=== PATIENT | female | born 1975 | race Caucasian/White ===

== ENCOUNTER → 2019-08-02 13:26 | Outpatient (BNVA) | payer MEDICARE, MEDICAID, SELFPAY | PROVIDERS: Family Provider Nurse Practitioner Family; PCP Nurse Practitioner Family; Visit Provider Nurse Practitioner | DX: M25.512 Pain in left shoulder (principal); G89.29 Other chronic pain | CPT/HCPCS: 73030 ==

== ENCOUNTER 2019-09-27 14:04 | Outpatient (CLI) | payer MEDICARE, MEDICAID, SELFPAY ==
--- NOTE | 2019-09-27 14:00 | CT_ITS ---
WS: [id number] CT scan of the left shoulder. Additional two-dimensional coronal and sagittal reconstruction was perf ormed. MIP images were also performed. 09/27/2019 Clinical Data: chronic left shoulder pain Comparison: Left shoulder, 08/02/2019 DLP: 651.[address] scans at [facility] use at least one of these dose optimization techniques: automat ed exposure control; mA and/or kV adjustment per patient size (includes targeted exams where dose is matched to clinical indication); or iterative reconstruction. Findings: The humeral head is normal. The articulation between the glenoid fossa and humeral head shows no abno rmalities. No narrowing, sclerosis, erosion or cyst formation is seen. The AC joint is normal. The le ft clavicle, left scapula and adjacent left ribs are unremarkable. The visualized left lung shows no abnormalities. The subcutaneous tissues are normal. CT/CT shoulder LT wo con* [id number] Impression: Negative CT scan of the left shoulder.
== END 2019-09-27 14:05 | disposition home or self-care (01) ==
LOC: RADWPI 14:10
PROVIDERS: Family Provider Nurse Practitioner Family; PCP Nurse Practitioner Family; Visit Provider Nurse Practitioner Family
DX: M25.512 Pain in left shoulder (principal); M25.612 Stiffness of left shoulder, not elsewhere classified; G89.29 Other chronic pain
CPT/HCPCS: 73200

== ENCOUNTER → 2019-10-04 15:17 | Outpatient (BNVA) | payer MEDICARE, MEDICAID, SELFPAY | PROVIDERS: Family Provider Nurse Practitioner Family; PCP Nurse Practitioner Family; Visit Provider Nurse Practitioner Family | DX: J44.1 Chronic obstructive pulmonary disease with (acute) exacerbation (principal); R05 Cough | CPT/HCPCS: 71046; 85025; 87400 ==

== ENCOUNTER 2019-10-25 16:11 | Inpatient (IN) | payer MEDICARE, MEDICAID, SELFPAY ==
[2019-10-25] VITALS (11 sets, daily range): BP systolic 94–122; BP diastolic 60–78; PULSE 80–120; RESP 18–32; TEMP 36.6; O2SAT 76–97; BMI 22.9
--- NOTE | 2019-10-25 16:28 | XR_ITS ---
WS: [id number] PORTABLE CHEST HISTORY: cough COMPARISON: 10/04/2019 Mild pulmonary hyperexpansion. No pneumonia. Normal vasculature. No pleural effusion or pneumothorax. Cardiac size: Normal. Mediastinum/Aorta: Normal mediastinum. No osseous abnormality seen. Dorsal column stimulator over the mid thoracic spine is unchanged. XR/XR chest 1V portable [id number] IMPRESSION: Chronic emphysema with no pneumonia.
--- NOTE | 2019-10-25 16:29 | ECG_ITS ---
Measurements Intervals [place] Rate: 101 P: 73 VT: 365 QRS: 69 QRSD: 88 T: 66 QT: 341 QTc: 442 ELECTRONIC ATRIAL PACEMAKER ELECTRONIC VENTRICULAR PACEMAKER ABNORMAL RHYTHM ECG Compared to ECG 11/03/2017 14:30:26 Sinus tachycardia no longer present T-wave abnormality no longer present Electronically Signed On 10-25-2019 19:07:07 CDT by Elan Silva M.D. [email or web address]
--- NOTE | 2019-10-25 16:37 | ED_ITS ---
HPI - SOB/Dyspnea General: Chief Complaint: Shortness of Breath/Dyspnea Stated Complaint: SHORT OF BREATH Time Seen by Provider: 10/25/19 16:21 History of Present Illness: HPI Narrative: Libby is a nice 44-year-old female who comes in stating that she has been short of breath for the past month. She states that she has had a bronchitis that she and her have passed back and forth. She denies any chest pain. She denies fever. She denies any exposures to the pandemic we have locally of COVID-19. She otherwise states she has no complaints she just needs to help getting her to where she can stop wheezing and breathe better. Associated symptoms: Deny abdominal pain, chest pain, diaphoresis, dizziness, extremity pain, fever(s), hemoptysis, nausea, orthopnea, palpitations, polydipsi a, syncope or vomiting Review of Systems General: Reports: other (negative unless marked) Const: Denies: fever, chills, body aches, fatigue, malaise or diaphoresis Eyes: Denies: change in vision or blurry vision ENMT: Denies: throat pain, painful swallowing, hoarseness, ear pain, ear discharge, Change in hearing or nasal discharge Card: Denies: chest pain, palpitations, irregular heart rhythm, syncope, pre- syncope, shortness of breath on exertion or shortness of breath when lying down Resp: Reports: shortness of breath, productive cough, non-productive cough, wheezing and change in phlegm color; Denies: coughing up blood GI: Denies: abdominal pain, nausea, vomiting, vomiting blood, coffee grounds in vomit, diarrhea, constipation, cramping, blood in stool or black tarry stool : Denies: flank pain, painful urination, urinary frequency, urinary urgency, decreased urine ouput, urinary incontinence or blood in urine Musc: Denies: neck pain, back pain, extremity pain, extremity swelling, joint pain, joint swelling, joint warmth or joint stiffness Skin/Breast: Denies: rash, skin tenderness or yellow skin Neuro: Denies: headache, numbness in extremities, weakness in extremities, changes in sensation, lack of coordination, difficulty walking, dizziness, vertigo or confusion Endo: Denies: excessive thirst, tired all the time, cold intolerance, excessive sweating, flushing or hot flashes Tre/Lymph: Denies: easy bruising, easy bleeding, petechiae or enlarged lymph nodes All/Imm: Denies: hives, throat swelling, tongue swelling, facial swelling or acute wheezing PFSH ED PFSH: Medical History (Updated 10/25/19 @ 20:11 by Roro Whitaker) Anxiety and depression Arthritis Asthma Atopic dermatitis, mild Chronic nausea COPD (chronic obstructive pulmonary disease) Degenerative lumbar disc GERD (gastroesophageal reflux disease) History of left foot drop Lumbosacral radiculitis Migraines Obstructive sleep apnea Scoliosis Social History Smoking and tobacco status: current every day smoker Alcohol intake: never Lives independently: Yes Household members: children Housing: House Marital status: Legally Physical Exam Const: COMMON NORMALS: no apparent distress, oriented x3, no limitations, healthy appearing and well nourished EXAM LIMITATIONS: no altered mental status GENERAL APPEARANCE: cooperative, well kempt and well developed ORIENTATION/CONSCIOUSNESS: Yes awake HENMT: COMMON NORMALS: normocephalic, head/scalp atraumatic, hearing grossly normal bilaterally, external ears normal, EAC's normal, external nose normal and moist oral mucous membranes HEAD & SCALP: normal to inspection, normocephalic and atraumatic FACE & SINUS: normal facial exam and face symmetric NOSE: external nose normal and nares normal EXTERNAL EAR: Yes external ears normal EXTERNAL AUDITORY CANAL: EAC's normal MOUTH: oral and palatal mucosa normal and tongue normal Eye: COMMON NORMALS: PERRL, EOMs intact bilaterally, conjunctivae normal and no scleral icterus GENERAL EYE: normal appearance of both eyes and normal light reflex CONJUNCTIVA: Yes conjunctivae normal SCLERA: sclerae normal CORNEA: Yes corneas normal PUPIL: Yes PERRL DIRECT OPHTHALMOSCOPY: Yes normal light reflex Neck/C-Spine: COMMON NORMALS: full ROM, no lymphadenopathy, supple, no meningeal signs and no JVD GENERAL: Yes normal visual inspection and Yes trachea midline CERVICAL SPINE: Yes cervical ROM normal Chest: COMMONS NORMALS: inspection of chest normal and palpation of chest normal Resp: EFFORT & INSPECTION: Yes tachypneic, Yes respiratory distress, Yes actively coughing, Yes uses accessory muscles and Yes audible wheezes Cardio: COMMON NORMALS: no JVD, regular rate, regular rhythm, S1 normal heart sound, S2 normal heart sound, no gallops, no clicks, no murmurs and no rub JUGULAR VENOUS DISTENTION: no JVD RATE: regular rate RHYTHM: regular rhythm HEART SOUNDS: S1 normal and S2 normal GI: COMMON NORMALS: soft to palpation, non-tender, no hepatosplenomegaly and no masses INSPECTION: Yes normal to inspection PALPATION: Yes soft and Yes no hepatosplenomegaly : COMMON NORMALS: Yes no CVA tenderness BLADDER/KIDNEY EXAM: Yes no CVA tenderness Back/Pelvis: COMMON NORMALS: no CVA tenderness, thoracic and lumbar spine normal to inspection, no thoracic nor lumbar tenderness and thoraco-lumbar ROM normal Extremity: COMMON NORMALS: normal to inspection, full ROM, normal capillary refill, no joint enlargement, no clubbing, cyanosis or edema and no calf tenderness Neuro: COMMON NORMALS: oriented x3, CN's II-XII intact bilaterally, moves all extremities, no focal motor deficits and no sensory deficits noted MENINGEAL SIGNS: Yes no meningeal signs Psych: COMMON NORMALS: mental status grossly normal, thought process normal, cooperative, affect normal, speech normal and activity/motor behavior normal APPEARANCE: Yes well kempt SPEECH: Yes normal speech THOUGHT PROCESS: normal thought process Skin: COMMON NORMALS: no rashes or lesions noted, skin turgor normal, no jaundice, no petechiae and no mottling GENERAL SKIN EXAM: no rashes or lesions noted and turgor normal Course Vital Signs: Vital signs: Vital Signs Pulse Rate 94 10/25/19 19:48 Respiratory Rate 20 H 10/25/19 19:48 Blood Pressure 109/72 10/25/19 19:48 Pulse Oximetry 97 10/25/19 19:48 MDM - SOB/Dyspnea MDM Narrative: Medical decision making narrative: Patient overall is doing better after treatment. Dr. Murillo wants to see the patient before deciding whether or not to put her on BiPAP. Further care will be dictated by him and is turned over at this time. Lab Data: Labs: Lab Results 10/25/19 10/25/19 10/25/19 Range/Units 16:50 16:50 16:50 WBC 16.8 H (4.0-10.0) 10^3/ uL RBC 5.26 (4.1-5.3) 10^6/u L Hgb 17.5 H (11.5-15.3) g/dL Hct 54.3 H (37.0-47.0) % MCV 103.2 H (81-99) fL MCH 33.3 (28.0-34.0) pg MCHC 32.2 (30.0-36.0) g/dL RDW 13.6 (12.1-15.1) % Plt Count 196 (130-400) 10^3/c mm MPV 10.5 H (7.4-10.4) fL Neut % (Auto) 86.6 % Lymph % (Auto) 6.1 % [place] % (Auto) 6.4 % Eos % (Auto) 0.2 % Baso % (Auto) 0.2 % Neut # (Auto) 14.5 H (1.8-7.7) 10^3/u L Lymph # (Auto) 1.0 (0.8-4.8) 10^3/u L [place] # (Auto) 1.1 H (0.2-0.9) 10^3/u L Eos # (Auto) 0.0 (0.0-0.8) 10^3/u L Baso # (Auto) 0.0 (0.0-0.1) 10^3/u L Nucleated RBC % (a uto) 0 % Nucleated RBCs # 0.0 /100WBC Specimen Type Sample Site ABG pH (7.35-7.45) ABG pCO2 (35-45) mmHg ABG pO2 (80.0-100.0) mmH g ABG HCO3 (22-26) mmol/L ABG Base Excess (-2.0-2.0) mmol/ L Lb Test Hematocrit (37-47) % O2 Delivery Device O2 Liters/Min % Hand Packer ID Sodium 140 (136-145) mmol/L Potassium 3.6 (3.5-5.1) mmol/L Chloride 100 (98-107) mmol/L Carbon Dioxide 27 (22-29) mmol/L Anion Gap 16.6 (5-19) BUN 6 (6-20) mg/dL Creatinine 0.5 (0.5-0.9) mg/dL GFR Calculation 135.3 H (90-130) mL/min Glucose 120 H (65-115) mg/dL Calculated Osmolal ity 287 (285-295) mOsm/k g Calcium 9.8 (8.5-10.5) mg/dL Magnesium 1.6 L (1.7-2.3) mg/dL Total Bilirubin 0.5 (0.15-1.2) mg/dL AST 9 (0-32) U/L ALT 9 (0-33) U/L Alkaline Phosphata se 77 (35-105) IU/L Troponin T Baselin e (0-10) ng/mL Troponin T 120 Min [place] (0-10) ng/mL Delta Troponin T (0-10) ABS# Total Protein 6.9 (6.6-8.7) g/dL Albumin 3.8 (3.5-5.2) g/dL Globulin 3.1 (1.3-4.6) g/dL TSH (0.27-4.20) uIU/ mL HCG, Qual Positive H (Negative) Ser , Akanksha i-Qnt mIU/mL Urine Color (Yellow) Urine Appearance (CLEAR) Urine pH (5-7) Ur Specific Gravit y (1.005-1.030) Urine Protein (Negative) Urine Glucose (UA) (Normal) Urine Ketones (Negative) Urine Blood (Negative) Urine Nitrate (Negative) Urine Bilirubin (NEGATIVE) Urine Urobilinogen (Negative) mg/dL Ur Leukocyte Graciela ase (Negative) Urine RBC (0-2) /hpf Urine WBC (0-5) /hpf Ur Squamous Epith Cells (0-5) Amorphous Sediment Urine Bacteria (NONE) Urine Opiates Scre en (Negative) ng/mL Ur Barbiturates Sc reen (Negative) ng/mL Ur Phencyclidine S crn (Negative) ng/mL Ur Amphetamines Sc reen (Negative) ng/mL U Benzodiazepines Scrn (Negative) ng/mL Urine Cocaine Scre en (Negative) ng/mL U Marijuana (THC) Screen (Negative) ng/mL 10/25/19 10/25/19 10/25/19 Range/Units 16:50 17:15 17:50 WBC (4.0-10.0) 10^3/ uL RBC (4.1-5.3) 10^6/u L Hgb (11.5-15.3) g/dL Hct (37.0-47.0) % MCV (81-99) fL MCH (28.0-34.0) pg MCHC (30.0-36.0) g/dL RDW (12.1-15.1) % Plt Count (130-400) 10^3/c mm MPV (7.4-10.4) fL Neut % (Auto) % Lymph % (Auto) % [place] % (Auto) % Eos % (Auto) % Baso % (Auto) % Neut # (Auto) (1.8-7.7) 10^3/u L Lymph # (Auto) (0.8-4.8) 10^3/u L [place] # (Auto) (0.2-0.9) 10^3/u L Eos # (Auto) (0.0-0.8) 10^3/u L Baso # (Auto) (0.0-0.1) 10^3/u L Nucleated RBC % (a uto) % Nucleated RBCs # /100WBC Specimen Type Arterial Sample Site Radial, left ABG pH 7.34 L (7.35-7.45) ABG pCO2 58.1 H (35-45) mmHg ABG pO2 64.5 L (80.0-100.0) mmH g ABG HCO3 31.5 H (22-26) mmol/L ABG Base Excess 3.6 H (-2.0-2.0) mmol/ L Lb Test Pos Hematocrit 53.8 H (37-47) % O2 Delivery Device Nc O2 Liters/Min 4.0 % Hand Packer ID drn Sodium (136-145) mmol/L Potassium (3.5-5.1) mmol/L Chloride (98-107) mmol/L Carbon Dioxide (22-29) mmol/L Anion Gap (5-19) BUN (6-20) mg/dL Creatinine (0.5-0.9) mg/dL GFR Calculation (90-130) mL/min Glucose (65-115) mg/dL Calculated Osmolal ity (285-295) mOsm/k g Calcium (8.5-10.5) mg/dL Magnesium (1.7-2.3) mg/dL Total Bilirubin (0.15-1.2) mg/dL AST (0-32) U/L ALT (0-33) U/L Alkaline Phosphata se (35-105) IU/L Troponin T Baselin e 7 (0-10) ng/mL Troponin T 120 Min [place] (0-10) ng/mL Delta Troponin T (0-10) ABS# Total Protein (6.6-8.7) g/dL Albumin (3.5-5.2) g/dL Globulin (1.3-4.6) g/dL TSH (0.27-4.20) uIU/ mL HCG, Qual (Negative) Ser , Akanksha i-Qnt mIU/mL Urine Color Yellow (Yellow) Urine Appearance Clear (CLEAR) Urine pH 5 (5-7) Ur Specific Gravit y 1.020 (1.005-1.030) Urine Protein Neg (Negative) Urine Glucose (UA) Norm (Normal) Urine Ketones Negative (Negative) Urine Blood Neg (Negative) Urine Nitrate Negative (Negative) Urine Bilirubin 1+ H (NEGATIVE) Urine Urobilinogen 1 H (Negative) mg/dL Ur Leukocyte Graciela ase Negative (Negative) Urine RBC None (0-2) /hpf Urine WBC None (0-5) /hpf Ur Squamous Epith Cells 0-4 H (0-5) Amorphous Sediment 2+ Urine Bacteria 1+ H (NONE) Urine Opiates Scre en (Negative) ng/mL Ur Barbiturates Sc reen (Negative) ng/mL Ur Phencyclidine S crn (Negative) ng/mL Ur Amphetamines Sc reen (Negative) ng/mL U Benzodiazepines Scrn (Negative) ng/mL Urine Cocaine Scre en (Negative) ng/mL U Marijuana (THC) Screen (Negative) ng/mL 10/25/19 10/25/19 10/25/19 Range/Units 17:50 18:10 19:13 WBC (4.0-10.0) 10^3/ uL RBC (4.1-5.3) 10^6/u L Hgb (11.5-15.3) g/dL Hct (37.0-47.0) % MCV (81-99) fL MCH (28.0-34.0) pg MCHC (30.0-36.0) g/dL RDW (12.1-15.1) % Plt Count (130-400) 10^3/c mm MPV (7.4-10.4) fL Neut % (Auto) % Lymph % (Auto) % [place] % (Auto) % Eos % (Auto) % Baso % (Auto) % Neut # (Auto) (1.8-7.7) 10^3/u L Lymph # (Auto) (0.8-4.8) 10^3/u L [place] # (Auto) (0.2-0.9) 10^3/u L Eos # (Auto) (0.0-0.8) 10^3/u L Baso # (Auto) (0.0-0.1) 10^3/u L Nucleated RBC % (a uto) % Nucleated RBCs # /100WBC Specimen Type Sample Site ABG pH (7.35-7.45) ABG pCO2 (35-45) mmHg ABG pO2 (80.0-100.0) mmH g ABG HCO3 (22-26) mmol/L ABG Base Excess (-2.0-2.0) mmol/ L Lb Test Hematocrit (37-47) % O2 Delivery Device O2 Liters/Min % Hand Packer ID Sodium (136-145) mmol/L Potassium (3.5-5.1) mmol/L Chloride (98-107) mmol/L Carbon Dioxide (22-29) mmol/L Anion Gap (5-19) BUN (6-20) mg/dL Creatinine (0.5-0.9) mg/dL GFR Calculation (90-130) mL/min Glucose (65-115) mg/dL Calculated Osmolal ity (285-295) mOsm/k g Calcium (8.5-10.5) mg/dL Magnesium (1.7-2.3) mg/dL Total Bilirubin (0.15-1.2) mg/dL AST (0-32) U/L ALT (0-33) U/L Alkaline Phosphata se (35-105) IU/L Troponin T Baselin e (0-10) ng/mL Troponin T 120 Min [place] 6.71 (0-10) ng/mL Delta Troponin T -0.29 L (0-10) ABS# Total Protein (6.6-8.7) g/dL Albumin (3.5-5.2) g/dL Globulin (1.3-4.6) g/dL TSH (0.27-4.20) uIU/ mL HCG, Qual (Negative) Ser , Akanksha i-Qnt 6.43 mIU/mL Urine Color (Yellow) Urine Appearance (CLEAR) Urine pH (5-7) Ur Specific Gravit y (1.005-1.030) Urine Protein (Negative) Urine Glucose (UA) (Normal) Urine Ketones (Negative) Urine Blood (Negative) Urine Nitrate (Negative) Urine Bilirubin (NEGATIVE) Urine Urobilinogen (Negative) mg/dL Ur Leukocyte Graciela ase (Negative) Urine RBC (0-2) /hpf Urine WBC (0-5) /hpf Ur Squamous Epith Cells (0-5) Amorphous Sediment Urine Bacteria (NONE) Urine Opiates Scre en Positive H (Negative) ng/mL Ur Barbiturates Sc reen Negative (Negative) ng/mL Ur Phencyclidine S crn Negative (Negative) ng/mL Ur Amphetamines Sc reen Negative (Negative) ng/mL U Benzodiazepines Scrn Negative (Negative) ng/mL Urine Cocaine Scre en Negative (Negative) ng/mL U Marijuana (THC) Screen Negative (Negative) ng/mL 10/25/19 Range/Units 19:13 WBC (4.0-10.0) 10^3/ uL RBC (4.1-5.3) 10^6/u L Hgb (11.5-15.3) g/dL Hct (37.0-47.0) % MCV (81-99) fL MCH (28.0-34.0) pg MCHC (30.0-36.0) g/dL RDW (12.1-15.1) % Plt Count (130-400) 10^3/c mm MPV (7.4-10.4) fL Neut % (Auto) % Lymph % (Auto) % [place] % (Auto) % Eos % (Auto) % Baso % (Auto) % Neut # (Auto) (1.8-7.7) 10^3/u L Lymph # (Auto) (0.8-4.8) 10^3/u L [place] # (Auto) (0.2-0.9) 10^3/u L Eos # (Auto) (0.0-0.8) 10^3/u L Baso # (Auto) (0.0-0.1) 10^3/u L Nucleated RBC % (a uto) % Nucleated RBCs # /100WBC Specimen Type Sample Site ABG pH (7.35-7.45) ABG pCO2 (35-45) mmHg ABG pO2 (80.0-100.0) mmH g ABG HCO3 (22-26) mmol/L ABG Base Excess (-2.0-2.0) mmol/ L Lb Test Hematocrit (37-47) % O2 Delivery Device O2 Liters/Min % Hand Packer ID Sodium (136-145) mmol/L Potassium (3.5-5.1) mmol/L Chloride (98-107) mmol/L Carbon Dioxide (22-29) mmol/L Anion Gap (5-19) BUN (6-20) mg/dL Creatinine (0.5-0.9) mg/dL GFR Calculation (90-130) mL/min Glucose (65-115) mg/dL Calculated Osmolal ity (285-295) mOsm/k g Calcium (8.5-10.5) mg/dL Magnesium (1.7-2.3) mg/dL Total Bilirubin (0.15-1.2) mg/dL AST (0-32) U/L ALT (0-33) U/L Alkaline Phosphata se (35-105) IU/L Troponin T Baselin e (0-10) ng/mL Troponin T 120 Min [place] (0-10) ng/mL Delta Troponin T (0-10) ABS# Total Protein (6.6-8.7) g/dL Albumin (3.5-5.2) g/dL Globulin (1.3-4.6) g/dL TSH 0.36 (0.27-4.20) uIU/ mL HCG, Qual (Negative) Ser , Akanksha i-Qnt mIU/mL Urine Color (Yellow) Urine Appearance (CLEAR) Urine pH (5-7) Ur Specific Gravit y (1.005-1.030) Urine Protein (Negative) Urine Glucose (UA) (Normal) Urine Ketones (Negative) Urine Blood (Negative) Urine Nitrate (Negative) Urine Bilirubin (NEGATIVE) Urine Urobilinogen (Negative) mg/dL Ur Leukocyte Graciela ase (Negative) Urine RBC (0-2) /hpf Urine WBC (0-5) /hpf Ur Squamous Epith Cells (0-5) Amorphous Sediment Urine Bacteria (NONE) Urine Opiates Scre en (Negative) ng/mL Ur Barbiturates Sc reen (Negative) ng/mL Ur Phencyclidine S crn (Negative) ng/mL Ur Amphetamines Sc reen (Negative) ng/mL U Benzodiazepines Scrn (Negative) ng/mL Urine Cocaine Scre en (Negative) ng/mL U Marijuana (THC) Screen (Negative) ng/mL Imaging Data^: CXR: My impression: No acute cardiopulmonary findings. EKG Data^: EKG 1: Attestation: I personally reviewed and interpreted this EKG as follows: EKG Interpretation Date: 10/25/19 EKG interpretation time: 16:40 Interpretation: Normal sinus rhythm at 101 beats a minute, defect present consistent with implantable electronic device. Discharge Plan Discharge Patient Disposition: Placed in Observation Clinical Impression: Acute exacerbation of chronic obstructive airways disease Condition: Stable Prescriptions: No Action Amitiza 24 mcg capsule 24 mcg PO BID RF: 0 benzonatate 200 mg capsule 200 mg PO TID PRN (Reason: Cough) RF: 0 budesonide 0.5 mg/2 mL suspension for nebulization 0.5 mg inhalation BID RF: 0 buspirone 15 mg tablet 15 mg PO BID RF: 0 venlafaxine [Effexor XR] 75 mg capsule,extended release 24hr 75 mg PO DAILY RF: 0 montelukast 10 mg tablet 10 mg PO DAILY RF: 0 pantoprazole 40 mg tablet,delayed release (DR/EC) 40 mg PO DAILY RF: 0 Perforomist 20 mcg/2 mL solution for nebulization 2 ml INHALATION BID RF: 0 albuterol sulfate [ProAir HFA] 90 mcg/actuation HFA aerosol inhaler 2 puff INHALATION Q4H PRN (Reason: Shortness Of Breath) RF: 0 Spiriva with HandiHaler 18 mcg capsule, w/inhalation device 1 cap INHALATION DAILY RF: 0 ondansetron HCl [Zofran] 8 mg tablet 8 mg PO Q8H PRN (Reason: Nausea) RF: 0 morphine 30 mg capsule, ER multiphase 24 hr 30 mg PO DAILY RF: 0 morphine 60 mg capsule, ER multiphase 24 hr 60 mg PO BID RF: 0 oxycodone-acetaminophen [Percocet] 7.5-325 mg tablet 1 tab PO QID PRN (Reason: Pain) RF: 0 promethazine-DM 6.25-15 mg/5 mL syrup 5 ml PO Q6H PRN (Reason: cough) Qty: 240 RF: 0 gabapentin 600 mg tablet 600 mg PO QID 30 Days Qty: 120 RF: 5 albuterol sulfate 2.5 mg /3 mL (0.083 %) Solution For Nebulization 2.5 mg inhalation PRN RF: 0 prednisone 20 mg Tablet 20 mg PO BID RF: 0 Excedrin Migraine 250-250-65 mg Tablet 1 - 2 tab PO PRN RF: 0 Tylenol Extra Strength 500 - 1,500 mg PO PRN RF: 0 Referrals: Heide Dhillon FNP-C [Primary Care Provider] - Coding Level of Care Code ED Hot Wound [place] Production Supervisor for Chg Fwd Exam Comprehensive
[2019-10-25 17:04] LABS: Basophils % 0.2 %; Eosinophils % 0.2 %; Hematocrit 54.3 % (37.0-47.0); Hemoglobin 17.5 g/dL (11.5-15.3); Lymphocytes % 6.1 %; Mean Corpuscular HGB Conc 32.2 g/dL (30.0-36.0); Mean Corpuscular Hemoglobin 33.3 pg (28.0-34.0); Mean Corpuscular Volume 103.2 fL (81-99); Mean Platelet Volume 10.5 fL (7.4-10.4); Monocytes # 1.1 10^3/uL (0.2-0.9); Monocytes % 6.4 %; Neutrophils # 14.5 10^3/uL (1.8-7.7); Neutrophils % 86.6 %; Nucleated Red Blood Cells % 0 %; Platelet Count 196 10^3/cmm (130-400); Red Blood Count 5.26 10^6/uL (4.1-5.3); Red Cell Distribution Width 13.6 % (12.1-15.1); White Blood Count 16.8 10^3/uL (4.0-10.0)
[2019-10-25 17:19] LABS: HCG, Serum Qual Positive (Negative)
[2019-10-25 17:26] LABS: Alanine Aminotransferase 9 U/L (0-33); Albumin Level 3.8 g/dL (3.5-5.2); Alkaline Phosphatase 77 IU/L (35-105); Anion Gap 16.6 (5-19); Aspartate Amino Transferase 9 U/L (0-32); Blood Urea Nitrogen 6 mg/dL (6-20); Calcium 9.8 mg/dL (8.5-10.5); Carbon Dioxide 27 mmol/L (22-29); Chloride 100 mmol/L (98-107); Globulin 3.1 g/dL (1.3-4.6); Glomerular Filtration Rate 135.3 mL/min (90-130); Glucose 120 mg/dL (65-115); Magnesium 1.6 mg/dL (1.7-2.3); Osmolality Calculated 287 mOsm/kg (285-295); Potassium 3.6 mmol/L (3.5-5.1); Sodium 140 mmol/L (136-145); Total Bilirubin 0.5 mg/dL (0.15-1.2); Total Protein 6.9 g/dL (6.6-8.7); Troponin(5th) Baseline 7 ng/mL (0-10)
[2019-10-25 17:33] LABS: ABG PCO2 58.1 mmHg (35-45); ABG PH Result 7.34 (7.35-7.45); Arterial Blood Gas Hematocrit 53.8 % (37-47); Base Excess ABG 3.6 mmol/L (-2.0-2.0); Blood Gas Allen Test Pos; Blood Gas Sample Site Radial, left; Blood Gas Sample Type Arterial; HCO3 ABG 31.5 mmol/L (22-26); Oxygen Device NC; PO2 ABG 64.5 mmHg (80.0-100.0)
[2019-10-25] MEDS: magnesium sulfate premix 2 GM/50 ML PIGGYBACK IV (18:12)
[2019-10-25 18:29] LABS: Amphetamines Screen Urine Negative (Negative); Barbiturates Screen Urine Negative (Negative); Benzodiazepines Screen Urine Negative (Negative); Cocaine Screen Urine Negative (Negative); Opiate Screen Urine Positive (Negative); PCP Screen Urine Negative (Negative); THC Screen Urine Negative (Negative)
--- NOTE | 2019-10-25 18:29 | ECG_ITS ---
Measurements Intervals [place] Rate: 106 P: 253 [place]: 217 QRS: 63 QRSD: 85 T: 45 QT: 316 QTc: 421 Possibly SINUS tachycardia Interpretation limited by artifact Compared to ECG 10/25/2019 16:40:57 No significant changes Electronically Signed On 10-26-2019 11:11:07 CDT by Hiwot Muniz M.D. [email or web address]
[2019-10-25 18:37] LABS: Bilirubin Urine 1+ (NEGATIVE); Blood Urine Neg (Negative); Glucose Urine UA Norm (Normal); Ketones Urine Negative (Negative); Leukocyte Esterase Urine Negative (Negative); Nitrate Urine Negative (Negative); Protein Urine Neg (Negative); Urine Appearance Clear (CLEAR); Urine Color Yellow (Yellow); Urobilinogen Urine 1 mg/dL (Negative); pH Urine 5 (5-7)
[2019-10-25 18:39] LABS: HCG Quantitative 6.43 mIU/mL
[2019-10-25 18:49] LABS: Add Urine Culture? No; Amorphous Sediment Urine 2+; Bacteria Urine 1+; Squamous Epithelial Cell Urine 0-4 (0-5)
[2019-10-25 19:42] LABS: Troponin 5 2HR 6.71 ng/mL (0-10)
[2019-10-25 19:43] LABS: Troponin 5 2HR Delta -0.29 ABS# (0-10)
[2019-10-25 19:50] LABS: Thyroid Stimulating Hormone 0.36 uIU/mL (0.27-4.20)
[2019-10-25 20:21] LABS: Follicle Stimulating Hormone 57.7 mIU/mL
--- NOTE | 2019-10-25 20:31 | PC.NURSE ---
attempted to call report but the nurse refused report untill she contacted the DrRaoul because the pt. has not been tested for covid-19
--- NOTE | 2019-10-25 20:36 | SUR.PREOP ---
PT refused the bipap. Pt states it's hard to breathe and my anxiety is high with it on. Dr. Whitaker and Dr. Murillo notified.
--- NOTE | 2019-10-25 20:56 | PM.HP ---
Providers/Chief Complaint Admitting Physician: Justice Murillo MD Primary Care Provider: REMI Lopes-Maddie Chief Complaint: SHORT OF BREATH History of Present Illness Paula Starr is a 44 year old female with a past medical history of COPD, 4 L oxygen dependent, uses what sounds like home trilogy, history of pulmonary embolism secondary to estrogen therapy, chronic back pain on multiple opiate medications, depression anxiety, who presents to the emergency room due to a 3-month history of cough, shortness of breath, wheezing. Patient states that since July of this year, she has had multiple COPD exacerbation, has been on multiple rounds of steroids, multiple rounds of antibiotics. Recently was on a steroid burst and doxycycline. Patient states that she continually has wheezing, shortness of breath, on a good day she can walk 10 to 15 feet before getting short of breath now just getting up and taking a few steps she gets short of breath, low-grade fevers temperature is 99.8, no travel, no known exposure to COVID19. Patient states that she has a chronic cough, white phlegm, states that she been coughing up more phlegm, no change in consistency or color, no hemoptysis, no calf pain, no calf swelling, no recent immobility, no recent surgeries. Patient states that her has been sick with some what sound like a viral URI, they have been passing it back and forth. No real fevers, no chills, no nausea, no vomiting, no chest pain, no palpitations. Review of Systems Const: Denies: fever, chills, fatigue or malaise Eyes: Denies: change in vision or blurry vision ENMT: Denies: nasal congestion Resp: Reports: shortness of breath and productive cough; Denies: non-productive cough or wheezing GI: Denies: abdominal pain, nausea, vomiting, vomiting blood, diarrhea, constipation, blood in stool or black tarry stool : Denies: flank pain, painful urination or urinary frequency Musc: Denies: neck pain or back pain Skin/Breast: Denies: rash Neuro: Denies: headache, dizziness or vertigo Psych: Denies: anxiety or depression Endo: Denies: excessive urination or excessive thirst Medications/Allergies Home Medications Medication Instructions Recorded Confirmed Last Taken Type Tylenol Extra Strength 500 - 1,500 mg PO PRN 10/25/19 10/25/19 Unknown History albuterol sulfate 2.5 mg INHALATION PRN 10/25/19 10/25/19 Unknown History clgbgha-hbudnhmxweier-oujxnxoa 1 - 2 tab PO PRN 10/25/19 10/25/19 Unknown History [Excedrin Migraine] prednisone 20 mg PO BID 10/25/19 10/25/19 10/25/19 History Allergies Allergy/AdvReac Type Severity Reaction Status Date / Time estrogens, conjugated Allergy Severe blood clots Verified 10/25/19 16:28 [From Premarin] Fish Containing Products Allergy Unknown unknown Verified 10/25/19 16:28 NSAIDS (Non-Steroidal Allergy stomach Verified 10/25/19 16:28 Anti-Inflamma bleeds Additional Medication Information Additional Medication Information: Albuterol Excedrin Tessalon Perles 20 mg 3 times daily as needed Budesonide 0.5 mg inhalation twice daily BuSpar 15 mg twice daily Form Adderall Gabapentin 600 mg 4 times daily Amities 24 mcg twice daily Singulair 10 mg daily Morphine 60 mg IR in the morning in the evening Morphine 30 mg in the afternoon Percocet 325 7.5 4 times daily Pantoprazole 40 mg once daily promethazine PFSH Acute PFSH: Medical History (Updated 10/25/19 @ 21:07 by Justice Murillo MD) Anxiety and depression Arthritis Asthma Atopic dermatitis, mild Chronic nausea COPD (chronic obstructive pulmonary disease) Degenerative lumbar disc GERD (gastroesophageal reflux disease) History of left foot drop Lumbosacral radiculitis Migraines Obstructive sleep apnea Scoliosis Social History Smoking and tobacco status: current every day smoker Alcohol intake: never Lives independently: Yes Household members: children Housing: House Marital status: Legally Vitals/I&O/Wt Last Vital Signs Pulse 94 10/25/19 19:48 Resp 20 H 10/25/19 19:48 BP 109/72 10/25/19 19:48 Pulse Ox 97 10/25/19 19:48 Weight last 48 hrs Weight 62.596 kg Physical Exam Const: COMMON NORMALS: no apparent distress and oriented x3 GENERAL APPEARANCE: cooperative and comfortable HENMT: COMMON NORMALS: normocephalic HEAD & SCALP: normocephalic Eye: COMMON NORMALS: PERRL, EOMs intact bilaterally and no papilledema GENERAL EYE: normal appearance of both eyes PUPIL: Yes PERRL DIRECT OPHTHALMOSCOPY: Yes no papilledema Neck/C-Spine: COMMON NORMALS: full ROM, no lymphadenopathy, no JVD and thyroid normal THYROID: thyroid normal Lymph: LYMPHATIC: no lymphadenopathy noted Resp: COMMON NORMALS: normal respiratory effort, no retractions and no use of accessory muscles AUSCULTATION: clear to auscultation bilaterally and wheezes Cardio: COMMON NORMALS: no JVD, regular rate, regular rhythm, S1 normal heart sound, S2 normal heart sound, no gallops, no clicks and no murmurs RATE: regular rate RHYTHM: regular rhythm HEART SOUNDS: S1 normal and S2 normal GI: COMMON NORMALS: normal to inspection, nondistended, normoactive bowel sounds, soft to palpation, non-tender and no hepatosplenomegaly PALPATION: Yes soft and Yes no hepatosplenomegaly Extremity: COMMON NORMALS: normal to inspection, full ROM and no pedal edema Neuro: COMMON NORMALS: oriented x3, CN's II-XII intact bilaterally, moves all extremities and no focal motor deficits Psych: COMMON NORMALS: mental status grossly normal, thought process normal and cooperative THOUGHT PROCESS: normal thought process Data : 10/25/19 16:50 10/25/19 16:50 A&P Assessment and plan (1) Acute on chronic respiratory failure with hypoxia and hypercapnia: -Uses 4 L oxygen at home, home trilogy -She is on multiple opiate medications for back pain -Has failed multiple rounds of antibiotic and steroid therapies for the last few months -pH 7.34, PCO2 50.1, PO2 64.5, bicarb 31.5 on 4 L -White blood cell count 16.8, neutrophilic 14.5, but has been on multiple rounds of antibiotics -Chest x-ray does not show focal pneumonia Plan: -We will do covid19 testing although I feel it is quite unlikely -We will order CT angiogram of the chest to rule out pulmonary embolism -Solu-Medrol 40 every 8 hours -Azithromycin and Rocephin mainly for anti-inflammatory effect -Ipratropium every 4 scheduled -BiPAP as needed during the day, BiPAP during the night -Sputum cultures, blood cultures Status: Acute (2) Acute exacerbation of chronic obstructive airways disease: Status: Acute (3) Lumbosacral radiculitis: Status: Chronic (4) COPD (chronic obstructive pulmonary disease): Status: Acute Qualifiers: COPD type: unspecified COPD Qualified Code(s): J44.9 - Chronic obstructive pulmonary disease, unspecified (5) Chronically on opiate therapy: -Has chronic back pain, history of back surgeries Morphine 60 mg in the morning, and in the evening, 30 mg in the afternoon -Percocet 7.5 mg 4 times daily -Gabapentin 600 mg 4 times daily -Effexor 75 mg once daily -Managed to the pain clinic in [facility] Status: Acute (6) Anxiety and depression: -Continue BuSpar Status: Acute (7) Elevated serum hCG in female, not : -Positive hCG -Status post hysterectomy -Possibly secondary to promethazine use -Possibly secondary to hypothyroidism, TSH pending -Possibly secondary to pituitary tumor, FSH LH ordered -Possibly secondary to ovarian tumors, pelvic ultrasound ordered - Likely secondary to postmenopausal state Status: Acute Additional A&P Information Patient is a full code, Lovenox for DVT prophylaxis Attestations Medical Necessity Statement*: Patient requires hospitalization, inpatient, greater than 2 midnights for acute hypoxic hypercarbic respiratory failure Coding Level of Care Code Acute Automatic Lathe Setter for Chg Fwd Diagnoses Acute on chronic respiratory failure with hypoxia and hypercapnia J96.21; J96.22 Acute exacerbation of chronic obstructive airways disease J44.1 Lumbosacral radiculitis M54.17 COPD (chronic obstructive pulmonary disease) J44.9 COPD type: unspecified COPD Chronically on opiate therapy Z79.891 Anxiety and depression F41.9; F32.9 Elevated serum hCG in female, not E34.9
--- NOTE | 2019-10-25 22:01 | CTR_ITS ---
PROCEDURE INFORMATION: Exam: CT Angiography Chest With Contrast Exam date and time: 10/25/2019 10:12 PM Age: 44 years old Clinical indication: Cough and dyspnea; Additional info: SOB TECHNIQUE: Imaging protocol: Computed tomographic angiography of the chest with intravenous contrast. 3D rendering: MIP and/or 3D reconstructed images were created by the technologist. Total DLP: 519.38 mGy-cm Radiation optimization: All CT scans at this facility use at least one of these dose optimization techniques: automated exposure control; mA and/or kV adjustment per patient size (includes targeted exams where dose is matched to clinical indication); or iterative reconstruction. Contrast material: OMNI 350; Contrast volume: 67 ml; Contrast route: IV; COMPARISON: CTA Chest-Pulmonary Emb [id number] 04/24/2014 9:39 AM FINDINGS: Tubes, catheters and devices: Dorsal epidural stimulator device at the lower thoracic levels. Pulmonary arteries: Normal. No pulmonary emboli. Aorta: The thoracic aorta is normal caliber. No aneurysm or dissection is seen. Lungs: Centrilobular emphysematous changes are noted. Atelectasis or parenchymal scarring is seen at both lung bases. Pneumonitis cannot be excluded. Pleural space: No pleural effusion. Heart: Unremarkable. No cardiomegaly. No pericardial effusion. Lymph nodes: Prominent hilar lymph nodes bilaterally, unchanged compared to prior study. Bones/joints: Unremarkable. No acute fracture. CT/CT angio chest PE protcl [id number] IMPRESSION: 1. Emphysema. 2. Atelectasis or parenchymal scarring at both lung bases. Pneumonitis cannot be excluded. 3. Prominent hilar lymph nodes bilaterally, unchanged compared to previous study. Radiation Dose CTDIVOL = (mGy): DLP = 519.38 (mGy-cm)
[2019-10-25] MEDS: iohexol 350 mg/mL 100 mL Btl IV (22:33)
--- NOTE | 2019-10-25 22:33 | PC.NURSE ---
Pt arrived to room 111 at this time, O2 per nasal canula and N95 mask in place. Pt is alert and oriented x4. Introduction of staff and AIDET at this time. Pt oriented to room, bed, tv and call light systems. Ambulated to bed per self without difficulty.
[2019-10-25 22:43] LABS: Influenza A by IFA Negative (Negative); Influenza B by IFA Negative (Negative)
[2019-10-25 23:17] LABS: NT Pro B Type Natriuretic Pept 238 pg/mL (0-125)
[2019-10-25 23:18] LABS: Troponin 5 6HR 6 ng/mL (0-10); Troponin 5 6HR Delta -1 ng/L (0-12)
[2019-10-25] MEDS: benzonatate 100 mg Capsule 200 MG PO (23:56)
[2019-10-25] MEDS: azithromycin 500 MG in sodium chloride 0.9% 250 ML 250 MG IV (23:57)
[2019-10-25] MEDS: gabapentin 300 mg Capsule 600 MG PO (23:57)
[2019-10-25] MEDS: oxyCODONE-APAP 5-325 mg Tablet 1.5 TAB PO (23:58)
[2019-10-25] MEDS: enoxaparin 40 mg/0.4 mL Syringe SUBCUT (23:58)
[2019-10-26] VITALS (23 sets, daily range): BP systolic 80–121; BP diastolic 58–87; PULSE 71–129; RESP 16–25; TEMP 36.2–37.1; O2SAT 87–97
[2019-10-26] MEDS: albuterol 8 gm MDI 4 PUFF INHALATION ×3 (00:15→20:34)
[2019-10-26 01:27] LABS: Follicle Stimulating Hormone 53.4 mIU/mL; Luteinizing Hormone 32.2 mIU/mL (0.5-41.7); Procalcitonin 0.02 ng/mL (0-0.5)
[2019-10-26 01:44] LABS: C Reactive Protein 42.8 mg/L (0.0-4.9)
[2019-10-26] MEDS: morphine ER (12 HR) 30 mg tablet 60 MG PO ×2 (02:07→17:25)
[2019-10-26 02:49] LABS: HCG Qualitative Urine. Negative (Negative)
[2019-10-26 04:08] LABS: Basophils % 0.1 %; Hematocrit 49.5 % (37.0-47.0); Hemoglobin 15.8 g/dL (11.5-15.3); Lymphocytes # 0.6 10^3/uL (0.8-4.8); Lymphocytes % 4.6 %; Mean Corpuscular HGB Conc 31.9 g/dL (30.0-36.0); Mean Corpuscular Hemoglobin 32.6 pg (28.0-34.0); Mean Corpuscular Volume 102.3 fL (81-99); Mean Platelet Volume 10.6 fL (7.4-10.4); Monocytes # 0.5 10^3/uL (0.2-0.9); Monocytes % 4.2 %; Neutrophils # 11.7 10^3/uL (1.8-7.7); Neutrophils % 90.8 %; Nucleated Red Blood Cells % 0 %; Platelet Count 189 10^3/cmm (130-400); Red Blood Count 4.84 10^6/uL (4.1-5.3); Red Cell Distribution Width 13.5 % (12.1-15.1); White Blood Count 12.9 10^3/uL (4.0-10.0)
[2019-10-26 04:24] LABS: Chol HDL Ratio 3.18 mg/dL (0.0-4.40); Cholesterol 127 mg/dL (0-200); HDL Cholesterol 40 mg/dL (60-100); LDL Cholesterol Calculated 65 mg/dL (50-129); LDL HDL Ratio 1.63 RATIO (0.00-3.22); Triglycerides 111 mg/dL (0-150)
[2019-10-26 04:25] LABS: Alanine Aminotransferase 7 U/L (0-33); Albumin Level 3.5 g/dL (3.5-5.2); Alkaline Phosphatase 68 IU/L (35-105); Anion Gap 11.6 (5-19); Aspartate Amino Transferase 7 U/L (0-32); Blood Urea Nitrogen 11 mg/dL (6-20); Calcium 8.9 mg/dL (8.5-10.5); Carbon Dioxide 31 mmol/L (22-29); Chloride 102 mmol/L (98-107); Globulin 2.6 g/dL (1.3-4.6); Glomerular Filtration Rate 109.6 mL/min (90-130); Glucose 148 mg/dL (65-115); Magnesium 2.3 mg/dL (1.7-2.3); Osmolality Calculated 289 mOsm/kg (285-295); Phosphorus 2.6 mg/dL (2.5-4.5); Potassium 4.6 mmol/L (3.5-5.1); Sodium 140 mmol/L (136-145); Total Bilirubin 0.2 mg/dL (0.15-1.2); Total Protein 6.1 g/dL (6.6-8.7)
[2019-10-26 04:30] LABS: Estmated Average Glucose 134; Hemoglobin A1C 6.3 % (4.0-6.0)
[2019-10-26] MEDS: sodium chloride 0.9% 500 ML 999 ML IV (05:35)
[2019-10-26 05:49] LABS: ABG PCO2 56.8 mmHg (35-45); ABG PH Result 7.33 (7.35-7.45); Arterial Blood Gas Hematocrit 49.5 % (37-47); Base Excess ABG 2.4 mmol/L (-2.0-2.0); Blood Gas Allen Test Pos; Blood Gas Sample Site Brachial, right; Blood Gas Sample Type Arterial; Oxygen Device BIPAP; PO2 ABG 82.8 mmHg (80.0-100.0)
[2019-10-26] MEDS: cefTRIAXone 1,000 MG in sodium chloride 0.9% (plus) 50 ML 100 MG IV (08:07)
[2019-10-26] MEDS: gabapentin 300 mg Capsule 600 MG PO ×4 (08:13→21:36)
[2019-10-26] MEDS: montelukast sodium 10 mg Tablet PO (08:14)
[2019-10-26] MEDS: pantoprazole DR 40 mg Tablet PO (08:15)
[2019-10-26] MEDS: venlafaxine ER (24HR) 75 mg Capsule PO (08:15)
[2019-10-26] MEDS: oxyCODONE-APAP 5-325 mg Tablet 1.5 TAB PO ×3 (09:00→21:49)
--- NOTE | 2019-10-26 10:55 | PM.PN ---
Subjective Subjective: Interval history: Chart reviewed, had had multiple recent COPD exacerbations, oxygen and trilogy dependent at baseline. AM labs noted with decreasing leukocytosis, noted polycythemia. Currently on 7 L oxy-mask. Repeat ABG shows improved oxygenation, decreased hypercapnia with BiPAP use. COVID-19 testing negative, will discontinue isolation precautions and transfer to floor for continued care. Has BiPAP on currently, reports that her breathing has improved since admission. Requested her oral morphine be resumed, she takes this for chronic radiculopathy and back pain. Medications: Reviewed: Yes Medication Review Details: Active Medications Generic Name Dose Route Start Last Admin Trade Name Freq PRN Reason Stop Dose Admin Acetaminophen 650 mg 10/25/19 22:38 Tylenol PO Q6H PRN Mild/Mod Pain Or Temp >/= 101 Albuterol Sulfate 4 puff 10/25/19 16:28 10/26/19 08:13 Ventolin INHALATION 4 puff Q4H.RESPIRATORY P RN Administration SHORTNESS OF DG TH Albuterol Sulfate 2 puff 10/25/19 22:38 Ventolin INHALATION Q4H.RESPIRATORY P RN Shortness Of Walker th Albuterol Sulfate 2.5 mg 10/25/19 22:38 Albuterol INHALATION PRN PRN SHORTNESS OF DG TH Benzonatate 200 mg 10/25/19 22:38 10/25/19 23:56 Tessalon Pearls PO 200 mg TID PRN Administration Cough Budesonide 0.5 mg 10/26/19 09:00 Pulmicort INHALATION BID.RESPIRATORY S CH Buspirone HCl 15 mg 10/26/19 09:00 10/26/19 08:15 Buspar PO 15 mg BID NATHANAEL Administration Enoxaparin Sodium 40 mg 10/25/19 22:38 10/25/19 23:58 Lovenox SUBCUT 40 mg Q24H NATHANAEL Administration Fluticasone Propio treasure 2 puff 10/26/19 08:00 10/26/19 08:13 Flovent 110 Mcg Inhaler INHALATION 2 puff BID.RESPIRATORY S CH Administration Gabapentin 600 mg 10/25/19 22:38 10/26/19 08:13 Neurontin PO 600 mg QID NATHANAEL Administration Ceftriaxone Sodium 1,000 mg/ 50 mls @ 100 mls/ hr 10/26/19 09:00 10/26/19 08:07 Sodium Chloride IV 100 mls/hr DAILY [facility] Administration Protocol Azithromycin 500 m g/ Sodium 250 mls @ 250 mls /hr 10/25/19 23:30 10/26/19 01:00 Chloride IV Infused Q24H [facility] Infusion Protocol Lorazepam 0.5 mg 10/26/19 00:37 Ativan IVP Q12H PRN ANXIETY Methylprednisolone Sodium Succinate 40 mg 10/26/19 07:00 10/26/19 08:38 Solu-Medrol IVP Not Given TID [facility] Montelukast Sodium 10 mg 10/26/19 09:00 10/26/19 08:14 Singulair PO 10 mg DAILY [facility] Administration Morphine Sulfate 90 mg 10/26/19 16:00 Ms Contin PO Q24H [facility] Non-Formulary Medi cation 24 mcg 10/26/19 09:00 10/26/19 08:16 Lubiprostone [Am itiza] PO Not Given BID [facility] Ondansetron HCl 8 mg 10/25/19 22:38 Zofran PO Q8H PRN Nausea Ondansetron HCl 4 mg 10/25/19 22:38 Zofran IVP Q8H PRN vomiting, or N/V if npo Oxycodone/Acetamin ophen 1.5 tab 10/25/19 23:10 10/26/19 09:00 Percocet 5-325 M g PO 1.5 tab Q6H PRN Administration MODERATE PAIN Pantoprazole Sodiu m 40 mg 10/26/19 09:00 10/26/19 08:15 Protonix PO 40 mg DAILY [facility] Administration Venlafaxine HCl 75 mg 10/26/19 09:00 10/26/19 08:15 Effexor Xr PO 75 mg DAILY [facility] Administration estrogens, conjugated [From Premarin] Allergy (Severe, Verified 10/25/19 16:28) blood clots Fish Containing Products Allergy (Unknown, Verified 10/25/19 16:28) unknown NSAIDS (Non-Steroidal Anti-Inflamma Allergy (Verified 10/25/19 16:28) stomach bleeds Vitals/I&O/Wt Last Vital Signs Temp 98.0 F 10/26/19 08:05 Pulse 95 10/26/19 08:40 Resp 22 H 10/26/19 09:00 BP 102/75 10/26/19 08:05 Pulse Ox 96 10/26/19 09:00 10/25/19 10/26/19 10/26/19 22:59 06:59 14:59 Intake Total 2167.88 / 2167.88 450 / 2617.88 360 / 360 Output Total 575 / 575 Balance 2167.88 / 2167.88 -125 / 2042.88 360 / 360 Weight last 48 hrs Weight 62.596 kg Physical Exam Const: COMMON NORMALS: no apparent distress and oriented x3 GENERAL APPEARANCE: cooperative and comfortable; not ill appearing NUTRITIONAL APPEARANCE: thin ORIENTATION/CONSCIOUSNESS: Yes awake HENMT: COMMON NORMALS: normocephalic, head/scalp atraumatic, hearing grossly normal bilaterally and moist oral mucous membranes HEAD & SCALP: normocephalic and atraumatic Eye: COMMON NORMALS: PERRL, EOMs intact bilaterally and conjunctivae normal CONJUNCTIVA: Yes conjunctivae normal PUPIL: Yes PERRL Neck/C-Spine: COMMON NORMALS: full ROM GENERAL: Yes normal visual inspection and Yes trachea midline Chest: COMMONS NORMALS: inspection of chest normal Resp: COMMON NORMALS: normal respiratory effort, no retractions and no use of accessory muscles EFFORT & INSPECTION: Yes able to speak in complete sentences, Yes symmetric chest movement and Yes tachypneic AUSCULTATION: wheezes and diminished lung sounds OTHER: -on BiPAP Cardio: COMMON NORMALS: regular rate, regular rhythm, S1 normal heart sound, S2 normal heart sound and no murmurs RATE: regular rate RHYTHM: regular rhythm HEART SOUNDS: S1 normal and S2 normal GI: COMMON NORMALS: normal to inspection, nondistended, normoactive bowel sounds, soft to palpation and non-tender PALPATION: Yes soft Extremity: COMMON NORMALS: normal to inspection, full ROM, no clubbing, cyanosis or edema and no pedal edema Neuro: COMMON NORMALS: oriented x3, moves all extremities, no focal motor deficits and no sensory deficits noted Psych: COMMON NORMALS: mental status grossly normal, thought process normal, cooperative, affect normal and speech normal SPEECH: Yes normal speech THOUGHT PROCESS: normal thought process Skin: COMMON NORMALS: no rashes or lesions noted, no jaundice, no petechiae and no mottling GENERAL SKIN EXAM: no rashes or lesions noted Data : 10/26/19 03:50 10/26/19 03:50 Micro: Microbiology 10/25/19 03:54 Blood Culture - Preliminary Blood SPECIMEN COLLECTED 10/25/19 03:50 Blood Culture - Preliminary Blood SPECIMEN COLLECTED A&P Assessment and plan (1) Acute on chronic respiratory failure with hypoxia and hypercapnia: -secondary to acute COPD exacerbation, has had multiple exacerbations particularly over the past few months -is oxygen and trilogy dependent at baseline -ABGs noted, improved oxygenation and decreased hypercapnia with BiPAP use -continue close monitoring of respiratory status -VSS, continue to monitor -continue empiric ceftriaxone, azithromycin -continue Neb treatments, IV steroids, inhalers -may benefit from pulmonary rehab and Pulmonology referral on d/c; has previously been seen by Dr. aRmos -imaging reviewed, noted emphysema and possible pneumonitis -influenza negative; COVID-19 negative; isolation precautions d/c -f/u blood and sputum cx Status: Acute (2) Acute exacerbation of chronic obstructive airways disease: -as noted above Status: Acute (3) Chronically on opiate therapy: -secondary to chronic back pain, DJD, OA, f/u at pain clinic in [place] -resume pain regimen with caution given high doses particuarly of morphine Status: Acute (4) Elevated serum hCG in female, not : -initial hCG +, repeat negative, quantitative negative for -likely false positive -FSH and LH fall under post-menopausal range Status: Acute Additional A&P Information -prior hx of PE secondary to estrogen therapy -Depression, anxiety; continue anxiolytics, antidepressants -Chronic nausea; on antiemetics -GERD; on PPI -migraine headaches -LB -Polycythemia; noted increased hemoglobin and hematocrit, macrocytosis -regular diet as tolerated -GI ppx with PPI -DVT ppx with Lovenox -Dispo: home -Code status: FULL code -transfer to floor now that COVID-19 testing is negative Attestations Medical Necessity Statement*: Patient requires hospitalization for continued management of acute COPD exacerbation, on higher than baseline oxygen requirement. Time Spent in Patient Care: Greater than 35 minutes (>than 50% of time spent in counselling and/or direct pt care on unit). Coding Level of Care Code Acute Research Computing Specialist for Mineg Fwd Exam Comprehensive Diagnoses Acute on chronic respiratory failure with hypoxia and hypercapnia J96.21; J96.22 Acute exacerbation of chronic obstructive airways disease J44.1 Chronically on opiate therapy Z79.891 Elevated serum hCG in female, not E34.9
--- NOTE | 2019-10-26 11:23 | PC.NURSE ---
Patient reports home morphine regimen as taking 60 mg of morphine upon waking, 30 mg of morphine at 1200, and 60 mg of morphine at bedtime as listed in home med rec. Orders received to administer 90 mg at 0900 (starting 10/27/19) and 60 mg at 1800 (starting today, 10/26/19). Order clarified with Dr. Monster LI via telephone. Physician ordered for patient to receive morphine as currently prescribed.
--- NOTE | 2019-10-26 15:05 | PC.NURSE ---
Report called to MANISH Erwin. Nurse did not have any further questions.
[2019-10-26] MEDS: enoxaparin 40 mg/0.4 mL Syringe SUBCUT (21:37)
[2019-10-26] MEDS: azithromycin 500 MG in sodium chloride 0.9% 250 ML 250 MG IV (23:56)
[2019-10-27] VITALS (19 sets, daily range): BP systolic 99–132; BP diastolic 64–74; PULSE 72–96; RESP 17–19; TEMP 36.6–37; O2SAT 90–96
[2019-10-27] MEDS: albuterol 8 gm MDI 4 PUFF INHALATION ×4 (04:00→21:35)
[2019-10-27 05:46] LABS: Basophils % 0.1 %; Hematocrit 46.8 % (37.0-47.0); Hemoglobin 14.9 g/dL (11.5-15.3); Lymphocytes # 0.7 10^3/uL (0.8-4.8); Lymphocytes % 5.7 %; Mean Corpuscular HGB Conc 31.8 g/dL (30.0-36.0); Mean Corpuscular Volume 103.5 fL (81-99); Mean Platelet Volume 10.7 fL (7.4-10.4); Monocytes # 0.3 10^3/uL (0.2-0.9); Monocytes % 2.6 %; Neutrophils # 11.1 10^3/uL (1.8-7.7); Nucleated Red Blood Cells % 0 %; Platelet Count 193 10^3/cmm (130-400); Red Blood Count 4.52 10^6/uL (4.1-5.3); Red Cell Distribution Width 13.4 % (12.1-15.1); White Blood Count 12.2 10^3/uL (4.0-10.0)
[2019-10-27 06:12] LABS: Alanine Aminotransferase 7 U/L (0-33); Albumin Level 3.3 g/dL (3.5-5.2); Alkaline Phosphatase 59 IU/L (35-105); Aspartate Amino Transferase 8 U/L (0-32); Blood Urea Nitrogen 11 mg/dL (6-20); Calcium 9.5 mg/dL (8.5-10.5); Carbon Dioxide 30 mmol/L (22-29); Chloride 100 mmol/L (98-107); Globulin 2.8 g/dL (1.3-4.6); Glomerular Filtration Rate 135.3 mL/min (90-130); Glucose 231 mg/dL (65-115); Magnesium 1.8 mg/dL (1.7-2.3); Osmolality Calculated 293 mOsm/kg (285-295); Phosphorus 2.6 mg/dL (2.5-4.5); Sodium 140 mmol/L (136-145); Total Bilirubin 0.2 mg/dL (0.15-1.2); Total Protein 6.1 g/dL (6.6-8.7)
--- NOTE | 2019-10-27 07:00 | USCV_ITS ---
Paula Starr Age: 44 Gender: F : 1975 Exam Date: 10/27/2019 07:12 Ordering Phys: Justice Murillo MD Technologist: Yair Llamas [place] [facility] [place]: [place] COPD BP: 125 / 72 HR: 75 Rhythm: Sinus Technical Quality: Poor secondary to COPD MEASUREMENTS (Male / Female) Normal Values 2D ECHO LV Diastolic Diameter PLAX 3.7 cm 4.2 - 5.9 / 3.9 - 5.3 cm LV Systolic Diameter PLAX 2.4 cm IVS Diastolic Thickness 1.1 cm 0.6 - 1.0 / 0.6 - 0.9 cm IVS Systolic Thickness 1.3 cm LVPW Diastolic Thickness 1.1 cm 0.6 - 1.0 / 0.6 - 0.9 cm LVPW Systolic Thickness 1.3 cm LVOT Diameter 2.0 cm LV Ejection Fraction 2D Teich 67.1 % LV Ejection Fraction MOD 2C 65.6 % LV Ejection Fraction 2C AL 66.6 % LA Diameter 4.3 cm LA Width 3.3 cm LA Height 3.7 cm RA Width 4.1 cm RA Height 3.4 cm Aorta at Sinotubular Diameter 3.0 cm M-MODE LV Diastolic Diameter MM 3.4 cm 4.2 - 5.9 / 3.9 - 5.3 cm LV Systolic Diameter MM 2.3 cm LV Ejection Fraction MM Teich 62.0 % IVS Diastolic Thickness MM 1.0 cm 0.6 - 1.0 / 0.6 - 0.9 cm IVS Systolic Thickness MM 1.3 cm LVPW Diastolic Thickness MM 1.2 cm 0.6 - 1.0 / 0.6 - 0.9 cm LVPW Systolic Thickness MM 2.0 cm RV Diastolic Diameter MM 1.7 cm Aortic Annulus Diameter 4.0 cm LA Ao Ratio MM 1.1 MV E Point Septal Separation 1.1 cm DOPPLER AV Peak Velocity 85.2 cm/s LVOT Peak Velocity 80.5 cm/s AV Area Cont Eq vti 2.9 cm squared AV Area Cont Eq pk 3.1 cm squared MV Area PHT 3.7 cm squared Mitral E to A Ratio 1.1 MV E' Velocity 13.8 cm/s Mitral E to MV E' Ratio 5.2 Mitral E to LV E' Lateral Ratio 4.5 Mitral E to LV E' Septal Ratio 6.1 TR Peak Velocity 183.2 cm/s TR Peak Gradient 13.4 mmHg TV Peak E Velocity 108.9 cm/s FINDINGS Left Ventricle Normal left ventricular size, systolic function and wall thickness, with no regional wall motion abnormalities. Left ventricular ejection fraction is estimated at 60%. This study is inadequate for estimation of regional wall motion abnormality. Septal bounce noted. Normal diastolic function. Right Ventricle Right ventricle not well visualized. Right Atrium Right atrium not well visualized. Right atrial pressure estimated at 3 mmHg. Left Atrium Left atrium not well visualized. Mitral Valve Mildly thickened mitral valve. Aortic Valve Aortic valve not well visualized. No aortic valve stenosis. Tricuspid Valve Structurally normal tricuspid valve. Pulmonic Valve Pulmonic valve not well visualized. Trace pulmonary valve regurgitation. Pericardium No pericardial effusion. Aorta Normal size aortic root. CONCLUSIONS 1. This is a technically very difficult study with poor apical views. 2. Normal left ventricular size, systolic function with no regional wall motion abnormalities. Left ventricular ejection fraction is estimated at 60%. Abnormal septal motion (septal bounce). Normal diastolic function. 3. Direct comparison to previous study dated 07/08/2014 is not possible given technical differences in studies. Hiwot Muniz MD (Electronically Signed) Final Date: 27 October 2019 14:58 S
[2019-10-27] MEDS: oxyCODONE-APAP 5-325 mg Tablet 1.5 TAB PO ×2 (07:51→15:37)
[2019-10-27] MEDS: gabapentin 300 mg Capsule 600 MG PO ×4 (09:50→20:39)
[2019-10-27] MEDS: montelukast sodium 10 mg Tablet PO (09:50)
[2019-10-27] MEDS: morphine ER (12 HR) 30 mg tablet 60 MG PO ×2 (09:51→18:00)
[2019-10-27] MEDS: nicotine 21 mg Patch 1 PATCH TRANSDERMA (09:52)
[2019-10-27] MEDS: LORazepam 2 mg/mL INJ 1 mL 0.5 MG IVP (10:47)
[2019-10-27] MEDS: ondansetron 4 MG Tablet 8 MG PO (10:48)
[2019-10-27] MEDS: pantoprazole DR 40 mg Tablet PO (11:34)
[2019-10-27] MEDS: venlafaxine ER (24HR) 75 mg Capsule PO (11:34)
[2019-10-27] MEDS: cefTRIAXone 1,000 MG in sodium chloride 0.9% (plus) 50 ML 100 MG IV (11:35)
[2019-10-27] MEDS: morphine ER (12 HR) 30 mg tablet PO (11:44)
--- NOTE | 2019-10-27 16:30 | PM.PN ---
Subjective Subjective: Interval history: VSS, on 5 L oxy-mask. AM labs noted. Patient reports feeling better, able to take deeper breaths, has decreased cough with minimal expectoration. She is happy with her progress and inquires about when she can go home. Discussed possibility of this tomorrow if she continues to improve. We will switch from IV to oral steroids today. She did have some issues with pain control but seems to be more comfortable currently. Has good appetite. Medications: Reviewed: Yes Medication Review Details: Active Medications Generic Name Dose Route Start Last Admin Trade Name Freq PRN Reason Stop Dose Admin Acetaminophen 650 mg 10/25/19 22:38 Tylenol PO Q6H PRN Mild/Mod Pain Or Temp >/= 101 Albuterol Sulfate 4 puff 10/25/19 16:28 10/27/19 12:04 Ventolin INHALATION 4 puff Q4H.RESPIRATORY P RN Administration SHORTNESS OF LYNDSAY TH Albuterol Sulfate 2 puff 10/25/19 22:38 Ventolin INHALATION Q4H.RESPIRATORY P RN Shortness Of Lyndsay th Albuterol Sulfate 2.5 mg 10/25/19 22:38 10/26/19 17:40 Albuterol INHALATION 2.5 mg PRN PRN Administration SHORTNESS OF LYNDSAY TH Benzonatate 200 mg 10/25/19 22:38 10/25/19 23:56 Tessalon Pearls PO 200 mg TID PRN Administration Cough Budesonide 0.5 mg 10/26/19 09:00 10/26/19 20:35 Pulmicort INHALATION Not Given BID.RESPIRATORY S CH Buspirone HCl 15 mg 10/26/19 09:00 10/27/19 09:50 Buspar PO 15 mg BID NATHANAEL Administration Enoxaparin Sodium 40 mg 10/25/19 22:38 10/26/19 21:37 Lovenox SUBCUT 40 mg Q24H NATHANAEL Administration Fluticasone Propio treasure 2 puff 10/26/19 08:00 10/27/19 07:53 Flovent 110 Mcg Inhaler INHALATION 2 puff BID.RESPIRATORY S CH Administration Gabapentin 600 mg 10/25/19 22:38 10/27/19 13:02 Neurontin PO 600 mg QID NATHANAEL Administration Ceftriaxone Sodium 1,000 mg/ 50 mls @ 100 mls/ hr 10/26/19 09:00 10/27/19 11:35 Sodium Chloride IV 100 mls/hr DAILY NATHANAEL Administration Protocol Azithromycin 500 m g/ Sodium 250 mls @ 250 mls /hr 10/25/19 23:30 10/27/19 00:55 Chloride IV Infused Q24H NATHANAEL Infusion Protocol Lorazepam 0.5 mg 10/26/19 00:37 10/27/19 10:47 Ativan IVP 0.5 mg Q12H PRN Administration ANXIETY Methylprednisolone Sodium Succinate 40 mg 10/26/19 07:00 10/27/19 14:19 Solu-Medrol IVP 40 mg TID NATHANAEL Administration Montelukast Sodium 10 mg 10/26/19 09:00 10/27/19 09:50 Singulair PO 10 mg DAILY NATHANAEL Administration Morphine Sulfate 60 mg 10/26/19 18:00 10/27/19 09:51 Ms Contin PO 60 mg BID NATHANAEL Administration Morphine Sulfate 30 mg 10/27/19 09:00 10/27/19 11:44 Ms Contin PO 30 mg DAILY [facility] Administration Nicotine 1 patch 10/27/19 09:00 10/27/19 09:52 Nicoderm 21 Mg P atch TRANSDERMA 1 patch DAILY [facility] Administration Non-Formulary Medi cation 24 mcg 10/26/19 09:00 10/27/19 11:33 Lubiprostone [Am itiza] PO Not Given BID [facility] Ondansetron HCl 8 mg 10/25/19 22:38 10/27/19 10:48 Zofran PO 8 mg Q8H PRN Administration Nausea Oxycodone/Acetamin ophen 1.5 tab 10/25/19 23:10 10/27/19 15:37 Percocet 5-325 M g PO 1.5 tab Q6H PRN Administration MODERATE PAIN Pantoprazole Sodiu m 40 mg 10/26/19 09:00 10/27/19 11:34 Protonix PO 40 mg DAILY [facility] Administration Venlafaxine HCl 75 mg 10/26/19 09:00 10/27/19 11:34 Effexor Xr PO 75 mg DAILY [facility] Administration estrogens, conjugated [From Premarin] Allergy (Severe, Verified 10/25/19 16:28) blood clots Fish Containing Products Allergy (Unknown, Verified 10/25/19 16:28) unknown NSAIDS (Non-Steroidal Anti-Inflamma Allergy (Verified 10/25/19 16:28) stomach bleeds Vitals/I&O/Wt Last Vital Signs Temp 98.6 F 10/27/19 15:35 Pulse 90 10/27/19 16:18 Resp 17 10/27/19 15:41 BP 108/73 10/27/19 15:35 Pulse Ox 95 10/27/19 16:18 10/27/19 10/27/19 10/27/19 06:59 14:59 22:59 Intake Total 250 / 1380 360 / 360 Output Total 200 / 200 Balance 50 / 1180 360 / 360 Physical Exam Const: COMMON NORMALS: no apparent distress and oriented x3 GENERAL APPEARANCE: cooperative and comfortable; not ill appearing NUTRITIONAL APPEARANCE: thin ORIENTATION/CONSCIOUSNESS: Yes awake HENMT: COMMON NORMALS: normocephalic, head/scalp atraumatic, hearing grossly normal bilaterally and moist oral mucous membranes HEAD & SCALP: normocephalic and atraumatic Eye: COMMON NORMALS: PERRL, EOMs intact bilaterally and conjunctivae normal CONJUNCTIVA: Yes conjunctivae normal PUPIL: Yes PERRL Neck/C-Spine: COMMON NORMALS: full ROM GENERAL: Yes normal visual inspection and Yes trachea midline Chest: COMMONS NORMALS: inspection of chest normal Resp: COMMON NORMALS: normal respiratory effort, no retractions and no use of accessory muscles EFFORT & INSPECTION: Yes able to speak in complete sentences, Yes symmetric chest movement and Yes tachypneic AUSCULTATION: wheezes and diminished lung sounds OTHER: -on 5 L oxy-mask -Improved air entry bilaterally, minimal end expiratory wheezing Cardio: COMMON NORMALS: regular rate, regular rhythm, S1 normal heart sound, S2 normal heart sound and no murmurs RATE: regular rate RHYTHM: regular rhythm HEART SOUNDS: S1 normal and S2 normal GI: COMMON NORMALS: normal to inspection, nondistended, normoactive bowel sounds, soft to palpation and non-tender PALPATION: Yes soft Extremity: COMMON NORMALS: normal to inspection, full ROM, no clubbing, cyanosis or edema and no pedal edema Neuro: COMMON NORMALS: oriented x3, moves all extremities, no focal motor deficits and no sensory deficits noted Psych: COMMON NORMALS: mental status grossly normal, thought process normal, cooperative, affect normal and speech normal SPEECH: Yes normal speech THOUGHT PROCESS: normal thought process Skin: COMMON NORMALS: no rashes or lesions noted, no jaundice, no petechiae and no mottling GENERAL SKIN EXAM: no rashes or lesions noted Data : 10/27/19 05:27 10/27/19 05:27 Micro: Microbiology 10/26/19 00:00 Gram Stain - Final Sputum - Expectorated Sputum Sputum Culture - Preliminary Gram Negative Rods Haemophilus species 10/25/19 03:54 Blood Culture - Preliminary Blood NEGATIVE TO DATE 10/25/19 03:50 Blood Culture - Preliminary Blood NEGATIVE TO DATE A&P Assessment and plan (1) Acute on chronic respiratory failure with hypoxia and hypercapnia: -secondary to acute COPD exacerbation, has had multiple exacerbations particularly over the past few months -is oxygen and trilogy dependent at baseline -ABGs noted, improved oxygenation and decreased hypercapnia with BiPAP use -continue close monitoring of respiratory status -VSS, continue to monitor -continue empiric ceftriaxone, azithromycin -continue Neb treatments, IV steroids, inhalers; d/c IV and change to oral steroids given noted improvement in respiratory status -may benefit from pulmonary rehab and Pulmonology referral on d/c; has previously been seen by Dr. Ramos -imaging reviewed, noted emphysema and possible pneumonitis -influenza negative; COVID-19 negative; isolation precautions d/c -blood cx: prelim negative -sputum cx: Haemophilus, GNRs; gram stain-moderate GNRs -MRSA negative (nasal) Status: Acute (2) Acute exacerbation of chronic obstructive airways disease: -as noted above Status: Acute (3) Chronically on opiate therapy: -secondary to chronic back pain, DJD, OA, f/u at pain clinic in [place] -continue pain regimen with caution given high doses particuarly of morphine Status: Acute (4) Elevated serum hCG in female, not : -initial hCG +, repeat negative, quantitative negative for -likely false positive -FSH and LH fall under post-menopausal range Status: Acute Additional A&P Information -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 Time Spent in Patient Care: 16 - 35 minutes (>than 50% of time spent in counselling and/or direct pt care on unit). Coding Level of Care Code Acute Hand Bulldozer for Chg Fwd Exam Comprehensive Diagnoses Acute on chronic respiratory failure with hypoxia and hypercapnia J96.21; J96.22 Acute exacerbation of chronic obstructive airways disease J44.1 Chronically on opiate therapy Z79.891 Elevated serum hCG in female, not E34.9
[2019-10-27] MEDS: predniSONE 20 mg Tablet 40 MG PO (20:39)
[2019-10-27] MEDS: azithromycin 500 MG in sodium chloride 0.9% 250 ML 250 MG IV (22:56)
[2019-10-27] MEDS: enoxaparin 40 mg/0.4 mL Syringe SUBCUT (22:57)
[2019-10-28] VITALS (11 sets, daily range): BP systolic 100–125; BP diastolic 62–80; PULSE 74–97; RESP 17–22; TEMP 36.6–36.9; O2SAT 93–97
--- NOTE | 2019-10-28 08:21 | P.DS_ITS ---
Discharge Providers Date of Admission: 10/25/19 19:50 Date of Discharge: October 28, 2019 Attending Provider at Admission: Justice Murillo MD Attending Provider at Discharge: Afshan Hook MD Primary Care Provider: PREETHI Lopes Diagnoses at Discharge Discharge Diagnosis (1) Acute on chronic respiratory failure with hypoxia and hypercapnia: Status: Acute Problem details: -secondary to acute COPD exacerbation, has had multiple exacerbations particularly over the past few months -is oxygen and trilogy dependent at baseline -ABGs noted, improved oxygenation and decreased hypercapnia with BiPAP use -continue close monitoring of respiratory status -VSS, continue to monitor -continue empiric ceftriaxone, azithromycin -continue Neb treatments, IV steroids, inhalers; d/c IV and change to oral steroids given noted improvement in respiratory status -may benefit from pulmonary rehab and Pulmonology referral on d/c; has previously been seen by Dr. Ramos -imaging reviewed, noted emphysema and possible pneumonitis -influenza negative; COVID-19 negative; isolation precautions d/c -blood cx: prelim negative -sputum cx: Haemophilus, GNRs; gram stain-moderate GNRs -MRSA negative (nasal) (2) Acute exacerbation of chronic obstructive airways disease: Status: Acute Problem details: -as noted above (3) Chronically on opiate therapy: Status: Acute Problem details: -secondary to chronic back pain, DJD, OA, f/u at pain clinic in [place] -continue pain regimen with caution given high doses particuarly of morphine (4) Elevated serum hCG in female, not : Status: Acute Problem details: -initial hCG +, repeat negative, quantitative negative for -likely false positive -FSH and LH fall under post-menopausal range Other Information Additional DC diagnoses/information: -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 She was started on broad-spectrum IV antibiotics, IV steroids, nebulizer treatments and supplemental oxygen. CTA was done to r/o PE and this was negative. CXR showed emphysema but no sherman pneumonia. She initially required BiPAP continuously but with improvement in her respiratory status she has been weaned to her baseline oxygen requirement of 4 L nasal cannula. She also does use a trilogy at home. Once COVID-19 testing results were negative she was transferred to the floor for continued care and isolation precautions were disc ontinued. She has continued to improve particularly over the past 24 hours and has been weaned off IV steroids and is currently on oral prednisone. She would like to go home today and will need to continue oral azithromycin for the anti- inflammatory effect, she has already received a total of 4 days of dual treatment with ceftriaxone and azithromycin. Blood cultures have been negative, sputum cultures so far have grown gram-negative rods and Haemophilus. At baseline she uses high doses of opiates prescribed by her pain management physician whom she sees monthly in [place]. Pain regimen was continued while hospitalized with close monitoring of her hemodynamic and respiratory status. Echo was done with noted ejection fraction of 60%, no regional wall motion abnormalities, normal diastolic function. She will need close follow-up with her primary care provider and will be referred to pulmonology as well given her underlying history of what appears to be severe oxygen dependent COPD with frequent exacerbations. She would also benefit from pulmonary rehab. She is to continue to follow-up with her pain management physician. She is advised to seek medical attention immediately should any of her symptoms recur or worsen. She has been educated on need for smoking cessation. Discharge Summary: -Patient to follow up with primary care provider within 1 week -Patient to continue to follow up with pain management provider in [place] as scheduled -Patient to follow up with pulmonology Dr. Murray as soon as next available appointment Physical Exam Const: COMMON NORMALS: no apparent distress and oriented x3 GENERAL APPEARANCE: cooperative and comfortable; not ill appearing NUTRITIONAL APPEARANCE: thin ORIENTATION/CONSCIOUSNESS: Yes awake HENMT: COMMON NORMALS: normocephalic, head/scalp atraumatic, hearing grossly normal bilaterally and moist oral mucous membranes HEAD & SCALP: normocephalic and atraumatic Eye: COMMON NORMALS: PERRL, EOMs intact bilaterally and conjunctivae normal CONJUNCTIVA: Yes conjunctivae normal PUPIL: Yes PERRL Neck/C-Spine: COMMON NORMALS: full ROM GENERAL: Yes normal visual inspection and Yes trachea midline Chest: COMMONS NORMALS: inspection of chest normal Resp: COMMON NORMALS: normal respiratory effort, no retractions and no use of accessory muscles EFFORT & INSPECTION: Yes able to speak in complete sentences, Yes symmetric chest movement and Yes tachypneic AUSCULTATION: wheezes and diminished lung sounds OTHER: -currently on RA -Improved air entry bilaterally, minimal end expiratory wheezing Cardio: COMMON NORMALS: regular rate, regular rhythm, S1 normal heart sound, S2 normal heart sound and no murmurs RATE: regular rate RHYTHM: regular rhythm HEART SOUNDS: S1 normal and S2 normal GI: COMMON NORMALS: normal to inspection, nondistended, normoactive bowel sounds, soft to palpation and non-tender PALPATION: Yes soft Extremity: COMMON NORMALS: normal to inspection, full ROM, no clubbing, cyanosis or edema and no pedal edema Neuro: COMMON NORMALS: oriented x3, moves all extremities, no focal motor deficits and no sensory deficits noted Psych: COMMON NORMALS: mental status grossly normal, thought process normal, cooperative, affect normal and speech normal SPEECH: Yes normal speech THOUGHT PROCESS: normal thought process Skin: COMMON NORMALS: no rashes or lesions noted, no jaundice, no petechiae and no mottling GENERAL SKIN EXAM: no rashes or lesions noted Discharge Data Data Completed and Pending: Completed Studies During Hospitalization Category Date Time Status CT angio chest PE protcl [id number] Urge nt Cat Scan 10/25/19 22:01 Completed XR chest 1V [place]a ble [id number] Stat Exams 10/25/19 16:28 Completed CV echo complete* [id number] Routine Ultrasound 10/27/19 07:00 Completed Pending at discharge Category Date Time Status Blood Culture Sta t Lab 10/25/19 03:54 Results Sputum Culture an d Gram Stain Stat Lab 10/25/19 22:38 Results Vitals: Last Vital Signs Temp 97.9 F 10/28/19 08:00 Pulse 74 10/28/19 08:00 Resp 17 10/28/19 08:00 BP 125/80 10/28/19 08:00 Pulse Ox 97 10/28/19 08:00 Discharge Plan Discharge Patient Disposition: Home, Self-Care Condition: Stable Prescriptions: New azithromycin 250 mg tablet 250 mg PO DAILY 4 Days Qty: 4 RF: 0 Continued Amitiza 24 mcg capsule 24 mcg PO BID RF: 0 benzonatate 200 mg capsule 200 mg PO TID PRN (Reason: Cough) RF: 0 budesonide 0.5 mg/2 mL suspension for nebulization 0.5 mg inhalation BID RF: 0 buspirone 15 mg tablet 15 mg PO BID RF: 0 venlafaxine [Effexor XR] 75 mg capsule,extended release 24hr 75 mg PO DAILY RF: 0 montelukast 10 mg tablet 10 mg PO DAILY RF: 0 pantoprazole 40 mg tablet,delayed release (DR/EC) 40 mg PO DAILY RF: 0 Perforomist 20 mcg/2 mL solution for nebulization 2 ml INHALATION BID RF: 0 albuterol sulfate [ProAir HFA] 90 mcg/actuation HFA aerosol inhaler 2 puff INHALATION Q4H PRN (Reason: Shortness Of Breath) RF: 0 Spiriva with HandiHaler 18 mcg capsule, w/inhalation device 1 cap INHALATION DAILY RF: 0 ondansetron HCl [Zofran] 8 mg tablet 8 mg PO Q8H PRN (Reason: Nausea) RF: 0 morphine 30 mg capsule, ER multiphase 24 hr 30 mg PO DAILY RF: 0 morphine 60 mg capsule, ER multiphase 24 hr 60 mg PO BID RF: 0 oxycodone-acetaminophen [Percocet] 7.5-325 mg tablet 1 tab PO QID PRN (Reason: Pain) RF: 0 promethazine-DM 6.25-15 mg/5 mL syrup 5 ml PO Q6H PRN (Reason: cough) Qty: 240 RF: 0 gabapentin 600 mg tablet 600 mg PO QID 30 Days Qty: 120 RF: 5 albuterol sulfate 2.5 mg /3 mL (0.083 %) Solution For Nebulization 2.5 mg inhalation PRN RF: 0 Excedrin Migraine 250-250-65 mg Tablet 1 - 2 tab PO PRN RF: 0 Tylenol Extra Strength 500 - 1,500 mg PO PRN RF: 0 Changed prednisone 20 mg Tablet 40 mg PO DAILY 5 Days Qty: 10 RF: 0 Discharge Orders: Discharge Order (Routine); Ordered 10/28/19 Ordered By: Afshan Hook Referrals: Heide Dhillon FNP-C [Primary Care Provider] - 4-7 days (Post hospital discharge follow-up. Treated for acute COPD exacerbation.) Meredith Murray MD [Physician] - 1 week (Patient has severe oxygen dependent COPD, has Trilogy as well. Has had frequent COPD exacerbations. ) Discharge Diet: Regular Discharge Activity: Increase activity as tolerated Activity Restrictions/Additional Instructions: -Please continue to use supplemental oxygen and trilogy Discharge Attestations Time Spent in Discharge Care*: greater than 30 min Specific Discharge Activities: Specific discharge activities: educating patient, discussing with housing case manager/social workers/dc planners, documenting/other paperwork and evaluating patient/reviewing data Status at Discharge: Cognitive status at discharge: cognitively intact , Behavioral status at discharge: cooperative , Functional status at discharge: independent ambulation Overall status at discharge: patient is progressing back to baseline Quality Metrics Clinical Quality Measures During this hospital stay, did patient experience: None Coding Level of Care Code Acute Data Center Manager for Juan [employer] Diagnoses Acute on chronic respiratory failure with hypoxia and hypercapnia J96.21; J96.22 Acute exacerbation of chronic obstructive airways disease J44.1 Chronically on opiate therapy Z79.891 Elevated serum hCG in female, not E34.9
[2019-10-28] MEDS: venlafaxine ER (24HR) 75 mg Capsule PO (08:55)
[2019-10-28] MEDS: pantoprazole DR 40 mg Tablet PO (08:55)
[2019-10-28] MEDS: montelukast sodium 10 mg Tablet PO (08:55)
[2019-10-28] MEDS: predniSONE 20 mg Tablet 40 MG PO (08:55)
[2019-10-28] MEDS: nicotine 21 mg Patch 1 PATCH TRANSDERMA (08:56)
[2019-10-28] MEDS: gabapentin 300 mg Capsule 600 MG PO (08:56)
[2019-10-28] MEDS: cefTRIAXone 1,000 MG in sodium chloride 0.9% (plus) 50 ML 100 MG IV (08:56)
[2019-10-28] MEDS: albuterol 8 gm MDI 2 PUFF INHALATION (09:07)
[2019-10-28] MEDS: morphine ER (12 HR) 30 mg tablet 60 MG PO (09:10)
--- NOTE | 2019-10-28 11:01 | PC.NURSE ---
Discharge Note Patient was educated on discharge. All medication side effect and adverse reactions were discussed with patient understanding. All appointments that need to be made were discussed with patient understanding. Iv was removed with catheter in tact. Patient left by wheelchair by an aid.
== END 2019-10-28 10:55 | disposition home or self-care (01) | DRG 189 ==
LOC: ER 20:11 → CSU 21:48 → MEDSURG 10-26 15:44
PROVIDERS: Admitting Provider Family Medicine; Emergency Provider Emergency Medicine; Family Provider Nurse Practitioner Family; PCP Nurse Practitioner Family; Visit Provider Family Medicine
DX: J96.21 Acute and chronic respiratory failure with hypoxia (principal); J44.1 Chronic obstructive pulmonary disease with (acute) exacerbation; Z99.11 Dependence on respirator [ventilator] status; J96.22 Acute and chronic respiratory failure with hypercapnia; M54.17 Radiculopathy, lumbosacral region; Z79.891 Long term (current) use of opiate analgesic; F41.8 Other specified anxiety disorders; E34.9 Endocrine disorder, unspecified; G89.29 Other chronic pain; M19.90 Unspecified osteoarthritis, unspecified site; K21.9 Gastro-esophageal reflux disease without esophagitis; G47.33 Obstructive sleep apnea (adult) (pediatric); D75.1 Secondary polycythemia; Z99.81 Dependence on supplemental oxygen; Z86.711 Personal history of pulmonary embolism; Z20.828 Contact with and (suspected) exposure to other viral communicable diseases; F17.210 Nicotine dependence, cigarettes, uncomplicated
CPT/HCPCS: 12345; 36415; 36600; 71045; 71275; 80053; 80061; 80306; 81001; 81025; 82803; 83001; 83002; 83036; 83735; 83880; 84100; 84145; 84443; 84484; 84702; 84703; 85025; 86140; 87040; 87070; 87077; 87205; 87635; 87641; 87804; 93005; 93306; 94640; 94660; 94664; 96372; 96375; 99284; J0456; J0696; J1650; J2060; J2920; J3475; J3535; J7030; J7040; J7050; J7512; J7611; Q0162; Q9967

== ENCOUNTER → 2019-11-02 14:23 | Outpatient (BNVA) | payer MEDICARE, MEDICAID, SELFPAY | PROVIDERS: Family Provider Nurse Practitioner Family; PCP Nurse Practitioner Family; Visit Provider Nurse Practitioner | DX: F41.9 Anxiety disorder, unspecified (principal); M41.9 Scoliosis, unspecified; F32.9 Major depressive disorder, single episode, unspecified; J44.9 Chronic obstructive pulmonary disease, unspecified | CPT/HCPCS: 80053; 84443; 85025 ==

== ENCOUNTER 2019-11-16 06:00 | Outpatient (RCR) | payer MEDICARE, MEDICAID, SELFPAY | END 2019-12-10 23:59 | disposition home or self-care (01) | LOC: APT 06:00 | PROVIDERS: PCP Nurse Practitioner Family; Referring Provider Nurse Practitioner Family; Visit Provider Nurse Practitioner Family | DX: G89.29 Other chronic pain (principal); M25.512 Pain in left shoulder | CPT/HCPCS: 97110; 97162 ==

== ENCOUNTER 2019-12-11 06:00 | Outpatient (RCR) | payer MEDICARE, MEDICAID, SELFPAY | END 2020-01-09 23:59 | disposition home or self-care (01) | LOC: APT 06:00 | PROVIDERS: PCP Nurse Practitioner Family; Visit Provider Nurse Practitioner Family | DX: G89.29 Other chronic pain (principal); M25.512 Pain in left shoulder | CPT/HCPCS: 97110; 97164; 97530 ==

== ENCOUNTER → 2019-12-18 10:04 | Outpatient (BNVA) | payer MEDICARE, MEDICAID, SELFPAY | PROVIDERS: PCP Nurse Practitioner Family; Visit Provider Nurse Practitioner | DX: R73.09 Other abnormal glucose (principal) | CPT/HCPCS: 83036 ==

== ENCOUNTER 2020-01-03 15:57 | Emergency (ER) | payer MEDICARE, MEDICAID, SELFPAY ==
[2020-01-03 15:59] VITALS: BP 114/77; PULSE 98; RESP 20; TEMP 37; O2SAT 92; BMI 20.9
--- NOTE | 2020-01-03 16:20 | CTR_ITS ---
PROCEDURE INFORMATION: Exam: CT Abdomen And Pelvis With Contrast Exam date and time: 01/03/2020 4:49 PM Age: 44 years old Clinical indication: Other: Diarrhea; Abdominal pain; Prior surgery; Surgery type: Hernia, gb, lumbar fusion, spinal stimulator TECHNIQUE: Imaging protocol: Computed tomography of the abdomen and pelvis with intravenous contrast. Radiation optimization: All CT scans at this facility use at least one of these dose optimization techniques: automated exposure control; mA and/or kV adjustment per patient size (includes targeted exams where dose is matched to clinical indication); or iterative reconstruction. Contrast material: OMNI 300; Contrast volume: 95 ml; Contrast route: INTRAVENOUS (IV); COMPARISON: No relevant prior studies available. RADIATION DOSE METRICS: Total DLP (mGy-cm): 541.08 FINDINGS: Lungs: Limited assessment lung bases fails to reveal evidence for active cardiopulmonary process. Mild dependent atelectasis. Liver: Unremarkable. No mass. Gallbladder and bile ducts: Status post cholecystectomy. Pancreas: Normal. No ductal dilation. Spleen: Normal. No splenomegaly. Adrenals: Normal. No mass. Kidneys and ureters: Normal. No hydronephrosis. Stomach and bowel: Evidence of diffuse mucosal thickening increased enhancement of the mucosa of the colon consistent with pancolitis. Mild mucosal thickening and enhancement of the terminal ileum. Nonobstructive bowel pattern. Also evidence of mucosal thickening of the duodenum and proximal jejunum suggesting active either infectious or inflammatory duodenitis and proximal jejunitis. Remainder of the small bowel loops unremarkable. Appendix: No evidence of appendicitis. Intraperitoneal space: Unremarkable. No free air. No significant fluid collection. Vasculature: The abdominal aorta is nonaneurysmal. Mild arterial sclerotic disease. Lymph nodes: No visible evidence of associated mesenteritis/panniculitis or mesenteric lymphadenitis/lymphadenopathy. Bladder: Unremarkable as visualized. Reproductive: Unremarkable as visualized. Bones/joints: Inter pedicle screw fixation L5 and S1. Tens stimulator unit. Soft tissues: Unremarkable. CT/CT abdomen pelvis w con* [id number] IMPRESSION: 1. Findings of low-grade inflammatory or infectious pancolitis. 2. Evidence of mild terminal ileitis. 3. Evidence of mild duodenitis and proximal jejunitis. Radiation Dose CTDIVOL = (mGy): DLP = 541.08 (mGy-cm)
[2020-01-03] MEDS: HYDROmorphone 1 mg/mL INJ 1 mL 0.5 MG IVP (16:39)
[2020-01-03] MEDS: ondansetron 2 mg/ML SDV 2 mL 4 MG IVP (16:39)
[2020-01-03] MEDS: sodium chloride 0.9% 1,000 ML 100 ML IV (16:46)
[2020-01-03 16:49] LABS: Basophils % 0.3 %; Hematocrit 59.2 % (37.0-47.0); Hemoglobin 18.9 g/dL (11.5-15.3); Lymphocytes # 0.7 10^3/uL (0.8-4.8); Lymphocytes % 10.8 %; Mean Corpuscular HGB Conc 31.9 g/dL (30.0-36.0); Mean Corpuscular Hemoglobin 31.9 pg (28.0-34.0); Mean Corpuscular Volume 99.8 fL (81-99); Mean Platelet Volume 10.6 fL (7.4-10.4); Monocytes # 0.5 10^3/uL (0.2-0.9); Monocytes % 7.8 %; Neutrophils # 4.8 10^3/uL (1.8-7.7); Neutrophils % 80.6 %; Nucleated Red Blood Cells % 0 %; Platelet Count 218 10^3/cmm (130-400); Red Blood Count 5.93 10^6/uL (4.1-5.3); Red Cell Distribution Width 13.8 % (12.1-15.1)
[2020-01-03] MEDS: iohexol 300 mg/mL 100 mL Btl 95 ML IV (16:57)
--- NOTE | 2020-01-03 17:05 | W.ED.ABDPA2 ---
HPI - Abdominal Pain General: Chief Complaint: Abdominal Pain Stated Complaint: ABD PAIN Time Seen by Provider: 01/03/20 16:05 History of Present Illness: HPI narrative: Paula is a nice 40-year-old female who comes in complaining of middle to lower abdominal pain. Patient states that she has had abdominal pain has been going on all day. She denies constipation but has had diarrhea. She is been nauseated but not vomited. She describes the pain is sharp and stabbing in nature. She unaware of anything that makes her pain better or worse. She denies any other complaints or concerns. Associated Symptoms: Reports nausea; Denies chills, coffee ground emesis, constipation, GI cramping, diarrhea, dysuria, fever(s), heartburn, hematochezia, hematuria, hematemesis, melena, syncope and vomiting Review of Systems Const: Denies: fever(s), chills, body aches, fatigue, malaise or diaphoresis Eyes: Denies: change in vision, blurry vision, blind spots, photophobia, eye discharge or eye redness ENMT: Denies: throat pain, odynophagia, hoarseness, swelling of lips/tongue, oral sores, ear or mastoid pain, ear discharge, change in hearing or nasal discharge Card: Denies: chest pain, palpitations, irregular heart rhythm, edema, lightheadedness, syncope, pre-syncope, dyspnea on exertion or orthopnea Resp: Denies: dyspnea, productive cough, non-productive cough, wheezing, hemoptysis or chest congestion GI: Reports: abdominal pain and nausea; Denies: vomiting, hematemesis, coffee ground emesis, heartburn, diarrhea, constipation, GI cramping, hematochezia or melena : Denies: flank pain, dysuria, urinary frequency, urinary urgency or hematuria Musc: Denies: neck pain, back pain, extremity pain, extremity swelling, joint pain, joint swelling, joint redness, joint warmth or joint stiffness Skin/Breast: Denies: rash, pruritus, erythema, skin tenderness or jaundice Neuro: Denies: headache(s), numbness in extremities, weakness in extremities, sensory changes, lack of coordination, difficulty walking, dizziness, vertigo, confusion, Slurred speech present or seizure-like activity Tre/Lymph: Denies: easy bruising, easy bleeding, petechiae, purpura or enlarged lymph nodes All/Imm: Denies: urticaria, throat swelling, tongue swelling, facial swelling or acute wheezing PFSH ED PFSH: Medical History (Updated 01/03/20 @ 17:50 by Roro Whitaker) Anxiety and depression Arthritis Asthma Atopic dermatitis, mild Chronic nausea COPD (chronic obstructive pulmonary disease) Degenerative lumbar disc GERD (gastroesophageal reflux disease) History of left foot drop Lumbosacral radiculitis Migraines Obstructive sleep apnea Personal history of nicotine dependence Scoliosis Surgical History (Updated 12/30/19 @ 16:51 by PREETHI Mann) History of bilateral salpingectomy 1997 History of cholecystectomy 1998 History of hysterectomy 2005 History of lumbar fusion With kvng 2006 History of umbilical hernia repair 2009 Family History Mother Heart disease Grandmother Congestive heart failure Social History (Updated 12/30/19 @ 16:51 by PREETHI Mann) Smoking and tobacco status: current every day smoker Second hand smoke exposure: Yes Smoking risk assessment/counseling performed?: Yes Alcohol intake: never Desire information about alcohol rehabilitation?: No Counseling given: No Desire information about substance/drug rehabilitation?: No Counseling given: No Caregiver/support person: No Lives independently: Yes Household members: children Housing: House Marital status: Legally Number of children: 2 service: No Current occupational status: disabled History of recent travel: No Current gender identity: Female Physical Exam Const: COMMON NORMALS: no acute distress, patient oriented x3, no limitations, healthy appearing and well nourished GENERAL APPEARANCE: cooperative, well kempt and well developed HENMT: COMMON NORMALS: normocephalic, atraumatic, external ears normal, EAC's normal and Normal external nose present HEAD & SCALP: normal to inspection, normocephalic and atraumatic FACE & SINUS: normal facial exam and face symmetric NOSE: Normal external nose present and Normal nares present EXTERNAL EAR: Yes external ears normal EXTERNAL AUDITORY CANAL: EAC's normal MOUTH: Normal oral and palatal mucosa present, lip normal and tongue normal Eye: COMMON NORMALS: Equal, round and reactive pupils present and conjunctivae normal GENERAL EYE: appearance normal, both eyes and all related structures ALIGNMENT: Yes alignment normal PERIORBITAL: periorbital findings normal EYELID: eyelids normal CONJUNCTIVA: Yes conjunctivae normal SCLERA: sclerae normal PUPIL: Yes Equal, round and reactive pupils present Neck/C-Spine: COMMON NORMALS: full ROM, no lymphadenopathy, supple, no meningeal signs and no JVD GENERAL: Yes normal visual inspection and Yes trachea midline Chest: COMMONS NORMALS: normal inspection of the chest and normal palpation of entire chest wall Resp: COMMON NORMALS: normal respiratory effort, No retractions and No use of accessory muscles EFFORT & INSPECTION: Yes able to speak in complete sentences and Yes symmetric chest movement AUSCULTATION: no crackles, no rales, no rhonchi and no wheezes Cardio: COMMON NORMALS: no JVD, regular rate, regular rhythm, S1 normal heart sound present and S2 normal heart sound present RATE: regular rate RHYTHM: regular rhythm HEART SOUNDS: S1 normal heart sound present, S2 normal heart sound present, no click, no gallops, no murmurs, no rubs and abnormal split S2 GI: COMMON NORMALS: Soft to palpation and No hepatosplenomegaly present PALPATION: Yes Soft to palpation, No Tenderness to palpation present (GI), No Guarding due to palpation present (GI), No Rigid due to palpation, Yes No hepatosplenomegaly present, No Hernia present, No Palpable mass present and No Pulsatile mass present : COMMON NORMALS: Yes no CVA tenderness BLADDER/KIDNEY EXAM: Yes no CVA tenderness EXTERNAL FEMALE EXAM: No Hernia present Back/Pelvis: COMMON NORMALS: no CVA tenderness, thoracic and lumbar spine normal to inspection, no thoracic nor lumbar tenderness and thoraco-lumbar ROM normal Extremity: COMMON NORMALS: normal to inspection, full ROM, capillary refill normal, no joint enlargement, no clubbing, cyanosis or edema and no calf tenderness Neuro: COMMON NORMALS: patient oriented x3, CN's II-XII intact bilaterally, moves all extremities, no focal motor deficits and no sensory deficits noted MENINGEAL SIGNS: Yes no meningeal signs SPEECH: speech normal Psych: COMMON NORMALS: mental status grossly normal, Normal thought process present, cooperative, normal affect, speech normal and activity/motor behavior normal APPEARANCE: Yes well kempt SPEECH: Yes normal speech THOUGHT PROCESS: Normal thought process present Skin: COMMON NORMALS: no rashes or lesions noted, turgor normal, no jaundice, no petechiae and no mottling GENERAL SKIN EXAM: no rashes or lesions noted and turgor normal Course Vital Signs: Vital signs: Vital Signs Temperature 98.2 F 01/03/20 20:34 Pulse Rate 92 01/03/20 20:34 Respiratory Rate 20 H 01/03/20 20:34 Blood Pressure 100/72 01/03/20 20:34 Pulse Oximetry 92 01/03/20 20:34 MDM - Abdominal Pain MDM Narrative: Medical decision making narrative: Patient is feeling better after IV fluids and pain medication. She does want to go home. Her abdomen shows no sign of peritonitis. She has had diarrhea at home but not vomited. She is able to keep down oral medications here I think she will be suitable for discharge. I placed her on Cipro and Flagyl for her colitis and enteritis. She does agree to return should her symptoms change and worsen in any way. Lab Data: Attestation: I reviewed the patient's lab results. Labs: Lab Results 01/03/20 01/03/20 Range/Units 16:40 16:40 WBC 6.0 (4.0-10.0) 10^3/ uL RBC 5.93 H (4.1-5.3) 10^6/u L Hgb 18.9 H (11.5-15.3) g/dL Hct 59.2 H (37.0-47.0) % MCV 99.8 H (81-99) fL MCH 31.9 (28.0-34.0) pg MCHC 31.9 (30.0-36.0) g/dL RDW 13.8 (12.1-15.1) % Plt Count 218 (130-400) 10^3/c mm MPV 10.6 H (7.4-10.4) fL Neut % (Auto) 80.6 % Lymph % (Auto) 10.8 % [place] % (Auto) 7.8 % Eos % (Auto) 0.0 % Baso % (Auto) 0.3 % Neut # (Auto) 4.8 (1.8-7.7) 10^3/u L Lymph # (Auto) 0.7 L (0.8-4.8) 10^3/u L [place] # (Auto) 0.5 (0.2-0.9) 10^3/u L Eos # (Auto) 0.0 (0.0-0.8) 10^3/u L Baso # (Auto) 0.0 (0.0-0.1) 10^3/u L Nucleated RBC % (a uto) 0 % Nucleated RBCs # 0.0 /100WBC Sodium 139 (136-145) mmol/L Potassium 4.0 (3.5-5.1) mmol/L Chloride 100 (98-107) mmol/L Carbon Dioxide 26 (22-29) mmol/L Anion Gap 17.0 (5-19) BUN 8 (6-20) mg/dL Creatinine 0.6 (0.5-0.9) mg/dL GFR Calculation 109.6 (90-130) mL/min Glucose 115 (65-115) mg/dL Calculated Osmolal ity 285 (285-295) mOsm/k g Calcium 9.5 (8.5-10.5) mg/dL Magnesium 1.5 L (1.7-2.3) mg/dL Total Bilirubin 0.2 (0.15-1.2) mg/dL AST 11 (0-32) U/L ALT 8 (0-33) U/L Alkaline Phosphata se 85 (35-105) IU/L Total Protein 7.2 (6.6-8.7) g/dL Albumin 4.5 (3.5-5.2) g/dL Globulin 2.7 (1.3-4.6) g/dL Lipase 27 (13-60) U/L Imaging Data ^: CT Abd/Pel: Radiologist's impression: [place] [address] CT Scan Report Signed Patient: Paula Starr Unit #: [id number] : 1975 Age/Sex: 44 / F ADM Date: 01/03/20 Loc: ER Room/Bed: Attending Dr: Ordering Provider/Ordering MD: Roro Whitaker DO Date of Service: 01/03/20 Procedure(s): CT abdomen pelvis w con* [id number] Accession Number(s): [id number] Report Number: [id number] PROCEDURE INFORMATION: Exam: CT Abdomen And Pelvis With Contrast Exam date and time: 01/03/2020 4:49 PM Age: 44 years old Clinical indication: Other: Diarrhea; Abdominal pain; Prior surgery; Surgery type: Hernia, gb, lumbar fusion, spinal stimulator TECHNIQUE: Imaging protocol: Computed tomography of the abdomen and pelvis with intravenous contrast. Radiation optimization: All CT scans at this facility use at least one of these dose optimization techniques: automated exposure control; mA and/or kV adjustment per patient size (includes targeted exams where dose is matched to clinical indication); or iterative reconstruction. Contrast material: OMNI 300; Contrast volume: 95 ml; Contrast route: INTRAVENOUS (IV); COMPARISON: No relevant prior studies available. RADIATION DOSE METRICS: Total DLP (mGy-cm): 541.08 FINDINGS: Lungs: Limited assessment lung bases fails to reveal evidence for active cardiopulmonary process. Mild dependent atelectasis. Liver: Unremarkable. No mass. Gallbladder and bile ducts: Status post cholecystectomy. Pancreas: Normal. No ductal dilation. Spleen: Normal. No splenomegaly. Adrenals: Normal. No mass. Kidneys and ureters: Normal. No hydronephrosis. Stomach and bowel: Evidence of diffuse mucosal thickening increased enhancement of the mucosa of the colon consistent with pancolitis. Mild mucosal thickening and enhancement of the terminal ileum. Nonobstructive bowel pattern. Also evidence of mucosal thickening of the duodenum and proximal jejunum suggesting active either infectious or inflammatory duodenitis and proximal jejunitis. Remainder of the small bowel loops unremarkable. Appendix: No evidence of appendicitis. Intraperitoneal space: Unremarkable. No free air. No significant fluid collection. Vasculature: The abdominal aorta is nonaneurysmal. Mild arterial sclerotic disease. Lymph nodes: No visible evidence of associated mesenteritis/panniculitis or mesenteric lymphadenitis/lymphadenopathy. Bladder: Unremarkable as visualized. Reproductive: Unremarkable as visualized. Bones/joints: Inter pedicle screw fixation L5 and S1. Tens stimulator unit. Soft tissues: Unremarkable. CT/CT abdomen pelvis w con* [id number] IMPRESSION: 1. Findings of low-grade inflammatory or infectious pancolitis. 2. Evidence of mild terminal ileitis. 3. Evidence of mild duodenitis and proximal jejunitis. Radiation Dose CTDIVOL = (mGy): DLP = 541.08 (mGy-cm) Dictated By: Serge Cole Signed By: Serge Cole Signed Date/Time: 01/03/20 1716 DD/ 1715 Discharge Plan Discharge Patient Disposition: Home, Self-Care Clinical Impression: Enterocolitis Condition: Stable Prescriptions: New Zofran 4 mg tablet 4 mg PO Q6H PRN (Reason: nausea and vomiting) Qty: 20 RF: 0 Flagyl 500 mg tablet 500 mg PO TID 10 Days Qty: 30 RF: 0 Cipro 500 mg tablet 500 mg PO BID Qty: 20 RF: 0 dicyclomine 20 mg tablet 20 mg PO QID Qty: 20 RF: 0 No Action Amitiza 24 mcg capsule 24 mcg PO BID RF: 0 benzonatate 200 mg capsule 200 mg PO TID PRN (Reason: Cough) RF: 0 budesonide 0.5 mg/2 mL suspension for nebulization 0.5 mg inhalation BID RF: 0 buspirone 15 mg tablet 15 mg PO BID RF: 0 montelukast 10 mg tablet 10 mg PO DAILY RF: 0 pantoprazole 40 mg tablet,delayed release (DR/EC) 40 mg PO DAILY RF: 0 Perforomist 20 mcg/2 mL solution for nebulization 2 ml INHALATION BID RF: 0 albuterol sulfate [ProAir HFA] 90 mcg/actuation HFA aerosol inhaler 2 puff INHALATION Q4H PRN (Reason: Shortness Of Breath) RF: 0 Spiriva with HandiHaler 18 mcg capsule, w/inhalation device 1 cap INHALATION DAILY RF: 0 ondansetron HCl [Zofran] 8 mg tablet 8 mg PO Q8H PRN (Reason: Nausea) RF: 0 venlafaxine 150 mg capsule,extended release 24hr 150 mg PO DAILY Qty: 30 RF: 2 Chantix Starting Month Box 0.5 mg (11)- 1 mg (42) tablets,dose pack See Rx Instructions PO PER PKG DIR Qty: 53 RF: 0 morphine 60 mg capsule, ER multiphase 24 hr 60 mg PO BID RF: 0 oxycodone-acetaminophen [Percocet] 7.5-325 mg tablet 1 tab PO QID PRN (Reason: Pain) RF: 0 metformin 500 mg tablet extended release 24 hr 1,000 mg PO DAILY Qty: 60 RF: 2 (DME) blood-glucose meter [Larotec Ultra2 Meter] Misc See Rx Instructions .ROUTE .MEDSUPPLY Qty: 1 RF: 0 (DME) blood sugar diagnostic [OneTouch Ultra Blue Test Strip] Strip See Rx Instructions .ROUTE .MEDSUPPLY Qty: 50 RF: 5 tizanidine 2 mg tablet 2 mg PO TID PRN (Reason: muscle spasticity) Qty: 90 RF: 2 gabapentin 600 mg tablet 600 mg PO QID 30 Days Qty: 120 RF: 5 albuterol sulfate 2.5 mg /3 mL (0.083 %) Solution For Nebulization 2.5 mg inhalation PRN RF: 0 Excedrin Migraine 250-250-65 mg Tablet 1 - 2 tab PO PRN RF: 0 Tylenol Extra Strength 500 - 1,500 mg PO PRN RF: 0 Discharge Orders: Discharge Order (Routine); Ordered 01/03/20 Ordered By: Roro Whitaker Referrals: Heide Dhillon FNP-C [Primary Care Provider] - 1-3 days Discharge Diet: Advance as tolerated and Clear Liquid Discharge Activity: Increase activity as tolerated Patient Instructions: Infectious Colitis (ED) Activity Restrictions/Additional Instructions: Please return to the ER immediately for any of the signs or symptoms listed on your discharge instruction sheets, worsening/changing of your symptoms, you are not getting better as quickly as expected, or for ANY other cause or concerns. Follow a clear liquid diet and advance slowly as tolerated. Take your antibiotics as I have instructed and be certain to follow-up with your doctor for recheck and further evaluation and care. Discharge Date/Time: 01/03/20 20:36 Coding Level of Care Code ED [employer] for Juan Fwd Exam Comprehensive
[2020-01-03 17:24] LABS: Alanine Aminotransferase 8 U/L (0-33); Albumin Level 4.5 g/dL (3.5-5.2); Alkaline Phosphatase 85 IU/L (35-105); Aspartate Amino Transferase 11 U/L (0-32); Blood Urea Nitrogen 8 mg/dL (6-20); Calcium 9.5 mg/dL (8.5-10.5); Carbon Dioxide 26 mmol/L (22-29); Chloride 100 mmol/L (98-107); Globulin 2.7 g/dL (1.3-4.6); Glomerular Filtration Rate 109.6 mL/min (90-130); Glucose 115 mg/dL (65-115); Lipase 27 U/L (13-60); Magnesium 1.5 mg/dL (1.7-2.3); Osmolality Calculated 285 mOsm/kg (285-295); Sodium 139 mmol/L (136-145); Total Bilirubin 0.2 mg/dL (0.15-1.2); Total Protein 7.2 g/dL (6.6-8.7)
[2020-01-03] MEDS: ciprofloxacin 500 mg Tablet PO (19:01)
[2020-01-03] MEDS: metroNIDAZOLE 500 MG Tablet PO (19:01)
[2020-01-03] MEDS: piperacillin-tazobactam 3.375 GM in sodium chloride 0.9% (plus) 50 ML IV (19:01)
[2020-01-03 19:02] VITALS: RESP 16
[2020-01-03] MEDS: morphine 4 mg/mL SDV 1 mL IVP (19:02)
[2020-01-03] MEDS: magnesium sulfate premix 2 GM/50 ML PIGGYBACK IV (19:02)
[2020-01-03 19:15] VITALS: BP 101/74; PULSE 80; RESP 16; O2SAT 90
[2020-01-03 20:16] VITALS: BP 100/72; PULSE 86; RESP 16; O2SAT 93
[2020-01-03 20:34] VITALS: BP 100/72; PULSE 92; RESP 20; TEMP 36.8; O2SAT 92
== END 2020-01-03 20:36 | disposition home or self-care (01) ==
PROVIDERS: Emergency Provider Emergency Medicine; PCP Nurse Practitioner Family
DX: K52.9 Noninfective gastroenteritis and colitis, unspecified (principal); J44.9 Chronic obstructive pulmonary disease, unspecified; F17.210 Nicotine dependence, cigarettes, uncomplicated
CPT/HCPCS: 12345; 36415; 74177; 80053; 83690; 83735; 85025; 96361; 96365; 96367; 96375; 99281; 99284; J1170; J2270; J2405; J2543; J3475; J7030; Q9967

== ENCOUNTER 2020-01-10 02:33 | Outpatient (RCR) | payer MEDICARE, MEDICAID, SELFPAY | END 2020-02-09 23:59 | disposition home or self-care (01) | LOC: APT 02:33 | PROVIDERS: PCP Nurse Practitioner Family; Visit Provider Nurse Practitioner Family | DX: M25.512 Pain in left shoulder (principal); G89.29 Other chronic pain | CPT/HCPCS: 97110 ==

== ENCOUNTER → 2020-02-28 10:26 | Outpatient (BNVA) | payer MEDICARE, MEDICAID, SELFPAY | PROVIDERS: PCP Nurse Practitioner Family; Visit Provider Nurse Practitioner Family | DX: E11.65 Type 2 diabetes mellitus with hyperglycemia (principal); F41.9 Anxiety disorder, unspecified; R11.0 Nausea; K21.9 Gastro-esophageal reflux disease without esophagitis; J44.9 Chronic obstructive pulmonary disease, unspecified; M51.36 Other intervertebral disc degeneration, lumbar region; F32.9 Major depressive disorder, single episode, unspecified; K59.03 Drug induced constipation; T40.2X5A Adverse effect of other opioids, initial encounter; M54.17 Radiculopathy, lumbosacral region; G47.33 Obstructive sleep apnea (adult) (pediatric); R51 Headache | CPT/HCPCS: 80053; 80061; 83036; 84443; 85025 ==

== ENCOUNTER → 2020-05-01 14:57 | Outpatient (BNVA) | payer MEDICARE, MEDICAID, SELFPAY | PROVIDERS: PCP Nurse Practitioner Family; Visit Provider Nurse Practitioner Family | DX: Z11.59 Encounter for screening for other viral diseases (principal) | CPT/HCPCS: 71046; 87635 ==

== ENCOUNTER 2020-07-01 12:10 | Inpatient (IN) | payer MEDICARE, MEDICAID, SELFPAY ==
[2020-07-01] VITALS (16 sets, daily range): BP systolic 102–117; BP diastolic 65–82; PULSE 92–120; RESP 14–30; TEMP 36.8; O2SAT 93–99
--- NOTE | 2020-07-01 13:54 | XR_ITS ---
WS: [id number] PORTABLE CHEST HISTORY: dyspnea/cough COMPARISON: 05/01/2020 Mild pulmonary hyperinflation and emphysema. No pneumonia. Normal vasculature. No pleural effusion or pneumothorax. Cardiac size: Normal. Mediastinum/Aorta: Normal mediastinum. No osseous abnormality seen. Dorsal column stimulator electrodes over the mid thoracic spine. XR/XR chest 1V portable [id number] IMPRESSION: Chronic emphysema with no pneumonia.
--- NOTE | 2020-07-01 16:19 | ECG_ITS ---
[facility] Test Date: 2020-07-01 Pat Name: Paula Starr Department: Room: Gender: Female [employer]al: : 1975 Requested By: Roro Mary Order Number: [id number] Solis MD: Hiwot Muniz M.D. Measurements Intervals [place] Rate: 115 P: AR: 364 QRS: 71 QRSD: 85 T: 68 QT: 342 QTc: 474 Interpretive Statements SINUS TACHYCARDIA Compared to ECG 10/26/2019 00:07:01 Sinus tachycardia no longer present Electronically Signed On 07-01-2020 20:12:25 FIELD SOFTWARE ENGINEER by Hiwot Muniz M.D. [id number]
--- NOTE | 2020-07-01 16:22 | W.ED.SOB ---
HPI - SOB/Dyspnea General: Chief Complaint: Shortness of Breath/Dyspnea Stated Complaint: SOB, PRODUCTIVE COUGH, COPD Time Seen by Provider: 07/01/20 16:15 Source: patient Mode of arrival: ambulatory Limitations: no limitations History of Present Illness: HPI Narrative: Paula is a nice 45-year-old female who comes in with shortness of breath. For the past 2 weeks she states that she is been getting progressively more short of breath. She states that she cannot walk any distance without severe shortness of breath. Her cough is productive of yellow sputum. She denies any fevers or chills. Patient denies any chest pain. She has history of COPD for which she wears oxygen but she states that it is not helping at this time. She is not aware of any fevers. She denies any chest pain. Patient denies any complaints or concerns at this time she states she just wants to feel better. Associated symptoms: Reports chest congestion; Deny abdominal pain, chest pain, diaphoresis, dizziness, extremity pain, fever(s), hemoptysis, lightheadedness, nausea, orthopnea, palpitations, syncope or vomiting Review of Systems Const: Denies: fever(s), chills, body aches, fatigue, malaise or diaphoresis Eyes: Denies: change in vision, blurry vision, photophobia, eye discomfort, eye discharge, eye redness or yellow eyes ENMT: Denies: throat pain, odynophagia, hoarseness, swelling of lips/tongue, ear or mastoid pain, ear discharge, change in hearing or nasal discharge Card: Denies: chest pain, palpitations, irregular heart rhythm, edema, lightheadedness, syncope, pre-syncope, dyspnea on exertion or orthopnea Resp: Reports: dyspnea, productive cough, change in phlegm color and chest congestion; Denies: non-productive cough, wheezing or hemoptysis GI: Denies: abdominal pain, nausea, vomiting, hematemesis, coffee ground emesis, heartburn, diarrhea, constipation, GI cramping, hematochezia or melena : Denies: flank pain, dysuria, urinary frequency, urinary urgency or hematuria Musc: Denies: neck pain, back pain, extremity pain, extremity swelling, joint pain, joint swelling, joint redness, joint warmth or joint stiffness Skin/Breast: Denies: rash, pruritus, erythema, skin pain or skin tenderness Neuro: Denies: headache(s), numbness in extremities, weakness in extremities, sensory changes, lack of coordination, difficulty walking, dizziness, vertigo, confusion, Slurred speech present or seizure-like activity Tre/Lymph: Denies: easy bruising, easy bleeding, petechiae, purpura or enlarged lymph nodes All/Imm: Denies: urticaria, throat swelling, tongue swelling, facial swelling or acute wheezing PFSH ED PFSH: Medical History Anxiety and depression Arthritis Asthma Atopic dermatitis, mild Chronic headache Chronic nausea Constipation due to opioid therapy COPD (chronic obstructive pulmonary disease) Degenerative lumbar disc GERD (gastroesophageal reflux disease) History of left foot drop Lumbosacral radiculitis Migraines Obstructive sleep apnea Personal history of nicotine dependence Scoliosis Surgical History History of bilateral salpingectomy 1997 History of cholecystectomy 1998 History of hysterectomy 2005 History of lumbar fusion With kvng 2006 History of umbilical hernia repair 2009 Family History Mother Heart disease Grandmother Congestive heart failure Social History Smoking and tobacco status: current every day smoker Second hand smoke exposure: Yes Smoking risk assessment/counseling performed?: Yes Alcohol intake: never Desire information about alcohol rehabilitation?: No Counseling given: No Desire information about substance/drug rehabilitation?: No Counseling given: No Caregiver/support person: No Lives independently: Yes Household members: children Housing: House Marital status: Legally Number of children: 2 service: No Current occupational status: disabled History of recent travel: No Current gender identity: Female Physical Exam Const: COMMON NORMALS: no acute distress, patient oriented x3, no limitations and alert GENERAL APPEARANCE: cooperative HENMT: COMMON NORMALS: normocephalic, atraumatic, external ears normal, EAC's normal and Normal external nose present HEAD & SCALP: normal to inspection, normocephalic and atraumatic FACE & SINUS: normal facial exam and face symmetric NOSE: Normal external nose present and Normal nares present EXTERNAL EAR: Yes external ears normal EXTERNAL AUDITORY CANAL: EAC's normal MOUTH: Normal oral and palatal mucosa present, lip normal and tongue normal Eye: COMMON NORMALS: Equal, round and reactive pupils present and conjunctivae normal GENERAL EYE: appearance normal, both eyes and all related structures ALIGNMENT: Yes alignment normal PERIORBITAL: periorbital findings normal EYELID: eyelids normal CONJUNCTIVA: Yes conjunctivae normal SCLERA: sclerae normal PUPIL: Yes Equal, round and reactive pupils present Neck/C-Spine: COMMON NORMALS: full ROM, no lymphadenopathy, supple, no meningeal signs and no JVD GENERAL: Yes normal visual inspection and Yes trachea midline Chest: COMMONS NORMALS: normal inspection of the chest and normal palpation of entire chest wall Resp: EFFORT & INSPECTION: Yes pursed lip breathing, Yes labored, Yes Actively coughing, Yes uses accessory muscles and Yes audible wheezes AUSCULTATION: rhonchi and wheezes Cardio: COMMON NORMALS: no JVD, regular rate, regular rhythm, S1 normal heart sound present and S2 normal heart sound present RATE: regular rate RHYTHM: regular rhythm HEART SOUNDS: S1 normal heart sound present, S2 normal heart sound present, no click, no gallops, no murmurs and no rubs GI: COMMON NORMALS: Soft to palpation and No hepatosplenomegaly present PALPATION: Yes Soft to palpation, No Tenderness to palpation present (GI), No Guarding due to palpation present (GI), No Rigid due to palpation, Yes No hepatosplenomegaly present, No Hernia present, No Palpable mass present and No Pulsatile mass present : COMMON NORMALS: Yes no CVA tenderness BLADDER/KIDNEY EXAM: Yes no CVA tenderness EXTERNAL FEMALE EXAM: No Hernia present Back/Pelvis: COMMON NORMALS: no CVA tenderness, thoracic and lumbar spine normal to inspection, no thoracic nor lumbar tenderness and thoraco-lumbar ROM normal Extremity: COMMON NORMALS: normal to inspection, full ROM, capillary refill normal, no joint enlargement, no clubbing, cyanosis or edema and no calf tenderness Neuro: COMMON NORMALS: patient oriented x3, CN's II-XII intact bilaterally, moves all extremities, no focal motor deficits and no sensory deficits noted SENSORIUM/ORIENTATION: Yes alert MENINGEAL SIGNS: Yes no meningeal signs SPEECH: speech normal Psych: COMMON NORMALS: mental status grossly normal, Normal thought process present, cooperative, normal affect, speech normal and activity/motor behavior normal SPEECH: Yes normal speech THOUGHT PROCESS: Normal thought process present Skin: COMMON NORMALS: no rashes or lesions noted, turgor normal, no jaundice, no petechiae and no mottling GENERAL SKIN EXAM: no rashes or lesions noted and turgor normal Course Vital Signs: Vital signs: Vital Signs Temperature 98.3 F 07/01/20 12:15 Pulse Rate 113 H 07/01/20 16:30 Respiratory Rate 20 H 07/01/20 16:30 Blood Pressure 115/82 07/01/20 16:30 Pulse Oximetry 97 07/01/20 16:30 MDM - SOB/Dyspnea Lab Data: Labs: Lab Results 07/01/20 Range/Units 16:38 WBC 17.1 H (4.0-10.0) 10^3/ uL RBC 5.81 H (4.1-5.3) 10^6/u L Hgb 18.6 H (11.5-15.3) g/dL Hct 57.2 H (37.0-47.0) % MCV 98.5 (81-99) fL MCH 32.0 (28.0-34.0) pg MCHC 32.5 (30.0-36.0) g/dL RDW 14.6 (12.1-15.1) % Plt Count 273 (130-400) 10^3/c mm MPV 10.5 H (7.4-10.4) fL Neut % (Auto) 86.0 % Lymph % (Auto) 5.5 % Ada % (Auto) 7.5 % Eos % (Auto) 0.0 % Baso % (Auto) 0.4 % Neut # (Auto) 14.74 H (1.8-7.7) 10^3/u L Lymph # (Auto) 1.0 (0.8-4.8) 10^3/u L Ada # (Auto) 1.3 H (0.2-0.9) 10^3/u L Eos # (Auto) 0.0 (0.0-0.8) 10^3/u L Baso # (Auto) 0.1 (0.0-0.1) 10^3/u L Nucleated RBC % (a uto) 0 % Nucleated RBCs # 0.0 /100WBC Imaging Data^: CXR: Attestation: I personally reviewed and interpreted this imaging study as follows: My impression: COPD changes. No acute cardiopulmonary findings. EKG Data^: EKG 1: Attestation: I personally reviewed and interpreted this EKG as follows: EKG Interpretation Date: 07/01/20 EKG interpretation time: 16:47 Interpretation: Normal sinus rhythm 150 beats minute, normal axis, no blocks, normal intervals. Discharge Plan Discharge Prescriptions: No Action venlafaxine 150 mg capsule,extended release 24hr 150 mg PO DAILY 30 Days Qty: 30 RF: 2 zinc oxide Ointment 1 applic TOPICAL TID 30 Days Qty: 56.7 RF: 2 pantoprazole 40 mg tablet,delayed release (DR/EC) 40 mg PO DAILY 30 Days Qty: 30 RF: 2 ondansetron HCl [Zofran] 8 mg tablet 8 mg PO Q8H PRN (Reason: Nausea) 30 Days Qty: 30 RF: 2 tizanidine 2 mg tablet 2 mg PO TID PRN (Reason: muscle spasticity) Qty: 90 RF: 2 Chantix Starting Month Box 0.5 mg (11)- 1 mg (42) tablets,dose pack See Rx Instructions PO PER PKG DIR Qty: 53 RF: 0 metformin 500 mg tablet extended release 24 hr 1,000 mg PO DAILY Qty: 60 RF: 2 gabapentin 600 mg tablet 600 mg PO QID 30 Days Qty: 120 RF: 2 albuterol sulfate [ProAir HFA] 90 mcg/actuation HFA aerosol inhaler 2 puff INHALATION Q4H PRN (Reason: Shortness Of Breath) 30 Days Qty: 6.7 RF: 2 benzonatate 200 mg capsule 200 mg PO TID PRN (Reason: Cough) 30 Days Qty: 90 RF: 2 buspirone 15 mg tablet 15 mg PO BID 30 Days Qty: 60 RF: 2 Amitiza 24 mcg capsule 24 mcg PO BID 30 Days Qty: 60 RF: 2 Spiriva with HandiHaler 18 mcg capsule, w/inhalation device 1 cap INHALATION DAILY 30 Days Qty: 30 RF: 2 Breo Ellipta 200-25 mcg/dose blister with device 1 inh INHALATION Q24H 30 Days Qty: 28 RF: 2 montelukast 10 mg tablet 10 mg PO DAILY 30 Days Qty: 30 RF: 2 albuterol sulfate 2.5 mg /3 mL (0.083 %) solution for nebulization 2.5 mg inhalation Q4H PRN (Reason: shortness of breath or wheezing) 30 Days Qty: 540 RF: 2 Excedrin Migraine 250-250-65 mg tablet 1 - 2 tab PO DAILY PRN (Reason: pain) 30 Days Qty: 60 RF: 2 morphine 60 mg capsule, ER multiphase 24 hr 60 mg PO BID RF: 0 oxycodone-acetaminophen [Percocet] 7.5-325 mg tablet 1 tab PO QID PRN (Reason: Pain) RF: 0 (DME) blood-glucose meter [[place] SLTouch Ultra2 Meter] Misc See Rx Instructions .ROUTE .MEDSUPPLY Qty: 1 RF: 0 (DME) blood sugar diagnostic [[place] SLTouch Ultra Blue Test Strip] Strip See Rx Instructions .ROUTE .MEDSUPPLY Qty: 50 RF: 5 clarithromycin 500 mg tablet 500 mg PO BID 10 Days Qty: 20 RF: 0 prednisone 20 mg tablet 20 mg PO BID 5 Days Qty: 10 RF: 0 nystatin 100,000 unit/mL suspension 4 ml PO QID 14 Days Qty: 250 RF: 0 Chantix Continuing Month Box 1 mg tablet 1 mg PO BID 28 Days Qty: 56 RF: 0 Tylenol Extra Strength 500 - 1,500 mg PO PRN RF: 0 Coding Level of Care Code ED Optical Engineering Technician for Chg Fwd Exam Comprehensive
[2020-07-01] MEDS: ondansetron 2 mg/ML SDV 2 mL 4 MG IVP (16:41)
[2020-07-01] MEDS: sodium chloride 0.9% 1,000 ML 999 ML IV (16:42)
[2020-07-01] MEDS: albuterol 8 gm MDI 6 PUFF INHALATION (16:43)
[2020-07-01 16:49] LABS: Basophils # 0.1 10^3/uL (0.0-0.1); Basophils % 0.4 %; Hematocrit 57.2 % (37.0-47.0); Hemoglobin 18.6 g/dL (11.5-15.3); Lymphocytes % 5.5 %; Mean Corpuscular HGB Conc 32.5 g/dL (30.0-36.0); Mean Corpuscular Volume 98.5 fL (81-99); Mean Platelet Volume 10.5 fL (7.4-10.4); Monocytes # 1.3 10^3/uL (0.2-0.9); Monocytes % 7.5 %; Neutrophils # 14.74 10^3/uL (1.8-7.7); Nucleated Red Blood Cells % 0 %; Platelet Count 273 10^3/cmm (130-400); Red Blood Count 5.81 10^6/uL (4.1-5.3); Red Cell Distribution Width 14.6 % (12.1-15.1); White Blood Count 17.1 10^3/uL (4.0-10.0)
[2020-07-01 17:02] LABS: ABG PCO2 59.5 mmHg (35-45); ABG PH Result 7.38 (7.35-7.45); Arterial Blood Gas Hematocrit 52.5 % (37-47); Base Excess ABG 7.4 mmol/L (-2.0-2.0); Blood Gas Allen Test Pos; Blood Gas Operator Identificat glc; Blood Gas Sample Site Radial, left; Blood Gas Sample Type Arterial; HCO3 ABG 35.2 mmol/L (22-26); Oxygen Device NRB
[2020-07-01 17:08] LABS: SARS Covid-2 Antigen Negative (Negative)
[2020-07-01 17:14] LABS: Alanine Aminotransferase 12 U/L (0-33); Albumin Level 3.9 g/dL (3.5-5.2); Alkaline Phosphatase 108 IU/L (35-105); Aspartate Amino Transferase 9 U/L (0-32); Blood Urea Nitrogen 11 mg/dL (6-20); Calcium 10.3 mg/dL (8.5-10.5); Carbon Dioxide 37 mmol/L (22-29); Chloride 95 mmol/L (98-107); Creatinine Clr Calc Pharmacy 128.1923; Globulin 3.9 g/dL (1.3-4.6); Glomerular Filtration Rate 134.7 mL/min (90-130); Glucose 134 mg/dL (65-115); Osmolality Calculated 295 mOsm/kg (285-295); Sodium 142 mmol/L (136-145); Total Bilirubin 0.8 mg/dL (0.15-1.2); Total Protein 7.8 g/dL (6.6-8.7)
--- NOTE | 2020-07-01 19:03 | PC.NURSE ---
REPORT RECEIVED FROM JENINFER PHELPS, CARE TRANSFERRED TO MATTIE BRAR
[2020-07-01 19:05] LABS: C Reactive Protein 303.3 mg/L (0.0-4.9); Lactate Dehydrogenase 167 U/L (135-214); Magnesium 1.7 mg/dL (1.7-2.3)
[2020-07-01 19:06] LABS: Lactic Sepsis W/Reflex 1.7 mmol/L (0.5-2.2)
[2020-07-01 19:07] LABS: Troponin T (5th) Once 9 ng/L (0-10)
[2020-07-01 19:11] LABS: INR 0.98 (0.8-1.2)
[2020-07-01 19:15] LABS: D Dimer 0.96 ug/mIFEU (0-0.59)
--- NOTE | 2020-07-01 19:24 | CTR_ITS ---
PROCEDURE INFORMATION: Exam: CT Angiography Chest With Contrast Exam date and time: 07/01/2020 7:42 PM Age: 45 years old Clinical indication: Shortness of breath; Additional info: Dyspnea, positive d-dimer, SOB TECHNIQUE: Imaging protocol: Computed tomographic angiography of the chest with intravenous contrast. 3D rendering (Not supervised by radiologist): MIP and/or 3D reconstructed images were created by the technologist. Radiation optimization: All CT scans at this facility use at least one of these dose optimization techniques: automated exposure control; mA and/or kV adjustment per patient size (includes targeted exams where dose is matched to clinical indication); or iterative reconstruction. Contrast material: OMNI 350; Contrast volume: 65 ml; Contrast route: INTRAVENOUS (IV); COMPARISON: CT angio chest PE protcl [id number] 10/25/2019 10:25 PM RADIATION DOSE METRICS: Total DLP (mGy-cm): 405.69 FINDINGS: Tubes, catheters and devices: There is a neurostimulator electrode in the thoracic region. Pulmonary arteries: There is no evidence of filling defects within the pulmonary arterial circulation to suggest pulmonary embolism. Aorta: Unremarkable. No aortic aneurysm. No aortic dissection. Lungs: There is some scarring or subsegmental atelectasis in the right middle lobe. Pleural space: Unremarkable. No pneumothorax. No pleural effusion. Heart: Unremarkable. No cardiomegaly. No pericardial effusion. Lymph nodes: Unremarkable. No enlarged lymph nodes. Bones/joints: Unremarkable. No acute fracture. Soft tissues: Unremarkable. CT/CT angio chest PE protcl [id number] IMPRESSION: 1. No evidence of pulmonary embolism. 2. No significant change compared with 10/25/2019. Radiation Dose CTDIVOL = (mGy): DLP = 405.69 (mGy-cm)
[2020-07-01] MEDS: iohexol 350 mg/mL 100 mL Btl 65 ML IV (19:53)
[2020-07-01 20:08] LABS: Protein Urine 1+ (Negative); Urine Appearance Cloudy (CLEAR); Urine Color Dark Yellow (Yellow); pH Urine 5 (5-7)
[2020-07-01 20:09] LABS: Add Urine Microscopic? YES; Bilirubin Urine 1+ (Negative); Blood Urine Neg (Negative); Glucose Urine UA Norm (Normal); Ketones Urine 1+ (Negative); Leukocyte Esterase Urine Negative (Negative); Nitrate Urine Negative (Negative); Urobilinogen Urine 1 mg/dL (Negative)
[2020-07-01 20:19] LABS: Bacteria Urine 2+ /hpf; RBC Urine 0-4 /hpf (0-2); Squamous Epithelial Cell Urine 25-40 /hpf (0-5)
[2020-07-01 20:20] LABS: Add Urine Culture? No; Amorphous Sediment Urine 1+ /hpf
--- NOTE | 2020-07-01 20:28 | PM.HP ---
Providers/Chief Complaint Primary Care Provider: PREETHI Lopes Chief Complaint: SOB, PRODUCTIVE COUGH, COPD History of Present Illness Paula Starr is a 45 year old female who has severe COPD uses 4 L oxygen at home, PE secondary to estrogen, back pain, opioid dependent was admitted in the hospital in October with COPD exacerbation Covid antigen was negative, pulmonary rehab was recommended for her gradual worsening of pulmonary parenchymal disease presented today with chief complaint of worsening shortness of breath. Patient is stating that her symptoms started about 2 weeks ago with flulike's symptoms headache, sinus congestion, she did not spike any temperature above 100.4, no nausea or vomiting but she has been having increased shortness of breath after 2 weeks, she started experiencing excessive bouts of cough, this is also hurting her chest because of excessive coughing, her sputum production has increased in quantity, it is green in color, her family members were also experiencing cold-like symptoms 2 weeks ago but they have improved in 2 weeks unfortunately Ever has not improved at all that so she decided to come to the hospital for further evaluation. Diagnosis in the ER revealed acute on chronic hypoxia she was saturating 66% on 4 L hence was put on nonrebreather mask eventually humidified high flow and BiPAP at the time my evaluation she was on BiPAP settings 16/880% FiO2 saturating well 98% she has prolonged expiratory phase but no use of respiratory accessory muscles. Diagnosis in the ER ruled out PE Covid antigen negative, PCR has been sent, CT scan is showing chronic COPD changes. She is not septic Review of Systems Const: Reports: chills, body aches and fatigue; Denies: fever(s) Eyes: Denies: change in vision ENMT: Reports: throat pain Card: Reports: chest pain and dyspnea on exertion Resp: Reports: dyspnea, productive cough and pain on inspiration GI: Denies: abdominal pain : Denies: flank pain Musc: Denies: neck pain Skin/Breast: Denies: rash Neuro: Denies: headache(s) Psych: Reports: anxiety Endo: Denies: polyuria Tre/Lymph: Denies: easy bruising All/Imm: Denies: urticaria Medications/Allergies Home Medications Medication Instructions Recorded Confirmed Last Taken Type morphine 60 mg capsule,extended 60 mg PO BID 10/04/19 07/01/20 07/01/20 History release 24 hr multiphase oxycodone-acetaminophen 7.5 mg-325 1 tab PO QID PRN 10/04/19 07/01/20 07/01/20 History mg tablet albuterol sulfate 2.5 mg INHALATION Q4H PRN 30 Days 02/28/20 07/01/20 Unknown Rx #540 ml albuterol sulfate 90 mcg/actuation 2 puff INHALATION Q4H PRN 30 Days 02/28/20 07/01/20 Unknown Rx aerosol inhaler #6.7 gm devbasn-kymoxvmqqvcyw-woggqvnj 250 1 - 2 tab PO DAILY PRN 30 Days #60 02/28/20 07/01/20 Unknown Rx mg-250 mg-65 mg tablet tab buspirone 15 mg tablet 15 mg PO BID 30 Days #60 tab 02/28/20 07/01/20 Unknown Rx fluticasone furoate 200 1 inh INHALATION Q24H 30 Days #28 02/28/20 07/01/20 Unknown Rx mcg-vilanterol 25 mcg/dose each inhalation powder gabapentin 600 mg tablet 600 mg PO QID 30 Days #120 tab 02/28/20 07/01/20 Unknown Rx lubiprostone 24 mcg capsule 24 mcg PO BID 30 Days #60 cap 02/28/20 07/01/20 Unknown Rx metformin 500 mg tablet,extended 1,000 mg PO DAILY #60 tab 02/28/20 07/01/20 Unknown Rx release 24 hr montelukast 10 mg tablet 10 mg PO DAILY 30 Days #30 tab 02/28/20 07/01/20 Unknown Rx pantoprazole 40 mg tablet,delayed 40 mg PO DAILY 30 Days #30 tab 02/28/20 07/01/20 Unknown Rx release tiotropium bromide 18 mcg capsule 1 cap INHALATION DAILY 30 Days #30 02/28/20 07/01/20 Unknown Rx with inhalation device inh tizanidine 2 mg tablet 2 mg PO TID PRN #90 tab 02/28/20 07/01/20 Unknown Rx venlafaxine 150 mg 150 mg PO DAILY 30 Days #30 cap 02/28/20 07/01/20 Unknown Rx capsule,extended release 24 hr Allergies Allergy/AdvReac Type Severity Reaction Status Date / Time estrogens, conjugated Allergy Severe blood clots Verified 06/12/20 14:34 [From Premarin] Fish Containing Products Allergy Unknown unknown Verified 12/02/20 14:34 NSAIDS (Non-Steroidal Allergy stomach Verified 06/12/20 14:34 Anti-Inflamma bleeds PFSH Acute PFSH: Medical History (Updated 07/01/20 @ 21:52 by Elan Wheeler MD) Anxiety and depression Arthritis Asthma Atopic dermatitis, mild Chronic headache Chronic nausea Constipation due to opioid therapy COPD (chronic obstructive pulmonary disease) Degenerative lumbar disc GERD (gastroesophageal reflux disease) History of left foot drop Lumbosacral radiculitis Migraines Obstructive sleep apnea Personal history of nicotine dependence Scoliosis Surgical History History of bilateral salpingectomy 1997 History of cholecystectomy 1998 History of hysterectomy 2005 History of lumbar fusion With kvng 2006 History of umbilical hernia repair 2009 Family History Mother Heart disease Grandmother Congestive heart failure Social History Smoking and tobacco status: current every day smoker Second hand smoke exposure: Yes Smoking risk assessment/counseling performed?: Yes Alcohol intake: never Desire information about alcohol rehabilitation?: No Counseling given: No Desire information about substance/drug rehabilitation?: No Counseling given: No Caregiver/support person: No Lives independently: Yes Household members: children Housing: House Marital status: Legally Number of children: 2 service: No Current occupational status: disabled History of recent travel: No Current gender identity: Female Vitals/I&O/Wt Last Vital Signs Temp 98.3 F 07/01/20 12:15 Pulse 98 07/01/20 20:06 Resp 18 07/01/20 19:24 BP 107/71 07/01/20 20:06 Pulse Ox 99 07/01/20 20:06 Weight last 48 hrs Weight 54.431 kg Physical Exam Narrative: EXAM NARRATIVE: Very pleasant middle-age female currently on BiPAP 16/8 FiO2 80% no use of respiratory accessory muscles saturating 98% No active chest pain Looks euvolemic S1, S2 no tachycardia or signs of heart failure Abdomen soft nontender bowel sound present breath sounds are vesicular bilateral I do not appreciate any actual wheezing but she has crepitations which are diffuse Lower extremity no edema gangrene ulcer No skin tattoos EOMI, PERRLA no neurological deficit Appropriate mood and affect Data : 07/01/20 16:38 07/01/20 16:38 A&P Assessment and plan (1) Constipation due to opioid therapy: Status: Chronic (2) Chronic headache: Status: Chronic Qualifiers: Headache type: unspecified Intractability: not intractable Qualified Code(s): R51 - Headache (3) Obstructive sleep apnea: Status: Chronic (4) Acute and chronic respiratory failure with hypoxia: Status: Acute Additional A&P Information Acute on chronic hypoxic respiratory failure secondary to COPD exacerbation Covid antigen negative however Covid PCR sent because of high suspicion, currently on BiPAP saturating well on 90% 24/02 No sign of sepsis no consolidation on CTA, PE has been ruled out For COPD exacerbation I would keep her on azithromycin for anti-inflammatory effect, she experienced cold-like symptoms 2 weeks ago no active signs of sepsis Keep her on BiPAP overnight Start her on Decadron, I will hold off on remdesivir for now Chronic headache this most likely is secondary to hefty doses of opioids, currently not complaining of any active headache Sleep apnea: Patient is currently smoking 1 to 2 packs a day, uses 4 L of oxygen at home We will keep her on BiPAP at night Opioid dependence: She goes to pain clinic at [facility], I would continue her morphine and Percocet for now, adjust dose according to her pain level Full code Cardiac diet DVT prophylaxis Lovenox Attestations Medical Necessity Statement*: Anticipating stay in the hospital likely less than 2 midnights currently need to rule out Covid requiring BiPAP for acute on chronic hypoxic respiratory failure Time Spent in Patient Care: (>than 50% of time spent in counselling and/or direct pt care on unit). 40mins Coding Level of Care Code Acute Diversional Therapist'S Assistant for Chg Fwd Diagnoses Constipation due to opioid therapy K59.03; T40.2X5A Chronic headache R51 Headache type: unspecified Intractability: not intractable Obstructive sleep apnea G47.33 Acute and chronic respiratory failure with hypoxia J96.21
[2020-07-01 20:29] LABS: Influenza A by IFA Negative (Negative); Influenza B by IFA Negative (Negative)
[2020-07-01 20:40] LABS: Fibrinogen 890 mg/dL (174-498)
[2020-07-01] MEDS: morphine IR 15 mg Tablet 30 MG PO (22:58)
--- NOTE | 2020-07-01 23:32 | PC.NURSE ---
PATIENT GOT UP OUT OF BED AND TOOK OXYGEN OFF STATING THEY NEED TO GO HOME . PATIENT GOT BACK IN BED BY NURSE AND PUT BACK ON OXYGEN AND HOOKED BACK UP TO VITALS BY THIS NURSE.
[2020-07-02] VITALS (23 sets, daily range): BP systolic 99–119; BP diastolic 63–79; PULSE 76–114; RESP 16–24; TEMP 36.4–36.8; O2SAT 89–98
[2020-07-02] MEDS: oxyCODONE-APAP 10-325 mg Tablet 1 TAB PO (05:41)
[2020-07-02] MEDS: gabapentin 300 mg Capsule 600 MG PO ×5 (05:41→21:28)
[2020-07-02 06:27] LABS: Glucose Point of Care 139 mg/dL (70-110)
[2020-07-02] MEDS: pantoprazole DR 40 mg Tablet PO (08:11)
[2020-07-02] MEDS: azithromycin 250 mg Tablet 500 MG PO (08:11)
[2020-07-02] MEDS: morphine ER (12 HR) 30 mg tablet 60 MG PO ×2 (08:11→17:37)
[2020-07-02] MEDS: sennosides-docusate Tablet 1 TAB PO (08:12)
[2020-07-02] MEDS: dexamethasone 4 mg Tablet 6 MG PO (08:12)
[2020-07-02] MEDS: cefTRIAXone 1,000 MG in sodium chloride 0.9% (plus) 50 ML 100 MG IV (08:12)
[2020-07-02] MEDS: montelukast sodium 10 mg Tablet PO (08:12)
[2020-07-02] MEDS: venlafaxine ER (24HR) 150 mg Capsule PO (08:12)
[2020-07-02] MEDS: albuterol 8 gm MDI 1 PUFF INHALATION ×4 (08:27→20:30)
[2020-07-02 10:35] LABS: Glucose Point of Care 135 mg/dL (70-110)
--- NOTE | 2020-07-02 13:07 | P.PN_ITS ---
Subjective Subjective: Interval history: History and physical was reviewed. Paula reports she is feeling much better. No chest discomfort. Less wheezing. Medications: Reviewed: Yes Vitals/I&O/Wt Last Vital Signs Temp 97.6 F 07/02/20 11:13 Pulse 98 07/02/20 11:46 Resp 18 07/02/20 11:46 BP 111/74 07/02/20 11:13 Pulse Ox 89 L 07/02/20 11:46 07/01/20 07/02/20 07/02/20 22:59 06:59 14:59 Intake Total 1000 / 1000 120 / 120 Balance 1000 / 1000 120 / 120 Weight last 48 hrs Weight 54.431 kg Physical Exam Narrative: EXAM NARRATIVE: General exam is a white female in no apparent distress Cardiovascular regular rate and rhythm without murmur Lungs a few faint expiratory wheezes bilaterally. Diminished breath sounds are noted bilaterally Abdomen is soft, positive bowel sounds Extremities no cyanosis clubbing or edema Data : 07/01/20 16:38 07/01/20 16:38 A&P Assessment and plan (1) Acute and chronic respiratory failure with hypoxia: Patient with trilogy at home. She reports that it has been broken, for the last 2 months with a hose problem. We will try to have this addressed while in the hospital See below Status: Acute (2) COPD (chronic obstructive pulmonary disease): With acute exacerbation Changed to prednisone 40 mg daily Pulmonary toilet Await Covid PCR Wean oxygen as tolerated Continue Rocephin and Zithromax for concerning superimposed pneumonia(right subsegmental atelectasis or infiltrate right middle lobe) and/or bronchitis Initiate Advair Status: Chronic Qualifiers: COPD type: unspecified COPD Qualified Code(s): J44.9 - Chronic obstructive pulmonary disease, unspecified Additional A&P Information Chronic pain. Continue chronic pain medication Tobacco dependency. Counseled Full code Lovenox for DVT prophylaxis Attestations Medical Necessity Statement*: Needs continued hospitalization for pulmonary toilet, close monitoring with COPD exacerbation. Coding Level of Care Code Acute Production Analyst for Juan Harrington Diagnoses Acute and chronic respiratory failure with hypoxia J96.21 COPD (chronic obstructive pulmonary disease) J44.9 COPD type: unspecified COPD
[2020-07-02 15:01] LABS: Coronavirus Test Green County Not Detected
[2020-07-02 17:01] LABS: Glucose Point of Care 188 mg/dL (70-110)
[2020-07-02 21:21] LABS: Glucose Point of Care 157 mg/dL (70-110)
[2020-07-03] VITALS (21 sets, daily range): BP systolic 93–117; BP diastolic 52–72; PULSE 73–97; RESP 16–24; TEMP 36.2–36.7; O2SAT 90–95
[2020-07-03] MEDS: albuterol 8 gm MDI 1 PUFF INHALATION ×3 (00:55→08:16)
[2020-07-03] MEDS: enoxaparin 40 mg/0.4 mL Syringe SUBCUT (04:21)
[2020-07-03] MEDS: oxyCODONE-APAP 10-325 mg Tablet 1 TAB PO ×2 (05:42→17:26)
--- NOTE | 2020-07-03 05:57 | NUR.SHIFT ---
Patient partially slept through the night. Patient was made aware that she is Covid-19 negative. Her SpO2 has stayed above 90% on 8L Oxymask. She only complained of headaches once, which was well controlled by oxycodone per sep.
[2020-07-03 06:04] LABS: Basophils % 0.1 %; Eosinophils % 0.1 %; Hematocrit 48.6 % (37.0-47.0); Hemoglobin 15.2 g/dL (11.5-15.3); Lymphocytes # 2.2 10^3/uL (0.8-4.8); Lymphocytes % 19.1 %; Mean Corpuscular HGB Conc 31.3 g/dL (30.0-36.0); Mean Corpuscular Hemoglobin 31.8 pg (28.0-34.0); Mean Corpuscular Volume 101.7 fL (81-99); Mean Platelet Volume 10.4 fL (7.4-10.4); Monocytes # 0.8 10^3/uL (0.2-0.9); Monocytes % 7.4 %; Neutrophils # 8.32 10^3/uL (1.8-7.7); Neutrophils % 72.9 %; Nucleated Red Blood Cells % 0 %; Platelet Count 227 10^3/cmm (130-400); Red Blood Count 4.78 10^6/uL (4.1-5.3); Red Cell Distribution Width 14.3 % (12.1-15.1); White Blood Count 11.4 10^3/uL (4.0-10.0)
[2020-07-03 06:29] LABS: Anion Gap 8.3 (5-19); Blood Urea Nitrogen 12 mg/dL (6-20); C Reactive Protein 62.4 mg/L (0.0-4.9); Carbon Dioxide 40 mmol/L (22-29); Chloride 96 mmol/L (98-107); Glomerular Filtration Rate 174.2 mL/min (90-130); Glucose 110 mg/dL (65-115); Osmolality Calculated 290 mOsm/kg (285-295); Potassium 4.3 mmol/L (3.5-5.1); Sodium 140 mmol/L (136-145)
[2020-07-03 06:50] LABS: Slide Review Slide Review Perform
[2020-07-03 07:26] LABS: Glucose Point of Care 112 mg/dL (70-110)
[2020-07-03] MEDS: venlafaxine ER (24HR) 150 mg Capsule PO (07:57)
[2020-07-03] MEDS: morphine ER (12 HR) 30 mg tablet 60 MG PO ×2 (07:58→17:22)
[2020-07-03] MEDS: montelukast sodium 10 mg Tablet PO (07:58)
[2020-07-03] MEDS: azithromycin 250 mg Tablet 500 MG PO (07:58)
[2020-07-03] MEDS: sennosides-docusate Tablet 1 TAB PO (07:59)
[2020-07-03] MEDS: predniSONE 20 mg Tablet 40 MG PO (07:59)
[2020-07-03] MEDS: gabapentin 300 mg Capsule 600 MG PO ×4 (07:59→21:59)
[2020-07-03] MEDS: cefTRIAXone 1,000 MG in sodium chloride 0.9% (plus) 50 ML 100 MG IV (07:59)
[2020-07-03] MEDS: pantoprazole DR 40 mg Tablet PO (07:59)
--- NOTE | 2020-07-03 09:40 | P.PN_ITS ---
Subjective Subjective: Interval history: Paula reports she is doing okay. She is coughing more. However, feels like she is now getting more air. Medications: Reviewed: Yes Vitals/I&O/Wt Last Vital Signs Temp 98.1 F 07/03/20 07:38 Pulse 75 07/03/20 08:27 Resp 20 H 07/03/20 08:24 BP 97/55 07/03/20 07:38 Pulse Ox 93 07/03/20 08:24 07/02/20 07/03/20 07/03/20 22:59 06:59 14:59 Output Total 550 / 1050 Balance -550 / -880 Weight last 48 hrs Weight 54.431 kg Physical Exam Narrative: EXAM NARRATIVE: General exam is a white female in no apparent distress Cardiovascular regular rate and rhythm without murmur Lungs bilateral expiratory wheezes are noted. Improved air movement from yesterday is noted. Abdomen is soft, positive bowel sounds Extremities no cyanosis clubbing or edema Data : 07/03/20 05:45 07/03/20 05:45 A&P Assessment and plan (1) Acute and chronic respiratory failure with hypoxia: Patient with trilogy at home. She reports that it has been broken, for the last 2 months with a hose problem. This has already been addressed with home health company and toes has been provided. See below Status: Acute (2) COPD (chronic obstructive pulmonary disease): With acute exacerbation Continue prednisone 40 mg daily Pulmonary toilet. Change to nebulized treatments as Covid PCR negative Covid PCR negative Wean oxygen as tolerated. Baseline oxygen is 4 L Continue Rocephin and Zithromax for concerning superimposed pneumonia(right subsegmental atelectasis or infiltrate right middle lobe) and/or bronchitis Continue Advair which was started yesterday Status: Chronic Qualifiers: COPD type: unspecified COPD Qualified Code(s): J44.9 - Chronic obstructive pulmonary disease, unspecified Additional A&P Information DM. Continue sliding scale insulin. Patient refuses consistent carb diet at this time. Will change to regular. Chronic pain. Continue chronic pain medication Tobacco dependency. Counseled Full code Lovenox for DVT prophylaxis No need for laboratory tomorrow Attestations Medical Necessity Statement*: Needs continued hospitalization secondary to acute COPD exacerbation requiring pulmonary toilet. 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
[2020-07-03 10:37] LABS: Glucose Point of Care 188 mg/dL (70-110)
[2020-07-03] MEDS: ipratropium-albuterol 3 mL Neb INHALATION ×3 (11:23→21:08)
[2020-07-03 16:36] LABS: Glucose Point of Care 161 mg/dL (70-110)
--- NOTE | 2020-07-03 17:08 | PC.RESP ---
Smoking Cessation and Pulmonary Rehab packet sent to patient.
[2020-07-03 21:07] LABS: Glucose Point of Care 127 mg/dL (70-110)
[2020-07-04] VITALS (17 sets, daily range): BP systolic 103–115; BP diastolic 66–76; PULSE 70–98; RESP 15–20; TEMP 36.4–37.1; O2SAT 89–96
[2020-07-04] MEDS: ipratropium-albuterol 3 mL Neb INHALATION ×6 (00:17→20:37)
[2020-07-04] MEDS: enoxaparin 40 mg/0.4 mL Syringe SUBCUT (05:12)
[2020-07-04] MEDS: acetaminophen 500 mg Tablet PO (06:36)
[2020-07-04 06:40] LABS: Glucose Point of Care 123 mg/dL (70-110)
[2020-07-04] MEDS: sennosides-docusate Tablet 1 TAB PO (08:00)
[2020-07-04] MEDS: montelukast sodium 10 mg Tablet PO (08:00)
[2020-07-04] MEDS: venlafaxine ER (24HR) 150 mg Capsule PO (08:01)
[2020-07-04] MEDS: azithromycin 250 mg Tablet 500 MG PO (08:01)
[2020-07-04] MEDS: gabapentin 300 mg Capsule 600 MG PO ×4 (08:01→21:08)
[2020-07-04] MEDS: pantoprazole DR 40 mg Tablet PO (08:01)
[2020-07-04] MEDS: morphine ER (12 HR) 30 mg tablet 60 MG PO ×2 (08:01→17:42)
[2020-07-04] MEDS: predniSONE 20 mg Tablet 40 MG PO (08:01)
[2020-07-04] MEDS: cefTRIAXone 1,000 MG in sodium chloride 0.9% (plus) 50 ML 100 MG IV (08:18)
[2020-07-04 11:10] LABS: Glucose Point of Care 127 mg/dL (70-110)
--- NOTE | 2020-07-04 11:59 | P.PN_ITS ---
Subjective Subjective: Interval history: She is overall doing little better. At home she uses normally 4 L of oxygen. She says that she feels there is some phlegm to cough up and she had been moving it but has not been able to get up. Vitals/I&O/Wt Last Vital Signs Temp 97.7 F 07/04/20 03:49 Pulse 96 07/04/20 11:36 Resp 17 07/04/20 11:31 BP 109/71 07/04/20 07:37 Pulse Ox 90 07/04/20 11:31 07/03/20 07/04/20 07/04/20 22:59 06:59 14:59 Intake Total 240 / 530 120 / 120 Balance 240 / 530 120 / 120 Physical Exam Const: COMMON NORMALS: no acute distress and patient oriented x3 HENMT: COMMON NORMALS: oropharynx normal TEETH & GINGIVA: Yes poor dentition Neck/C-Spine: COMMON NORMALS: no JVD Resp: COMMON NORMALS: normal respiratory effort AUSCULTATION: rhonchi, wheezes and diminished lung sounds Cardio: COMMON NORMALS: no JVD, regular rhythm, S1 normal heart sound present, S2 normal heart sound present and No murmurs present (Cardio) RHYTHM: regular rhythm HEART SOUNDS: S1 normal heart sound present and S2 normal heart sound present GI: COMMON NORMALS: Normal to inspection, nondistended, normoactive bowel sounds present, Soft to palpation and non-tender PALPATION: Yes Soft to p alpation Extremity: COMMON NORMALS: no joint enlargement and no pedal edema Neuro: COMMON NORMALS: patient oriented x3 and moves all extremities Skin: COMMON NORMALS: no rashes or lesions noted GENERAL SKIN EXAM: no rashes or lesions noted Data : 07/03/20 05:45 07/03/20 05:45 A&P Assessment and plan (1) Acute and chronic respiratory failure with hypoxia: COPD exacerbation improving, although slowly. She reports she is feeling better. Still requiring 6 L of oxygen. Normally on 4. On exam still wheezing, rhonchi. He is having some trouble bringing up sputum. Will increase prednisone dose to 60 mg for now given persistent wheezing, hypoxia, sputum production. Add Mucinex. Flutter valve. Patient with trilogy at home. She reports that it has been broken, for the last 2 months with a hose problem. This has already been addressed with home health company and hose has been provided. Status: Acute (2) COPD (chronic obstructive pulmonary disease): Severe COPD exacerbation As above. Continue Rocephin and Zithromax for possible superimposed bacterial pneumonia(right subsegmental atelectasis or infiltrate right middle lobe) and/or bronchitis Continue Advair Status: Chronic Qualifiers: COPD type: unspecified COPD Qualified Code(s): J44.9 - Chronic obstruc tive pulmonary disease, unspecified Additional A&P Information DM. Continue sliding scale insulin. She had refused consistent carb diet. Chronic pain. Continue chronic pain medication Tobacco dependency. Continue to encourage cessation. 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
[2020-07-04] MEDS: predniSONE 20 mg Tablet PO (12:19)
[2020-07-04] MEDS: guaiFENesin 600 mg Tablet 1200 MG PO ×2 (12:19→17:42)
[2020-07-04 17:31] LABS: Glucose Point of Care 124 mg/dL (70-110)
[2020-07-04 21:20] LABS: Glucose Point of Care 172 mg/dL (70-110)
[2020-07-05] VITALS (17 sets, daily range): BP systolic 105–115; BP diastolic 59–76; PULSE 71–115; RESP 16–20; TEMP 36.7–37.1; O2SAT 87–94
[2020-07-05] MEDS: ipratropium-albuterol 3 mL Neb INHALATION ×6 (00:12→19:44)
[2020-07-05] MEDS: enoxaparin 40 mg/0.4 mL Syringe SUBCUT (05:40)
[2020-07-05 07:31] LABS: Glucose Point of Care 105 mg/dL (70-110)
[2020-07-05] MEDS: sennosides-docusate Tablet 1 TAB PO (07:57)
[2020-07-05] MEDS: guaiFENesin 600 mg Tablet 1200 MG PO ×2 (07:57→18:25)
[2020-07-05] MEDS: morphine ER (12 HR) 30 mg tablet 60 MG PO ×2 (07:57→18:25)
[2020-07-05] MEDS: gabapentin 300 mg Capsule 600 MG PO ×4 (07:58→21:36)
[2020-07-05] MEDS: venlafaxine ER (24HR) 150 mg Capsule PO (07:58)
[2020-07-05] MEDS: montelukast sodium 10 mg Tablet PO (07:58)
[2020-07-05] MEDS: cefTRIAXone 1,000 MG in sodium chloride 0.9% (plus) 50 ML 100 MG IV (07:59)
[2020-07-05] MEDS: pantoprazole DR 40 mg Tablet PO (07:59)
[2020-07-05] MEDS: predniSONE 20 mg Tablet 60 MG PO (07:59)
[2020-07-05] MEDS: azithromycin 250 mg Tablet 500 MG PO (08:00)
[2020-07-05 11:44] LABS: Glucose Point of Care 157 mg/dL (70-110)
[2020-07-05 17:17] LABS: Glucose Point of Care 160 mg/dL (70-110)
[2020-07-05] MEDS: oxyCODONE-APAP 10-325 mg Tablet 1 TAB PO (18:27)
--- NOTE | 2020-07-05 19:11 | PM.PN ---
Subjective Subjective: Interval history: She feels little bit better today. Feels she is breathing little easier. Still having some cough, producing some phlegm. Denies chest pain or pressure. Denies abdominal discomfort, nausea vomiting or diarrhea. Denies lower extremity edema. Vitals/I&O/Wt Last Vital Signs Temp 98.1 F 07/05/20 15:53 Pulse 83 07/05/20 15:53 Resp 20 H 07/05/20 18:27 BP 113/72 07/05/20 15:53 Pulse Ox 91 07/05/20 15:53 07/05/20 07/05/20 07/05/20 06:59 14:59 22:59 Intake Total 240 / 1010 600 / 600 360 / 960 Output Total 850 / 850 Balance 240 / 210 -250 / -250 360 / 110 Physical Exam Const: COMMON NORMALS: no acute distress and patient oriented x3 HENMT: COMMON NORMALS: oropharynx normal TEETH & GINGIVA: Yes poor dentition Neck/C-Spine: COMMON NORMALS: no JVD Resp: COMMON NORMALS: normal respiratory effort AUSCULTATION: no rhonchi, no wheezes and diminished lung sounds Cardio: COMMON NORMALS: no JVD, regular rhythm, S1 normal heart sound present, S2 normal heart sound present and No murmurs present (Cardio) RHYTHM: regular rhythm HEART SOUNDS: S1 normal heart sound present and S2 normal heart sound present GI: COMMON NORMALS: Normal to inspection, nondistended, normoactive bowel sounds present, Soft to palpation and non-tender PALPATION: Yes Soft to palpation Extremity: COMMON NORMALS: no joint enlargement and no pedal edema Neuro: COMMON NORMALS: patient oriented x3 and moves all extremities Skin: COMMON NORMALS: no rashes or lesions noted GENERAL SKIN EXAM: no rashes or lesions noted Data : 07/03/20 05:45 07/03/20 05:45 A&P Assessment and plan (1) Acute and chronic respiratory failure with hypoxia: Subjectively she is feeling a bit better. On exam she no longer has quite significant wheezing and rhonchi she had yesterday, although air entry still diminished. Slowly improving severe COPD exacerbation. Down to 6 L oxygen requirement currently. Normally on 4. Prednisone dose was increased to 60 mg today. For now continue at this dose. Continue IV antibiotics. Sputum growing Haemophilus influenza. Appears to be gradually improving. Continue scheduled nebs. Advair. Montelukast. Mucinex. Flutter valve. If oxygenation gradually improving, may be both discharged home within the next 1-2 days. Patient with trilogy at home. She reports that it has been broken, for the last 2 months with a hose problem. This has already been addressed with home health company and hose has been provided. Status: Acute (2) COPD (chronic obstructive pulmonary disease): Severe COPD exacerbation As above. Continue Rocephin and Zithromax for possible superimposed bacterial pneumonia(right subsegmental atelectasis or infiltrate right middle lobe) and/or bronchitis Continue Advair Status: Chronic Qualifiers: COPD type: unspecified COPD Qualified Code(s): J44.9 - Chronic obstructive pulmonary disease, unspecified Additional A&P Information DM. Continue sliding scale insulin. She had refused consistent carb diet. Chronic pain. Continue chronic pain medication Tobacco dependency. Continue to encourage cessation. Full code Lovenox for DVT prophylaxis Attestations Medical Necessity Statement*: Continue admission for assessment management of acute respite failure, severe COPD exacerbation, Haemophilus influenza respiratory infection. 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
[2020-07-05 21:39] LABS: Glucose Point of Care 140 mg/dL (70-110)
[2020-07-06] VITALS (14 sets, daily range): BP systolic 111–119; BP diastolic 69–81; PULSE 76–90; RESP 16–18; TEMP 36.3–37; O2SAT 87–94
[2020-07-06] MEDS: ipratropium-albuterol 3 mL Neb INHALATION ×4 (00:24→11:22)
[2020-07-06] MEDS: enoxaparin 40 mg/0.4 mL Syringe SUBCUT (05:19)
[2020-07-06 06:45] LABS: Glucose Point of Care 90 mg/dL (70-110)
[2020-07-06] MEDS: cefTRIAXone 1,000 MG in sodium chloride 0.9% (plus) 50 ML 100 MG IV (09:04)
[2020-07-06] MEDS: predniSONE 20 mg Tablet 60 MG PO (09:04)
[2020-07-06] MEDS: guaiFENesin 600 mg Tablet 1200 MG PO (09:06)
[2020-07-06] MEDS: azithromycin 250 mg Tablet 500 MG PO (09:06)
[2020-07-06] MEDS: venlafaxine ER (24HR) 150 mg Capsule PO (09:06)
[2020-07-06] MEDS: montelukast sodium 10 mg Tablet PO (09:06)
[2020-07-06] MEDS: gabapentin 300 mg Capsule 600 MG PO ×2 (09:07→12:24)
[2020-07-06] MEDS: pantoprazole DR 40 mg Tablet PO (09:08)
[2020-07-06] MEDS: sennosides-docusate Tablet 1 TAB PO (09:08)
[2020-07-06 11:20] LABS: Glucose Point of Care 154 mg/dL (70-110)
--- NOTE | 2020-07-06 12:32 | PM.DCS ---
Discharge Providers Date of Admission: 07/04/20 12:07 Date of Discharge: July 06, 2020 Attending Provider at Admission: Elan Wheeler MD Attending Provider at Discharge: Humphrey Casanova Primary Care Provider: PREETHI Lopes Diagnoses at Discharge Discharge Diagnosis (1) Acute and chronic respiratory failure with hypoxia: Status: Acute (2) COPD (chronic obstructive pulmonary disease): Status: Chronic Qualifiers: COPD type: unspecified COPD Qualified Code(s): J44.9 - Chronic obstructive pulmonary disease, unspecified Reason for Visit Reason for Visit: SOB, PRODUCTIVE COUGH, COPD Hospital Course Hospital Course Pleasant 45-year-old lady with COPD, chronically on 4 L of oxygen at home, was admitted and treated for severe COPD exacerbation after presenting with worsening shortness of breath, worsening cough, worsening production of phlegm, of green color, noted hypoxic on presentation, without sign of consolidation or PE on CTA chest. Received transient BiPAP support. Rapid COVID-19 antigen was negative PCR was assessed as well, and was negative to. She was treated with Decadron initially, subsequently prednisone, dose of which had to be increased to 60 mg due to persistent wheezing, poor air entry, productive cough. Also treated with ceftriaxone and azithromycin. Sputum culture eventually grew Haemophilus influenza. Her oxygenation, wheezing, diminished air entry have continue to gradually improve. Subjectively today she is feeling much better. Today oxygen requirement has decreased down to her baseline 4 L. She has minimal rhonchi residual in the lungs. She feels well enough and is eager to return home. Will complete a prednisone taper at home as well as course of antibiotic with doxycycline. She is encouraged to stop smoking. She is encouraged to wear her trilogy, recently with issues with a hose, which per report should have been fixed and new hose provided by the supplier. Physical Exam Const: COMMON NORMALS: no acute distress and patient oriented x3 HENMT: COMMON NORMALS: oropharynx normal TEETH & GINGIVA: Yes poor dentition Neck/C-Spine: COMMON NORMALS: no JVD Resp: COMMON NORMALS: normal respiratory effort AUSCULTATION: rhonchi, no wheezes and diminished lung sounds (improving) Cardio: COMMON NORMALS: no JVD, regular rhythm, S1 normal heart sound present, S2 normal heart sound present and No murmurs present (Cardio) RHYTHM: regular rhythm HEART SOUNDS: S1 normal heart sound present and S2 normal heart sound present GI: COMMON NORMALS: Normal to inspection, nondistended, normoactive bowel sounds present, Soft to palpation and non-tender PALPATION: Yes Soft to palpation Extremity: COMMON NORMALS: no joint enlargement and no pedal edema Neuro: COMMON NORMALS: patient oriented x3 and moves all extremities Skin: COMMON NORMALS: no rashes or lesions noted GENERAL SKIN EXAM: no rashes or lesions noted Discharge Data Data Completed and Pending: Completed Studies During Hospitalization Category Date Time Status CT angio chest PE protcl [id number] Stat Cat Scan 07/01/20 19:24 Completed XR chest 1V ida ble [id number] Stat Exams 07/01/20 13:54 Completed Labs from last 24 hours 07/06/20 07/06/20 07/05/20 11:05 06:35 21:19 POC Glucose 154 H 90 140 H 07/05/20 16:57 POC Glucose 160 H Vitals: Last Vital Signs Temp 98.1 F 07/06/20 08:00 Pulse 87 07/06/20 11:25 Resp 18 07/06/20 11:24 BP 119/81 07/06/20 08:00 Pulse Ox 92 07/06/20 11:24 Discharge Plan Discharge Patient Disposition: Home Condition: Stable Prescriptions: New prednisone 20 mg tablet See Rx Instructions mg .ROUTE .COMPLEX Qty: 20 RF: 0 Mucinex 1,200 mg tablet extended release 12hr 1,200 mg PO BID Qty: 14 RF: 0 doxycycline hyclate 100 mg capsule 100 mg PO BID 3 Days Qty: 6 RF: 0 Continued venlafaxine 150 mg capsule,extended release 24hr 150 mg PO DAILY 30 Days Qty: 30 RF: 2 pantoprazole 40 mg tablet,delayed release (DR/EC) 40 mg PO DAILY 30 Days Qty: 30 RF: 2 tizanidine 2 mg tablet 2 mg PO TID PRN (Reason: muscle spasticity) Qty: 90 RF: 2 metformin 500 mg tablet extended release 24 hr 1,000 mg PO DAILY Qty: 60 RF: 2 gabapentin 600 mg tablet 600 mg PO QID 30 Days Qty: 120 RF: 2 albuterol sulfate [ProAir HFA] 90 mcg/actuation HFA aerosol inhaler 2 puff INHALATION Q4H PRN (Reason: Shortness Of Breath) 30 Days Qty: 6.7 RF: 2 buspirone 15 mg tablet 15 mg PO BID 30 Days Qty: 60 RF: 2 Amitiza 24 mcg capsule 24 mcg PO BID 30 Days Qty: 60 RF: 2 Spiriva with HandiHaler 18 mcg capsule, w/inhalation device 1 cap INHALATION DAILY 30 Days Qty: 30 RF: 2 Breo Ellipta 200-25 mcg/dose blister with device 1 inh INHALATION Q24H 30 Days Qty: 28 RF: 2 montelukast 10 mg tablet 10 mg PO DAILY 30 Days Qty: 30 RF: 2 albuterol sulfate 2.5 mg /3 mL (0.083 %) solution for nebulization 2.5 mg inhalation Q4H PRN (Reason: shortness of breath or wheezing) 30 Days Qty: 540 RF: 2 Excedrin Migraine 250-250-65 mg tablet 1 - 2 tab PO DAILY PRN (Reason: pain) 30 Days Qty: 60 RF: 2 morphine 60 mg capsule, ER multiphase 24 hr 60 mg PO BID RF: 0 oxycodone-acetaminophen [Percocet] 7.5-325 mg tablet 1 tab PO QID PRN (Reason: Pain) RF: 0 Discharge Orders: Discharge Order (Routine); Ordered 07/06/20 Ordered By: Humphrey Casanova Referrals: Heide Dhillon FNP-C [Primary Care Provider] - 4-7 days Discharge Diet: Usual diet Discharge Activity: Increase activity as tolerated and Oxygen as instructed Patient Instructions: Doxycycline (By mouth), How to Stop Smoking (GEN), Cigarette Smoking and Your Health (GEN), Using Oxygen at Home (GEN), Chronic Obstructive Pulmonary Disease (GEN) Activity Restrictions/Additional Instructions: Please stop smoking. Smoking will worsen your lung disease, oxygen dependence. In addition elevate your risk of heart attack, stroke and other cardiovascular complications, in addition to a variety of cancers. Please never smoke anywhere near oxygen due to severe fire hazard, risk of airway medeiros and other injuries. Please follow-up with your primary care doctor with regards to COPD exacerbation. Please continue to use trilogy with sleep. Complete steroid taper and antibiotic. Continue using flutter valve at home. At home target oxygen saturation around 90%. Seek medical attention if saturations staying persistently below 88% despite increasing oxygen flow, or if you experience any concerning symptoms including chest pain or pressure, high fevers, extreme fatigue, inability to tolerate food or drink, or other concerns. Continue your other usual follow-up including pain clinic. 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
--- NOTE | 2020-07-06 15:07 | PC.NURSE ---
Patient educated on CHF stop light and new medications for her discharge. Patient verbalized understanding. IV discontinued secured with 2x2 and coban. Patient tolerated well. Patient wheeled out accompanied by staff to private vehicle driven by .
== END 2020-07-06 15:00 | disposition home or self-care (01) | DRG 190 ==
LOC: ER 16:15 → MEDSURG 07-02 04:52
PROVIDERS: Family Medicine; Internal Medicine; Admitting Provider Internal Medicine; Emergency Provider Emergency Medicine; PCP Nurse Practitioner Family; Visit Provider Internal Medicine
DX: J44.1 Chronic obstructive pulmonary disease with (acute) exacerbation (principal); J96.21 Acute and chronic respiratory failure with hypoxia; Z99.81 Dependence on supplemental oxygen; Z86.711 Personal history of pulmonary embolism; Z79.818 Long term (current) use of other agents affecting estrogen receptors and estrogen levels; Z79.891 Long term (current) use of opiate analgesic; F41.8 Other specified anxiety disorders; M19.90 Unspecified osteoarthritis, unspecified site; K59.03 Drug induced constipation; T40.605A Adverse effect of unspecified narcotics, initial encounter; M51.36 Other intervertebral disc degeneration, lumbar region; K21.9 Gastro-esophageal reflux disease without esophagitis; M21.372 Foot drop, left foot; G47.33 Obstructive sleep apnea (adult) (pediatric); F17.210 Nicotine dependence, cigarettes, uncomplicated; M41.9 Scoliosis, unspecified; Z98.1 Arthrodesis status; R51.9 Headache, unspecified; G89.29 Other chronic pain; Z79.51 Long term (current) use of inhaled steroids
CPT/HCPCS: 12345; 36416; 36600; 71045; 71275; 80048; 80053; 81001; 82803; 82962; 83605; 83615; 83735; 84484; 85025; 85378; 85384; 85610; 86140; 87426; 87635; 87804; 93005; 94640; 94762; 96372; 96375; 99284; G0378; J0696; J1650; J1815; J2405; J2930; J3535; J7030; J7512; J8540; Q0144; Q9967

== ENCOUNTER → 2020-07-24 11:42 | Outpatient (BNVA) | payer MEDICARE, MEDICAID, SELFPAY | PROVIDERS: PCP Nurse Practitioner Family; Visit Provider Nurse Practitioner Family | DX: J44.9 Chronic obstructive pulmonary disease, unspecified (principal); F41.9 Anxiety disorder, unspecified; E11.65 Type 2 diabetes mellitus with hyperglycemia; M54.17 Radiculopathy, lumbosacral region; F32.9 Major depressive disorder, single episode, unspecified; K59.03 Drug induced constipation; T40.2X5A Adverse effect of other opioids, initial encounter; K21.9 Gastro-esophageal reflux disease without esophagitis; B37.3 Candidiasis of vulva and vagina; J96.10 Chronic respiratory failure, unspecified whether with hypoxia or hypercapnia; M54.9 Dorsalgia, unspecified; G89.29 Other chronic pain; R11.0 Nausea; M51.36 Other intervertebral disc degeneration, lumbar region; Z87.891 Personal history of nicotine dependence | CPT/HCPCS: 80053; 80061; 83036; 84443; 85025 ==

== ENCOUNTER → 2020-07-31 13:17 | Outpatient (BNVA) | payer MEDICARE, MEDICAID, SELFPAY | PROVIDERS: PCP Nurse Practitioner Family; Visit Provider Nurse Practitioner Family | DX: M54.17 Radiculopathy, lumbosacral region (principal); G89.29 Other chronic pain; M54.9 Dorsalgia, unspecified | CPT/HCPCS: 72072; 72100 ==

== ENCOUNTER 2021-01-06 10:20 | Inpatient (IN) | payer MEDICARE, MEDICAID, SELFPAY ==
[2021-01-06] VITALS (18 sets, daily range): BP systolic 93–123; BP diastolic 57–84; PULSE 70–109; RESP 18–28; TEMP 36.7; O2SAT 87–93
--- NOTE | 2021-01-06 10:34 | XRR_ITS ---
PROCEDURE INFORMATION: Exam: XR Chest Exam date and time: 01/06/2021 10:34 AM Age: 45 years old Clinical indication: Dyspnea TECHNIQUE: Imaging protocol: XR of the chest. Views: 1 view. COMPARISON: CR XR chest 1V portable [id number] 07/01/2020 1:56 PM FINDINGS: Tubes, catheters and devices: Lower thoracic neurostimulator. Lungs: Minimal hyperinflation. No consolidation. Pleural spaces: Unremarkable. No pleural effusion. No pneumothorax. Heart/Mediastinum: Unremarkable. No cardiomegaly. Bones/joints: No acute findings. XR/XR chest 1V portable [id number] IMPRESSION: No acute findings.
[2021-01-06 11:26] LABS: Arterial Blood Gas Hematocrit 53.7 % (37-47); Base Excess ABG 1.6 mmol/L (-2.0-2.0); Blood Gas Allen Test Pos; Blood Gas Operator Identificat GD; Blood Gas Sample Site Radial, left; Blood Gas Sample Type Arterial; HCO3 ABG 26.8 mmol/L (22-26); Oxygen Device NC; PO2 ABG 54.5 mmHg (80.0-100.0)
[2021-01-06] MEDS: dexamethasone 4 mg/mL INJ 6 MG IVP (11:26)
[2021-01-06 11:43] LABS: Basophils # 0.1 10^3/uL (0.0-0.1); Basophils % 0.4 %; Eosinophils % 0.1 %; Hematocrit 53.2 % (37.0-47.0); Hemoglobin 17.8 g/dL (11.5-15.3); Lymphocytes # 1.2 10^3/uL (0.8-4.8); Lymphocytes % 10.1 %; Mean Corpuscular HGB Conc 33.5 g/dL (30.0-36.0); Mean Corpuscular Hemoglobin 33.5 pg (28.0-34.0); Mean Corpuscular Volume 100.2 fL (81-99); Monocytes # 1.5 10^3/uL (0.2-0.9); Monocytes % 12.7 %; Neutrophils # 8.73 10^3/uL (1.8-7.7); Neutrophils % 76.4 %; Nucleated Red Blood Cells % 0 %; Platelet Count 216 10^3/cmm (130-400); Red Blood Count 5.31 10^6/uL (4.1-5.3); Red Cell Distribution Width 12.8 % (12.1-15.1); White Blood Count 11.4 10^3/uL (4.0-10.0)
[2021-01-06 12:02] LABS: Alanine Aminotransferase 13 U/L (0-33); Albumin Level 4.3 g/dL (3.5-5.2); Alkaline Phosphatase 89 IU/L (35-105); Anion Gap 15.5 (5-19); Aspartate Amino Transferase 13 U/L (0-32); Blood Urea Nitrogen 7 mg/dL (6-20); C Reactive Protein 24.2 mg/L (0.0-4.9); Calcium 9.5 mg/dL (8.5-10.5); Carbon Dioxide 26 mmol/L (22-29); Chloride 97 mmol/L (98-107); Globulin 3.1 g/dL (1.3-4.6); Glomerular Filtration Rate 91.3 mL/min (90-130); Glucose 127 mg/dL (65-115); Lactic Sepsis W/Reflex 1.5 mmol/L (0.5-2.2); Osmolality Calculated 280 mOsm/kg (285-295); Potassium 3.5 mmol/L (3.5-5.1); Sodium 135 mmol/L (136-145); Total Bilirubin 0.3 mg/dL (0.15-1.2); Total Protein 7.4 g/dL (6.6-8.7)
[2021-01-06 12:07] LABS: SARS Covid-2 Antigen Negative (Negative)
--- NOTE | 2021-01-06 12:20 | W.ED.SOB ---
HPI - SOB/Dyspnea General: Chief Complaint: Shortness of Breath/Dyspnea Stated Complaint: Resp. Distress Time Seen by Provider: 01/06/21 10:33 History of Present Illness: HPI Narrative: 45-year-old female presents emergency room with a history of COPD she normally wears 4 L via nasal cannula this morning she woke up gasping for breath and had to increase her oxygen. Overnight she was using 7 L/min now on arriving here she is on a nonrebreather at 10 L/min. She has had a little bit of sputum production she has been using her albuterol inhaler with mild relief of symptoms.. No fevers with onset of this she noted some diarrhea as well as shortness of breath and nasal congestion. MD elicited complaint: shortness of breath and cough Pertinent past history: COPD Onset (ago): day(s) Timing: constant Severity: moderate Exacerbating factors: exertion and coughing Relieving factors: oxygen, rest and bronchodilators Known history of: COPD Associated symptoms: Reports chest congestion, cough and nausea; Deny abdominal pain, chest pain, diaphoresis, extremity pain, fever(s), hemoptysis, lightheadedness, myalgias, orthopnea, palpitations, paresthesias, polydipsia, polyuria, rash, sense of impending doom, syncope or vomiting Treatment prior to arrival: oxygen and bronchodilator Review of Systems Const: Denies: fever(s) or diaphoresis ENMT: Denies: throat pain, ear or mastoid pain, nasal discharge or nasal congestion Card: Denies: chest pain, palpitations, lightheadedness, syncope or orthopnea Resp: Reports: chest congestion; Denies: hemoptysis GI: Reports: nausea; Denies: abdominal pain or vomiting : Denies: flank pain, difficulty voiding, dysuria, urinary frequency or urinary urgency Musc: Denies: extremity pain Skin/Breast: Denies: rash or pruritus Endo: Denies: polyuria or polydipsia PFSH ED PFSH: Medical History Anxiety and depression Arthritis Asthma Atopic dermatitis, mild Chronic headache Chronic nausea Constipation due to opioid therapy COPD (chronic obstructive pulmonary disease) Degenerative lumbar disc GERD (gastroesophageal reflux disease) History of left foot drop Lumbosacral radiculitis Migraines Obstructive sleep apnea Personal history of nicotine dependence Scoliosis Surgical History History of bilateral salpingectomy 1997 History of cholecystectomy 1998 History of hysterectomy 2005 History of lumbar fusion With kvng 2006 History of umbilical hernia repair 2009 Family History Mother Heart disease Grandmother Congestive heart failure Social History Smoking and tobacco status: current every day smoker cigarettes Packs smoked per day: 2.5 Years cigarettes smoked: 30 Second hand smoke exposure: Yes Smoking risk assessment/counseling performed?: Yes Alcohol intake: never Desire information about alcohol rehabilitation?: No Counseling given: No Desire information about substance/drug rehabilitation?: No Counseling given: No Caregiver/support person: No Lives independently: Yes Household members: children Housing: House Marital status: Legally Number of children: 2 service: No Current occupational status: disabled History of recent travel: No Current gender identity: Female Female Reproductive History: Date of last menstrual period: 06/11/07 Physical Exam Const: COMMON NORMALS: no acute distress GENERAL APPEARANCE: cooperative and comfortable ORIENTATION/CONSCIOUSNESS: Yes awake, Yes oriented to person, Yes oriented to place and Yes oriented to time HENMT: COMMON NORMALS: normocephalic, atraumatic, hearing grossly normal bilaterally and external ears normal HEAD & SCALP: normocephalic and atraumatic EXTERNAL EAR: Yes external ears normal Neck/C-Spine: COMMON NORMALS: no JVD Resp: AUSCULTATION: rhonchi and wheezes Cardio: COMMON NORMALS: no JVD, regular rate, regular rhythm and No murmurs present (Cardio) RATE: regular rate RHYTHM: regular rhythm GI: COMMON NORMALS: Soft to palpation and No hepatosplenomegaly present AUSCULTATION: Yes normoactive bowel sounds PALPATION: Yes Soft to palpation, No Tenderness to palpation present (GI), No Guarding due to palpation present (GI) and Yes No hepatosplenomegaly present Extremity: COMMON NORMALS: normal to inspection, capillary refill normal, no clubbing, cyanosis or edema, no calf tenderness and no pedal edema Neuro: SENSORIUM/ORIENTATION: Yes oriented to person, Yes oriented to place and Yes oriented to time Skin: COMMON NORMALS: no rashes or lesions noted GENERAL SKIN EXAM: no rashes or lesions noted Course Vital Signs: Vital signs: Vital Signs Temperature 98.4 F 01/10/21 08:12 Pulse Rate 96 01/10/21 13:36 Respiratory Rate 18 01/10/21 11:21 Blood Pressure 113/73 01/10/21 08:12 Pulse Oximetry 87 L 01/10/21 11:23 MDM - SOB/Dyspnea MDM Narrative: Medical decision making narrative: Reviewed findings with the patient will admit for exacerbation COPD with acute on chronic hypercapnic respiratory failure. Covid testing is pending Lab Data: Labs: Lab Results 01/06/21 01/06/21 01/06/21 Range/Units 11:15 11:30 11:30 WBC 11.4 H (4.0-10.0) 10^3/ uL RBC 5.31 H (4.1-5.3) 10^6/u L Hgb 17.8 H (11.5-15.3) g/dL Hct 53.2 H (37.0-47.0) % MCV 100.2 H (81-99) fL MCH 33.5 (28.0-34.0) pg MCHC 33.5 (30.0-36.0) g/dL RDW 12.8 (12.1-15.1) % Plt Count 216 (130-400) 10^3/c mm MPV 11.0 H (7.4-10.4) fL Neut % (Auto) 76.4 % Lymph % (Auto) 10.1 % [place] % (Auto) 12.7 % Eos % (Auto) 0.1 % Baso % (Auto) 0.4 % Neut # (Auto) 8.73 H (1.8-7.7) 10^3/u L Lymph # (Auto) 1.2 (0.8-4.8) 10^3/u L [place] # (Auto) 1.5 H (0.2-0.9) 10^3/u L Eos # (Auto) 0.0 (0.0-0.8) 10^3/u L Baso # (Auto) 0.1 (0.0-0.1) 10^3/u L Nucleated RBC % (a uto) 0 % Nucleated RBCs # 0.0 /100WBC D-Dimer (0-0.59) ug/mIFE U Specimen Type Arterial Sample Site Radial, left ABG pH 7.40 (7.35-7.45) ABG pCO2 43.0 (35-45) mmHg ABG pO2 54.5 L (80.0-100.0) mmH g ABG HCO3 26.8 H (22-26) mmol/L ABG Base Excess 1.6 (-2.0-2.0) mmol/ L Lb Test Pos Hematocrit 53.7 H (37-47) % O2 Delivery Device Nc O2 Liters/Min 6.0 % FiO2 44.0 % Activity Therapist ID Gd Sodium 135 L (136-145) mmol/L Potassium 3.5 (3.5-5.1) mmol/L Chloride 97 L (98-107) mmol/L Carbon Dioxide 26 (22-29) mmol/L Anion Gap 15.5 (5-19) BUN 7 (6-20) mg/dL Creatinine 0.7 (0.5-0.9) mg/dL GFR Calculation 91.3 (90-130) mL/min Glucose 127 H (65-115) mg/dL Calculated Osmolal ity 280 L (285-295) mOsm/k g Lactic Acid (0.5-2.2) mmol/L Calcium 9.5 (8.5-10.5) mg/dL Total Bilirubin 0.3 (0.15-1.2) mg/dL AST 13 (0-32) U/L ALT 13 (0-33) U/L Alkaline Phosphata se 89 (35-105) IU/L C-Reactive Protein 24.2 H (0.0-4.9) mg/L NT-Pro-B Natriuret Pep (0-125) pg/mL Total Protein 7.4 (6.6-8.7) g/dL Albumin 4.3 (3.5-5.2) g/dL Globulin 3.1 (1.3-4.6) g/dL Procalcitonin (0-0.5) ng/mL Nasal/Oral COVID-1 9 PCR SARS-CoV-2 Ag (Rap id) (Negative) 01/06/21 01/06/21 01/06/21 Range/Units 11:30 11:30 11:30 WBC (4.0-10.0) 10^3/ uL RBC (4.1-5.3) 10^6/u L Hgb (11.5-15.3) g/dL Hct (37.0-47.0) % MCV (81-99) fL MCH (28.0-34.0) pg MCHC (30.0-36.0) g/dL RDW (12.1-15.1) % Plt Count (130-400) 10^3/c mm MPV (7.4-10.4) fL Neut % (Auto) % Lymph % (Auto) % [place] % (Auto) % Eos % (Auto) % Baso % (Auto) % Neut # (Auto) (1.8-7.7) 10^3/u L Lymph # (Auto) (0.8-4.8) 10^3/u L [place] # (Auto) (0.2-0.9) 10^3/u L Eos # (Auto) (0.0-0.8) 10^3/u L Baso # (Auto) (0.0-0.1) 10^3/u L Nucleated RBC % (a uto) % Nucleated RBCs # /100WBC D-Dimer (0-0.59) ug/mIFE U Specimen Type Sample Site ABG pH (7.35-7.45) ABG pCO2 (35-45) mmHg ABG pO2 (80.0-100.0) mmH g ABG HCO3 (22-26) mmol/L ABG Base Excess (-2.0-2.0) mmol/ L Lb Test Hematocrit (37-47) % O2 Delivery Device O2 Liters/Min % FiO2 % Activity Therapist ID Sodium (136-145) mmol/L Potassium (3.5-5.1) mmol/L Chloride (98-107) mmol/L Carbon Dioxide (22-29) mmol/L Anion Gap (5-19) BUN (6-20) mg/dL Creatinine (0.5-0.9) mg/dL GFR Calculation (90-130) mL/min Glucose (65-115) mg/dL Calculated Osmolal ity (285-295) mOsm/k g Lactic Acid 1.5 (0.5-2.2) mmol/L Calcium (8.5-10.5) mg/dL Total Bilirubin (0.15-1.2) mg/dL AST (0-32) U/L ALT (0-33) U/L Alkaline Phosphata se (35-105) IU/L C-Reactive Protein (0.0-4.9) mg/L NT-Pro-B Natriuret Pep (0-125) pg/mL Total Protein (6.6-8.7) g/dL Albumin (3.5-5.2) g/dL Globulin (1.3-4.6) g/dL Procalcitonin (0-0.5) ng/mL Nasal/Oral COVID-1 9 PCR Not detected SARS-CoV-2 Ag (Rap id) Negative (Negative) 01/06/21 01/06/21 Range/Units 11:30 12:38 WBC (4.0-10.0) 10^3/ uL RBC (4.1-5.3) 10^6/u L Hgb (11.5-15.3) g/dL Hct (37.0-47.0) % MCV (81-99) fL MCH (28.0-34.0) pg MCHC (30.0-36.0) g/dL RDW (12.1-15.1) % Plt Count (130-400) 10^3/c mm MPV (7.4-10.4) fL Neut % (Auto) % Lymph % (Auto) % [place] % (Auto) % Eos % (Auto) % Baso % (Auto) % Neut # (Auto) (1.8-7.7) 10^3/u L Lymph # (Auto) (0.8-4.8) 10^3/u L [place] # (Auto) (0.2-0.9) 10^3/u L Eos # (Auto) (0.0-0.8) 10^3/u L Baso # (Auto) (0.0-0.1) 10^3/u L Nucleated RBC % (a uto) % Nucleated RBCs # /100WBC D-Dimer 0.44 (0-0.59) ug/mIFE U Specimen Type Sample Site ABG pH (7.35-7.45) ABG pCO2 (35-45) mmHg ABG pO2 (80.0-100.0) mmH g ABG HCO3 (22-26) mmol/L ABG Base Excess (-2.0-2.0) mmol/ L Lb Test Hematocrit (37-47) % O2 Delivery Device O2 Liters/Min % FiO2 % Activity Therapist ID Sodium (136-145) mmol/L Potassium (3.5-5.1) mmol/L Chloride (98-107) mmol/L Carbon Dioxide (22-29) mmol/L Anion Gap (5-19) BUN (6-20) mg/dL Creatinine (0.5-0.9) mg/dL GFR Calculation (90-130) mL/min Glucose (65-115) mg/dL Calculated Osmolal ity (285-295) mOsm/k g Lactic Acid (0.5-2.2) mmol/L Calcium (8.5-10.5) mg/dL Total Bilirubin (0.15-1.2) mg/dL AST (0-32) U/L ALT (0-33) U/L Alkaline Phosphata se (35-105) IU/L C-Reactive Protein (0.0-4.9) mg/L NT-Pro-B Natriuret Pep 251 H (0-125) pg/mL Total Protein (6.6-8.7) g/dL Albumin (3.5-5.2) g/dL Globulin (1.3-4.6) g/dL Procalcitonin 0.13 (0-0.5) ng/mL Nasal/Oral COVID-1 9 PCR SARS-CoV-2 Ag (Rap id) (Negative) Discharge Plan Discharge Patient Disposition: Admitted As Inpatient Admit Provider: Justice Murillo Clinical Impression: Acute on chronic respiratory failure with hypercapnia, Chronic respiratory failure with hypoxia and hypercapnia, Acute exacerbation of chronic obstructive airways disease Condition: Stable Discharge Diet: Cardiac Discharge Activity: Resume usual activity Coding Level of Care Code ED Contact Officer for Chg Fwd Exam Comprehensive
[2021-01-06 13:19] LABS: D Dimer 0.44 ug/mIFEU (0-0.59)
--- NOTE | 2021-01-06 16:42 | ECG_ITS ---
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 Measurements Intervals Burns Rate: 87 P: 75 HI: 139 QRS: 78 QRSD: 81 T: 72 QT: 386 QTc: 465 Interpretive Statements Possible sinus rhythm Left atrial enlargement Compared to ECG 07/01/2020 16:47:17 Sinus tachycardia no longer present Electronically Signed On 01-06-2021 21:20:06 CDT by Virgen Sen M.D. [email or web address] hospitalBaroc [email or web address]/[id number]
--- NOTE | 2021-01-06 16:44 | PM.HP ---
Providers/Chief Complaint Primary Care Provider: PREETHI Lopes Chief Complaint: Resp. Distress History of Present Illness Paula Starr is a 45 year old female with a past medical history of COPD on home trilogy, on intermittent oxygen, smoker, history of PE secondary to estrogen therapy, back pain, opiate dependent, LB, who presents to [facility] due to complaints of shortness of breath, cough, intermittent fevers. Patient tells me that for the last few days she has been experiencing increased shortness of breath, shortness of breath with exertion, she normally does not use oxygen, only intermittently, but recently she has been using it more frequently, she is has some subjective fevers, productive cough, active wheezing, she tells me that both of her granddaughters tested positive for RSV, and she was exposed to them. No history of Covid exposure, did not get Covid vaccines, has not received flu vaccine, has received pneumonia vaccine, no loss of taste, no loss of smell, no diarrhea, Review of Systems Const: Denies: fever(s), chills, fatigue or malaise Eyes: Denies: change in vision or blurry vision ENMT: Denies: nasal congestion Card: Denies: chest pain or palpitations Resp: Reports: dyspnea, productive cough and wheezing GI: Denies: abdominal pain, nausea, vomiting, hematemesis, diarrhea, constipation, hematochezia or melena : Denies: flank pain, dysuria or urinary frequency Musc: Denies: neck pain or back pain Skin/Breast: Denies: rash Neuro: Denies: headache(s), dizziness or vertigo Medications/Allergies Home Medications Medication Instructions Recorded Confirmed Last Taken Type oxycodone-acetaminophen 7.5 mg-325 1 tab PO TID PRN 10/04/19 01/06/21 01/05/21 History mg tablet duloxetine 60 mg capsule,delayed 60 mg PO BID 30 Days #60 cap 10/09/20 01/06/21 Unknown Rx release albuterol sulfate 2.5 mg INHALATION Q4H PRN 30 Days 11/15/20 01/06/21 01/05/21 Rx #540 ml albuterol sulfate 90 mcg/actuation 2 puff INHALATION Q4H PRN 30 Days 11/15/20 01/06/21 01/06/21 Rx aerosol inhaler #2 ea vwgdhvw-eoiaflyyqkvqm-rmaudbiq 250 1 - 2 tab PO DAILY PRN 30 Days #60 11/15/20 01/06/21 01/06/21 Rx mg-250 mg-65 mg tablet tab buspirone 15 mg tablet 15 mg PO BID 30 Days #60 tab 11/15/20 01/06/21 01/05/21 Rx fluticasone furoate 200 1 inh INHALATION Q24H 30 Days #28 11/15/20 01/06/21 01/05/21 Rx mcg-vilanterol 25 mcg/dose each inhalation powder gabapentin 600 mg tablet 600 mg PO QID 30 Days #120 tab 11/15/20 01/06/21 01/05/21 Rx guaifenesin 1,200 mg tablet, 1,200 mg PO BID 30 Days #60 tab 11/15/20 01/06/21 01/05/21 Rx extended release 12 hr lubiprostone 24 mcg capsule 24 mcg PO BID 30 Days #60 cap 11/15/20 01/06/21 Unknown Rx metformin 500 mg tablet,extended 1,000 mg PO DAILY 90 Days #180 tab 11/15/20 01/06/21 01/05/21 Rx release 24 hr montelukast 10 mg tablet 10 mg PO DAILY 30 Days #30 tab 11/15/20 01/06/21 01/05/21 Rx nicotine 21 mg/24 hr daily 1 patch TRANSDERMAL DAILY 42 Days 11/15/20 01/06/21 01/06/21 Rx transdermal patch #42 ea pantoprazole 40 mg tablet,delayed 40 mg PO DAILY 30 Days #30 tab 11/15/20 01/06/21 01/05/21 Rx release tiotropium bromide 18 mcg capsule 1 cap INHALATION DAILY 30 Days #30 11/15/20 01/06/21 01/05/21 Rx with inhalation device inh tizanidine 2 mg tablet 2 mg PO TID PRN #90 tab 11/15/20 01/06/21 01/05/21 Rx Allergies Allergy/AdvReac Type Severity Reaction Status Date / Time estrogens, conjugated Allergy Severe blood clots Verified 11/15/20 11:18 [From Premarin] Fish Containing Products Allergy Unknown unknown Verified 11/15/20 11:18 NSAIDS (Non-Steroidal Allergy stomach Verified 11/15/20 11:18 Anti-Inflamma bleeds PFSH Acute PFSH: Medical History Anxiety and depression Arthritis Asthma Atopic dermatitis, mild Chronic headache Chronic nausea Constipation due to opioid therapy COPD (chronic obstructive pulmonary disease) Degenerative lumbar disc GERD (gastroesophageal reflux disease) History of left foot drop Lumbosacral radiculitis Migraines Obstructive sleep apnea Personal history of nicotine dependence Scoliosis Surgical History History of bilateral salpingectomy 1997 History of cholecystectomy 1998 History of hysterectomy 2005 History of lumbar fusion With kvng 2006 History of umbilical hernia repair 2009 Family History Mother Heart disease Grandmother Congestive heart failure Social History Smoking and tobacco status: current every day smoker cigarettes Packs smoked per day: 2.5 Years cigarettes smoked: 30 Second hand smoke exposure: Yes Smoking risk assessment/counseling performed?: Yes Alcohol intake: never Desire information about alcohol rehabilitation?: No Counseling given: No Desire information about substance/drug rehabilitation?: No Counseling given: No Caregiver/support person: No Lives independently: Yes Household members: children Housing: House Marital status: Legally Number of children: 2 service: No Current occupational status: disabled History of recent travel: No Current gender identity: Female Female Reproductive History: Date of last menstrual period: 06/11/07 Vitals/I&O/Wt Last Vital Signs Temp 98.1 F 01/06/21 10:24 Pulse 103 H 01/06/21 14:30 Resp 19 H 01/06/21 14:30 BP 93/78 01/06/21 14:30 Pulse Ox 90 01/06/21 14:30 Weight last 48 hrs Weight 54.431 kg Physical Exam Const: COMMON NORMALS: no acute distress and patient oriented x3 Eye: COMMON NORMALS: Equal, round and reactive pupils present and EOMs intact bilaterally GENERAL EYE: appearance normal, both eyes and all related structures PUPIL: Yes Equal, round and reactive pupils present Neck/C-Spine: COMMON NORMALS: full ROM and no lymphadenopathy THYROID: Thyroid normal Lymph: LYMPHATIC: no lymphadenopathy noted Resp: COMMON NORMALS: normal respiratory effort, No retractions, No use of accessory muscles and clear to auscultation bilaterally AUSCULTATION: clear to auscultation bilaterally Cardio: COMMON NORMALS: regular rate, regular rhythm, S1 normal heart sound present, S2 normal heart sound present, No gallops present (Cardio), No clicks present (Cardio) and No murmurs present (Cardio) RATE: regular rate RHYTHM: regular rhythm HEART SOUNDS: S1 normal heart sound present and S2 normal heart sound present GI: COMMON NORMALS: Normal to inspection, nondistended, normoactive bowel sounds present, Soft to palpation and non-tender Extremity: COMMON NORMALS: normal to inspection, full ROM and no pedal edema Neuro: COMMON NORMALS: patient oriented x3 and CN's II-XII intact bilaterally Psych: THOUGHT PROCESS: Normal thought process present Data : 01/06/21 11:30 01/06/21 11:30 Micro: Microbiology 01/06/21 12:38 Blood Culture - Preliminary Blood SPECIMEN COLLECTED 01/06/21 11:30 Blood Culture - Preliminary Blood SPECIMEN COLLECTED A&P Assessment and plan (1) Acute on chronic respiratory failure with hypoxia and hypercapnia: -Secondary to COPD exacerbation -Endorsing increased productive cough, subjective fevers -Chest x-ray no focal pneumonia -Rapid Covid negative, Covid PCR pending Plan: -Admit to general medical floors -Covid precautions -Decadron 6 mg IV push daily -Broad-spectrum antibiotic therapy Rocephin and azithromycin -Sputum cultures, blood cultures -DuoNeb treatments every 4 hours -Monitor respiratory status closely, oxygen therapy -Follow BNP, troponin series, telemetry monitoring -A1c, TSH -Low-dose sliding scale -BiPAP during the night -Full code -Lovenox for DVT prophylaxis Status: Acute (2) COPD (chronic obstructive pulmonary disease): Status: Acute Qualifiers: COPD type: unspecified COPD Qualified Code(s): J44.9 - Chronic obstructive pulmonary disease, unspecified (3) Controlled diabetes mellitus with hyperglycemia: Status: Acute Qualifiers: Diabetes mellitus type: type 2 Diabetes mellitus predatory animal exterminator insulin use: without half-way use Qualified Code(s): E11.65 - Type 2 diabetes mellitus with hyperglycemia (4) Anxiety and depression: Status: Chronic Attestations Medical Necessity Statement*: Patient requires hospitalization for acute on chronic respiratory failure with hypoxia upper cavity, inpatient, greater than 2 midnights, secondary to COPD exacerbation Coding Level of Care Code Acute Residential Care Facility Manager for g Fwd Diagnoses Acute on chronic respiratory failure with hypoxia and hypercapnia J96.21; J96.22 COPD (chronic obstructive pulmonary disease) J44.9 COPD type: unspecified COPD Controlled diabetes mellitus with hyperglycemia E11.65 Diabetes mellitus type: type 2 Diabetes mellitus predatory animal exterminator insulin use: without half-way use Anxiety and depression F41.9; F32.9
[2021-01-06 19:32] LABS: NT Pro B Type Natriuretic Pept 251 pg/mL (0-125); Procalcitonin 0.13 ng/mL (0-0.5)
[2021-01-06 20:35] LABS: Glucose Point of Care 272 mg/dL (70-110)
[2021-01-06] MEDS: ipratropium-albuterol 3 mL Neb INHALATION (20:50)
[2021-01-06] MEDS: ascorbic acid 500 mg Tablet 1000 MG PO (21:11)
[2021-01-06] MEDS: duloxetine 60 mg Capsule PO (21:12)
[2021-01-06] MEDS: tizanidine 4 mg Tablet 2 MG PO (21:12)
[2021-01-06] MEDS: famotidine 20 mg Tablet PO (21:12)
[2021-01-06] MEDS: gabapentin 300 mg Capsule 600 MG PO (21:12)
[2021-01-06] MEDS: cefTRIAXone 1,000 MG in sodium chloride 0.9% (plus) 50 ML 100 MG IV (21:14)
[2021-01-06] MEDS: enoxaparin 40 mg/0.4 mL Syringe SUBCUT (21:14)
[2021-01-06 21:16] LABS: Troponin(5th) Baseline 6 ng/L (0-10)
[2021-01-06 22:29] LABS: Troponin 5 2HR Delta 0 ABS# (0-10)
[2021-01-06] MEDS: azithromycin 500 MG in sodium chloride 0.9% 250 ML 250 MG IV (23:48)
[2021-01-07] VITALS (26 sets, daily range): BP systolic 102–122; BP diastolic 71–76; PULSE 74–104; RESP 16–27; TEMP 36.1–36.8; O2SAT 87–96
[2021-01-07] MEDS: ipratropium-albuterol 3 mL Neb INHALATION ×7 (00:40→23:43)
[2021-01-07] MEDS: oxyCODONE-APAP 5-325 mg Tablet 1 TAB PO ×4 (01:19→23:08)
[2021-01-07] MEDS: ondansetron 2 mg/ML SDV 2 mL 4 MG IVP (01:20)
[2021-01-07 05:23] LABS: Basophils % 0.2 %; Hemoglobin 15.4 g/dL (11.5-15.3); Lymphocytes % 10.7 %; Mean Corpuscular HGB Conc 33.5 g/dL (30.0-36.0); Mean Corpuscular Hemoglobin 33.8 pg (28.0-34.0); Mean Corpuscular Volume 101.1 fL (81-99); Mean Platelet Volume 11.3 fL (7.4-10.4); Monocytes % 10.6 %; Neutrophils # 7.41 10^3/uL (1.8-7.7); Neutrophils % 78.1 %; Nucleated Red Blood Cells % 0 %; Platelet Count 210 10^3/cmm (130-400); Red Blood Count 4.55 10^6/uL (4.1-5.3); Red Cell Distribution Width 12.6 % (12.1-15.1); White Blood Count 9.5 10^3/uL (4.0-10.0)
[2021-01-07 05:42] LABS: Estmated Average Glucose 123; Hemoglobin A1C 5.9 % (4.0-6.0)
[2021-01-07 05:46] LABS: Alanine Aminotransferase 10 U/L (0-33); Albumin Level 3.7 g/dL (3.5-5.2); Alkaline Phosphatase 65 IU/L (35-105); Anion Gap 12.9 (5-19); Aspartate Amino Transferase 11 U/L (0-32); Blood Urea Nitrogen 14 mg/dL (6-20); Calcium 8.6 mg/dL (8.5-10.5); Carbon Dioxide 27 mmol/L (22-29); Chloride 98 mmol/L (98-107); Creatinine Clr Calc Pharmacy 128.1923; Globulin 2.6 g/dL (1.3-4.6); Glomerular Filtration Rate 134.7 mL/min (90-130); Glucose 134 mg/dL (65-115); Magnesium 1.7 mg/dL (1.7-2.3); Osmolality Calculated 280 mOsm/kg (285-295); Phosphorus 3.6 mg/dL (2.5-4.5); Potassium 3.9 mmol/L (3.5-5.1); Sodium 134 mmol/L (136-145); Thyroid Stimulating Hormone 0.32 uIU/mL (0.27-4.20); Total Bilirubin 0.2 mg/dL (0.15-1.2); Total Protein 6.3 g/dL (6.6-8.7)
[2021-01-07 06:25] LABS: Glucose Point of Care 137 mg/dL (70-110)
[2021-01-07] MEDS: gabapentin 300 mg Capsule 600 MG PO ×4 (08:37→20:54)
[2021-01-07] MEDS: famotidine 20 mg Tablet PO ×2 (08:38→17:57)
[2021-01-07] MEDS: BuSPIRONE 10 mg Tablet 15 MG PO ×2 (08:38→17:55)
[2021-01-07] MEDS: pantoprazole DR 40 mg Tablet PO (08:38)
[2021-01-07] MEDS: duloxetine 60 mg Capsule PO ×2 (08:38→17:57)
[2021-01-07] MEDS: cholecalciferol (vitamin D3) 1,000 unit Tablet 1000 UNIT PO (08:39)
[2021-01-07] MEDS: nicotine 21 mg Patch 1 PATCH TRANSDERMA (08:39)
[2021-01-07] MEDS: ascorbic acid 500 mg Tablet 1000 MG PO ×2 (08:39→17:55)
[2021-01-07] MEDS: montelukast sodium 10 mg Tablet PO (08:39)
[2021-01-07] MEDS: zinc gluconate 50 mg Tablet PO (08:39)
[2021-01-07] MEDS: dexamethasone 4 mg/mL INJ 6 MG IVP (08:43)
--- NOTE | 2021-01-07 09:09 | CT_ITS ---
WS: [id number] CTA OF THE CHEST WITH PULMONARY EMBOLISM PROTOCOL TECHNIQUE: High-resolution contrast enhanced CTA of the chest with coronal and sagittal reformatted i mages with pulmonary embolism protocol. MIP images are also reviewed. CLINICAL INFORMATION: shortness of breath, high flow oxygen requirment COMPARISON: July 01, 2020 DLP: 461.[address] scans at [facility] use at least one of these dose optimization techniques: automat ed exposure control; mA and/or kV adjustment per patient size (includes targeted exams where dose is matched to clinical indication); or iterative reconstruction. FINDINGS: Proximal main pulmonary arteries are patent. Segmental and subsegmental pulmonary arteries are patent . No filling defects to indicate pulmonary embolus. No mediastinal or hilar lymphadenopathy. Moderate chronic emphysematous changes. No focal pneumonia or pleural fluid. Slight hazy atelectasis in the l ingula and right middle lobe. Slight hazy groundglass infiltrates in the right upper lobe anteriorly. Recommend correlation for pneumonitis. Mild bronchovascular thickening likely inflammatory. Adrenal glands are normal. Fluid distended stomach with food products and air-fluid level. Small esop hageal hiatal hernia. Cholecystectomy clips. Spinal stimulator in the lower thoracic spine. CT/CT angio chest PE protcl [id number] IMPRESSION: 1. No evidence of pulmonary embolus. 2. Moderate chronic emphysematous changes. 3. Slight hazy groundglass infiltrates in the right upper lobe likely infectio us or inflammatory. Recommend correlation for pneumonitis. 4. Hazy atelectasis in the lingula and right middle lobe. 5. Prior cholecystectomy. 6. Small esophageal hiatal hernia.
--- NOTE | 2021-01-07 09:20 | PC.CHAP ---
Pastoral Care Encounter/Spiritual Assessment Type of Contact [] Declined tunnel kiln repairer visit [] Patient/Family/Request visit [] Outpatient visit [] Follow-up visit [] Physician referral [] Code/Alert [x Routine visit [] Staff referral [] Actively dying [] Patient sleeping [] Family support [] [] Out of room [] Palliative care [] [] Receiving care in room [] Pre-surgical visit [] Trauma [] Long length of stay [] ICU visit [x] Other: isolated Relational/Emotional Strength [] Patient feels connected with others/family/visitors/staff [] Distress [] Loneliness/isolation [] Abandonment Spirituality of Patient [] Person of Wanda [] Attends Evangelical of their Wanda [] Believes in Prayer [] Reads Bible or Sikhism materials [] There are Spiritual issues to be addressed It Recruiter Interventions [x] Prayer [] Active listening [] Non-anxious presence [] Spiritual/emotional support [] Crisis/trauma care [] Spiritual counseling [] Bereavement support [] Provided bereavement packet [] Provided Bible/devotional materials [] Provided toy/stuffed animal, coloring book to patient or family member [] Provided Communion [] Anointing/[place] [] Salvation [x] Completed spiritual assessment [] Other: Impact on Illness or Injury [] Angry [] Fearful [] Anxious [] Often cries [] Exhaustion [] Unable to work [] Unable to attend anabaptism [] Unable to walk/stand [] Unable to read [] Unable to drive [] Unable to eat/drink [] Unable to sleep [] Unable to be with family [] Patient intubated [] Other: Summary Time spent with patient
[2021-01-07 11:15] LABS: Glucose Point of Care 140 mg/dL (70-110)
[2021-01-07] MEDS: iohexol 350 mg/mL 100 mL Btl IV (14:37)
--- NOTE | 2021-01-07 15:12 | P.PN_ITS ---
Subjective Subjective: Interval history: Patient was seen this morning, she tells me that she is feeling better, but she continues to have wheezing, no fevers overnight, she was turned up to 8 L nasal cannula, denies any chest pain, respiratory therapy tell me that patient used BiPAP only for a few hours overnight Vitals/I&O/Wt Last Vital Signs Temp 97.7 F 01/07/21 04:00 Pulse 74 01/07/21 14:00 Resp 18 01/07/21 12:30 BP 102/75 01/07/21 10:49 Pulse Ox 92 01/07/21 12:30 01/07/21 01/07/21 01/07/21 06:59 14:59 22:59 Intake Total 300 / 1050 480 / 480 Balance 300 / 1050 480 / 480 Weight last 48 hrs Weight 54.431 kg Physical Exam Const: COMMON NORMALS: no acute distress and patient oriented x3 HENMT: COMMON NORMALS: normocephalic HEAD & SCALP: normocephalic Resp: COMMON NORMALS: normal respiratory effort, No retractions and No use of accessory muscles AUSCULTATION: wheezes Cardio: COMMON NORMALS: regular rate, regular rhythm, S1 normal heart sound present and S2 normal heart sound present RATE: regular rate RHYTHM: regular rhythm HEART SOUNDS: S1 normal heart sound present and S2 normal heart sound present GI: COMMON NORMALS: Normal to inspection, nondistended, normoactive bowel sounds present, Soft to palpation and non-tender PALPATION: Yes Soft to palpation Extremity: COMMON NORMALS: no pedal edema Neuro: COMMON NORMALS: patient oriented x3 Psych: COMMON NORMALS: mental status grossly normal Data : 01/07/21 04:28 01/07/21 04:28 Micro: Microbiology 01/06/21 12:38 Blood Culture - Preliminary Blood NEGATIVE TO DATE 01/06/21 11:30 Blood Culture - Preliminary Blood NEGATIVE TO DATE 01/07/21 00:17 Bacterial Antigens - Final Urine,Clean Catch A&P Assessment and plan (1) Acute on chronic respiratory failure with hypoxia and hypercapnia: -Secondary to COPD exacerbation -Endorsing increased productive cough, subjective fevers -Chest x-ray no focal pneumonia -Rapid Covid negative, Covid PCR pending Plan: -Admit to general medical floors -Covid precautions -Will order CT angiogram of the chest -stop Decadron, switch to Solu-Medrol 40 every 8 hours -Broad-spectrum antibiotic therapy Rocephin and azithromycin -Sputum cultures, blood cultures -DuoNeb treatments every 4 hours -Monitor respiratory status closely, oxygen therapy -ttelemetry monitoring -Low-dose sliding scale -BiPAP during the night -Full code -Lovenox for DVT prophylaxis Plan for today, continue antibiotics, increase steroid therapy, CT angiogram of the chest ordered, await Covid testing Status: Acute (2) COPD (chronic obstructive pulmonary disease): Status: Acute Qualifiers: COPD type: unspecified COPD Qualified Code(s): J44.9 - Chronic obstructive pulmonary disease, unspecified (3) Controlled diabetes mellitus with hyperglycemia: Status: Acute Qualifiers: Diabetes mellitus type: type 2 Diabetes mellitus intermediate insulin use: without intermediate use Qualified Code(s): E11.65 - Type 2 diabetes mellitus with hyperglycemia (4) Anxiety and depression: Status: Chronic Attestations Medical Necessity Statement*: Patient requires hospitalization for acute on chronic respiratory failure Coding Level of Care Code Acute Compensation And Benefits Advisor for [facility] Diagnoses Acute on chronic respiratory failure with hypoxia and hypercapnia J96.21; J96. 22 COPD (chronic obstructive pulmonary disease) J44.9 COPD type: unspecified COPD Controlled diabetes mellitus with hyperglycemia E11.65 Diabetes mellitus type: type 2 Diabetes mellitus termite treater helper insulin use: without intermediate use Anxiety and depression F41.9; F32.9
[2021-01-07 16:20] LABS: Glucose Point of Care 256 mg/dL (70-110)
[2021-01-07] MEDS: enoxaparin 40 mg/0.4 mL Syringe SUBCUT (17:55)
[2021-01-07 20:45] LABS: Glucose Point of Care 186 mg/dL (70-110)
[2021-01-07] MEDS: cefTRIAXone 1,000 MG in sodium chloride 0.9% (plus) 50 ML 100 MG IV (20:54)
[2021-01-07] MEDS: azithromycin 500 MG in sodium chloride 0.9% 250 ML 250 MG IV (21:52)
[2021-01-08] VITALS (21 sets, daily range): BP systolic 102–116; BP diastolic 68–81; PULSE 87–117; RESP 16–21; TEMP 36.6–37.2; O2SAT 89–94
[2021-01-08] MEDS: ipratropium-albuterol 3 mL Neb INHALATION ×5 (03:44→19:31)
[2021-01-08 04:12] LABS: Basophils % 0.2 %; Hematocrit 44.4 % (37.0-47.0); Hemoglobin 14.4 g/dL (11.5-15.3); Lymphocytes # 0.5 10^3/uL (0.8-4.8); Lymphocytes % 4.9 %; Mean Corpuscular HGB Conc 32.4 g/dL (30.0-36.0); Mean Corpuscular Volume 101.8 fL (81-99); Mean Platelet Volume 11.3 fL (7.4-10.4); Monocytes # 0.2 10^3/uL (0.2-0.9); Monocytes % 2.3 %; Neutrophils # 9.85 10^3/uL (1.8-7.7); Neutrophils % 92.3 %; Nucleated Red Blood Cells % 0 %; Platelet Count 202 10^3/cmm (130-400); Red Blood Count 4.36 10^6/uL (4.1-5.3); Red Cell Distribution Width 12.6 % (12.1-15.1); White Blood Count 10.7 10^3/uL (4.0-10.0)
[2021-01-08 04:25] LABS: Alanine Aminotransferase 9 U/L (0-33); Albumin Level 3.6 g/dL (3.5-5.2); Alkaline Phosphatase 60 IU/L (35-105); Anion Gap 13.1 (5-19); Aspartate Amino Transferase 10 U/L (0-32); Blood Urea Nitrogen 10 mg/dL (6-20); Calcium 8.5 mg/dL (8.5-10.5); Carbon Dioxide 31 mmol/L (22-29); Chloride 96 mmol/L (98-107); Creatinine Clr Calc Pharmacy 128.1923; Globulin 2.4 g/dL (1.3-4.6); Glomerular Filtration Rate 134.7 mL/min (90-130); Glucose 196 mg/dL (65-115); Magnesium 1.6 mg/dL (1.7-2.3); Osmolality Calculated 286 mOsm/kg (285-295); Phosphorus 2.9 mg/dL (2.5-4.5); Potassium 4.1 mmol/L (3.5-5.1); Sodium 136 mmol/L (136-145); Total Bilirubin 0.2 mg/dL (0.15-1.2)
[2021-01-08 06:30] LABS: Coronavirus Test Green County Not Detected
[2021-01-08 06:43] LABS: Glucose Point of Care 170 mg/dL (70-110)
[2021-01-08] MEDS: nicotine 21 mg Patch 1 PATCH TRANSDERMA (07:59)
[2021-01-08] MEDS: ascorbic acid 500 mg Tablet 1000 MG PO ×2 (08:00→17:15)
[2021-01-08] MEDS: zinc gluconate 50 mg Tablet PO (08:00)
[2021-01-08] MEDS: gabapentin 300 mg Capsule 600 MG PO ×4 (08:01→20:30)
[2021-01-08] MEDS: cholecalciferol (vitamin D3) 1,000 unit Tablet 1000 UNIT PO (08:02)
[2021-01-08] MEDS: duloxetine 60 mg Capsule PO ×2 (08:02→17:14)
[2021-01-08] MEDS: oxyCODONE-APAP 5-325 mg Tablet 1 TAB PO ×2 (08:02→20:30)
[2021-01-08] MEDS: famotidine 20 mg Tablet PO ×2 (08:02→17:15)
[2021-01-08] MEDS: BuSPIRONE 10 mg Tablet 15 MG PO ×2 (08:02→17:14)
[2021-01-08] MEDS: montelukast sodium 10 mg Tablet PO (08:03)
[2021-01-08] MEDS: pantoprazole DR 40 mg Tablet PO (08:03)
[2021-01-08 12:01] LABS: Glucose Point of Care 172 mg/dL (70-110)
[2021-01-08 17:03] LABS: Glucose Point of Care 169 mg/dL (70-110)
--- NOTE | 2021-01-08 17:14 | P.PN_ITS ---
Subjective Subjective: Interval history: Patient was examined this morning, she tells me she is feeling better, she is relieved she is now COVID-19 positive, but still on 10 L, still having some wheezing, but overall doing better Vitals/I&O/Wt Last Vital Signs Temp 98.9 F 01/08/21 14:08 Pulse 101 H 01/08/21 16:52 Resp 20 H 01/08/21 16:47 BP 116/75 01/08/21 14:08 Pulse Ox 92 01/08/21 16:47 01/08/21 01/08/21 01/08/21 06:59 14:59 22:59 Intake Total 490 / 1360 818 / 818 Balance 490 / 1360 818 / 818 Physical Exam Const: COMMON NORMALS: no acute distress and patient oriented x3 HENMT: COMMON NORMALS: normocephalic HEAD & SCALP: normocephalic Resp: COMMON NORMALS: normal respiratory effort, No retractions and No use of accessory muscles AUSCULTATION: wheezes Cardio: COMMON NORMALS: regular rate, regular rhythm, S1 normal heart sound present and S2 normal heart sound present RATE: regular rate RHYTHM: regular rhythm HEART SOUNDS: S1 normal heart sound present and S2 normal heart sound present GI: COMMON NORMALS: Normal to inspection, nondistended, normoactive bowel sounds present, Soft to palpation and non-tender PALPATION: Yes Soft to palpation Extremity: COMMON NORMALS: capillary refill normal, no clubbing, cyanosis or edema, no calf tenderness and no pedal edema Neuro: COMMON NORMALS: patient oriented x3 Psych: COMMON NORMALS: mental status grossly normal Data : 01/08/21 03:37 01/08/21 03:37 Micro: Microbiology 01/06/21 11:01 Gram Stain - Final Sputum - Expectorated Sputum Sputum Culture - Final 01/06/21 12:38 Blood Culture - Preliminary Blood NEGATIVE TO DATE A&P Assessment and plan (1) Acute on chronic respiratory failure with hypoxia and hypercapnia: -Secondary to COPD exacerbation -Endorsing increased productive cough, subjective fevers -Chest x-ray no focal pneumonia -Rapid Covid negative, Covid PCR negative Plan: -Admit to general medical floors -Solu-Medrol 40 every 8 hours -Broad-spectrum antibiotic therapy Rocephin and azithromycin -Sputum cultures, blood cultures -DuoNeb treatments every 4 hours -Monitor respiratory status closely, oxygen therapy -telemetry monitoring -Low-dose sliding scale -BiPAP during the night -Full code -Lovenox for DVT prophylaxis Plan for today, continue antibiotics, continue steroids, monitor respiratory status Status: Acute (2) COPD (chronic obstructive pulmonary disease): Status: Acute Qualifiers: COPD type: unspecified COPD Qualified Code(s): J44.9 - Chronic obstructive pulmonary disease, unspecified (3) Controlled diabetes mellitus with hyperglycemia: Status: Acute Qualifiers: Diabetes mellitus type: type 2 Diabetes mellitus 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 marine oil terminal insulin use: without shelter use Qualified Code(s): E11.65 - Type 2 diabetes mellitus with hyperglycemia (4) Anxiety and depression: Status: Chronic Attestations Medical Necessity Statement*: Patient requires hospitalization for acute respiratory failure secondary to COPD, pneumonia Coding Level of Care Code Acute Technology Professional for [facility] Diagnoses Acute on chronic respiratory failure with hypoxia and hypercapnia J96.21; J96.22 COPD (chronic obstructive pulmonary disease) J44.9 COPD type: unspecified COPD Controlled diabetes mellitus with hyperglycemia E11.65 Diabetes mellitus type: type 2 Diabetes mellitus shelter insulin use: without shelter use Anxiety and depression F41.9; F32.9
[2021-01-08] MEDS: tizanidine 4 mg Tablet 2 MG PO (17:34)
[2021-01-08] MEDS: enoxaparin 40 mg/0.4 mL Syringe SUBCUT (18:38)
--- NOTE | 2021-01-08 18:45 | PC.NURSE ---
Pt is down to 9 L/min NC Denies any worsening of SOB. She stated she feels better.
--- NOTE | 2021-01-08 19:15 | PC.NURSE ---
Bedside report received from Matthew RN. Patient is resting in bed watching TV. A & O x4. Patient has no C/O of pain or concerns at this time. Brought patient a pitcher of water and a cola.
[2021-01-08] MEDS: cefTRIAXone 1,000 MG in sodium chloride 0.9% (plus) 50 ML 100 MG IV (19:43)
[2021-01-08] MEDS: azithromycin 500 MG in sodium chloride 0.9% 250 ML 250 MG IV (20:25)
[2021-01-08 20:59] LABS: Glucose Point of Care 239 mg/dL (70-110)
[2021-01-09] VITALS (21 sets, daily range): BP systolic 104–132; BP diastolic 62–81; PULSE 71–106; RESP 15–20; TEMP 36.6–37.1; O2SAT 90–97
[2021-01-09] MEDS: ipratropium-albuterol 3 mL Neb INHALATION ×6 (03:24→23:28)
[2021-01-09 05:56] LABS: Basophils % 0.2 %; Hematocrit 48.6 % (37.0-47.0); Hemoglobin 15.4 g/dL (11.5-15.3); Lymphocytes % 7.9 %; Mean Corpuscular HGB Conc 31.7 g/dL (30.0-36.0); Mean Corpuscular Hemoglobin 33.1 pg (28.0-34.0); Mean Corpuscular Volume 104.5 fL (81-99); Mean Platelet Volume 11.2 fL (7.4-10.4); Monocytes # 0.4 10^3/uL (0.2-0.9); Monocytes % 3.3 %; Neutrophils # 11.03 10^3/uL (1.8-7.7); Neutrophils % 87.6 %; Nucleated Red Blood Cells % 0 %; Platelet Count 234 10^3/cmm (130-400); Red Blood Count 4.65 10^6/uL (4.1-5.3); Red Cell Distribution Width 12.7 % (12.1-15.1); White Blood Count 12.6 10^3/uL (4.0-10.0)
[2021-01-09 06:12] LABS: Alanine Aminotransferase 11 U/L (0-33); Albumin Level 3.6 g/dL (3.5-5.2); Alkaline Phosphatase 61 IU/L (35-105); Anion Gap 15.2 (5-19); Aspartate Amino Transferase 10 U/L (0-32); Blood Urea Nitrogen 10 mg/dL (6-20); Calcium 8.8 mg/dL (8.5-10.5); Carbon Dioxide 34 mmol/L (22-29); Chloride 94 mmol/L (98-107); Creatinine Clr Calc Pharmacy 128.1923; Globulin 2.5 g/dL (1.3-4.6); Glomerular Filtration Rate 134.7 mL/min (90-130); Glucose 248 mg/dL (65-115); Magnesium 1.6 mg/dL (1.7-2.3); Osmolality Calculated 295 mOsm/kg (285-295); Phosphorus 2.4 mg/dL (2.5-4.5); Potassium 4.2 mmol/L (3.5-5.1); Sodium 139 mmol/L (136-145); Total Bilirubin 0.2 mg/dL (0.15-1.2); Total Protein 6.1 g/dL (6.6-8.7)
[2021-01-09 06:51] LABS: Glucose Point of Care 181 mg/dL (70-110)
--- NOTE | 2021-01-09 08:45 | PC.NURSE ---
Report called to Med Surg Report called to [facility].
--- NOTE | 2021-01-09 09:25 | PC.SOCIAL ---
IMM updated IMM updated Pg. 2 updated with patient. Patient verbalized an understanding. Copy provided. Initialled, dated, timed, and place in chart.
[2021-01-09] MEDS: nicotine 21 mg Patch 1 PATCH TRANSDERMA (10:01)
[2021-01-09] MEDS: oxyCODONE-APAP 5-325 mg Tablet 1 TAB PO ×2 (10:04→19:16)
[2021-01-09] MEDS: tizanidine 4 mg Tablet 2 MG PO ×2 (10:04→19:17)
[2021-01-09] MEDS: FUROsemide 10 mg/mL SDV 4mL 40 MG IVP (10:05)
[2021-01-09] MEDS: duloxetine 60 mg Capsule PO ×2 (10:06→17:38)
[2021-01-09] MEDS: BuSPIRONE 10 mg Tablet 15 MG PO ×2 (10:06→17:38)
[2021-01-09] MEDS: cholecalciferol (vitamin D3) 1,000 unit Tablet 1000 UNIT PO (10:06)
[2021-01-09] MEDS: ascorbic acid 500 mg Tablet 1000 MG PO ×2 (10:06→17:38)
[2021-01-09] MEDS: montelukast sodium 10 mg Tablet PO (10:06)
[2021-01-09] MEDS: famotidine 20 mg Tablet PO ×2 (10:07→17:38)
[2021-01-09] MEDS: pantoprazole DR 40 mg Tablet PO (10:07)
[2021-01-09] MEDS: gabapentin 300 mg Capsule 600 MG PO ×4 (10:07→20:46)
[2021-01-09] MEDS: zinc gluconate 50 mg Tablet PO (10:07)
[2021-01-09 11:07] LABS: Glucose Point of Care 112 mg/dL (70-110)
--- NOTE | 2021-01-09 15:05 | PM.PN ---
Subjective Subjective: Interval history: This morning patient was examined, she remains on 7 L, some shortness of breath with exertion, no fevers, no cough, no chest pain, no swelling Vitals/I&O/Wt Last Vital Signs Temp 98.1 F 01/09/21 11:52 Pulse 85 01/09/21 12:35 Resp 16 01/09/21 12:35 BP 128/62 01/09/21 11:52 Pulse Ox 93 01/09/21 12:35 01/09/21 01/09/21 01/09/21 06:59 14:59 22:59 Intake Total 1917 660 / 660 Output Total 1250 / 1250 Balance 1917 -590 / -590 Physical Exam Const: COMMON NORMALS: no acute distress and patient oriented x3 HENMT: COMMON NORMALS: normocephalic HEAD & SCALP: normocephalic Resp: COMMON NORMALS: normal respiratory effort, No retractions, No use of accessory muscles and clear to auscultation bilaterally AUSCULTATION: clear to auscultation bilaterally and wheezes Cardio: COMMON NORMALS: regular rate, regular rhythm, S1 normal heart sound present and S2 normal heart sound present RATE: regular rate RHYTHM: regular rhythm HEART SOUNDS: S1 normal heart sound present and S2 normal heart sound present GI: COMMON NORMALS: Normal to inspection, nondistended, normoactive bowel sounds present, Soft to palpation and non-tender PALPATION: Yes Soft to palpation Extremity: COMMON NORMALS: no pedal edema Neuro: COMMON NORMALS: patient oriented x3 Psych: COMMON NORMALS: mental status grossly normal Data : 01/09/21 05:15 01/09/21 05:15 Micro: Microbiology 01/06/21 11:01 Gram Stain - Final Sputum - Expectorated Sputum Sputum Culture - Final A&P Assessment and plan (1) Acute on chronic respiratory failure with hypoxia and hypercapnia: -Secondary to COPD exacerbation -Endorsing increased productive cough, subjective fevers -Chest x-ray no focal pneumonia -Rapid Covid negative, Covid PCR negative Plan: -Admit to general medical floors -Solu-Medrol 40 every 8 hours -Broad-spectrum antibiotic therapy Rocephin and azithromycin -Sputum cultures, blood cultures -DuoNeb treatments every 4 hours -Monitor respiratory status closely, oxygen therapy -telemetry monitoring -Low-dose sliding scale -1 dose of Lasix today -BiPAP during the night -Full code -Lovenox for DVT prophylaxis Plan for today, continue antibiotics, continue steroids, monitor respiratory status, decrease oxygen, moved to general medical floors, 1 dose of Lasix Status: Acute (2) COPD (chronic obstructive pulmonary disease): Status: Acute Qualifiers: COPD type: unspecified COPD Qualified Code(s): J44.9 - Chronic obstructive pulmonary disease, unspecified (3) Controlled diabetes mellitus with hyperglycemia: Status: Acute Qualifiers: Diabetes mellitus type: type 2 Diabetes mellitus group home insulin use: without meterman use Qualified Code(s): E11.65 - Type 2 diabetes mellitus with hyperglycemia (4) Anxiety and depression: Status: Chronic Attestations Medical Necessity Statement*: Patient requires hospitalization for acute respiratory failure secondary to COPD Coding Level of Care Code Acute Information Technology Professor for [facility] Diagnoses Acute on chronic respiratory failure with hypoxia and hypercapnia J96.21; J96.22 COPD (chronic obstructive pulmonary disease) J44.9 COPD type: unspecified COPD Controlled diabetes mellitus with hyperglycemia E11.65 Diabetes mellitus type: type 2 Diabetes mellitus meterman insulin use: without meterman use Anxiety and depression F41.9; F32.9
[2021-01-09 17:13] LABS: Glucose Point of Care 147 mg/dL (70-110)
[2021-01-09] MEDS: enoxaparin 40 mg/0.4 mL Syringe SUBCUT (19:18)
[2021-01-09] MEDS: fentaNYL 25 mcg Patch 1 PATCH TRANSDERMA (19:42)
[2021-01-09] MEDS: cefTRIAXone 1,000 MG in sodium chloride 0.9% (plus) 50 ML 100 MG IV (20:22)
[2021-01-09 20:54] LABS: Glucose Point of Care 228 mg/dL (70-110)
[2021-01-09] MEDS: azithromycin 500 MG in sodium chloride 0.9% 250 ML 250 MG IV (21:37)
[2021-01-10] VITALS (13 sets, daily range): BP systolic 108–118; BP diastolic 71–81; PULSE 75–160; RESP 15–20; TEMP 36.8–36.9; O2SAT 87–94
[2021-01-10 03:09] LABS: Basophils % 0.3 %; Hematocrit 48.6 % (37.0-47.0); Hemoglobin 15.9 g/dL (11.5-15.3); Lymphocytes # 1.3 10^3/uL (0.8-4.8); Lymphocytes % 10.8 %; Mean Corpuscular HGB Conc 32.7 g/dL (30.0-36.0); Mean Corpuscular Hemoglobin 33.3 pg (28.0-34.0); Mean Corpuscular Volume 101.9 fL (81-99); Mean Platelet Volume 11.1 fL (7.4-10.4); Monocytes # 0.5 10^3/uL (0.2-0.9); Monocytes % 4.4 %; Neutrophils # 9.69 10^3/uL (1.8-7.7); Neutrophils % 83.4 %; Nucleated Red Blood Cells % 0 %; Platelet Count 247 10^3/cmm (130-400); Red Blood Count 4.77 10^6/uL (4.1-5.3); Red Cell Distribution Width 12.4 % (12.1-15.1); White Blood Count 11.6 10^3/uL (4.0-10.0)
[2021-01-10 03:35] LABS: Alanine Aminotransferase 18 U/L (0-33); Albumin Level 3.6 g/dL (3.5-5.2); Alkaline Phosphatase 58 IU/L (35-105); Aspartate Amino Transferase 12 U/L (0-32); Blood Urea Nitrogen 15 mg/dL (6-20); Calcium 9.3 mg/dL (8.5-10.5); Carbon Dioxide 40 mmol/L (22-29); Chloride 91 mmol/L (98-107); Globulin 2.5 g/dL (1.3-4.6); Glomerular Filtration Rate 109.1 mL/min (90-130); Glucose 147 mg/dL (65-115); Osmolality Calculated 292 mOsm/kg (285-295); Sodium 139 mmol/L (136-145); Total Bilirubin 0.2 mg/dL (0.15-1.2); Total Protein 6.1 g/dL (6.6-8.7)
[2021-01-10] MEDS: ipratropium-albuterol 3 mL Neb INHALATION ×3 (03:44→11:21)
[2021-01-10 03:45] LABS: NT Pro B Type Natriuretic Pept 535 pg/mL (0-125)
--- NOTE | 2021-01-10 05:54 | PC.NURSE ---
Patient moved to room 273.
[2021-01-10 06:45] LABS: Glucose Point of Care 182 mg/dL (70-110)
--- NOTE | 2021-01-10 07:28 | PC.RESP ---
SMOKING CESSATION INFORMATION SENT TO PATIENT.
[2021-01-10] MEDS: cholecalciferol (vitamin D3) 1,000 unit Tablet 1000 UNIT PO (09:04)
[2021-01-10] MEDS: gabapentin 300 mg Capsule 600 MG PO ×2 (09:04→12:43)
[2021-01-10] MEDS: montelukast sodium 10 mg Tablet PO (09:04)
[2021-01-10] MEDS: ascorbic acid 500 mg Tablet 1000 MG PO (09:04)
[2021-01-10] MEDS: zinc gluconate 50 mg Tablet PO (09:04)
[2021-01-10] MEDS: oxyCODONE-APAP 5-325 mg Tablet 1 TAB PO (09:05)
[2021-01-10] MEDS: nicotine 21 mg Patch 1 PATCH TRANSDERMA (09:05)
[2021-01-10] MEDS: duloxetine 60 mg Capsule PO (09:05)
[2021-01-10] MEDS: pantoprazole DR 40 mg Tablet PO (09:06)
[2021-01-10] MEDS: BuSPIRONE 10 mg Tablet 15 MG PO (09:06)
[2021-01-10] MEDS: famotidine 20 mg Tablet PO (09:06)
[2021-01-10] MEDS: tizanidine 4 mg Tablet 2 MG PO (09:11)
[2021-01-10] MEDS: FUROsemide 10 mg/mL SDV 4mL 40 MG IVP (10:17)
--- NOTE | 2021-01-10 12:43 | PM.DCS ---
Discharge Providers Date of Admission: 01/06/21 18:50 Date of Discharge: January 10, 2021 Attending Provider at Admission: Justice Murillo MD Attending Provider at Discharge: Justice Murillo MD Primary Care Provider: PREETHI Lopes Diagnoses at Discharge Discharge Diagnosis (1) Acute on chronic respiratory failure with hypoxia and hypercapnia: Status: Acute (2) COPD (chronic obstructive pulmonary disease): Status: Acute Qualifiers: COPD type: unspecified COPD Qualified Code(s): J44.9 - Chronic obstructive pulmonary disease, unspecified (3) Controlled diabetes mellitus with hyperglycemia: Status: Acute Qualifiers: Diabetes mellitus type: type 2 Diabetes mellitus exterminator helper termite insulin use: without care home use Qualified Code(s): E11.65 - Type 2 diabetes mellitus with hyperglycemia (4) Anxiety and depression: Status: Chronic Reason for Visit Reason for Visit: Resp. Distress Hospital Course Hospital Course This is a 45-year-old female with a past medical history of COPD on 4 L, [id number] type 2 diabetes mellitus, chronic pain on fentanyl patch and oxycodone who presents to [facility] due to shortness of breath Patient was admitted to [facility] for acute on chronic respiratory failure with hypoxia and hypercapnia secondary to COPD exacerbation, and pneumonia, her Covid PCR was negative. She was managed with broad-spectrum antibiotic therapy, steroids, nebulizer treatments, clinically monitored, her oxygen requirements decreased from 10 L down to 4 L on discharge. She was discharged on a prednisone burst with Levaquin, with her home inhalers with close follow-up with her general practitioner within a week. Follow-up with pulmonary in 1 month. Patient was advised to discuss with her primary care provider about Covid vaccination, continue to socially distance, facemask, hand wash. Physical Exam Const: COMMON NORMALS: no acute distress and patient oriented x3 Resp: COMMON NORMALS: normal respiratory effort, No retractions, No use of accessory muscles and clear to auscultation bilaterally AUSCULTATION: clear to auscultation bilaterally Cardio: COMMON NORMALS: regular rate, regular rhythm, S1 normal heart sound present and S2 normal heart sound present RATE: regular rate RHYTHM: regular rhythm HEART SOUNDS: S1 normal heart sound present and S2 normal heart sound present GI: COMMON NORMALS: Normal to inspection, nondistended, normoactive bowel sounds present, Soft to palpation and non-tender PALPATION: Yes Soft to palpation Extremity: COMMON NORMALS: no pedal edema Neuro: COMMON NORMALS: patient oriented x3 Psych: COMMON NORMALS: mental status grossly normal Discharge Data Data Completed and Pending: Completed Studies During Hospitalization Category Date Time Status CT angio chest PE protcl [id number] Rout ine Cat Scan 01/07/21 09:09 Completed XR chest 1V ida ble [id number] Stat Exams 01/06/21 10:34 Completed Pending at discharge Category Date Time Status Blood Culture Sta t Lab 01/06/21 12:38 Results Comprehensive Met abolic Panel AM LA BS Lab 01/11/21 04:00 Ordered Comprehensive Met abolic Panel AM LA BS Lab 01/12/21 04:00 Ordered NT Pro B Type Manisha riuretic Pept QAM Lab 01/11/21 06:00 Ordered NT Pro B Type Manisha riuretic Pept QAM Lab 01/12/21 06:00 Ordered Labs from last 24 hours 01/10/21 01/10/21 01/10/21 06:36 02:22 02:22 WBC RBC Hgb Hct MCV MCH MCHC RDW Plt Count MPV Neut % (Auto) Lymph % (Auto) [place] % (Auto) Eos % (Auto) Baso % (Auto) Neut # (Auto) Lymph # (Auto) [place] # (Auto) Eos # (Auto) Baso # (Auto) Nucleated RBC % (a uto) Nucleated RBCs # Sodium 139 Potassium 4.0 Chloride 91 L Carbon Dioxide 40 H Anion Gap 12.0 BUN 15 Creatinine 0.6 GFR Calculation 109.1 Glucose 147 H POC Glucose 182 H Calculated Osmolal ity 292 Calcium 9.3 Total Bilirubin 0.2 AST 12 ALT 18 Alkaline Phosphata se 58 NT-Pro-B Natriuret Pep 535 H Total Protein 6.1 L Albumin 3.6 Globulin 2.5 01/10/21 01/09/21 01/09/21 02:22 20:16 17:03 WBC 11.6 H RBC 4.77 Hgb 15.9 H Hct 48.6 H MCV 101.9 H MCH 33.3 MCHC 32.7 RDW 12.4 Plt Count 247 MPV 11.1 H Neut % (Auto) 83.4 Lymph % (Auto) 10.8 [place] % (Auto) 4.4 Eos % (Auto) 0.0 Baso % (Auto) 0.3 Neut # (Auto) 9.69 H Lymph # (Auto) 1.3 [place] # (Auto) 0.5 Eos # (Auto) 0.0 Baso # (Auto) 0.0 Nucleated RBC % (a uto) 0 Nucleated RBCs # 0.0 Sodium Potassium Chloride Carbon Dioxide Anion Gap BUN Creatinine GFR Calculation Glucose POC Glucose 228 H 147 H Calculated Osmolal ity Calcium Total Bilirubin AST ALT Alkaline Phosphata se NT-Pro-B Natriuret Pep Total Protein Albumin Globulin Vitals: Last Vital Signs Temp 98.4 F 01/10/21 08:12 Pulse 96 01/10/21 11:30 Resp 18 01/10/21 11:21 BP 113/73 01/10/21 08:12 Pulse Ox 87 L 01/10/21 11:23 Discharge Plan Discharge Patient Disposition: Home Condition: Stable Prescriptions: New prednisone 20 mg tablet 20 mg PO BID 5 Days Qty: 10 RF: 0 levofloxacin 750 mg tablet 750 mg PO DAILY 5 Days Qty: 5 RF: 0 Continued duloxetine [Cymbalta] 60 mg capsule,delayed release(DR/EC) 60 mg PO BID 30 Days Qty: 60 RF: 0 oxycodone-acetaminophen [Percocet] 7.5-325 mg tablet 1 tab PO TID PRN (Reason: Pain) RF: 0 tizanidine 2 mg tablet 2 mg PO TID PRN (Reason: muscle spasticity) Qty: 90 RF: 2 Spiriva with HandiHaler 18 mcg capsule, w/inhalation device 1 cap INHALATION DAILY 30 Days Qty: 30 RF: 2 pantoprazole 40 mg tablet,delayed release (DR/EC) 40 mg PO DAILY 30 Days Qty: 30 RF: 2 montelukast 10 mg tablet 10 mg PO DAILY 30 Days Qty: 30 RF: 2 Amitiza 24 mcg capsule 24 mcg PO BID 30 Days Qty: 60 RF: 2 Mucinex 1,200 mg tablet extended release 12hr 1,200 mg PO BID 30 Days Qty: 60 RF: 5 gabapentin 600 mg tablet 600 mg PO QID 30 Days Qty: 120 RF: 2 Breo Ellipta 200-25 mcg/dose blister with device 1 inh INHALATION Q24H 30 Days Qty: 28 RF: 2 buspirone 15 mg tablet 15 mg PO BID 30 Days Qty: 60 RF: 2 Excedrin Migraine 250-250-65 mg tablet 1 - 2 tab PO DAILY PRN (Reason: pain) 30 Days Qty: 60 RF: 2 albuterol sulfate [ProAir HFA] 90 mcg/actuation HFA aerosol inhaler 2 puff INHALATION Q4H PRN (Reason: Shortness Of Breath) 30 Days Qty: 2 RF: 2 albuterol sulfate 2.5 mg /3 mL (0.083 %) solution for nebulization 2.5 mg inhalation Q4H PRN (Reason: shortness of breath or wheezing) 30 Days Qty: 540 RF: 2 metformin 500 mg tablet extended release 24 hr 1,000 mg PO DAILY 90 Days Qty: 180 RF: 2 nicotine [Nicoderm CQ] 21 mg/24 hr patch 24 hour 1 patch transdermal DAILY 42 Days Qty: 42 RF: 0 fentanyl 25 mcg/hr Patch 72 Hour 25 mcg transdermal Q3D RF: 0 Discharge Orders: Discharge Order (Routine); Ordered 01/10/21 Ordered By: Justice Murillo Other Ambulatory Orders: DME: Oxygen (Order) Location: None Selected Ordered By: Justice Murillo Referrals: Meredith Murray MD [Physician] - 1 month Discharge Diet: Cardiac Discharge Activity: Resume usual activity Patient Instructions: Opioid Safety Activity Restrictions/Additional Instructions: -Please talk to primary care provider about Covid vaccine -Continue to wear facemask, handwashing, socially distance -Continue antibiotics and steroids as prescribed -Follow-up with primary care provider in a week Discharge Attestations Time Spent in Discharge Care*: less than 30 min Status at Discharge: Cognitive status at discharge: cognitively intact, Behavioral status at discharge: cooperative, Quality Metrics Clinical Quality Measures During this hospital stay, did patient experience: None Coding Level of Care Code Acute [facility] note Diagnoses Acute on chronic respiratory failure with hypoxia and hypercapnia J96.21; J96.22 COPD (chronic obstructive pulmonary disease) J44.9 COPD type: unspecified COPD Controlled diabetes mellitus with hyperglycemia E11.65 Diabetes mellitus type: type 2 Diabetes mellitus care home insulin use: without exterminator helper termite use Anxiety and depression F41.9; F32.9
--- NOTE | 2021-01-10 13:34 | PC.NURSE ---
Discharge education taught to patient and at bedside. IV removed from left wrist. Tip of catheter intact. Patient tolerated well. Discharge appointment needs to be called on Wednesday. Patient verbalized understanding. Medications sent to pharmacy on file. Patient wheeled down by staff via wheelchair to private vehicle.
== END 2021-01-10 13:37 | disposition home or self-care (01) | DRG 190 ==
LOC: ER 14:47 → CSU 01-07 06:08 → MEDSURG 01-09 09:30
PROVIDERS: Admitting Provider Family Medicine; Emergency Provider Family Medicine; PCP Nurse Practitioner Family; Visit Provider Family Medicine
DX: J44.1 Chronic obstructive pulmonary disease with (acute) exacerbation (principal); J18.9 Pneumonia, unspecified organism; J96.22 Acute and chronic respiratory failure with hypercapnia; J96.21 Acute and chronic respiratory failure with hypoxia; J44.0 Chronic obstructive pulmonary disease with (acute) lower respiratory infection; Z99.81 Dependence on supplemental oxygen; F17.210 Nicotine dependence, cigarettes, uncomplicated; Z86.711 Personal history of pulmonary embolism; M41.9 Scoliosis, unspecified; Z79.891 Long term (current) use of opiate analgesic; G47.33 Obstructive sleep apnea (adult) (pediatric); F41.8 Other specified anxiety disorders; M19.90 Unspecified osteoarthritis, unspecified site; K59.03 Drug induced constipation; T40.605A Adverse effect of unspecified narcotics, initial encounter; Z98.1 Arthrodesis status; E11.65 Type 2 diabetes mellitus with hyperglycemia; Z79.51 Long term (current) use of inhaled steroids; Z79.84 Long term (current) use of oral hypoglycemic drugs
CPT/HCPCS: 36415; 36416; 36600; 71045; 71275; 80053; 82803; 82962; 83036; 83605; 83735; 83880; 84100; 84145; 84443; 84484; 85025; 85378; 86140; 86403; 87040; 87070; 87205; 87426; 87635; 93005; 94640; 94660; 96372; 96374; 97161; 97165; 97530; 99285; J0456; J0696; J1100; J1650; J1815; J1940; J2405; J2920; J7050; Q9967

== ENCOUNTER 2021-02-18 | Outpatient (CLI) | payer MEDICARE, MEDICAID, SELFPAY | END 2021-02-18 00:01 | disposition home or self-care (01) | LOC: RAD 11-17 10:32 | PROVIDERS: PCP Nurse Practitioner Family; Visit Provider Nurse Practitioner Family | DX: R10.9 Unspecified abdominal pain (principal); E11.65 Type 2 diabetes mellitus with hyperglycemia | CPT/HCPCS: 80053; 80061; 83036; 84443; 85025 ==

== ENCOUNTER → 2021-03-11 10:54 | Outpatient (BNVA) | payer MEDICARE, MEDICAID, SELFPAY | PROVIDERS: PCP Nurse Practitioner Family; Visit Provider Nurse Practitioner Family | DX: K59.03 Drug induced constipation (principal); R10.9 Unspecified abdominal pain; R14.0 Abdominal distension (gaseous); T40.2X5A Adverse effect of other opioids, initial encounter; E11.65 Type 2 diabetes mellitus with hyperglycemia; M54.17 Radiculopathy, lumbosacral region; J44.9 Chronic obstructive pulmonary disease, unspecified; M54.9 Dorsalgia, unspecified; K21.9 Gastro-esophageal reflux disease without esophagitis; G89.29 Other chronic pain; F41.9 Anxiety disorder, unspecified; F32.9 Major depressive disorder, single episode, unspecified; R71.8 Other abnormality of red blood cells; R51.9 Headache, unspecified | CPT/HCPCS: 74018; 82607; 82746 ==

== ENCOUNTER 2021-04-02 06:00 | Outpatient (RCR) | payer MEDICARE, MEDICAID, SELFPAY | END 2021-04-10 23:59 | disposition home or self-care (01) | LOC: APT 06:00 | PROVIDERS: PCP Nurse Practitioner Family; Referring Provider Nurse Practitioner Family; Visit Provider Nurse Practitioner Family | DX: M54.17 Radiculopathy, lumbosacral region (principal); G89.29 Other chronic pain | CPT/HCPCS: 97110; 97163; 97530 ==

== ENCOUNTER 2021-04-11 06:00 | Outpatient (RCR) | payer MEDICARE, MEDICAID, SELFPAY | END 2021-05-11 23:59 | disposition home or self-care (01) | LOC: APT 06:00 | PROVIDERS: PCP Nurse Practitioner Family; Referring Provider Nurse Practitioner Family; Visit Provider Nurse Practitioner Family | DX: G89.29 Other chronic pain (principal); M54.17 Radiculopathy, lumbosacral region | CPT/HCPCS: 97110; 97530 ==

== ENCOUNTER → 2021-05-29 10:52 | Outpatient (BNVA) | payer MEDICARE, MEDICAID, SELFPAY | PROVIDERS: PCP Nurse Practitioner Family; Visit Provider Nurse Practitioner Family | DX: J44.1 Chronic obstructive pulmonary disease with (acute) exacerbation (principal) | CPT/HCPCS: 71046; 80053; 85025 ==

== ENCOUNTER → 2021-11-05 11:35 | Outpatient (BNVA) | payer MEDICARE, MEDICAID, SELFPAY | PROVIDERS: PCP Nurse Practitioner Family; Visit Provider Nurse Practitioner Family | DX: E11.65 Type 2 diabetes mellitus with hyperglycemia (principal) | CPT/HCPCS: 80053; 80061; 83036; 84443; 85025 ==

== ENCOUNTER → 2022-04-23 11:28 | Outpatient (BNVA) | payer MEDICARE, MEDICAID, SELFPAY | PROVIDERS: PCP Nurse Practitioner Family; Visit Provider Nurse Practitioner | DX: E11.65 Type 2 diabetes mellitus with hyperglycemia (principal); E55.9 Vitamin D deficiency, unspecified; B37.0 Candidal stomatitis; R11.0 Nausea; J44.1 Chronic obstructive pulmonary disease with (acute) exacerbation | CPT/HCPCS: 80053; 80061; 81000; 82306; 82607; 83036; 84443; 85025 ==

== ENCOUNTER 2022-06-16 16:07 | Inpatient (IN) | payer MEDICARE, MEDICAID, SELFPAY ==
[2022-06-16] VITALS (15 sets, daily range): BP systolic 112–130; BP diastolic 72–87; PULSE 99–119; RESP 16–38; TEMP 37.5–37.7; O2SAT 88–96; BMI 25.7
--- NOTE | 2022-06-16 16:16 | XRR_ITS ---
PROCEDURE INFORMATION: Exam: XR Chest Exam date and time: 06/16/2022 4:29 PM Age: 47 years old Clinical indication: Shortness of breath; Additional info: Dyspnea/cough TECHNIQUE: Imaging protocol: Radiologic exam of the chest. Views: 1 view. COMPARISON: CR XR chest 2V* [id number] 05/29/2021 10:51 AM FINDINGS: Tubes, catheters and devices: Spinal stimulator leads project over the lower thoracic spine. Lungs: Peribronchial thickening. No consolidation. Pleural spaces: Unremarkable. No pleural effusion. No pneumothorax. Heart/Mediastinum: Unremarkable. No cardiomegaly. Bones/joints: Visualized osseous structures are intact. XR/XR chest 1V portable [id number] IMPRESSION: Peribronchial thickening suggestive of an infectious or inflammatory bronchitis.
--- NOTE | 2022-06-16 16:38 | W.ED.SOB ---
Documented by User: Gorge Law DO 06/23/22 06:28 HPI - SOB/Dyspnea General: Chief Complaint: Shortness of Breath/Dyspnea Stated Complaint: SOB Time Seen by Provider: 06/16/22 16:16 Source: patient Mode of arrival: EMS History of Present Illness: HPI Narrative: 47-year-old female presents emergency room complaining of shortness of breath from the [facility]. She had flulike symptoms last couple of days with a temp of 99 5 she normally wears 4 L by nasal cannula however she was satting at 88% on that. She has had an increasingly productive cough, no hemoptysis. She denies any chest pain she denies any vomiting or diarrhea. No abdominal pain no dysuria urgency or frequency. MD elicited complaint: shortness of breath and cough Pertinent past history: COPD Onset (ago): day(s) Context: recent illness Timing: constant Exacerbating factors: exertion, movement and coughing Relieving factors: oxygen and rest Known history of: COPD Associated symptoms: Reports chest congestion and cough; Deny abdominal pain, chest pain, diaphoresis, dizziness, extremity pain, fever(s), hemoptysis, lightheadedness, myalgias, nausea, orthopnea, palpitations, paresthesias, polydipsia, polyuria, rash, sense of impending doom, syncope or vomiting Treatment prior to arrival: oxygen and bronchodilator Review of Systems Const: Denies: fever(s), chills, fatigue, malaise or diaphoresis Card: Denies: chest pain, palpitations, lightheadedness, syncope or orthopnea Resp: Reports: chest congestion; Denies: hemoptysis GI: Denies: abdominal pain, nausea or vomiting Musc: Denies: extremity pain Neuro: Denies: dizziness Endo: Denies: polyuria or polydipsia PFS ED PFSH: Medical History Acute exacerbation of chronic obstructive airways disease Acute respiratory failure with hypoxemia Anxiety and depression Arthritis Asthma Atopic dermatitis, mild Chronic headache Chronic nausea Chronic respiratory failure with hypoxia and hypercapnia Constipation due to opioid therapy Controlled diabetes mellitus with hyperglycemia COPD (chronic obstructive pulmonary disease) Degenerative lumbar disc GERD (gastroesophageal reflux disease) History of left foot drop Lumbosacral radiculitis Migraines Obstructive sleep apnea Opiate dependence Personal history of nicotine dependence Respiratory failure with hypoxia and hypercapnia Scoliosis Surgical History History of bilateral salpingectomy 1997 History of cholecystectomy 1998 History of hysterectomy 2005 History of lumbar fusion With kvng 2006 History of umbilical hernia repair 2009 Family History Mother Heart disease Grandmother Congestive heart failure Social History Smoking and tobacco status: current every day smoker cigarettes Packs smoked per day: 2.5 Years cigarettes smoked: 30 Second hand smoke exposure: Yes Smoking risk assessment/counseling performed?: Yes Alcohol intake: never Desire information about alcohol rehabilitation?: No Counseling given: No Desire information about substance/drug rehabilitation?: No Counseling given: No Caregiver/support person: No Lives independently: Yes Household members: children Housing: House Marital status: Legally Number of children: 2 service: No Current occupational status: disabled History of recent travel: No Current gender identity: Female Physical Exam Const: ORIENTATION/CONSCIOUSNESS: Yes awake, Yes oriented to person, Yes oriented to place and Yes oriented to time HENMT: COMMON NORMALS: normocephalic, atraumatic and hearing grossly normal bilaterally HEAD & SCALP: normocephalic and atraumatic Eye: COMMON NORMALS: Equal, round and reactive pupils present, EOMs intact bilaterally, conjunctivae normal and no scleral icterus CONJUNCTIVA: Yes conjunctivae normal PUPIL: Yes Equal, round and reactive pupils present Neck/C-Spine: COMMON NORMALS: full ROM, no lymphadenopathy, supple and no JVD Resp: EFFORT & INSPECTION: No able to speak in complete sentences, Yes abnormal respiratory pattern, Yes respiratory distress and Yes uses accessory muscles AUSCULTATION: rhonchi and wheezes Cardio: COMMON NORMALS: no JVD, regular rhythm and No murmurs present (Cardio) RATE: tachycardic RHYTHM: regular rhythm GI: COMMON NORMALS: Soft to palpation and No hepatosplenomegaly present AUSCULTATION: Yes normoactive bowel sounds PALPATION: Yes Soft to palpation, No Tenderness to palpation present (GI), No Guarding due to palpation present (GI) and Yes No hepatosplenomegaly present Extremity: COMMON NORMALS: normal to inspection, capillary refill normal, no clubbing, cyanosis or edema, no calf tenderness and no pedal edema Neuro: SENSORIUM/ORIENTATION: Yes oriented to person, Yes oriented to place and Yes oriented to time Skin: COMMON NORMALS: no rashes or lesions noted GENERAL SKIN EXAM: no rashes or lesions noted Course Vital Signs: Vital signs: Vital Signs Temperature 98.1 F 06/20/22 12:37 Pulse Rate 98 06/20/22 12:37 Respiratory Rate 13 06/20/22 12:37 Blood Pressure 108/86 06/20/22 12:37 Pulse Oximetry 92 06/20/22 12:37 Oxygen Delivery Me thod 06/20/22 12:05 Oxygen Flow Rate 5 06/20/22 12:05 Fraction of Inspir ed Oxygen 5 06/19/22 03:37 MDM - SOB/Dyspnea Medical Decision Making Patient presents in acute respiratory distress started on BiPAP she initially declined and was concerned that if she progressed any further she would require intubation. She is given a low-dose of Ativan and started on the BiPAP. Labs pending. Signout Adin Patient presents for COPD exacerbation along with hypercapnia after switching her over to Carmen apps on BiPAP her pH CO2 is slightly improving her mentation is improved greatly here her and tidal volumes are improving as well I did speak to hospitalist who agrees to admit patient to stepdown currently. I believe she is stable for stepdown does not require ICU at this time Medical Records I reviewed the patient's medical records. Lab Data I reviewed the patient's lab results. 06/16/22 16:50 06/16/22 16:50 Labs/Radiology: Radiology Impressions Chest X-Ray 06/18/22 05:00 IMPRESSION: Unremarkable frontal portable chest x-ray. Laboratory Results WBC 20.6 10^3/uL (4.0-10.0) H 06/16/22 16:50 RBC 5.28 10^6/uL (4.1-5.3) 06/16/22 16:50 Hgb 17.2 g/dL (11.5-15.3) H 06/16/22 16:50 Hct 53.5 % (37.0-47.0) H 06/16/22 16:50 MCV 101.3 fl (81-99) H 06/16/22 16:50 MCH 32.6 pg (28.0-34.0) 06/16/22 16:50 MCHC 32.1 g/dL (30.0-36.0) 06/16/22 16:50 RDW 13.6 % (12.1-15.1) 06/16/22 16:50 Plt Count 250 10^3/cmm (130-400) 06/16/22 16:50 MPV 10.7 fL (7.4-10.4) H 06/16/22 16:50 Neut % (Auto) 87.4 % 06/16/22 16:50 Lymph % (Auto) 4.2 % 06/16/22 16:50 [place] % (Auto) 7.7 % 06/16/22 16:50 Eos % (Auto) 0.1 % 06/16/22 16:50 Baso % (Auto) 0.2 % 06/16/22 16:50 Neut # (Auto) 17.97 10^3/uL (1.8-7.7) H 06/16/22 16:50 Lymph # (Auto) 0.9 10^3/uL (0.8-4.8) 06/16/22 16:50 [place] # (Auto) 1.6 10^3/uL (0.2-0.9) H 06/16/22 16:50 Eos # (Auto) 0.0 10^3/uL (0.0-0.8) 06/16/22 16:50 Baso # (Auto) 0.1 10^3/uL (0.0-0.1) 06/16/22 16:50 Nucleated RBC % (auto) 0 % 06/16/22 16:50 Nucleated RBCs # 0.0 /100WBC 06/16/22 16:50 D-Dimer 0.39 ug/mIFEU (0-0.59) 06/16/22 16:50 Specimen Type Arterial 06/16/22 23:43 Sample Site Radial, left 06/16/22 23:43 ABG pH 7.31 (7.35-7.45) L 06/16/22 23:43 ABG pCO2 65.7 mmHg (35-45) H* 06/16/22 23:43 ABG pO2 74.6 mmHg (80.0-100.0) L 06/16/22 23:43 ABG HCO3 33.4 mmol/L (22-26) H 06/16/22 23:43 ABG O2 Saturation 90.0 06/16/22 16:25 ABG Base Excess 4.5 mmol/L (-2.0-2.0) H 06/16/22 23:43 Lb Test Pos 06/16/22 23:43 A-a O2 Gradient 2.2 mmHg (5-10) L 06/16/22 16:25 Hematocrit 51.0 % (37-47) H 06/16/22 23:43 Hgb O2 Saturation 86.1 % (95-100) L 06/16/22 16:25 Carboxyhemoglobin 3.8 %THgb (0.4-20.1) 06/16/22 16:25 Methemoglobin 0.6 % (0.4-1.5) 06/16/22 16:25 Total Hemoglobin 17.0 g/dL (12-16) H 06/16/22 16:25 Sodium 140.0 mmol/L (131-143) 06/16/22 16:25 Potassium 4.1 mmol/L (3.5-5.0) 06/16/22 16:25 Glucose 124.0 mg/dL (70-115) H 06/16/22 16:25 Ionized Calcium 1.2 mmol/L (1.1-1.4) 06/16/22 16:25 O2 Delivery Device Bipap 06/16/22 23:43 O2 Liters/Min 6.0 % 06/16/22 16:25 FiO2 60.0 % 06/16/22 23:43 PEEP 8.0 cmH20 06/16/22 23:43 Developmental Services Worker ID Walci 06/16/22 23:43 Sodium 138 mmol/L (136-145) 06/16/22 16:50 Potassium 4.2 mmol/L (3.5-5.1) 06/16/22 16:50 Chloride 97 mmol/L (98-107) L 06/16/22 16:50 Carbon Dioxide 31 mmol/L (22-29) H 06/16/22 16:50 Anion Gap 14.2 (5-19) 06/16/22 16:50 BUN 6 mg/dL (6-20) 06/16/22 16:50 Creatinine 0.5 mg/dL (0.5-0.9) 06/16/22 16:50 GFR Calculation 133.4 mL/min (90-130) H 06/16/22 16:50 Glucose 112 mg/dL (65-115) 06/16/22 16:50 Calculated Osmolality 284 mOsm/kg (285-295) L 06/16/22 16:50 Lactate 1.5 mmol/L (0.5-2.2) 06/16/22 16:50 Calcium 9.8 mg/dL (8.5-10.5) 06/16/22 16:50 Total Bilirubin 0.4 mg/dL (0.15-1.2) 06/16/22 16:50 AST 8 U/L (0-32) 06/16/22 16:50 ALT 9 U/L (0-33) 06/16/22 16:50 Alkaline Phosphatase 107 U/L (35-105) H 06/16/22 16:50 Total Protein 7.3 g/dL (6.6-8.7) 06/16/22 16:50 Albumin 3.9 g/dL (3.5-5.2) 06/16/22 16:50 Globulin 3.4 g/dL (1.3-4.6) 06/16/22 16:50 Procalcitonin 0.36 ng/mL (0-0.5) 06/16/22 16:50 Procalcitonin Cancelled 06/16/22 16:50 Urine Color Yellow (Yellow) 06/16/22 20:54 Urine Appearance Clear (CLEAR) 06/16/22 20:54 Urine pH 5 (5-7) 06/16/22 20:54 Ur Specific Alder 1.020 (1.005-1.030) 06/16/22 20:54 Urine Protein Neg (Negative) 06/16/22 20:54 Urine Glucose (UA) 4+ (Normal) H 06/16/22 20:54 Urine Ketones 1+ (Negative) H 06/16/22 20:54 Urine Blood Neg (Negative) 06/16/22 20:54 Urine Nitrate Negative (Negative) 06/16/22 20:54 Urine Bilirubin Neg (Negative) 06/16/22 20:54 Urine Urobilinogen Norm mg/dL (Negative) 06/16/22 20:54 Ur Leukocyte Esterase Negative (Negative) 06/16/22 20:54 Nasal Influ A H1 2009 PCR Detected (NOT DETECT) A 06/17/22 00:21 Coronavirus 229E (PCR) Not detected (NOT DETECT) 06/16/22 22:02 Influenza A (H1) PCR Not detected (NOT DETECT) 06/17/22 00:21 Influenza A (H3) PCR Not detected (NOT DETECT) 06/17/22 00:21 Influenza Type A Ag negative (Negative) 06/16/22 22:02 Influenza Type A (PCR) Not detected (NOT DETECT) 06/17/22 00:21 Influenza Type B Ag negative (Negative) 06/16/22 22:02 Influenza Type B (PCR) Not detected (NOT DETECT) 06/17/22 00:21 SARS-CoV-2 (PCR) Not detected (NOT DETECT) 06/16/22 22:02 SARS-CoV-2 Ag (Rapid) negative (Negative) 06/16/22 22:02 Discharge Plan Discharge Patient Disposition: Admitted As Inpatient Admit Provider: Elan Wheeler Clinical Impression: Acute exacerbation of chronic obstructive airways disease, Acute respiratory failure with hypoxemia Condition: Stable Coding Level of Care Code ED Adjuster Electrical Contacts for [facility] Fwd Documented by User: Neida Oakley MD 06/17/22 00:46 HPI - SOB/Dyspnea General: Chief Complaint: Shortness of Breath/Dyspnea Stated Complaint: SOB Time Seen by Provider: 06/16/22 16:16 PFSH ED PFSH: Medical History Acute exacerbation of chronic obstructive airways disease Acute respiratory failure with hypoxemia Anxiety and depression Arthritis Asthma Atopic dermatitis, mild Chronic headache Chronic nausea Chronic respiratory failure with hypoxia and hypercapnia Constipation due to opioid therapy Controlled diabetes mellitus with hyperglycemia COPD (chronic obstructive pulmonary disease) Degenerative lumbar disc GERD (gastroesophageal reflux disease) History of left foot drop Lumbosacral radiculitis Migraines Obstructive sleep apnea Opiate dependence Personal history of nicotine dependence Respiratory failure with hypoxia and hypercapnia Scoliosis Surgical History History of bilateral salpingectomy 1997 History of cholecystectomy 1998 History of hysterectomy 2005 History of lumbar fusion With kvng 2007 History of umbilical hernia repair 2009 Family History Mother Heart disease Grandmother Congestive heart failure Social History Smoking and tobacco status: current every day smoker cigarettes Packs smoked per day: 2.5 Years cigarettes smoked: 30 Second hand smoke exposure: Yes Smoking risk assessment/counseling performed?: Yes Alcohol intake: never Desire information about alcohol rehabilitation?: No Counseling given: No Desire information about substance/drug rehabilitation?: No Counseling given: No Caregiver/support person: No Lives independently: Yes Household members: children Housing: House Marital status: Legally Number of children: 2 service: No Current occupational status: disabled History of recent travel: No Current gender identity: Female Course Vital Signs: Vital signs: Vital Signs Temperature 98.1 F 06/20/22 12:37 Pulse Rate 98 06/20/22 12:37 Respiratory Rate 13 06/20/22 12:37 Blood Pressure 108/86 06/20/22 12:37 Pulse Oximetry 92 06/20/22 12:37 Oxygen Delivery Me thod 06/20/22 12:05 Oxygen Flow Rate 5 06/20/22 12:05 Fraction of Inspir ed Oxygen 5 06/19/22 03:37 MDM - SOB/Dyspnea Medical Decision Making Patient presents for COPD exacerbation along with hypercapnia after switching her over to Carmen apps on BiPAP her pH CO2 is slightly improving her mentation is improved greatly here her and tidal volumes are improving as well I did speak to hospitalist who agrees to admit patient to stepdown currently. I believe she is stable for stepdown does not require ICU at this time Lab Data 06/16/22 16:50 06/16/22 16:50 Labs/Radiology: Radiology Impressions Chest X-Ray 06/18/22 05:00 IMPRESSION: Unremarkable frontal portable chest x-ray. Laboratory Results WBC 20.6 10^3/uL (4.0-10.0) H 06/16/22 16:50 RBC 5.28 10^6/uL (4.1-5.3) 06/16/22 16:50 Hgb 17.2 g/dL (11.5-15.3) H 06/16/22 16:50 Hct 53.5 % (37.0-47.0) H 06/16/22 16:50 MCV 101.3 fl (81-99) H 06/16/22 16:50 MCH 32.6 pg (28.0-34.0) 06/16/22 16:50 MCHC 32.1 g/dL (30.0-36.0) 06/16/22 16:50 RDW 13.6 % (12.1-15.1) 06/16/22 16:50 Plt Count 250 10^3/cmm (130-400) 06/16/22 16:50 MPV 10.7 fL (7.4-10.4) H 06/16/22 16:50 Neut % (Auto) 87.4 % 06/16/22 16:50 Lymph % (Auto) 4.2 % 06/16/22 16:50 [place] % (Auto) 7.7 % 06/16/22 16:50 Eos % (Auto) 0.1 % 06/16/22 16:50 Baso % (Auto) 0.2 % 06/16/22 16:50 Neut # (Auto) 17.97 10^3/uL (1.8-7.7) H 06/16/22 16:50 Lymph # (Auto) 0.9 10^3/uL (0.8-4.8) 06/16/22 16:50 [place] # (Auto) 1.6 10^3/uL (0.2-0.9) H 06/16/22 16:50 Eos # (Auto) 0.0 10^3/uL (0.0-0.8) 06/16/22 16:50 Baso # (Auto) 0.1 10^3/uL (0.0-0.1) 06/16/22 16:50 Nucleated RBC % (auto) 0 % 06/16/22 16:50 Nucleated RBCs # 0.0 /100WBC 06/16/22 16:50 D-Dimer 0.39 ug/mIFEU (0-0.59) 06/16/22 16:50 Specimen Type Arterial 06/16/22 23:43 Sample Site Radial, left 06/16/22 23:43 ABG pH 7.31 (7.35-7.45) L 06/16/22 23:43 ABG pCO2 65.7 mmHg (35-45) H* 06/16/22 23:43 ABG pO2 74.6 mmHg (80.0-100.0) L 06/16/22 23:43 ABG HCO3 33.4 mmol/L (22-26) H 06/16/22 23:43 ABG O2 Saturation 90.0 06/16/22 16:25 ABG Base Excess 4.5 mmol/L (-2.0-2.0) H 06/16/22 23:43 Lb Test Pos 06/16/22 23:43 A-a O2 Gradient 2.2 mmHg (5-10) L 06/16/22 16:25 Hematocrit 51.0 % (37-47) H 06/16/22 23:43 Hgb O2 Saturation 86.1 % (95-100) L 06/16/22 16:25 Carboxyhemoglobin 3.8 %THgb (0.4-20.1) 06/16/22 16:25 Methemoglobin 0.6 % (0.4-1.5) 06/16/22 16:25 Total Hemoglobin 17.0 g/dL (12-16) H 06/16/22 16:25 Sodium 140.0 mmol/L (131-143) 06/16/22 16:25 Potassium 4.1 mmol/L (3.5-5.0) 06/16/22 16:25 Glucose 124.0 mg/dL (70-115) H 06/16/22 16:25 Ionized Calcium 1.2 mmol/L (1.1-1.4) 06/16/22 16:25 O2 Delivery Device Bipap 06/16/22 23:43 O2 Liters/Min 6.0 % 06/16/22 16:25 FiO2 60.0 % 06/16/22 23:43 PEEP 8.0 cmH20 06/16/22 23:43 Developmental Services Worker ID Walci 06/16/22 23:43 Sodium 138 mmol/L (136-145) 06/16/22 16:50 Potassium 4.2 mmol/L (3.5-5.1) 06/16/22 16:50 Chloride 97 mmol/L (98-107) L 06/16/22 16:50 Carbon Dioxide 31 mmol/L (22-29) H 06/16/22 16:50 Anion Gap 14.2 (5-19) 06/16/22 16:50 BUN 6 mg/dL (6-20) 06/16/22 16:50 Creatinine 0.5 mg/dL (0.5-0.9) 06/16/22 16:50 GFR Calculation 133.4 mL/min (90-130) H 06/16/22 16:50 Glucose 112 mg/dL (65-115) 06/16/22 16:50 Calculated Osmolality 284 mOsm/kg (285-295) L 06/16/22 16:50 Lactate 1.5 mmol/L (0.5-2.2) 06/16/22 16:50 Calcium 9.8 mg/dL (8.5-10.5) 06/16/22 16:50 Total Bilirubin 0.4 mg/dL (0.15-1.2) 06/16/22 16:50 AST 8 U/L (0-32) 06/16/22 16:50 ALT 9 U/L (0-33) 06/16/22 16:50 Alkaline Phosphatase 107 U/L (35-105) H 06/16/22 16:50 Total Protein 7.3 g/dL (6.6-8.7) 06/16/22 16:50 Albumin 3.9 g/dL (3.5-5.2) 06/16/22 16:50 Globulin 3.4 g/dL (1.3-4.6) 06/16/22 16:50 Procalcitonin 0.36 ng/mL (0-0.5) 06/16/22 16:50 Procalcitonin Cancelled 06/16/22 16:50 Urine Color Yellow (Yellow) 06/16/22 20:54 Urine Appearance Clear (CLEAR) 06/16/22 20:54 Urine pH 5 (5-7) 06/16/22 20:54 Ur Specific Alder 1.020 (1.005-1.030) 06/16/22 20:54 Urine Protein Neg (Negative) 06/16/22 20:54 Urine Glucose (UA) 4+ (Normal) H 06/16/22 20:54 Urine Ketones 1+ (Negative) H 06/16/22 20:54 Urine Blood Neg (Negative) 06/16/22 20:54 Urine Nitrate Negative (Negative) 06/16/22 20:54 Urine Bilirubin Neg (Negative) 06/16/22 20:54 Urine Urobilinogen Norm mg/dL (Negative) 06/16/22 20:54 Ur Leukocyte Esterase Negative (Negative) 06/16/22 20:54 Nasal Influ A H1 2009 PCR Detected (NOT DETECT) A 06/17/22 00:21 Coronavirus 229E (PCR) Not detected (NOT DETECT) 06/16/22 22:02 Influenza A (H1) PCR Not detected (NOT DETECT) 06/17/22 00:21 Influenza A (H3) PCR Not detected (NOT DETECT) 06/17/22 00:21 Influenza Type A Ag negative (Negative) 06/16/22 22:02 Influenza Type A (PCR) Not detected (NOT DETECT) 06/17/22 00:21 Influenza Type B Ag negative (Negative) 06/16/22 22:02 Influenza Type B (PCR) Not detected (NOT DETECT) 06/17/22 00:21 SARS-CoV-2 (PCR) Not detected (NOT DETECT) 06/16/22 22:02 SARS-CoV-2 Ag (Rapid) negative (Negative) 06/16/22 22:02 Critical Care Time Critical Care Time: Critical Care Time: Yes Total Critical Care Time: 55 Attestation: The high probability of a clinically significant, sudden or life threatening deterioration of the patient's resp system(s) required my full and direct attention, intervention and personal management. The critical care time is as shown. This time is in addition to time spent performing any reported procedures but includes the following: [x] Data and vital sign review and interpretation [x] Patient assessment, examination and intervention [x] Documentation [x] Medication orders and management Discharge Plan Discharge Patient Disposition: Admitted As Inpatient Admit Provider: Elan Wheeler Clinical Impression: Acute exacerbation of chronic obstructive airways disease, Acute respiratory failure with hypoxemia Condition: Stable Coding Level of Care Code ED Adjuster Electrical Contacts for [facility]
[2022-06-16 16:41] LABS: ABG PCO2 62.3 mmHg (35-45); ABG PH Result 7.33 (7.35-7.45); Alveolar-Arterial Oxygen Gradi 2.2 mmHg (5-10); Blood Gas Operator Identificat GD; Blood Gas Sample Site Brachial, right; Blood Gas Sample Type Arterial; Carboxyhemoglobin 3.8 %THgb (0.4-20.1); HCO3 ABG 32.5 mmol/L (22-26); HGB O2 Sat 86.1 % (95-100); Ionized Calcium Level - ABG 1.2 mmol/L (1.1-1.4); Methemoglobin 0.6 % (0.4-1.5); Oxygen Device OXY MASK; PO2 ABG 56.8 mmHg (80.0-100.0); Potassium Level - ABG 4.1 mmol/L (3.5-5.0)
[2022-06-16] MEDS: ipratropium-albuterol 3 mL Neb 9 ML INHALATION (16:50)
--- NOTE | 2022-06-16 16:56 | ECG_ITS ---
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 Measurements Intervals [place] Rate: 106 P: 36 WI: 361 QRS: 65 QRSD: 92 T: 68 QT: 307 QTc: 408 Interpretive Statements Sinus rhythm Artifact Compared to ECG 01/06/2021 17:28:19 Atrial abnormality no longer present Electronically Signed On 06-16-2022 18:48:47 PHOTOGRAPHY SALES ASSOCIATE by Hiwot Muinz M.D. [id number]
--- NOTE | 2022-06-16 17:09 | PC.PHAR ---
PT UNABLE TO VERIFY - ON BI-PAP- UNABLE TO CONTACT PTS CONTACTS PHONE NUMBERS ARE NOT IN ORDER - CALLED [facility] AND VERIFIED LAST FILLED AND PICKED UP
[2022-06-16 17:19] LABS: Basophils # 0.1 10^3/uL (0.0-0.1); Basophils % 0.2 %; Eosinophils % 0.1 %; Hematocrit 53.5 % (37.0-47.0); Hemoglobin 17.2 g/dL (11.5-15.3); Lymphocytes # 0.9 10^3/uL (0.8-4.8); Lymphocytes % 4.2 %; Mean Corpuscular HGB Conc 32.1 g/dL (30.0-36.0); Mean Corpuscular Hemoglobin 32.6 pg (28.0-34.0); Mean Corpuscular Volume 101.3 fl (81-99); Mean Platelet Volume 10.7 fL (7.4-10.4); Monocytes # 1.6 10^3/uL (0.2-0.9); Monocytes % 7.7 %; Neutrophils # 17.97 10^3/uL (1.8-7.7); Neutrophils % 87.4 %; Nucleated Red Blood Cells % 0 %; Platelet Count 250 10^3/cmm (130-400); Red Blood Count 5.28 10^6/uL (4.1-5.3); Red Cell Distribution Width 13.6 % (12.1-15.1); White Blood Count 20.6 10^3/uL (4.0-10.0)
[2022-06-16] MEDS: LORazepam 2 mg/mL INJ 1 mL IVP (17:26)
[2022-06-16 17:32] LABS: Alanine Aminotransferase 9 U/L (0-33); Albumin Level 3.9 g/dL (3.5-5.2); Alkaline Phosphatase 107 U/L (35-105); Anion Gap 14.2 (5-19); Aspartate Amino Transferase 8 U/L (0-32); Blood Urea Nitrogen 6 mg/dL (6-20); Calcium 9.8 mg/dL (8.5-10.5); Carbon Dioxide 31 mmol/L (22-29); Chloride 97 mmol/L (98-107); Globulin 3.4 g/dL (1.3-4.6); Glomerular Filtration Rate 133.4 mL/min (90-130); Glucose 112 mg/dL (65-115); Osmolality Calculated 284 mOsm/kg (285-295); Potassium 4.2 mmol/L (3.5-5.1); Sodium 138 mmol/L (136-145); Total Bilirubin 0.4 mg/dL (0.15-1.2); Total Protein 7.3 g/dL (6.6-8.7)
[2022-06-16] MEDS: cefepime 2,000 MG in sodium chloride 0.9% (plus) 50 ML 100 MG IV (18:02)
[2022-06-16 18:47] LABS: Lactate (Lactic Acid level) 1.5 mmol/L (0.5-2.2)
--- NOTE | 2022-06-16 20:06 | P.HP_ITS ---
Providers/Chief Complaint Primary Care Provider: PREETHI Lopes Chief Complaint: SOB History of Present Illness Paula Starr is a 47 year old female Medications/Allergies Home Medications Medication Instructions Recorded Confirmed Last Taken Type oxycodone-acetaminophen 7.5 mg-325 1 tab PO TID PRN Pain 10/04/19 06/16/22 01/05/21 History mg tablet (Percocet) fentanyl 25 mcg/hr transdermal 25 mcg transdermal Q3D 01/09/21 06/16/22 01/05/21 History patch 25 mcg prenat.vits,ronnell,jdb-rovb-rvmnh 1 tab PO DAILY 30 days #30 tabs 03/13/21 06/16/22 Unknown Rx Diabetic shoes with inserts #1 ea 04/02/21 06/16/22 Unknown Rx albuterol sulfate 2.5 mg/3 mL 2.5 mg (3 mL) inhalation Q4H PRN 11/05/21 06/16/22 Unknown Rx (0.083 %) solution for nebulization shortness of breath or wheezing 30 days #540 mL skixclu-fvcmgutscngoy-eyfebhao 250 1 - 2 tab PO DAILY PRN pain 30 11/05/21 06/16/22 Unknown Rx mg-250 mg-65 mg tablet (Excedrin days #60 tabs Migraine) nystatin 100,000 unit/mL oral 500,000 unit (5 mL) PO TID #200 mL 04/23/22 06/16/22 Unknown Rx suspension promethazine 25 mg tablet 25 mg PO Q12H PRN nausea and 04/23/22 06/16/22 Unknown Rx vomiting #20 tabs dapagliflozin 5 mg tablet (Farxiga) 5 mg PO QAM #30 tabs 04/27/22 06/16/22 Unknown Rx ergocalciferol (vitamin D2) 1,250 1,250 mcg PO .weekly #4 caps 04/27/22 06/16/22 Unknown Rx mcg (50,000 unit) capsule cyanocobalamin (vitamin B-12) 2,500 mcg sublingual BID #60 tabs 05/01/22 06/16/22 Unknown Rx 2,500 mcg sublingual tablet albuterol sulfate 90 mcg/actuation 2 puff inhalation Q4H PRN 06/08/22 06/16/22 Unknown Rx aerosol inhaler (ProAir HFA) Shortness Of Breath 30 days #2 ea Allergies Allergy/AdvReac Type Severity Reaction Status Date / Time estrogens, conjugated Allergy Severe blood clots Verified 06/16/22 17:08 [From Premarin] Fish Containing Products Allergy Unknown unknown Verified 06/16/22 17:08 NSAIDS (Non-Steroidal Allergy stomach Verified 06/16/22 17:08 Anti-Inflamma bleeds PFSH Acute PFSH: Medical History Anxiety and depression Arthritis Asthma Atopic dermatitis, mild Chronic headache Chronic nausea Constipation due to opioid therapy COPD (chronic obstructive pulmonary disease) Degenerative lumbar disc GERD (gastroesophageal reflux disease) History of left foot drop Lumbosacral radiculitis Migraines Obstructive sleep apnea Personal history of nicotine dependence Scoliosis Surgical History History of bilateral salpingectomy 1997 History of cholecystectomy 1998 History of hysterectomy 2005 History of lumbar fusion With kvng 2007 History of umbilical hernia repair 2009 Family History Mother Heart disease Grandmother Congestive heart failure Social History Smoking and tobacco status: current every day smoker cigarettes Packs smoked per day: 2.5 Years cigarettes smoked: 30 Second hand smoke exposure: Yes Smoking risk assessment/counseling performed?: Yes Alcohol intake: never Desire information about alcohol rehabilitation?: No Counseling given: No Desire information about substance/drug rehabilitation?: No Counseling given: No Caregiver/support person: No Lives independently: Yes Household members: children Housing: House Marital status: Legally Number of children: 2 service: No Current occupational status: disabled History of recent travel: No Current gender identity: Female Vitals/I&O/Wt Last Vital Signs Temp 99.8 F H 06/16/22 19:09 Pulse 114 H 06/16/22 19:09 Resp 18 06/16/22 19:09 BP 124/75 06/16/22 19:09 Pulse Ox 92 06/16/22 19:09 O2 Del Method 06/16/22 19:09 O2 Flow Rate 4 06/16/22 16:08 FiO2 60 06/16/22 17:12 06/16/22 06/16/2206/16/22 06:59 14:59 22:59 Intake Total 50 / 50 Balance 50 / 50 Weight last 48 hrs Weight 70.307 kg Data 06/16/22 16:50 06/16/22 16:50 Micro: Microbiology 06/16/22 16:55 Blood Culture - Preliminary Blood SPECIMEN COLLECTED 06/16/22 16:50 Blood Culture - Preliminary Blood SPECIMEN COLLECTED Coding Level of Care Code Acute Greenhouse Worker for Juan Harrington
[2022-06-16 20:08] LABS: Base Excess ABG 4.2 mmol/L (-2.0-2.0); Blood Gas Allen Test Pos; Blood Gas Operator Identificat WALCI; Blood Gas Sample Site Radial, right; Blood Gas Sample Type Arterial; HCO3 ABG 33.5 mmol/L (22-26); Oxygen Device BIPAP
[2022-06-16 20:09] LABS: ABG PCO2 68.5 mmHg (35-45)
[2022-06-16 20:38] LABS: D Dimer 0.39 ug/mIFEU (0-0.59)
[2022-06-16 21:09] LABS: Add Urine Microscopic? NO; Charge for UA Resulting for Rev
[2022-06-16 21:14] LABS: Procalcitonin 0.36 ng/mL (0-0.5)
[2022-06-16 21:19] LABS: Arterial Blood Gas Hematocrit 51.2 % (37-47); Blood Gas Allen Test Pos; Blood Gas Operator Identificat WALCI; Blood Gas Sample Site Radial, left; Blood Gas Sample Type Arterial; HCO3 ABG 33.1 mmol/L (22-26); Oxygen Device BIPAP; PO2 ABG 77.4 mmHg (80.0-100.0)
[2022-06-16 21:20] LABS: ABG PCO2 67.1 mmHg (35-45)
[2022-06-16 21:48] LABS: Bilirubin Urine Neg (Negative); Blood Urine Neg (Negative); Ketones Urine 1+ (Negative); Leukocyte Esterase Urine Negative (Negative); Nitrate Urine Negative (Negative); Protein Urine Neg (Negative); Urine Appearance Clear (CLEAR); Urine Color Yellow (Yellow); Urobilinogen Urine Norm (Negative); pH Urine 5 (5-7)
[2022-06-16 21:49] LABS: Glucose Urine UA 4+ (Normal)
--- NOTE | 2022-06-16 22:07 | PC.NURSE ---
all three swabs collected on patient at this time for flu and covid.
[2022-06-16 22:25] LABS: Influenza A by IFA negative (Negative); Influenza B by IFA negative (Negative); SARS Covid-2 Antigen negative (Negative)
[2022-06-16 23:48] LABS: Adenovirus Not Detected (NOT DETECT); Chlamydia Pneumoniae Not Detected (NOT DETECT); Coronavirus 229E,HKU1,NL63,OC4 Not Detected (NOT DETECT); Human Metapneumovirus Not Detected (NOT DETECT); Human Rhinovirus/Enterovirus Not Detected (NOT DETECT); Influenza A Not Detected (NOT DETECT); Influenza A H1 Not Detected (NOT DETECT); Influenza A H1-2009 Detected (NOT DETECT); Influenza A H3 Not Detected (NOT DETECT); Influenza B Not Detected (NOT DETECT); Mycoplasma Pneumoniae Not Detected (NOT DETECT); Parainfluenza Virus Type 1 Not Detected (NOT DETECT); Parainfluenza Virus Type 2 Not Detected (NOT DETECT); Parainfluenza Virus Type 3 Not Detected (NOT DETECT); Parainfluenza Virus Type 4 Not Detected (NOT DETECT); Respiratory Syncytial Virus A Not Detected (NOT DETECT); Respiratory Syncytial Virus B Not Detected (NOT DETECT); SARS-COV-2 Not Detected (NOT DETECT)
--- NOTE | 2022-06-16 23:50 | PM.HP ---
Providers/Chief Complaint Primary Care Provider: PREETHI Lopes Chief Complaint: SOB History of Present Illness Paula Starr is a 47 year old female who presented to hospital with chief Worsening of shortness of breath. She has history of oxygen pendant COPD uses 6 L at baseline, active smoker, complaining of shortness of breath for last few days which has gotten worse in last 48 hours, she has noticed productive cough, which she describing as cloudy sputum, she has not noticed any fever, she has not noticed any diarrhea, vomiting, chest pain. In the ER she was diagnosed with acute hypoxic hypercapnic respiratory failure, her pH was worsening despite on AVAPS decision was made to transfer her to tertiary center because we do not have ICU beds however her pH slightly improved and she is not drowsy to the point she is not able to give above-mentioned HPI. 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, opiate dependent, sleep apnea, She will need AVAPS for tonight admit to [facility] and transfer to ICU if bed opens up in the morning Review of Systems Const: Reports: chills, body aches and fatigue Eyes: Denies: change in vision ENMT: Denies: throat pain Card: Reports: dyspnea on exertion; Denies: chest pain Resp: Reports: dyspnea and productive cough GI: Denies: abdominal pain : Denies: flank pain Musc: Denies: neck pain Skin/Breast: Denies: rash Neuro: Denies: headache(s) Psych: Reports: sleeping more Endo: Denies: polyuria Tre/Lymph: Denies: easy bruising All/Imm: Denies: urticaria Medications/Allergies Home Medications Medication Instructions Recorded Confirmed Last Taken Type oxycodone-acetaminophen 7.5 mg-325 1 tab PO TID PRN Pain 10/04/19 06/16/22 01/05/21 History mg tablet (Percocet) fentanyl 25 mcg/hr transdermal 25 mcg transdermal Q3D 01/09/21 06/16/22 01/05/21 History patch 25 mcg prenat.vits,ronnell,lbz-njen-sbahj 1 tab PO DAILY 30 days #30 tabs 03/13/21 06/16/22 Unknown Rx Diabetic shoes with inserts #1 ea 04/02/21 06/16/22 Unknown Rx albuterol sulfate 2.5 mg/3 mL 2.5 mg (3 mL) inhalation Q4H PRN 11/05/21 06/16/22 Unknown Rx (0.083 %) solution for nebulization shortness of breath or wheezing 30 days #540 mL vbqmeki-gcggjvyfqznnq-xvyjpvfm 250 1 - 2 tab PO DAILY PRN pain 30 11/05/21 06/16/22 Unknown Rx mg-250 mg-65 mg tablet (Excedrin days #60 tabs Migraine) nystatin 100,000 unit/mL oral 500,000 unit (5 mL) PO TID #200 mL 04/23/22 06/16/22 Unknown Rx suspension promethazine 25 mg tablet 25 mg PO Q12H PRN nausea and 04/23/22 06/16/22 Unknown Rx vomiting #20 tabs dapagliflozin 5 mg tablet (Farxiga) 5 mg PO QAM #30 tabs 04/27/22 06/16/22 Unknown Rx ergocalciferol (vitamin D2) 1,250 1,250 mcg PO .weekly #4 caps 04/27/22 06/16/22 Unknown Rx mcg (50,000 unit) capsule cyanocobalamin (vitamin B-12) 2,500 mcg sublingual BID #60 tabs 05/01/22 06/16/22 Unknown Rx 2,500 mcg sublingual tablet albuterol sulfate 90 mcg/actuation 2 puff inhalation Q4H PRN 06/08/22 06/16/22 Unknown Rx aerosol inhaler (ProAir HFA) Shortness Of Breath 30 days #2 ea Allergies Allergy/AdvReac Type Severity Reaction Status Date / Time estrogens, conjugated Allergy Severe blood clots Verified 06/16/22 17:08 [From Premarin] Fish Containing Products Allergy Unknown unknown Verified 06/16/22 17:08 NSAIDS (Non-Steroidal Allergy stomach Verified 06/16/22 17:08 Anti-Inflamma bleeds PFSH Acute PFSH: Medical History Anxiety and depression Arthritis Asthma Atopic dermatitis, mild Chronic headache Chronic nausea Constipation due to opioid therapy COPD (chronic obstructive pulmonary disease) Degenerative lumbar disc GERD (gastroesophageal reflux disease) History of left foot drop Lumbosacral radiculitis Migraines Obstructive sleep apnea Personal history of nicotine dependence Scoliosis Surgical History History of bilateral salpingectomy 1997 History of cholecystectomy 1998 History of hysterectomy 2005 History of lumbar fusion With kvng 2006 History of umbilical hernia repair 2009 Family History Mother Heart disease Grandmother Congestive heart failure Social History Smoking and tobacco status: current every day smoker cigarettes Packs smoked per day: 2.5 Years cigarettes smoked: 30 Second hand smoke exposure: Yes Smoking risk assessment/counseling performed?: Yes Alcohol intake: never Desire information about alcohol rehabilitation?: No Counseling given: No Desire information about substance/drug rehabilitation?: No Counseling given: No Caregiver/support person: No Lives independently: Yes Household members: children Housing: House Marital status: Legally Number of children: 2 service: No Current occupational status: disabled History of recent travel: No Current gender identity: Female Vitals/I&O/Wt Last Vital Signs Temp 99.8 F H 06/16/22 19:09 Pulse 119 H 06/16/22 21:00 Resp 20 H 06/16/22 21:00 BP 128/80 06/16/22 21:00 Pulse Ox 92 06/16/22 21:00 O2 Del Method 06/16/22 21:00 O2 Flow Rate 4 06/16/22 16:08 FiO2 60 06/16/22 17:12 06/16/22 06/16/22 06/17/22 14:59 22:59 06:59 Intake Total 50 / 50 Balance 50 / 50 Weight last 48 hrs Weight 70.307 kg Physical Exam Narrative: Frail middle-aged female Currently on AVAPS Able to mention above HPI On AVAPS Clinically does not look fluid overloaded FiO2 60% Abdomen soft S1, S2 Assisted bilateral breath sounds Patient is drowsy and lethargic NIH 0 Able to answer my questions appropriately She is lethargic but oriented to time place and person Data 06/16/22 16:50 06/16/22 16:50 Micro: Microbiology 06/16/22 16:55 Blood Culture - Preliminary Blood SPECIMEN COLLECTED 06/16/22 16:50 Blood Culture - Preliminary Blood SPECIMEN COLLECTED A&P Assessment and plan (1) Respiratory failure with hypoxia and hypercapnia: (2) Chronic respiratory failure with hypoxia and hypercapnia: (3) Chronic headache: Qualifiers: Headache type: unspecified Intractability: not intractable Qualified Code(s): R51 - Headache (4) COPD (chronic obstructive pulmonary disease): Qualifiers: COPD type: unspecified COPD Qualified Code(s): J44.9 - Chronic obstructive pulmonary disease, unspecified (5) Controlled diabetes mellitus with hyperglycemia: Qualifiers: Diabetes mellitus type: type 2 Diabetes mellitus buttermaker continuous churn insulin use: without buttermaker continuous churn use Qualified Code(s): E11.65 - Type 2 diabetes mellitus with hyperglycemia (6) Personal history of nicotine dependence: (7) Opiate dependence: Plan Acute on chronic hypoxic hypercapnic respite failure Acute COPD exacerbation secondary to smoking and influenza A+ X-ray did not show pneumonia Patient is an active smoker Review of records reveal patient was on home trilogy Requested drug screen I will give her 1 dose of Narcan She has been taking opioids, fentanyl patch for her back pain Frequent ABGs Keep her on AVAPS High risk for intubation Patient is drowsy, however oriented to time place and person She is full code We will give her ceftriaxone and Tamiflu Type 2 diabetes we will start diet once her pH is better and she is not drowsy, last A1c 6.1 D-dimer unremarkable Full code DVT prophylaxis on board Attestations Medical Necessity Statement*: Anticipating more than 2 midnights Time Spent in Patient Care: 40 minutes Coding Level of Care Code Acute Director Distribution for g Fwd Diagnoses Respiratory failure with hypoxia and hypercapnia J96.91; J96.92 Chronic respiratory failure with hypoxia and hypercapnia J96.11; J96.12 Chronic headache R51 Headache type: unspecified Intractability: not intractable COPD (chronic obstructive pulmonary disease) J44.9 COPD type: unspecified COPD Controlled diabetes mellitus with hyperglycemia E11.65 Diabetes mellitus type: type 2 Diabetes mellitus buttermaker continuous churn insulin use: without skilled nursing use Personal history of nicotine dependence Z87.891 Opiate dependence F11.20
[2022-06-16 23:54] LABS: ABG PH Result 7.31 (7.35-7.45); Base Excess ABG 4.5 mmol/L (-2.0-2.0); Blood Gas Allen Test Pos; Blood Gas Operator Identificat WALCI; Blood Gas Sample Site Radial, left; Blood Gas Sample Type Arterial; HCO3 ABG 33.4 mmol/L (22-26); Oxygen Device BIPAP; PO2 ABG 74.6 mmHg (80.0-100.0)
[2022-06-16 23:55] LABS: ABG PCO2 65.7 mmHg (35-45)
[2022-06-17] VITALS (24 sets, daily range): BP systolic 102–132; BP diastolic 59–91; PULSE 79–107; RESP 17–30; TEMP 36.6–37.5; O2SAT 90–98
[2022-06-17 00:23] LABS: Influenza A Not Detected (NOT DETECT); Influenza A H1 Not Detected (NOT DETECT); Influenza A H1-2009 Detected (NOT DETECT); Influenza A H3 Not Detected (NOT DETECT); Influenza B Not Detected (NOT DETECT); Results from Genmark
--- NOTE | 2022-06-17 02:52 | PC.NURSE ---
Patient received from ED via stretcher. Patient currently on bipap. RT in the room. Patient is awake and talking at this time. Is able to drink water. Answers questions appropriately. Informed Dr Wheeler of changes and received ok to not give narcan at this time. RBVO
[2022-06-17] MEDS: vancomycin 1,000 MG in sodium chloride 0.9% 250 ML 250 MG IV ×3 (03:06→17:45)
[2022-06-17] MEDS: heparin 5,000 unit/mL INJ 1 mL 5000 UNIT SUBCUT ×2 (03:07→14:02)
--- NOTE | 2022-06-17 03:59 | PC.NURSE ---
Received clarification of fluid order from Dr Wheeler. Will give 2 -1Liter bolus. RBVO
[2022-06-17] MEDS: ipratropium-albuterol 3 mL Neb INHALATION ×5 (04:00→16:06)
[2022-06-17] MEDS: sodium chloride 0.9% 1,000 ML 999 ML IV ×2 (04:00→05:00)
[2022-06-17 04:34] LABS: ABG PH Result 7.31 (7.35-7.45); Arterial Blood Gas Hematocrit 47.9 % (37-47); Base Excess ABG 4.1 mmol/L (-2.0-2.0); Blood Gas Allen Test Pos; Blood Gas Operator Identificat WALCI; Blood Gas Sample Site Radial, left; Blood Gas Sample Type Arterial; HCO3 ABG 32.6 mmol/L (22-26); Oxygen Device BIPAP; PO2 ABG 72.3 mmHg (80.0-100.0)
[2022-06-17 04:35] LABS: ABG PCO2 64.1 mmHg (35-45)
[2022-06-17 05:50] LABS: Basophils % 0.1 %; Hematocrit 47.7 % (37.0-47.0); Lymphocytes # 0.4 10^3/uL (0.8-4.8); Lymphocytes % 2.9 %; Mean Corpuscular HGB Conc 31.4 g/dL (30.0-36.0); Mean Corpuscular Hemoglobin 32.7 pg (28.0-34.0); Mean Corpuscular Volume 103.9 fl (81-99); Mean Platelet Volume 10.4 fL (7.4-10.4); Monocytes # 0.2 10^3/uL (0.2-0.9); Monocytes % 1.1 %; Neutrophils # 14.05 10^3/uL (1.8-7.7); Neutrophils % 95.1 %; Nucleated Red Blood Cells % 0 %; Platelet Count 215 10^3/cmm (130-400); Red Blood Count 4.59 10^6/uL (4.1-5.3); Red Cell Distribution Width 13.5 % (12.1-15.1); White Blood Count 14.8 10^3/uL (4.0-10.0)
[2022-06-17 06:23] LABS: Anion Gap 11.4 (5-19); Blood Urea Nitrogen 6 mg/dL (6-20); C Reactive Protein 172.2 mg/L (0.0-4.9); Calcium 8.8 mg/dL (8.5-10.5); Carbon Dioxide 31 mmol/L (22-29); Chloride 101 mmol/L (98-107); Glomerular Filtration Rate 133.4 mL/min (90-130); Glucose 144 mg/dL (65-115); Magnesium 1.5 mg/dL (1.7-2.3); Osmolality Calculated 288 mOsm/kg (285-295); Phosphorus 3.2 mg/dL (2.5-4.5); Potassium 4.4 mmol/L (3.5-5.1); Sodium 139 mmol/L (136-145); Thyroid Stimulating Hormone 0.39 uIU/mL (0.27-4.20)
[2022-06-17 06:31] LABS: Glucose Point of Care 139 mg/dL (70-110)
[2022-06-17] MEDS: sennosides-docusate Tablet 1 TAB PO (08:52)
[2022-06-17] MEDS: oseltamivir phosphate 75 mg Capsule PO ×2 (08:52→17:45)
[2022-06-17] MEDS: cefepime 1,000 MG in sodium chloride 0.9% (plus) 50 ML 100 MG IV ×2 (08:52→20:19)
[2022-06-17] MEDS: nystatin 100,000 unit/mL UDC 5 mL 500000 UNIT PO ×3 (08:52→20:19)
[2022-06-17] MEDS: insulin lispro 100 unit/1 mL SUBCUT ×2 (12:06→17:44)
[2022-06-17 13:37] LABS: Glucose Point of Care 204 mg/dL (70-110)
--- NOTE | 2022-06-17 14:03 | PM.PN ---
Subjective Subjective: Patient was seen and examined this morning continued to be on BiPAP, she is much more alert awake oriented, a.m. ABG, x-ray chest, labs and vital signs have been reviewed. She has remained afebrile overnight. Medications: Medication Review Details: Generic Name Dose Route Start Last Admin Trade Name Freq PRN Reason Stop Dose Admin Albuterol/Ipratrop ium 3 ml 06/17/22 01:56 06/17/22 07:42 Ipratropium-Albu terol 3 Ml Neb INHALATION 3 ml Q6H PRN Administration SHORTNESS OF DG TH Albuterol/Ipratrop ium 3 ml 06/17/22 12:00 06/17/22 11:09 Ipratropium-Albu terol 3 Ml Neb INHALATION 3 ml Q4H.RESPIRATORY S CH Administration Heparin Sodium (Po rcine) 5,000 unit 06/17/22 02:30 06/17/22 03:07 Heparin 5,000 Un it/Ml Inj 1 Ml SUBCUT 5,000 unit Q12H NATHANAEL Administration Cefepime HCl 1,000 mg/ Sodium 50 mls @ 100 mls/ hr 06/17/22 09:00 06/17/22 09:30 Chloride IV Infused Q12H NATHANAEL Infusion Protocol Vancomycin HCl 1,0 00 mg/ 250 mls @ 250 mls /hr 06/17/22 02:30 06/17/22 11:26 Sodium Chloride IV Infused Q8H NATHANAEL Infusion Protocol Insulin Human Lisp ro 0 unit 06/17/22 08:00 06/17/22 12:06 Insulin Lispro 1 00 Unit/1 Ml SUBCUT 4 unit TIDWM NATHANAEL Administration Protocol Methylprednisolone Sodium Succinate 40 mg 06/17/22 11:00 06/17/22 11:34 Methylprednisolo ne Sod Succ 40 Mg/ Ml Inj IVP 40 mg Q12H NATHANAEL Administration Nystatin 500,000 unit 06/17/22 09:00 06/17/22 08:52 Nystatin 100,000 Unit/Ml Udc 5 Ml PO 500,000 unit TID NATHANAEL Administration Oseltamivir Phosph ate 75 mg 06/17/22 09:00 06/17/22 08:52 Oseltamivir Phos phate 75 Mg Capsul e PO 75 mg BID NATHANAEL Administration Senna/Docusate Sod ium 1 tab 06/17/22 09:00 06/17/22 08:52 Sennosides-Docus ate Tablet PO 1 tab DAILY NATHANAEL Administration Vitals/I&O/Wt Last Vital Signs Temp 99.5 F 06/17/22 02:43 Pulse 99 06/17/22 12:06 Resp 22 H 06/17/22 12:06 BP 102/59 06/17/22 08:00 Pulse Ox 92 06/17/22 12:06 O2 Del Method 06/17/22 11:09 O2 Flow Rate 30 06/17/22 12:06 FiO2 60 06/17/22 12:06 06/16/22 06/17/22 06/17/22 22:59 06:59 14:59 Intake Total 50 / 50 2610.000 / 2660.000 540 / 540 Output Total 600 / 600 Balance 50 / 50 2009.000 / 2060.000 540 / 540 Weight last 48 hrs Weight 70.307 kg Physical Exam Const: COMMON NORMALS: patient oriented x3 Resp: COMMON NORMALS: clear to auscultation bilaterally AUSCULTATION: clear to auscultation bilaterally OTHER: Diminished air entry bilaterally Cardio: COMMON NORMALS: regular rate, regular rhythm, S1 normal heart sound present, S2 normal heart sound present, No gallops present (Cardio), No murmurs present (Cardio), No rub (Cardio) and Peripheral pulses 2+ throughout RATE: regular rate RHYTHM: regular rhythm HEART SOUNDS: S1 normal heart sound present and S2 normal heart sound present PERIPHERAL PULSES: Peripheral pulses 2+ throughout GI: COMMON NORMALS: Normal to inspection, nondistended, normoactive bowel sounds present, Soft to palpation, non-tender, No hepatosplenomegaly present and no masses AUSCULTATION: Yes normoactive bowel sounds PALPATION: Yes Soft to palpation and Yes No hepatosplenomegaly present RECTAL EXAM: deferred Extremity: COMMON NORMALS: no clubbing, cyanosis or edema and no pedal edema Neuro: COMMON NORMALS: patient oriented x3 Data 06/17/22 05:43 06/17/22 05:43 Micro: Microbiology 06/16/22 16:45 Gram Stain - Final Sputum - Expectorated Sputum 06/17/22 02:30 Gram Stain - Final Sputum - Expectorated Sputum 06/16/22 16:55 Blood Culture - Preliminary Blood SPECIMEN COLLECTED 06/16/22 16:50 Blood Culture - Preliminary Blood SPECIMEN COLLECTED A&P Assessment and plan (1) Respiratory failure with hypoxia and hypercapnia: (2) Chronic respiratory failure with hypoxia and hypercapnia: (3) Chronic headache: Qualifiers: Headache type: unspecified Intractability: not intractable Qualified Code(s): R51 - Headache (4) COPD (chronic obstructive pulmonary disease): Qualifiers: COPD type: unspecified COPD Qualified Code(s): J44.9 - Chronic obstructive pulmonary disease, unspecified (5) Controlled diabetes mellitus with hyperglycemia: Qualifiers: Diabetes mellitus intermediate insulin use: without terminal operations supervisor use Diabetes mellitus type: type 2 Qualified Code(s): E11.65 - Type 2 diabetes mellitus with hyperglycemia (6) Personal history of nicotine dependence: (7) Opiate dependence: Plan 47-year-old female with past medical history of COPD on 6 L home oxygen active smoker, history of sleep apnea, asthma, was brought in with chief complaint of worsening shortness of breath going on for the last few days and has significantly worsened in the last 2 to 3 days, shortness of breath has been accompanied with cough and productive grayish sputum, she has denied any fever chills, chest pain nausea vomiting. Currently she is being managed for: Assessment: possibly Sepsis secondary to pneumonia likely postviral pneumonia Acute on Chronic hypoxic hypercapnic respiratory failure Influenza A Acute COPD exacerbation Diabetes Current active smoker Plan: X-ray chest: Peribronchial thickening suggestive of an infectious or inflammatory bronchitis. Sputum gram stain and culture: Few gram-positive cocci in pairs, few gram-negative diplococci Blood culture Procalcitonin:normal, lactic acid normal D-dimer is :0.39 Urine Legionella antigen Bacterial antigen panel MRSA PCR For now continue Vanco and cefepime, Tamiflu Continue DuoNebs, Solu-Medrol, Continue sliding scale insulin , monitor fingerstick glucose, Continue BiPAP for now CODE STATUS: Full code DVT prophylaxis on heparin Attestations Medical Necessity Statement*: Patient is still in hospital management of sepsis pneumonia. Coding Level of Care Code Acute Nonprofit Financial Controller for g Fwd Exam Detailed Diagnoses Respiratory failure with hypoxia and hypercapnia J96.91; J96.92 Chronic respiratory failure with hypoxia and hypercapnia J96.11; J96.12 Chronic headache R51 Headache type: unspecified Intractability: not intractable COPD (chronic obstructive pulmonary disease) J44.9 COPD type: unspecified COPD Controlled diabetes mellitus with hyperglycemia E11.65 Diabetes mellitus intermediate insulin use: without terminal operations supervisor use Diabetes mellitus type: type 2 Personal history of nicotine dependence Z87.891 Opiate dependence F11.20
[2022-06-17] MEDS: fentaNYL 25 mcg Patch 1 PATCH TRANSDERMA (16:17)
[2022-06-17 17:03] LABS: Glucose Point of Care 170 mg/dL (70-110)
[2022-06-17 20:10] LABS: Glucose Point of Care 156 mg/dL (70-110)
[2022-06-17] MEDS: ropinirole 0.25 mg Tablet PO (20:19)
[2022-06-18] VITALS (17 sets, daily range): BP systolic 106–120; BP diastolic 57–78; PULSE 78–102; RESP 13–23; TEMP 36.6–37.1; O2SAT 89–95
[2022-06-18 01:46] LABS: Basophils % 0.1 %; Hematocrit 46.8 % (37.0-47.0); Lymphocytes # 0.6 10^3/uL (0.8-4.8); Mean Corpuscular HGB Conc 32.1 g/dL (30.0-36.0); Mean Corpuscular Hemoglobin 32.5 pg (28.0-34.0); Mean Corpuscular Volume 101.5 fl (81-99); Mean Platelet Volume 10.4 fL (7.4-10.4); Monocytes # 0.4 10^3/uL (0.2-0.9); Neutrophils % 92.2 %; Nucleated Red Blood Cells % 0 %; Platelet Count 247 10^3/cmm (130-400); Red Blood Count 4.61 10^6/uL (4.1-5.3); Red Cell Distribution Width 13.2 % (12.1-15.1); White Blood Count 14.4 10^3/uL (4.0-10.0)
[2022-06-18 02:07] LABS: Vancomycin Trough 11.5 ug/mL (10-15)
[2022-06-18 02:11] LABS: Alanine Aminotransferase 6 U/L (0-33); Albumin Level 3.2 g/dL (3.5-5.2); Alkaline Phosphatase 80 U/L (35-105); Anion Gap 11.2 (5-19); Aspartate Amino Transferase 9 U/L (0-32); Blood Urea Nitrogen 17 mg/dL (6-20); Calcium 9.4 mg/dL (8.5-10.5); Carbon Dioxide 33 mmol/L (22-29); Chloride 103 mmol/L (98-107); Globulin 2.9 g/dL (1.3-4.6); Glomerular Filtration Rate 172.6 mL/min (90-130); Glucose 193 mg/dL (65-115); Osmolality Calculated 303 mOsm/kg (285-295); Potassium 4.2 mmol/L (3.5-5.1); Sodium 143 mmol/L (136-145); Total Bilirubin 0.2 mg/dL (0.15-1.2); Total Protein 6.1 g/dL (6.6-8.7)
[2022-06-18] MEDS: heparin 5,000 unit/mL INJ 1 mL 5000 UNIT SUBCUT ×2 (02:18→15:32)
[2022-06-18] MEDS: vancomycin 1,000 MG in sodium chloride 0.9% 250 ML 250 MG IV (02:18)
[2022-06-18] MEDS: ipratropium-albuterol 3 mL Neb INHALATION ×5 (04:00→21:07)
--- NOTE | 2022-06-18 05:00 | XR_ITS ---
WS: [id number] EXAMINATION: XR chest 1V portable [id number] REASON FOR EXAM: sob COMPARISON: 06/16/2022 ORDER DATE: 06/18/2022 5:00 AM TECHNIQUE: A single, portable frontal chest x-ray was obtained. X-RAY FINDINGS: The lungs are clear. Pleural spaces are clear. No pleural effusions or pneumothorax. Cardiomediastinal silhouette is normal. No evidence for pulmonary edema. Soft tissue and osseous structures are unremarkable. Spinal stimulator noted in the lower thoracic region XR/XR chest 1V portable [id number] IMPRESSION: Unremarkable frontal portable chest x-ray.
[2022-06-18 06:35] LABS: Glucose Point of Care 197 mg/dL (70-110)
[2022-06-18] MEDS: insulin lispro 100 unit/1 mL SUBCUT ×3 (09:30→17:43)
[2022-06-18] MEDS: cefepime 1,000 MG in sodium chloride 0.9% (plus) 50 ML 100 MG IV ×2 (09:31→20:18)
[2022-06-18] MEDS: oseltamivir phosphate 75 mg Capsule PO ×2 (09:32→17:45)
[2022-06-18] MEDS: sennosides-docusate Tablet 1 TAB PO (09:32)
[2022-06-18] MEDS: nystatin 100,000 unit/mL UDC 5 mL 500000 UNIT PO ×3 (09:32→20:18)
--- NOTE | 2022-06-18 10:07 | PC.CHAP ---
Pastoral Care Encounter/Spiritual Assessment Type of Contact [] Declined residential insurance inspector visit [] Patient/Family/Request visit [] Outpatient visit [] Follow-up visit [] Physician referral [] Code/Alert [] Routine visit [] Staff referral [] Actively dying [] Patient sleeping [] Family support [] [] Out of room [] Palliative care [] [] Receiving care in room [] Pre-surgical visit [] Trauma [] Long length of stay [] ICU visit [x] Other: Isolation Relational/Emotional Strength [] Patient feels connected with others/family/visitors/staff [] Distress [] Loneliness/isolation [] Abandonment Spirituality of Patient [] Person of Wanda [] Attends Synagogue of their Wanda [] Believes in Prayer [] Reads Bible or Cheondoism materials [] There are Spiritual issues to be addressed Dynamometer Tester Interventions [] Prayer [] Active listening [] Non-anxious presence [] Spiritual/emotional support [] Crisis/trauma care [] Spiritual counseling [] Bereavement support [] Provided bereavement packet [] Provided Bible/devotional materials [] Provided toy/stuffed animal, coloring book to patient or family member [] Provided Communion [] Anointing/[facility] [] Salvation [] Completed spiritual assessment [] Other: Impact on Illness or Injury [] Angry [] Fearful [] Anxious [] Often cries [] Exhaustion [] Unable to work [] Unable to attend religious [] Unable to walk/stand [] Unable to read [] Unable to drive [] Unable to eat/drink [] Unable to sleep [] Unable to be with family [] Patient intubated [] Other: Summary Isolation Time spent with patient 5 mins
[2022-06-18] MEDS: FUROsemide 10 mg/mL SDV 2mL 20 MG IVP (11:15)
--- NOTE | 2022-06-18 11:17 | PM.PN ---
Subjective Subjective: Patient was seen and examined this morning, shortness of breath is improved much, has been afebrile, Currently saturating well on heated high flow 55% FiO2 30 L/min, usually at home she uses around 2-5LS Oxygen through nasal cannula.AM chest x-ray done today as has not shown any infiltrates: Has slight crackles in the right lung base , will give Lasix 20 IV one-time dose. Patient is net 3 L positive. Medications: Medication Review Details: Generic Name Dose Route Start Last Admin Trade Name Freq PRN Reason Stop Dose Admin Albuterol/Ipratrop ium 3 ml 06/17/22 01:56 06/17/22 07:42 Ipratropium-Albu terol 3 Ml Neb INHALATION 3 ml Q6H PRN Administration SHORTNESS OF DG TH Albuterol/Ipratrop ium 3 ml 06/17/22 12:00 06/18/22 08:39 Ipratropium-Albu terol 3 Ml Neb INHALATION 3 ml Q4H.RESPIRATORY S CH Administration Fentanyl 1 patch 06/17/22 16:00 06/17/22 16:17 Fentanyl 25 Mcg Patch TRANSDERMA 1 patch Q72H NATHANAEL Administration Heparin Sodium (Po rcine) 5,000 unit 06/17/22 02:30 06/18/22 02:18 Heparin 5,000 Un it/Ml Inj 1 Ml SUBCUT 5,000 unit Q12H NATHANAEL Administration Cefepime HCl 1,000 mg/ Sodium 50 mls @ 100 mls/ hr 06/17/22 09:00 06/18/22 09:31 Chloride IV 100 mls/hr Q12H NATHANAEL Administration Protocol Insulin Human Lisp ro 0 unit 06/17/22 08:00 06/18/22 09:30 Insulin Lispro 1 00 Unit/1 Ml SUBCUT 4 unit TIDWM NATHANAEL Administration Protocol Methylprednisolone Sodium Succinate 60 mg 06/17/22 18:00 06/18/22 04:21 Methylprednisolo ne Sod Succ 125 Mg /2 Ml Inj IVP 60 mg Q12H NATHANAEL Administration Nystatin 500,000 unit 06/17/22 09:00 06/18/22 09:32 Nystatin 100,000 Unit/Ml Udc 5 Ml PO 500,000 unit TID NATHANAEL Administration Oseltamivir Phosph ate 75 mg 06/17/22 09:00 06/18/22 09:32 Oseltamivir Phos phate 75 Mg Capsul e PO 75 mg BID NATHANAEL Administration Ropinirole HCl 0.25 mg 06/17/22 19:25 06/17/22 21:59 Ropinirole 0.25 Mg Tablet PO Not Given BEDTIME NATHANAEL Senna/Docusate Sod ium 1 tab 06/17/22 09:00 06/18/22 09:32 Sennosides-Docus ate Tablet PO 1 tab DAILY NATHANAEL Administration Vitals/I&O/Wt Last Vital Signs Temp 98.8 F 06/18/22 11:04 Pulse 97 06/18/22 11:04 Resp 13 06/18/22 11:04 BP 106/78 06/18/22 11:04 Pulse Ox 90 06/18/22 11:04 O2 Del Method 06/18/22 08:45 O2 Flow Rate 30 06/18/22 08:45 FiO2 55 06/18/22 08:45 06/17/22 06/18/22 06/18/22 22:59 06:59 14:59 Intake Total 780 / 1732 250 / 1982 480 / 480 Output Total 700 / 700 800 / 1500 Balance 80 / 1032 -550 / 482 480 / 480 Weight last 48 hrs Weight 70.307 kg Physical Exam Const: COMMON NORMALS: patient oriented x3 Resp: COMMON NORMALS: clear to auscultation bilaterally AUSCULTATION: clear to auscultation bilaterally OTHER: Diminished air entry bilaterally, minimal right basal crackles Cardio: COMMON NORMALS: regular rate, regular rhythm, S1 normal heart sound present, S2 normal heart sound present, No gallops present (Cardio), No murmurs present (Cardio), No rub (Cardio) and Peripheral pulses 2+ throughout RATE: regular rate RHYTHM: regular rhythm HEART SOUNDS: S1 normal heart sound present and S2 normal heart sound present PERIPHERAL PULSES: Peripheral pulses 2+ throughout GI: COMMON NORMALS: Normal to inspection, nondistended, normoactive bowel sounds present, Soft to palpation, non-tender, No hepatosplenomegaly present and no masses AUSCULTATION: Yes normoactive bowel sounds PALPATION: Yes Soft to palpation and Yes No hepatosplenomegaly present RECTAL EXAM: deferred Extremity: COMMON NORMALS: no clubbing, cyanosis or edema and no pedal edema Neuro: COMMON NORMALS: patient oriented x3 Data 06/18/22 01:22 06/18/22 01:22 Micro: Microbiology 06/16/22 16:55 Blood Culture - Preliminary Blood NEGATIVE TO DATE 06/16/22 16:50 Blood Culture - Preliminary Blood NEGATIVE TO DATE 06/17/22 15:35 Legionella Urinary Antigen - Final Urine Catheterized 06/16/22 16:45 Gram Stain - Final Sputum - Expectorated Sputum Sputum Culture - Preliminary Moraxella catarrhalis 06/17/22 02:30 MRSA Culture - Final Nose 06/17/22 02:30 Gram Stain - Final Sputum - Expectorated Sputum A&P Assessment and plan (1) Respiratory failure with hypoxia and hypercapnia: (2) Chronic respiratory failure with hypoxia and hypercapnia: (3) Chronic headache: Qualifiers: Headache type: unspecified Intractability: not intractable Qualified Code(s): R51 - Headache (4) COPD (chronic obstructive pulmonary disease): Qualifiers: COPD type: unspecified COPD Qualified Code(s): J44.9 - Chronic obstructive pulmonary disease, unspecified (5) Controlled diabetes mellitus with hyperglycemia: Qualifiers: Diabetes mellitus type: type 2 Diabetes mellitus alf insulin use: without alf use Qualified Code(s): E11.65 - Type 2 diabetes mellitus with hyperglycemia (6) Personal history of nicotine dependence: (7) Opiate dependence: Plan 47-year-old female with past medical history of COPD on 6 L home oxygen active smoker, history of sleep apnea, asthma, was brought in with chief complaint of worsening shortness of breath going on for the last few days and has significantly worsened in the last 2 to 3 days, shortness of breath has been accompanied with cough and productive grayish sputum, she has denied any fever chills, chest pain nausea vomiting. Currently she is being managed for: Assessment: possibly Sepsis secondary to pneumonia likely postviral pneumonia Acute on Chronic hypoxic hypercapnic respiratory failure Influenza A Acute COPD exacerbation Diabetes Current active smoker Plan: X-ray chest: Peribronchial thickening suggestive of an infectious or inflammatory bronchitis. Sputum gram stain and culture: Few gram-positive cocci in pairs, few gram-negative diplococci Blood culture:NTD ECHO: Procalcitonin:normal, lactic acid normal D-dimer is :0.39 Urine Legionella antigen: Negative Bacterial antigen panel MRSA PCR: Negative For now continue Vanco and cefepime, Tamiflu Continue DuoNebs, Solu-Medrol, Continue sliding scale insulin , monitor fingerstick glucose, Continue BiPAP for now CODE STATUS: Full code DVT prophylaxis on heparin Attestations Medical Necessity Statement*: Patient is to be in hospital for management of pneumonia. Time Spent in Patient Care: Greater than 35 minutes (>than 50% of time spent in counselling and/or direct pt care on unit). Coding Level of Care Code Acute [place] Operator for Chg Fwd Diagnoses Respiratory failure with hypoxia and hypercapnia J96.91; J96.92 Chronic respiratory failure with hypoxia and hypercapnia J96.11; J96.12 Chronic headache R51 Headache type: unspecified Intractability: not intractable COPD (chronic obstructive pulmonary disease) J44.9 COPD type: unspecified COPD Controlled diabetes mellitus with hyperglycemia E11.65 Diabetes mellitus type: type 2 Diabetes mellitus vice president of talent acquisition insulin use: without vice president of talent acquisition use Personal history of nicotine dependence Z87.891 Opiate dependence F11.20
--- NOTE | 2022-06-18 11:19 | USCV_ITS ---
Paula Starr Age: 47 Gender: F : 1975 Exam Date: 06/18/2022 12:39 Ordering Phys: Dex Blanton MD Technologist: Yair Llamas Exam Location: [facility] – [place] Indication: chest pain sob BP: 106 / 78 HR: 99 Rhythm: Sinus Technical Quality: Very technically difficult study MEASUREMENTS (Male / Female) Normal Values 2D ECHO LV Diastolic Diameter PLAX 4.8 cm 4.2 - 5.9 / 3.9 - 5.3 cm LV Systolic Diameter PLAX 3.0 cm IVS Diastolic Thickness 1.1 cm 0.6 - 1.0 / 0.6 - 0.9 cm IVS Systolic Thickness 1.3 cm LVPW Diastolic Thickness 1.2 cm 0.6 - 1.0 / 0.6 - 0.9 cm LVPW Systolic Thickness 1.3 cm LVOT Diameter 2.0 cm LV Ejection Fraction 2D Teich 67.2 % LA Diameter 2.7 cm IVC Diameter 1.4 cm M-MODE Aortic Annulus Diameter 3.2 cm LA Ao Ratio MM 0.8 MV E Point Septal Separation 0.9 cm DOPPLER AV Peak Velocity 114.3 cm/s LVOT Peak Velocity 86.0 cm/s AV Area Cont Eq vti 3.6 cm squared AV Area Cont Eq pk 2.4 cm squared MV Area PHT 5.0 cm squared Mitral E to A Ratio 1.0 MV E' Velocity 60.0 cm/s TR Peak Velocity 223.3 cm/s TR Peak Gradient 20.0 mmHg TV Peak E Velocity 68.0 cm/s Right Atrial Pressure 3.0 mmHg Pulmonary Artery Systolic Pressu 23.0 mmHg FINDINGS Left Ventricle Normal left ventricular cavity size. Grossly normal left ventricular systolic function. Left ventricular ejection fraction is estimated at 60 %. This study is inadequate for estimation of regional wall motion abnormality. Right Ventricle Possibly normal right ventricular size and systolic function. Right Atrium Normal right atrial size. Left Atrium Normal left atrial size. Mitral Valve Structurally normal mitral valve. Aortic Valve Aortic valve not well visualized. Tricuspid Valve Structurally normal tricuspid valve. Pulmonic Valve Pulmonic valve not well visualized. Pericardium No pericardial effusion. Aorta Aorta not well visualized. IVC Inferior vena cava not visualized. CONCLUSIONS 1. This is a very difficult study with only subcoastal views. 2. Normal left ventricular cavity size. Grossly normal left ventricular systolic function. Left ventricular ejection fraction is estimated at 60 %.This study is inadequate for estimation of regional wall motion abnormality. 3. Direct comparison to previous study dated 10/27/2019 is not possible to difficult study. Hiwot Muniz MD (Electronically Signed) Final Date: 19 June 2022 07:45 S
[2022-06-18 11:23] LABS: Glucose Point of Care 197 mg/dL (70-110)
[2022-06-18 16:56] LABS: Glucose Point of Care 171 mg/dL (70-110)
[2022-06-18 19:56] LABS: Glucose Point of Care 207 mg/dL (70-110)
[2022-06-18] MEDS: ropinirole 0.25 mg Tablet PO (20:18)
[2022-06-19] VITALS (18 sets, daily range): BP systolic 108–137; BP diastolic 65–88; PULSE 59–125; RESP 16–25; TEMP 36.4–37; O2SAT 90–97
[2022-06-19 05:40] LABS: Basophils % 0.1 %; Hematocrit 47.7 % (37.0-47.0); Hemoglobin 15.5 g/dL (11.5-15.3); Lymphocytes # 0.9 10^3/uL (0.8-4.8); Lymphocytes % 6.7 %; Mean Corpuscular HGB Conc 32.5 g/dL (30.0-36.0); Mean Corpuscular Hemoglobin 32.6 pg (28.0-34.0); Mean Corpuscular Volume 100.4 fl (81-99); Mean Platelet Volume 10.2 fL (7.4-10.4); Monocytes # 0.6 10^3/uL (0.2-0.9); Monocytes % 4.4 %; Neutrophils # 12.06 10^3/uL (1.8-7.7); Neutrophils % 87.6 %; Nucleated Red Blood Cells % 0 %; Platelet Count 291 10^3/cmm (130-400); Red Blood Count 4.75 10^6/uL (4.1-5.3); Red Cell Distribution Width 13.4 % (12.1-15.1); White Blood Count 13.8 10^3/uL (4.0-10.0)
[2022-06-19 06:01] LABS: Alanine Aminotransferase 8 U/L (0-33); Albumin Level 3.1 g/dL (3.5-5.2); Alkaline Phosphatase 69 U/L (35-105); Blood Urea Nitrogen 17 mg/dL (6-20); Calcium 9.2 mg/dL (8.5-10.5); Carbon Dioxide 34 mmol/L (22-29); Chloride 97 mmol/L (98-107); Globulin 2.9 g/dL (1.3-4.6); Glomerular Filtration Rate 133.4 mL/min (90-130); Glucose 154 mg/dL (65-115); Osmolality Calculated 295 mOsm/kg (285-295); Sodium 140 mmol/L (136-145); Total Bilirubin 0.2 mg/dL (0.15-1.2)
[2022-06-19 06:06] LABS: Aspartate Amino Transferase 11 U/L (0-32)
[2022-06-19 06:44] LABS: Glucose Point of Care 142 mg/dL (70-110)
[2022-06-19] MEDS: cefepime 1,000 MG in sodium chloride 0.9% (plus) 50 ML 100 MG IV ×2 (07:49→20:45)
[2022-06-19] MEDS: nystatin 100,000 unit/mL UDC 5 mL 500000 UNIT PO ×3 (07:49→20:46)
[2022-06-19] MEDS: oseltamivir phosphate 75 mg Capsule PO ×2 (07:50→17:55)
[2022-06-19] MEDS: insulin lispro 100 unit/1 mL SUBCUT ×3 (07:50→17:55)
[2022-06-19] MEDS: sennosides-docusate Tablet 1 TAB PO (07:50)
[2022-06-19] MEDS: ipratropium-albuterol 3 mL Neb INHALATION ×4 (08:28→21:15)
--- NOTE | 2022-06-19 10:27 | PC.NURSE ---
Perry removed, bulb intact, 10 ml removed from balloon. Tolerated well.
[2022-06-19 11:30] LABS: Glucose Point of Care 198 mg/dL (70-110)
[2022-06-19] MEDS: FUROsemide 40 mg Tablet PO (13:17)
--- NOTE | 2022-06-19 14:02 | P.PN_ITS ---
Subjective Subjective: Patient was seen and examined this morning, shortness of breath is improved, but continues requiring 6 L oxygens, Still has significant diminished air entry, responded well to IV Lasix yesterday, will give her p.o. Lasix today, Still need additional couple of doses of IV steroids, IV antibiotics. Medications: Medication Review Details: Generic Name Dose Route Start Last Admin Trade Name Melinda PRN Reason Stop Dose Admin Albuterol/Ipratrop ium 3 ml 06/17/22 01:56 06/17/22 07:42 Ipratropium-Albu terol 3 Ml Neb INHALATION 3 ml Q6H PRN Administration SHORTNESS OF DG TH Albuterol/Ipratrop ium 3 ml 06/17/22 12:00 06/18/22 08:39 Ipratropium-Albu terol 3 Ml Neb INHALATION 3 ml Q4H.RESPIRATORY S CH Administration Fentanyl 1 patch 06/17/22 16:00 06/17/22 16:17 Fentanyl 25 Mcg Patch TRANSDERMA 1 patch Q72H NATHANAEL Administration Heparin Sodium (Po rcine) 5,000 unit 06/17/22 02:30 06/18/22 02:18 Heparin 5,000 Un it/Ml Inj 1 Ml SUBCUT 5,000 unit Q12H NATHANAEL Administration Cefepime HCl 1,000 mg/ Sodium 50 mls @ 100 mls/ hr 06/17/22 09:00 06/18/22 09:31 Chloride IV 100 mls/hr Q12H NATHANAEL Administration Protocol Insulin Human Lisp ro 0 unit 06/17/22 08:00 06/18/22 09:30 Insulin Lispro 1 00 Unit/1 Ml SUBCUT 4 unit TIDWM NATHANAEL Administration Protocol Methylprednisolone Sodium Succinate 60 mg 06/17/22 18:00 06/18/22 04:21 Methylprednisolo ne Sod Succ 125 Mg /2 Ml Inj IVP 60 mg Q12H NATHANAEL Administration Nystatin 500,000 unit 06/17/22 09:00 06/18/22 09:32 Nystatin 100,000 Unit/Ml Udc 5 Ml PO 500,000 unit TID NATHANAEL Administration Oseltamivir Phosph ate 75 mg 06/17/22 09:00 06/18/22 09:32 Oseltamivir Phos phate 75 Mg Capsul e PO 75 mg BID NATHANAEL Administration Ropinirole HCl 0.25 mg 06/17/22 19:25 06/17/22 21:59 Ropinirole 0.25 Mg Tablet PO Not Given BEDTIME NATHANAEL Senna/Docusate Sod ium 1 tab 06/17/22 09:00 06/18/22 09:32 Sennosides-Docus ate Tablet PO 1 tab DAILY NATHANAEL Administration Vitals/I&O/Wt Last Vital Signs Temp 97.6 F 06/19/22 08:16 Pulse 76 06/19/22 12:00 Resp 16 06/19/22 12:00 BP 116/82 06/19/22 12:00 Pulse Ox 94 06/19/22 12:00 O2 Del Method 06/19/22 12:00 O2 Flow Rate 6 06/19/22 12:00 FiO2 5 06/19/22 03:37 06/18/22 06/19/22 06/19/22 22:59 06:59 14:59 Intake Total 1010 / 2020 770 / 770 Output Total 1600 / 2900 1280 / 4180 800 / 800 Balance -590 / -880 -1280 / -2160 -30 / -30 Physical Exam Const: COMMON NORMALS: patient oriented x3 Resp: COMMON NORMALS: clear to auscultation bilaterally AUSCULTATION: clear to auscultation bilaterally OTHER: Diminished air entry bilaterally, minimal right basal crackles Cardio: COMMON NORMALS: regular rate, regular rhythm, S1 normal heart sound present, S2 normal heart sound present, No gallops present (Cardio), No murmurs present (Cardio), No rub (Cardio) and Peripheral pulses 2+ throughout RATE: regular rate RHYTHM: regular rhythm HEART SOUNDS: S1 normal heart sound present and S2 normal heart sound present PERIPHERAL PULSES: Peripheral pulses 2+ throughout GI: COMMON NORMALS: Normal to inspection, nondistended, normoactive bowel sounds present, Soft to palpation, non-tender, No hepatosplenomegaly present and no masses AUSCULTATION: Yes normoactive bowel sounds PALPATION: Yes Soft to palpation and Yes No hepatosplenomegaly present RECTAL EXAM: deferred Extremity: COMMON NORMALS: no clubbing, cyanosis or edema and no pedal edema Neuro: COMMON NORMALS: patient oriented x3 Data 06/19/22 05:17 06/19/22 05:17 Micro: Microbiology 06/17/22 15:35 MRSA Culture - Final Nose 06/16/22 16:45 Gram Stain - Final Sputum - Expectorated Sputum Sputum Culture - Final Moraxella catarrhalis 06/17/22 02:30 Gram Stain - Final Sputum - Expectorated Sputum Sputum Culture - Preliminary A&P Assessment and plan (1) Respiratory failure with hypoxia and hypercapnia: (2) Chronic respiratory failure with hypoxia and hypercapnia: (3) Chronic headache: Qualifiers: Headache type: unspecified Intractability: not intractable Qualified Code(s): R51 - Headache (4) COPD (chronic obstructive pulmonary disease): Qualifiers: COPD type: unspecified COPD Qualified Code(s): J44.9 - Chronic obstructive pulmonary disease, unspecified (5) Controlled diabetes mellitus with hyperglycemia: Qualifiers: Diabetes mellitus type: type 2 Diabetes mellitus custodial insulin use: without moth exterminator use Qualified Code(s): E11.65 - Type 2 diabetes mellitus with hyperglycemia (6) Personal history of nicotine dependence: (7) Opiate dependence: Plan 47-year-old female with past medical history of COPD on 6 L home oxygen active smoker, history of sleep apnea, asthma, was brought in with chief complaint of worsening shortness of breath going on for the last few days and has significantly worsened in the last 2 to 3 days, shortness of breath has been accompanied with cough and productive grayish sputum, she has denied any fever chills, chest pain nausea vomiting. Currently she is being managed for: Assessment: possibly Sepsis secondary to pneumonia likely postviral pneumonia Acute on Chronic hypoxic hypercapnic respiratory failure Influenza A Acute COPD exacerbation Diabetes Current active smoker Plan: X-ray chest: Peribronchial thickening suggestive of an infectious or inflammatory bronchitis. Sputum gram stain and culture: Few gram-positive cocci in pairs, few gram- negative diplococci Blood culture:NTD ECHO: Technically difficult 2D echo: Normal LV size, LVEF 60%. Procalcitonin:normal, lactic acid normal D-dimer is :0.39 Urine Legionella antigen: Negative Bacterial antigen panel MRSA PCR: Negative For now continue Vanco and cefepime, Tamiflu Continue DuoNebs, Solu-Medrol, Continue sliding scale insulin , monitor fingerstick glucose, Continue BiPAP for now Updated plan for today: will give her p.o. Lasix today, Still need additional couple of doses of IV steroids, IV antibiotics. CODE STATUS: Full code DVT prophylaxis on heparin Attestations Medical Necessity Statement*: Patient in Hospital for continued IV steroids IV antibiotics Lasix. Time Spent in Patient Care: Greater than 35 minutes (>than 50% of time spent in counselling and/or direct pt care on unit) . Coding Level of Care Code Acute Technical Support Analyst for Chg Fwd Diagnoses Respiratory failure with hypoxia and hypercapnia J96.91; J96.92 Chronic respiratory failure with hypoxia and hypercapnia J96.11; J96.12 Chronic headache R51 Headache type: unspecified Intractability: not intractable COPD (chronic obstructive pulmonary disease) J44.9 COPD type: unspecified COPD Controlled diabetes mellitus with hyperglycemia E11.65 Diabetes mellitus type: type 2 Diabetes mellitus custodial insulin use: without custodial use Personal history of nicotine dependence Z87.891 Opiate dependence F11.20
[2022-06-19] MEDS: heparin 5,000 unit/mL INJ 1 mL 5000 UNIT SUBCUT (16:08)
[2022-06-19 17:52] LABS: Glucose Point of Care 191 mg/dL (70-110)
[2022-06-19 20:15] LABS: Glucose Point of Care 247 mg/dL (70-110)
[2022-06-19] MEDS: ropinirole 0.25 mg Tablet PO (20:46)
[2022-06-19] MEDS: acetaminophen 500 mg Tablet PO (21:32)
[2022-06-20] VITALS (9 sets, daily range): BP systolic 108–110; BP diastolic 65–86; PULSE 66–98; RESP 13–19; TEMP 36.7–36.8; O2SAT 91–96
[2022-06-20] MEDS: ipratropium-albuterol 3 mL Neb INHALATION ×3 (00:55→11:36)
[2022-06-20] MEDS: heparin 5,000 unit/mL INJ 1 mL 5000 UNIT SUBCUT (02:37)
[2022-06-20 05:35] LABS: Basophils % 0.3 %; Eosinophils % 0.1 %; Hematocrit 50.7 % (37.0-47.0); Hemoglobin 16.9 g/dL (11.5-15.3); Lymphocytes # 0.7 10^3/uL (0.8-4.8); Lymphocytes % 6.7 %; Mean Corpuscular HGB Conc 33.3 g/dL (30.0-36.0); Mean Corpuscular Hemoglobin 32.5 pg (28.0-34.0); Mean Corpuscular Volume 97.5 fl (81-99); Mean Platelet Volume 10.1 fL (7.4-10.4); Monocytes # 0.4 10^3/uL (0.2-0.9); Monocytes % 3.2 %; Neutrophils # 9.48 10^3/uL (1.8-7.7); Neutrophils % 87.8 %; Nucleated Red Blood Cells % 0 %; Platelet Count 288 10^3/cmm (130-400); Red Cell Distribution Width 13.2 % (12.1-15.1); White Blood Count 10.8 10^3/uL (4.0-10.0)
[2022-06-20 06:01] LABS: Alanine Aminotransferase 12 U/L (0-33); Albumin Level 3.4 g/dL (3.5-5.2); Alkaline Phosphatase 69 U/L (35-105); Anion Gap 11.6 (5-19); Aspartate Amino Transferase 12 U/L (0-32); Blood Urea Nitrogen 19 mg/dL (6-20); Calcium 9.7 mg/dL (8.5-10.5); Carbon Dioxide 38 mmol/L (22-29); Chloride 89 mmol/L (98-107); Glomerular Filtration Rate 133.4 mL/min (90-130); Glucose 182 mg/dL (65-115); Osmolality Calculated 287 mOsm/kg (285-295); Potassium 3.6 mmol/L (3.5-5.1); Sodium 135 mmol/L (136-145); Total Bilirubin 0.2 mg/dL (0.15-1.2); Total Protein 6.4 g/dL (6.6-8.7)
[2022-06-20 06:52] LABS: Glucose Point of Care 158 mg/dL (70-110)
[2022-06-20] MEDS: nystatin 100,000 unit/mL UDC 5 mL 500000 UNIT PO (08:22)
[2022-06-20] MEDS: oseltamivir phosphate 75 mg Capsule PO (08:23)
[2022-06-20] MEDS: insulin lispro 100 unit/1 mL SUBCUT ×2 (08:23→12:01)
[2022-06-20] MEDS: sennosides-docusate Tablet 1 TAB PO (08:23)
[2022-06-20] MEDS: cefepime 1,000 MG in sodium chloride 0.9% (plus) 50 ML 100 MG IV (08:23)
--- NOTE | 2022-06-20 10:12 | PC.SOCIAL ---
IMM update IMM updated with patient. Verbalized an understanding. Initialled, dated, timed, and placed in chart.
--- NOTE | 2022-06-20 11:28 | P.DS_ITS ---
Discharge Providers Date of Admission: 06/17/22 00:41 Date of Discharge: June 20, 2022 Attending Provider at Admission: Elan Wheeler MD Attending Provider at Discharge: Dex Blanton MD Primary Care Provider: PREETHI Lopes Diagnoses at Discharge Discharge Diagnosis (1) Respiratory failure with hypoxia and hypercapnia: Status: Acute (2) Chronic respiratory failure with hypoxia and hypercapnia: Status: Acute (3) Chronic headache: Status: Chronic Qualifiers: Headache type: unspecified Intractability: not intractable Qualified Code(s): R51 - Headache (4) COPD (chronic obstructive pulmonary disease): Status: Acute Qualifiers: COPD type: unspecified COPD Qualified Code(s): J44.9 - Chronic obstructive pulmonary disease, unspecified (5) Controlled diabetes mellitus with hyperglycemia: Status: Acute Qualifiers: Diabetes mellitus manager terminal insulin use: without detention use Diabetes mellitus type: type 2 Qualified Code(s): E11.65 - Type 2 diabetes mellitus with hyperglycemia (6) Personal history of nicotine dependence: Status: Chronic (7) Opiate dependence: Status: Acute Reason for Visit Reason for Visit: SOB Hospital Course Hospital Course 47-year-old female with past medical history of COPD on 6 L home oxygen active smoker, history of sleep apnea, asthma, was brought in with chief complaint of worsening shortness of breath going on for the last few days and has significantly worsened in the last 2 to 3 days, shortness of breath has been accompanied with cough and productive grayish sputum, she has denied any fever chills, chest pain nausea vomiting.During this hospital stay she was managed for sepsis 2/2 PNA,likely postviral pneumonia with possibly superimposed bacterial PNA, COPD Exacerbation, Acute on Chronic hypoxic hypercapnic respiratory failure, he was managed per sepsis protocol, Sputum gram stain and culture: Few gram-positive cocci in pairs, few gram-negative diplococci, Blood culture:NTD ECHO: Technically difficult 2D echo: Normal LV size, LVEF 60%., Procalc itonin:normal, lactic acid normal,Urine Legionella antigen: Negative Bacterial antigen panel:negative, MRSA PCR: Negative.She was kept on broad spectrum abxs as well as tamiflu along with DuoNebs, Solu-Medrol,and other conservative respiratory support measures, initially on BIPAP and later she was switched to oxygen via nC,at the time of discharge she was saturating well close to her baseline home oxygen.She was afebrile, hemodynamically stable,she was discharged on po Augmentin to complete the abx course as well as to complete 5 day course of Tamiflu.She was also discharged on prednisone. Physical Exam Const: COMMON NORMALS: patient oriented x3 Resp: COMMON NORMALS: clear to auscultation bilaterally AUSCULTATION: clear to auscultation bilaterally Cardio: COMMON NORMALS: regular rate, regular rhythm, S1 normal heart sound present, S2 normal heart sound present, No gallops present (Cardio), No murmurs present (Cardio), No rub (Cardio) and Peripheral pulses 2+ throughout RATE: regular rate RHYTHM: regular rhythm HEART SOUNDS: S1 normal heart sound present and S2 normal heart sound present PERIPHERAL PULSES: Peripheral pulses 2+ throughout GI: COMMON NORMALS: Normal to inspection, nondistended, normoactive bowel sounds present, Soft to palpation, non-tender, No hepatosplenomegaly present and no masses AUSCULTATION: Yes normoactive bowel sounds PALPATION: Yes Soft to palpation and Yes No hepatosplenomegaly present RECTAL EXAM: deferred Extremity: COMMON NORMALS: no clubbing, cyanosis or edema and no pedal edema Neuro: COMMON NORMALS: patient oriented x3 Discharge Data Studies Completed and Pending Completed Studies During Hospitalization Category Date Time Status XR chest 1V portable [id number] Routine Exams 06/18/22 05:00 Completed XR chest 1V portable [id number] Stat Exams 06/16/22 16:16 Completed CV. echo complete* [id number] Routine Ultrasound 06/18/22 11:19 Completed Pending at discharge Category Date Time Status Bacterial Antigen Routine Lab 06/17/22 15:35 Received Blood Culture Stat Lab 06/16/22 16:55 Results Sputum Culture and Gram Stain Routine Lab 06/17/22 02:30 Results Radiology Impressions Chest X-Ray 06/18/22 05:00 IMPRESSION: Unremarkable frontal portable chest x-ray. Laboratory Results WBC 10.8 10^3/uL (4.0-10.0) H 06/20/22 05:13 RBC 5.20 10^6/uL (4.1-5.3) 06/20/22 05:13 Hgb 16.9 g/dL (11.5-15.3) H 06/20/22 05:13 Hct 50.7 % (37.0-47.0) H 06/20/22 05:13 MCV 97.5 fl (81-99) 06/20/22 05:13 MCH 32.5 pg (28.0-34.0) 06/20/22 05:13 MCHC 33.3 g/dL (30.0-36.0) 06/20/22 05:13 RDW 13.2 % (12.1-15.1) 06/20/22 05:13 Plt Count 288 10^3/cmm (130-400) 06/20/22 05:13 MPV 10.1 fL (7.4-10.4) 06/20/22 05:13 Neut % (Auto) 87.8 % 06/20/22 05:13 Lymph % (Auto) 6.7 % 06/20/22 05:13 [place] % (Auto) 3.2 % 06/20/22 05:13 Eos % (Auto) 0.1 % 06/20/22 05:13 Baso % (Auto) 0.3 % 06/20/22 05:13 Neut # (Auto) 9.48 10^3/uL (1.8-7.7) H 06/20/22 05:13 Lymph # (Auto) 0.7 10^3/uL (0.8-4.8) L 06/20/22 05:13 [place] # (Auto) 0.4 10^3/uL (0.2-0.9) 06/20/22 05:13 Eos # (Auto) 0.0 10^3/uL (0.0-0.8) 06/20/22 05:13 Baso # (Auto) 0.0 10^3/uL (0.0-0.1) 06/20/22 05:13 Nucleated RBC % (auto) 0 % 06/20/22 05:13 Nucleated RBCs # 0.0 /100WBC 06/20/22 05:13 D-Dimer 0.39 ug/mIFEU (0-0.59) 06/16/22 16:50 Specimen Type Arterial 06/17/22 04:23 Sample Site Radial, left 06/17/22 04:23 ABG pH 7.31 (7.35-7.45) L 06/17/22 04:23 ABG pCO2 64.1 mmHg (35-45) H* 06/17/22 04:23 ABG pO2 72.3 mmHg (80.0-100.0) L 06/17/22 04:23 ABG HCO3 32.6 mmol/L (22-26) H 06/17/22 04:23 ABG O2 Saturation 90.0 06/16/22 16:25 ABG Base Excess 4.1 mmol/L (-2.0-2.0) H 06/17/22 04:23 Lb Test Pos 06/17/22 04:23 A-a O2 Gradient 2.2 mmHg (5-10) L 06/16/22 16:25 Hematocrit 47.9 % (37-47) H 06/17/22 04:23 Hgb O2 Saturation 86.1 % (95-100) L 06/16/22 16:25 Carboxyhemoglobin 3.8 %THgb (0.4-20.1) 06/16/22 16:25 Methemoglobin 0.6 % (0.4-1.5) 06/16/22 16:25 Total Hemoglobin 17.0 g/dL (12-16) H 06/16/22 16:25 Sodium 140.0 mmol/L (131-143) 06/16/22 16:25 Potassium 4.1 mmol/L (3.5-5.0) 06/16/22 16:25 Glucose 124.0 mg/dL (70-115) H 06/16/22 16:25 Ionized Calcium 1.2 mmol/L (1.1-1.4) 06/16/22 16:25 O2 Delivery Device Bipap 06/17/22 04:23 O2 Liters/Min 6.0 % 06/16/22 16:25 FiO2 60.0 % 06/17/22 04:23 PEEP 8.0 cmH20 06/17/22 04:23 Compounder Flavorings ID [place] 06/17/22 04:23 Sodium 135 mmol/L (136-145) L 06/20/22 05:13 Potassium 3.6 mmol/L (3.5-5.1) 06/20/22 05:13 Chloride 89 mmol/L (98-107) L 06/20/22 05:13 Carbon Dioxide 38 mmol/L (22-29) H 06/20/22 05:13 Anion Gap 11.6 (5-19) 06/20/22 05:13 BUN 19 mg/dL (6-20) 06/20/22 05:13 Creatinine 0.5 mg/dL (0.5-0.9) 06/20/22 05:13 GFR Calculation 133.4 mL/min (90-130) H 06/20/22 05:13 Glucose 182 mg/dL (65-115) H 06/20/22 05:13 POC Glucose 158 mg/dL (70-110) H 06/20/22 06:31 Calculated Osmolality 287 mOsm/kg (285-295) 06/20/22 05:13 Lactate 1.5 mmol/L (0.5-2.2) 06/16/22 16:50 Calcium 9.7 mg/dL (8.5-10.5) 06/20/22 05:13 Phosphorus 3.2 mg/dL (2.5-4.5) 06/17/22 05:43 Magnesium 1.5 mg/dL (1.7-2.3) L 06/17/22 05:43 Total Bilirubin 0.2 mg/dL (0.15-1.2) 06/20/22 05:13 AST 12 U/L (0-32) 06/20/22 05:13 ALT 12 U/L (0-33) 06/20/22 05:13 Alkaline Phosphatase 69 U/L (35-105) 06/20/22 05:13 C-Reactive Protein 172.2 mg/L (0.0-4.9) H 06/17/22 05:43 Total Protein 6.4 g/dL (6.6-8.7) L 06/20/22 05:13 Albumin 3.4 g/dL (3.5-5.2) L 06/20/22 05:13 Globulin 3.0 g/dL (1.3-4.6) 06/20/22 05:13 Procalcitonin 0.36 ng/mL (0-0.5) 06/16/22 16:50 Procalcitonin Cancelled 06/16/22 16:50 TSH 0.39 uIU/mL (0.27-4.20) 06/17/22 05:43 Urine Color Yellow (Yellow) 06/16/22 20:54 Urine Appearance Clear (CLEAR) 06/16/22 20:54 Urine pH 5 (5-7) 06/16/22 20:54 Ur Specific [place] 1.020 (1.005-1.030) 06/16/22 20:54 Urine Protein Neg (Negative) 06/16/22 20:54 Urine Glucose (UA) 4+ (Normal) H 06/16/22 20:54 Urine Ketones 1+ (Negative) H 06/16/22 20:54 Urine Blood Neg (Negative) 06/16/22 20:54 Urine Nitrate Negative (Negative) 06/16/22 20:54 Urine Bilirubin Neg (Negative) 06/16/22 20:54 Urine Urobilinogen Norm mg/dL (Negative) 06/16/22 20:54 Ur Leukocyte Esterase Negative (Negative) 06/16/22 20:54 Nasal Influ A H1 2009 PCR Detected (NOT DETECT) A 06/17/22 00:21 Vancomycin Trough 11.5 ug/mL (10-15) 06/18/22 01:22 Coronavirus 229E (PCR) Not detected (NOT DETECT) 06/16/22 22:02 Influenza A (H1) PCR Not detected (NOT DETECT) 06/17/22 00:21 Influenza A (H3) PCR Not detected (NOT DETECT) 06/17/22 00:21 Influenza Type A Ag negative (Negative) 06/16/22 22:02 Influenza Type A (PCR) Not detected (NOT DETECT) 06/17/22 00:21 Influenza Type B Ag negative (Negative) 06/16/22 22:02 Influenza Type B (PCR) Not detected (NOT DETECT) 06/17/22 00:21 SARS-CoV-2 (PCR) Not detected (NOT DETECT) 06/16/22 22:02 SARS-CoV-2 Ag (Rapid) negative (Negative) 06/16/22 22:02 Vitals Last Vital Signs Temp 98.3 F 06/20/22 08:29 Pulse 85 06/20/22 08:29 Resp 19 H 06/20/22 08:29 BP 110/78 06/20/22 08:29 Pulse Ox 91 06/20/22 08:29 O2 Del Method 06/20/22 08:29 O2 Flow Rate 5 06/20/22 08:29 FiO2 5 06/19/22 03:37 Discharge Plan Discharge Patient Disposition: Home Condition: Stable Prescriptions: New prednisone 20 mg tablet 20 mg PO BID 5 Days Qty: 10 0RF Augmentin 500-125 mg tablet 1 tab PO BID 5 Days Qty: 10 0RF oseltamivir 75 mg Capsule 75 mg PO BID 2 Days Qty: 4 0RF ropinirole 0.25 mg Tablet 0.25 mg PO BEDTIME 30 Days Qty: 30 0RF Continued (DME) Diabetic shoes with inserts See Rx Instructions .Route .MEDSUPPLY Qty: 1 0RF Rx Instructions: As directed oxycodone-acetaminophen [Percocet] 7.5-325 mg tablet 1 tab PO TID PRN (Reason: Pain) Excedrin Migraine 250-250-65 mg tablet 1 - 2 tab PO DAILY PRN (Reason: pain) 30 Days Qty: 60 2RF albuterol sulfate 2.5 mg /3 mL (0.083 %) solution for nebulization 2.5 mg inhalation Q4H PRN (Reason: shortness of breath or wheezing) 30 Days Qty: 540 2RF promethazine 25 mg tablet 25 mg PO Q12H PRN (Reason: nausea and vomiting) Qty: 20 0RF ergocalciferol (vitamin D2) 1,250 mcg (50,000 unit) capsule 1,250 mcg PO .weekly Qty: 4 2RF Farxiga 5 mg tablet 5 mg PO QAM Qty: 30 2RF prenat.vits,ronnell,ich-qrma-qvibp Tablet 1 tab PO DAILY 30 Days Qty: 30 5RF cyanocobalamin (vitamin B-12) 2,500 mcg tablet, sublingual 2,500 mcg sublingual BID Qty: 60 2RF albuterol sulfate [ProAir HFA] 90 mcg/actuation HFA aerosol inhaler 2 puff INHALATION Q4H PRN (Reason: Shortness Of Breath) 30 Days Qty: 2 2RF fentanyl 25 mcg/hr Patch 72 Hour 25 mcg transdermal Q3D nystatin 100,000 unit/mL suspension 500,000 unit PO TID 7 Days Qty: 200 0RF Discharge Orders: Discharge Order (Routine); Ordered 06/20/22 Ordered By: Dex Blanton Referrals: Fracisco Medeiros MD [Physician] - 1 month ([facility] will contact you to schedule an follow-up with Dr. Medeiros in 1 month. If you haven't heard from by Wednesday afternoon. Please call ) Heide Dhillon FNP-C [Primary Care Provider] - 1 week ([facility] will contact you schedule an follow-up appointment in 1 week. If you haven't heard from them by Wednesday afternoon. Please call ) Patient Instructions: Prednisone (By mouth) (predniSONE Intensol, Prednicot, Deltasone, Payal), Amoxicillin/Clavulanate Potassium (By mouth) (Augmentin, Augmentin..., Oseltamivir (By mouth) (Tamiflu), COPD Stoplight, Opioid Safety Discharge Attestations Time Spent in Discharge Care*: greater than 30 min Status at Discharge: Cognitive status at discharge: cognitively intact , Behavioral status at discharge: cooperative , Quality Metrics Clinical Quality Measures [ No reported AMI, CVA or VTE this stay] Coding Level of Care Code Acute Chg FW DC note Diagnoses Respiratory failure with hypoxia and hypercapnia J96.91; J96.92 Chronic respiratory failure with hypoxia and hypercapnia J96.11; J96.12 Chronic headache R51 Headache type: unspecified Intractability: not intractable COPD (chronic obstructive pulmonary disease) J44.9 COPD type: unspecified COPD Controlled diabetes mellitus with hyperglycemia E11.65 Diabetes mellitus detention insulin use: without detention use Diabetes mellitus type: type 2 Personal history of nicotine dependence Z87.891 Opiate dependence F11.20
--- NOTE | 2022-06-20 13:14 | PC.NURSE ---
Discharge Note Patient discharged to home via private vehicle accompanied by [ Discharge instructions reviewed with patient and/or credit representative. Mobile pharmacy medications and/or prescriptions provided. Pt this morning stated to sent raya rx to [facility], stated the pharmacy is close now. Provided pt the paper scripts for her new Rx to bring to open pharmacy today, she stated she will go to [facility]. Belongings/home medications returned.
== END 2022-06-20 13:17 | disposition home or self-care (01) | DRG 190 ==
LOC: ER 06-17 00:50 → CSU 06-17 01:25
PROVIDERS: Family Medicine; Admitting Provider Internal Medicine; Emergency Provider Emergency Medicine; PCP Nurse Practitioner Family; Visit Provider Internal Medicine
DX: J44.1 Chronic obstructive pulmonary disease with (acute) exacerbation (principal); J10.00 Influenza due to other identified influenza virus with unspecified type of pneumonia; J96.21 Acute and chronic respiratory failure with hypoxia; J96.22 Acute and chronic respiratory failure with hypercapnia; J18.9 Pneumonia, unspecified organism; J44.0 Chronic obstructive pulmonary disease with (acute) lower respiratory infection; E11.65 Type 2 diabetes mellitus with hyperglycemia; F17.210 Nicotine dependence, cigarettes, uncomplicated; Z99.81 Dependence on supplemental oxygen; G47.33 Obstructive sleep apnea (adult) (pediatric); K21.9 Gastro-esophageal reflux disease without esophagitis; Z98.1 Arthrodesis status; Z79.51 Long term (current) use of inhaled steroids; Z79.891 Long term (current) use of opiate analgesic; Z79.84 Long term (current) use of oral hypoglycemic drugs; F41.9 Anxiety disorder, unspecified; F32.A Depression, unspecified
CPT/HCPCS: 36415; 36416; 36600; 71045; 80048; 80051; 80053; 80202; 81003; 82330; 82803; 82805; 82962; 83605; 83735; 84100; 84145; 84443; 85025; 85378; 86140; 86403; 87040; 87070; 87077; 87205; 87426; 87449; 87631; 87635; 87641; 87804; 93005; 93306; 94640; 94660; 96365; 96372; 96375; 99291; J0692; J1644; J1815; J1940; J2060; J2920; J2930; J3370; J3475; J7030; J7050

== ENCOUNTER → 2022-07-30 14:38 | Outpatient (BNVA) | payer MEDICARE, MEDICAID, SELFPAY | PROVIDERS: PCP Nurse Practitioner Family; Visit Provider Nurse Practitioner Family | DX: E11.65 Type 2 diabetes mellitus with hyperglycemia (principal); E55.9 Vitamin D deficiency, unspecified; M54.17 Radiculopathy, lumbosacral region; G89.29 Other chronic pain; M54.9 Dorsalgia, unspecified; J44.9 Chronic obstructive pulmonary disease, unspecified; G25.81 Restless legs syndrome; F41.9 Anxiety disorder, unspecified; K21.9 Gastro-esophageal reflux disease without esophagitis; F32.9 Major depressive disorder, single episode, unspecified | CPT/HCPCS: 80053; 80061; 83036; 84443; 85025 ==

== ENCOUNTER 2022-09-08 15:55 | Inpatient (IN) | payer MEDICARE, MEDICAID, SELFPAY ==
[2022-09-08] VITALS (42 sets, daily range): BP systolic 80–152; BP diastolic 55–118; PULSE 85–108; RESP 16–34; TEMP 36.7–37.3; O2SAT 85–96; BMI 23.8; BMI 23.4
--- NOTE | 2022-09-08 16:07 | XRR_ITS ---
PROCEDURE INFORMATION: Exam: XR Chest Exam date and time: 09/08/2022 4:47 PM Age: 47 years old Clinical indication: Cough and dyspnea; Additional info: Dyspnea/cough TECHNIQUE: Imaging protocol: Radiologic exam of the chest. Views: 1 view. COMPARISON: CR XR chest 1V portable [id number] 06/18/2022 5:09 AM FINDINGS: Tubes, catheters and devices: Spinal stimulator leads noted in the lower thoracic spine. Lungs: Peribronchial thickening. Mild coarsening of the lung parenchyma at the lung bases. Streaky opacity at the periphery of the left lung base. Pleural spaces: Possible small volume left pleural effusion. No pneumothorax. Heart/Mediastinum: No cardiomegaly. Bones/joints: Visualized osseous structures are intact. XR/XR chest 1V portable [id number] IMPRESSION: 1. Peribronchial thickening suggestive of an infectious or inflammatory bronchitis. 2. Streaky opacity at the periphery of the left lung base which may reflect atelectasis, an early infiltrate is not excluded. There may be a small volume left pleural effusion given blunting of the costophrenic angle.
--- NOTE | 2022-09-08 16:17 | ECG_ITS ---
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 Measurements Intervals [place] Rate: 103 P: 83 ID: [id number] QRS: 77 QRSD: 85 T: 78 QT: 328 QTc: 430 Interpretive Statements Possible sinus tachycardia ABNORMAL RHYTHM ECG Compared to ECG 06/16/2022 16:56:03 Sinus rhythm no longer present Electronically Signed On 09-09-2022 14:14:00 MANAGER CONSUMER INSIGHTS by Virgen Sen M.D. [id number]
[2022-09-08 16:24] LABS: ABG PCO2 50.7 mmHg (35-45); ABG PH Result 7.41 (7.35-7.45); Alveolar-Arterial Oxygen Gradi 2.6 mmHg (5-10); Arterial Blood Gas Hematocrit 50.3 % (37-47); Blood Gas Allen Test Pos; Blood Gas Operator Identificat WALCI; Blood Gas Sample Site Radial, right; Blood Gas Sample Type Arterial; Carboxyhemoglobin 3.3 %THgb (0.4-20.1); HCO3 ABG 32.2 mmol/L (22-26); HGB O2 Sat 90.2 % (95-100); Ionized Calcium Level - ABG 1.2 mmol/L (1.1-1.4); Methemoglobin 0.7 % (0.4-1.5); Oxygen Device NRB; PO2 ABG 65.7 mmHg (80.0-100.0); Potassium Level - ABG 3.5 mmol/L (3.5-5.0); Total Hemoglobin 16.4 g/dL (12-16)
[2022-09-08] MEDS: acetaminophen 500 mg Tablet 1000 MG PO (16:57)
[2022-09-08 17:15] LABS: Alanine Aminotransferase 7 U/L (0-33); Albumin Level 3.4 g/dL (3.5-5.2); Alkaline Phosphatase 75 U/L (35-105); Anion Gap 15.7 (5-19); Aspartate Amino Transferase 9 U/L (0-32); Blood Urea Nitrogen 6 mg/dL (6-20); Carbon Dioxide 27 mmol/L (22-29); Chloride 94 mmol/L (98-107); Globulin 3.4 g/dL (1.3-4.6); Glomerular Filtration Rate 108.1 mL/min (90-130); Glucose 115 mg/dL (65-115); Osmolality Calculated 275 mOsm/kg (285-295); Potassium 3.7 mmol/L (3.5-5.1); Sodium 133 mmol/L (136-145); Total Bilirubin 0.5 mg/dL (0.15-1.2); Total Protein 6.8 g/dL (6.6-8.7)
[2022-09-08 17:19] LABS: Basophils % 0.2 %; Eosinophils # 0.1 10^3/uL (0.0-0.8); Eosinophils % 0.4 %; Hematocrit 48.6 % (37.0-47.0); Lymphocytes # 1.1 10^3/uL (0.8-4.8); Lymphocytes % 5.8 %; Mean Corpuscular HGB Conc 32.9 g/dL (30.0-36.0); Mean Corpuscular Hemoglobin 31.6 pg (28.0-34.0); Mean Corpuscular Volume 95.9 fl (81-99); Mean Platelet Volume 10.4 fL (7.4-10.4); Monocytes # 1.2 10^3/uL (0.2-0.9); Monocytes % 6.5 %; Neutrophils # 15.73 10^3/uL (1.8-7.7); Neutrophils % 86.7 %; Nucleated Red Blood Cells % 0 %; Platelet Count 236 10^3/cmm (130-400); Red Blood Count 5.07 10^6/uL (4.1-5.3); Red Cell Distribution Width 13.2 % (12.1-15.1); White Blood Count 18.2 10^3/uL (4.0-10.0)
--- NOTE | 2022-09-08 17:20 | W.ED.SOB ---
HPI - SOB/Dyspnea General: Chief Complaint: Shortness of Breath/Dyspnea Stated Complaint: DIFF BREATHING Time Seen by Provider: 09/08/22 16:07 Source: patient Mode of arrival: ambulatory History of Present Illness: HPI Narrative: 47-year-old male with a history of severe asthma presents emergency room complaining of progressively worsening shortness of breath and weakness for the last 4 days she went to the clinic in [place] today and was satting 75% on 4 L which she usually wears and required 15 L by nonrebreather. On arrival here she is still satting in the low 80s to 90% on 15 L. Nonproductive cough low-grade subjective fever Temp here on arrival is 99 2. MD elicited complaint: shortness of breath and cough Pertinent past history: asthma Onset (ago): day(s) (4) Timing: constant Severity: severe Exacerbating factors: exertion and coughing Relieving factors: rest and bronchodilators Known history of: asthma Associated symptoms: Reports cough; Deny abdominal pain, chest congestion, chest pain, diaphoresis, dizziness, extremity pain, fever(s), hemoptysis, lightheadedness, myalgias, nausea, orthopnea, palpitations, paresthesias, polydipsia, polyuria, rash, sense of impending doom, syncope or vomiting Treatment prior to arrival: oxygen and bronchodilator Related Data: Home oxygen amount: none Review of Systems Const: Denies: fever(s), chills, fatigue, malaise or diaphoresis ENMT: Denies: throat pain, ear or mastoid pain, nasal discharge or nasal congestion Card: Denies: chest pain, palpitations, lightheadedness, syncope or orthopnea Resp: Reports: dyspnea, non-productive cough and wheezing; Denies: hemoptysis or chest congestion GI: Denies: abdominal pain, nausea or vomiting : Denies: flank pain, difficulty voiding, dysuria, urinary frequency or urinary urgency Musc: Denies: extremity pain Skin/Breast: Denies: rash or pruritus Neuro: Denies: dizziness Endo: Denies: polyuria or polydipsia PFS ED PFSH: Medical History Acute exacerbation of chronic obstructive airways disease Acute respiratory failure with hypoxemia Anxiety and depression Arthritis Asthma Atopic dermatitis, mild Chronic headache Chronic nausea Chronic respiratory failure with hypoxia and hypercapnia Constipation due to opioid therapy Controlled diabetes mellitus with hyperglycemia COPD (chronic obstructive pulmonary disease) Degenerative lumbar disc GERD (gastroesophageal reflux disease) History of left foot drop Lumbosacral radiculitis Migraines Obstructive sleep apnea Opiate dependence PE (pulmonary thromboembolism) Personal history of nicotine dependence Respiratory failure with hypoxia and hypercapnia Scoliosis Surgical History History of bilateral salpingectomy 1997 History of cholecystectomy 1998 History of hysterectomy 2005 History of lumbar fusion With kvng 2006 History of umbilical hernia repair 2009 Family History Mother Heart disease Grandmother Congestive heart failure Social History Smoking and tobacco status: current every day smoker cigarettes Packs smoked per day: 2.5 Years cigarettes smoked: 30 Second hand smoke exposure: Yes Smoking risk assessment/counseling performed?: Yes Alcohol intake: never Desire information about alcohol rehabilitation?: No Counseling given: No Desire information about substance/drug rehabilitation?: No Counseling given: No Caregiver/support person: No Lives independently: Yes Household members: children Housing: House Marital status: Legally Number of children: 2 service: No Current occupational status: disabled Current gender identity: Female Physical Exam Const: COMMON NORMALS: no acute distress GENERAL APPEARANCE: cooperative and comfortable ORIENTATION/CONSCIOUSNESS: Yes awake, Yes oriented to person, Yes oriented to place and Yes oriented to time HENMT: COMMON NORMALS: normocephalic, atraumatic and hearing grossly normal bilaterally HEAD & SCALP: normocephalic and atraumatic Resp: EFFORT & INSPECTION: Yes respiratory distress, Yes Actively coughing, Yes retractions and Yes uses accessory muscles AUSCULTATION: rhonchi and wheezes Cardio: COMMON NORMALS: regular rate, regular rhythm and No murmurs present (Cardio) RATE: regular rate RHYTHM: regular rhythm GI: COMMON NORMALS: Soft to palpation and No hepatosplenomegaly present AUSCULTATION: Yes normoactive bowel sounds PALPATION: Yes Soft to palpation, No Tenderness to palpation present (GI), No Guarding due to palpation present (GI) and Yes No hepatosplenomegaly present Extremity: COMMON NORMALS: normal to inspection, capillary refill normal, no clubbing, cyanosis or edema, no calf tenderness and no pedal edema Neuro: SENSORIUM/ORIENTATION: Yes oriented to person, Yes oriented to place and Yes oriented to time Skin: COMMON NORMALS: no rashes or lesions noted GENERAL SKIN EXAM: no rashes or lesions noted Course Vital Signs: Vital signs: Vital Signs Temperature 98 F 09/12/22 08:00 Pulse Rate 87 09/12/22 11:33 Respiratory Rate 20 H 09/12/22 11:33 Blood Pressure 120/72 09/12/22 10:00 Pulse Oximetry 94 09/12/22 11:33 Oxygen Delivery Me thod 09/12/22 11:33 Oxygen Flow Rate 6 09/12/22 11:33 Fraction of Inspir ed Oxygen 70 09/09/22 22:00 MDM - SOB/Dyspnea Medical Decision Making Significant oxygen deficit patient presents requiring 6 L. Improved slightly with DuoNeb treatment. On arrival here she is satting 75% on 4 L gets up to 88% on 15 L. After initial treatment patient continued to require significant mount oxygen we changed her to heated high flow at 100% on 30 L. Chest x-ray shows some streaky opacities peripherally left lung may be atelectasis or pneumonia. There is peribronchial thickening suggestive of acute asthma exacerbation. No pneumothorax there is slight blunting of costophrenic angles possible very very small pleural effusion. Will discuss with hospitalist and admit for acute asthma exacerbation. Admit to ICU patient may require BiPAP or even intubation discussed with her she is open to these things. Started on Levaquin in addition to aggressive pulmonary toilet with nebulizers and oxygen support. Medical Records I reviewed the patient's medical records. Lab Data I reviewed the patient's lab results. 09/08/22 17:10 09/08/22 16:50 Labs/Radiology: Radiology Impressions Chest X-Ray 09/08/22 16:07 IMPRESSION: 1. Peribronchial thickening suggestive of an infectious or inflammatory bronchitis. 2. Streaky opacity at the periphery of the left lung base which may reflect atelectasis, an early infiltrate is not excluded. There may be a small volume left pleural effusion given blunting of the costophrenic angle. Laboratory Results WBC 18.2 10^3/uL (4.0-10.0) H 09/08/22 17:10 Corrected WBC Cancelled 09/08/22 16:50 RBC 5.07 10^6/uL (4.1-5.3) 09/08/22 17:10 Hgb 16.0 g/dL (11.5-15.3) H 09/08/22 17:10 Hct 48.6 % (37.0-47.0) H 09/08/22 17:10 MCV 95.9 fl (81-99) 09/08/22 17:10 MCH 31.6 pg (28.0-34.0) 09/08/22 17:10 MCHC 32.9 g/dL (30.0-36.0) 09/08/22 17:10 RDW 13.2 % (12.1-15.1) 09/08/22 17:10 Plt Count 236 10^3/cmm (130-400) 09/08/22 17:10 MPV 10.4 fL (7.4-10.4) 09/08/22 17:10 Gran % Cancelled 09/08/22 16:50 Neut % (Auto) 86.7 % 09/08/22 17:10 Lymph % (Auto) 5.8 % 09/08/22 17:10 Gilliam % (Auto) 6.5 % 09/08/22 17:10 Eos % (Auto) 0.4 % 09/08/22 17:10 Baso % (Auto) 0.2 % 09/08/22 17:10 Neut # (Auto) 15.73 10^3/uL (1.8-7.7) H 09/08/22 17:10 Lymph # (Auto) 1.1 10^3/uL (0.8-4.8) 09/08/22 17:10 Gilliam # (Auto) 1.2 10^3/uL (0.2-0.9) H 09/08/22 17:10 Eos # (Auto) 0.1 10^3/uL (0.0-0.8) 09/08/22 17:10 Baso # (Auto) 0.0 10^3/uL (0.0-0.1) 09/08/22 17:10 Absolute Gran (auto) Cancelled 09/08/22 16:50 Nucleated RBC % (auto) 0 % 09/08/22 17:10 Nucleated RBCs # 0.0 /100WBC 09/08/22 17:10 Specimen Type Arterial 09/08/22 16:13 Sample Site Radial, right 09/08/22 16:13 ABG pH 7.41 (7.35-7.45) 09/08/22 16:13 ABG pCO2 50.7 mmHg (35-45) H 09/08/22 16:13 ABG pO2 65.7 mmHg (80.0-100.0) L 09/08/22 16:13 ABG HCO3 32.2 mmol/L (22-26) H 09/08/22 16:13 ABG O2 Saturation 94.0 09/08/22 16:13 ABG Base Excess 6.0 mmol/L (-2.0-2.0) H 09/08/22 16:13 Lb Test Pos 09/08/22 16:13 A-a O2 Gradient 2.6 mmHg (5-10) L 09/08/22 16:13 Hematocrit 50.3 % (37-47) H 09/08/22 16:13 Hgb O2 Saturation 90.2 % (95-100) L 09/08/22 16:13 Carboxyhemoglobin 3.3 %THgb (0.4-20.1) 09/08/22 16:13 Methemoglobin 0.7 % (0.4-1.5) 09/08/22 16:13 Total Hemoglobin 16.4 g/dL (12-16) H 09/08/22 16:13 Sodium 136.0 mmol/L (131-143) 09/08/22 16:13 Potassium 3.5 mmol/L (3.5-5.0) 09/08/22 16:13 Glucose 115.0 mg/dL (70-115) 09/08/22 16:13 Ionized Calcium 1.2 mmol/L (1.1-1.4) 09/08/22 16:13 O2 Delivery Device Nrb 09/08/22 16:13 O2 Liters/Min 15.0 % 09/08/22 16:13 Registered Representative ID Walci 09/08/22 16:13 Sodium 133 mmol/L (136-145) L 09/08/22 16:50 Potassium 3.7 mmol/L (3.5-5.1) 09/08/22 16:50 Chloride 94 mmol/L (98-107) L 09/08/22 16:50 Carbon Dioxide 27 mmol/L (22-29) 09/08/22 16:50 Anion Gap 15.7 (5-19) 09/08/22 16:50 BUN 6 mg/dL (6-20) 09/08/22 16:50 Creatinine 0.6 mg/dL (0.5-0.9) 09/08/22 16:50 GFR Calculation 108.1 mL/min (90-130) 09/08/22 16:50 Glucose 115 mg/dL (65-115) 09/08/22 16:50 Calculated Osmolality 275 mOsm/kg (285-295) L 09/08/22 16:50 Calcium 9.0 mg/dL (8.5-10.5) 09/08/22 16:50 Magnesium 1.6 mg/dL (1.7-2.3) L 09/08/22 16:50 Total Bilirubin 0.5 mg/dL (0.15-1.2) 09/08/22 16:50 AST 9 U/L (0-32) 09/08/22 16:50 ALT 7 U/L (0-33) 09/08/22 16:50 Alkaline Phosphatase 75 U/L (35-105) 09/08/22 16:50 Total Protein 6.8 g/dL (6.6-8.7) 09/08/22 16:50 Albumin 3.4 g/dL (3.5-5.2) L 09/08/22 16:50 Globulin 3.4 g/dL (1.3-4.6) 09/08/22 16:50 Urine Color Yellow (Yellow) 09/08/22 20:43 Urine Appearance Clear (CLEAR) 09/08/22 20:43 Urine pH 5 (5-7) 09/08/22 20:43 Ur Specific Norman 1.010 (1.005-1.030) 09/08/22 20:43 Urine Protein Neg (Negative) 09/08/22 20:43 Urine Glucose (UA) 4+ (Normal) H 09/08/22 20:43 Urine Ketones 1+ (Negative) H 09/08/22 20:43 Urine Blood Neg (Negative) 09/08/22 20:43 Urine Nitrate Negative (Negative) 09/08/22 20:43 Urine Bilirubin Neg (Negative) 09/08/22 20:43 Urine Urobilinogen Norm mg/dL (Negative) 09/08/22 20:43 Ur Leukocyte Esterase 1+ (Negative) H 09/08/22 20:43 Urine RBC 0-4 /hpf (0-2) H 09/08/22 20:43 Urine WBC 10-15 /hpf (0-5) H 09/08/22 20:43 Ur Squamous Epith Cells 5-10 /hpf (0-5) H 09/08/22 20:43 Amorphous Sediment Not Reportable 09/08/22 20:43 Urine Bacteria 1+ /hpf (NONE) H 09/08/22 20:43 Nasal Influ A H1 2009 PCR Not detected (NOT DETECT) 09/08/22 17:46 Coronavirus 229E (PCR) Not detected (NOT DETECT) 09/08/22 17:46 Influenza A (H1) PCR Not detected (NOT DETECT) 09/08/22 17:46 Influenza A (H3) PCR Not detected (NOT DETECT) 09/08/22 17:46 Influenza Type A Ag Cancelled 09/08/22 17:46 Influenza Type A (PCR) Not detected (NOT DETECT) 09/08/22 17:46 Influenza Type B Ag Cancelled 09/08/22 17:46 Influenza Type B (PCR) Not detected (NOT DETECT) 09/08/22 17:46 SARS-CoV-2 (PCR) Not detected (NOT DETECT) 09/08/22 17:46 Critical Care Time Critical Care Time: Critical Care Time: Yes Total Critical Care Time: 40 Attestation: The high probability of a clinically significant, sudden or life threatening deterioration of the patient's respiratory system(s) required my full and direct attention, intervention and personal management. The critical care time is as shown. 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
[2022-09-08] MEDS: sodium chloride 0.9% 1,000 ML 999 ML IV (18:18)
[2022-09-08] MEDS: levofloxacin-dextrose 5 % 750 MG/150 ML PREMIX 100 MG IV (18:39)
--- NOTE | 2022-09-08 18:55 | P.HP_ITS ---
Providers/Chief Complaint Admitting Physician: Humphrey Casanova Primary Care Provider: PREETHI Lopes Chief Complaint: DIFF BREATHING History of Present Illness 47-year-old with history of COPD, chronic alcohol use oxygen at home, has been feeling unwell starting about 4 days ago, has been using her inhaler more. Has been coughing up yellow phlegm. Has been getting progressively more dyspneic. Today PCPs office noted oxygen saturation in the 70s despite being on her usual oxygen. In ER initially requiring nonrebreather 15 L. Review of Systems Const: Denies: fever(s), chills, body aches or malaise Eyes: Denies: change in vision, eye discomfort or eye redness ENMT: Denies: throat pain, oral sores or ear or mastoid pain Card: Denies: chest pain, edema, pre-syncope or dyspnea on exertion Resp: Reports: dyspnea, productive cough and change in phlegm color; Denies: hemoptysis GI: Denies: abdominal pain, nausea, vomiting, diarrhea, constipation, hematochezia or melena : Denies: flank pain, urinary frequency or hematuria Musc: Reports: other (No lower extremity edema. Chronic pain from neuropathy.); Denies: back pain, joint swelling or joint redness Skin/Breast: Denies: rash or new lesions Neuro: Denies: headache(s), numbness in extremities, weakness in extremities, dizziness, confusion or seizure-like activity Endo: Denies: polyuria or polydipsia Tre/Lymph: Denies: easy bleeding or tender lymph nodes All/Imm: Denies: urticaria or tongue swelling Medications/Allergies Home Medications Medication Instructions Recorded Confirmed Last Taken Type fentanyl 25 mcg/hr transdermal 25 mcg transdermal Q3D 01/09/21 09/08/22 09/08/22 History patch prenat.vits,ronnell,aqh-bweq-yxoer 1 tab PO DAILY 30 days #30 tabs 03/13/21 09/08/22 09/08/22 Rx Diabetic shoes with inserts #1 ea 04/02/21 09/08/22 Unknown Rx albuterol sulfate 2.5 mg/3 mL 2.5 mg (3 mL) inhalation Q4H PRN 11/05/21 09/08/22 Unknown Rx (0.083 %) solution for nebulization shortness of breath or wheezing 30 days #540 mL akofnjd-ahzdvbbgnmwrq-aitypqsd 250 1 - 2 tab PO DAILY PRN pain 30 11/05/21 09/08/22 Unknown Rx mg-250 mg-65 mg tablet (Excedrin days #60 tabs Migraine) promethazine 25 mg tablet 25 mg PO Q12H PRN nausea and 04/23/22 09/08/22 Unknown Rx vomiting #20 tabs nystatin 100,000 unit/mL oral 500,000 unit (5 mL) PO TID 7 days 06/20/22 09/08/22 Unknown Rx suspension #200 mL albuterol sulfate 90 mcg/actuation 2 puff inhalation Q4H PRN 07/30/22 09/08/22 Unknown Rx aerosol inhaler (ProAir HFA) Shortness Of Breath 30 days #2 ea buspirone 15 mg tablet 15 mg PO BID PRN anxiety 30 days 07/30/22 09/08/22 09/08/22 Rx #60 tabs dapagliflozin 5 mg tablet (Farxiga) 5 mg PO QAM #30 tabs 07/30/22 09/08/22 09/08/22 Rx fluticasone fur. 200 mcg-umeclid 1 inh inhalation DAILY #28 ea 07/30/22 09/08/22 09/08/22 Rx 62.5 mcg-vilant 25 mcg inhalat.powder (Trelegy Ellipta) gabapentin 600 mg tablet 600 mg PO QID 30 days #120 tabs 07/30/22 09/08/22 09/08/22 Rx guaifenesin 1,200 mg tablet, 1,200 mg PO BID 30 days #60 tabs 07/30/22 09/08/22 Unknown Rx extended release 12 hr (Mucinex) pantoprazole 40 mg tablet,delayed 40 mg PO DAILY 30 days #30 tabs 07/30/22 09/08/22 09/08/22 Rx release ropinirole 0.25 mg tablet 0.25 mg PO BEDTIME 30 days #30 tabs 07/30/22 09/08/22 09/07/22 Rx tizanidine 2 mg tablet 2 mg PO TID PRN muscle spasticity 07/30/22 09/08/22 Unknown Rx #90 tabs cyanocobalamin (vitamin B-12) 2,500 mcg sublingual DAILY 09/08/22 09/08/22 09/08/22 History 2,500 mcg sublingual tablet ergocalciferol (vitamin D2) 1,250 1,250 mcg PO Q7D 09/08/22 09/08/22 09/06/22 History mcg (50,000 unit) capsule Allergies Allergy/AdvReac Type Severity Reaction Status Date / Time estrogens, conjugated Allergy Severe blood clots Verified 09/08/22 16:02 [From Premarin] Fish Containing Products Allergy Unknown unknown Verified 09/08/22 16:02 ketorolac [From Toradol] Allergy ADV-Weaknes Verified 09/08/22 16:02 s NSAIDS (Non-Steroidal Allergy stomach Verified 09/08/22 16:02 Anti-Inflamma bleeds PFSH Acute PFSH: Medical History Acute exacerbation of chronic obstructive airways disease Acute respiratory failure with hypoxemia Anxiety and depression Arthritis Asthma Atopic dermatitis, mild Chronic headache Chronic nausea Chronic respiratory failure with hypoxia and hypercapnia Constipation due to opioid therapy Controlled diabetes mellitus with hyperglycemia COPD (chronic obstructive pulmonary disease) Degenerative lumbar disc GERD (gastroesophageal reflux disease) History of left foot drop Lumbosacral radiculitis Migraines Obstructive sleep apnea Opiate dependence Personal history of nicotine dependence Respiratory failure with hypoxia and hypercapnia Scoliosis Surgical History History of bilateral salpingectomy 1997 History of cholecystectomy 1998 History of hysterectomy 2006 History of lumbar fusion With kvng 2006 History of umbilical hernia repair 2009 Family History Mother Heart disease Grandmother Congestive heart failure Social History Smoking and tobacco status: current every day smoker cigarettes Packs smoked per day: 2.5 Years cigarettes smoked: 30 Second hand smoke exposure: Yes Smoking risk assessment/counseling performed?: Yes Alcohol intake: never Desire information about alcohol rehabilitation?: No Counseling given: No Desire information about substance/drug rehabilitation?: No Counseling given: No Caregiver/support person: No Lives independently: Yes Household members: children Housing: House Marital status: Legally Number of children: 2 service: No Current occupational status: disabled Current gender identity: Female Vitals/I&O/Wt Last Vital Signs Temp 98.2 F 09/08/22 18:00 Pulse 91 09/08/22 18:45 Resp 19 H 09/08/22 18:45 BP 96/55 09/08/22 18:30 Pulse Ox 90 09/08/22 18:45 O2 Del Method 09/08/22 18:08 O2 Flow Rate 30 09/08/22 18:08 FiO2 100 09/08/22 18:08 Weight last 48 hrs Weight 64.864 kg Physical Exam Narrative: at bedside Const: COMMON NORMALS: patient oriented x3 and alert GENERAL APPEARANCE: cooperative ORIENTATION/CONSCIOUSNESS: Yes awake HENMT: COMMON NORMALS: oropharynx normal Neck/C-Spine: COMMON NORMALS: no JVD Resp: AUSCULTATION: wheezes lower bilaterally and other (Coarse breath sounds at bases) OTHER: HHF on 100% FiO2 Cardio: COMMON NORMALS: no JVD, regular rhythm, S1 normal heart sound present, S2 normal heart sound present and No murmurs present (Cardio) RHYTHM: regular rhythm HEART SOUNDS: S1 normal heart sound present and S2 normal heart sound present GI: COMMON NORMALS: Normal to inspection, nondistended, normoactive bowel emerald nds present, Soft to palpation and non-tender PALPATION: Yes Soft to palp ation Extremity: COMMON NORMALS: no joint enlargement and no pedal edema OTHER: Some ecchymoses/abrasions along forearms. Neuro: COMMON NORMALS: patient oriented x3 and moves all extremities SENSORIUM/ORIENTATION: Yes alert Data 09/08/22 17:10 09/08/22 16:50 Micro: Microbiology 09/08/22 18:29 Blood Culture - Preliminary Blood SPECIMEN COLLECTED 09/08/22 18:29 Blood Culture - Preliminary Blood SPECIMEN COLLECTED A&P Assessment and plan (1) Acute respiratory failure with hypoxia: Requiring 15 L of nonrebreather mask initially, currently switched over to heated high flow 100% 30 L. Reviewed ABG. Discussed with her consideration of escalation of respiratory support, consideration of NIPPV, intubation, for now deferred as she is feeling slightly better. Oxygenation 89% on current regimen. Admit to ICU. Continue oxygen support. RT assessment. Previously MRSA PCR negative. Continue Levaquin. Collect sputum culture, also has requested COVID PCR. Collect bacterial antigens including Legionella. Requested. Severe respiratory failure secondary to pneumonia and COPD exacerbation. Continue also IV steroid Solu-Medrol as discussed with her. Monitor blood glucose with diabetes. Pain treatments with DuoNebs scheduled and as needed. Budesonide. Mucinex. Flutter valve. Discussed with ER physician. (2) Pneumonia: (3) COPD exacerbation: Plan DM2: ACHS glucose monitoring, anticipate glucose may increase with steroid ther apy. Sliding scale insulin. Maryana vulvovaginitis, ports frequent infection. Much worse every time she gets antibiotics. Request for empiric treatment. Requested Diflucan. Smoking addiction: Replacement as needed. GERD: Stable LB Anxiety and depression Number of additional medical problems Attestations Medical Necessity Statement*: Admission of over 2 midnights is anticipated for assessment of management of acute respiratory failure with hypoxia. Coding Level of Care Code Critical Care >/= 30 minutes Critical care time (in minutes): 35 The high probability of a clinically significant, sudden or life threatening deterioration, as referenced in this documentation, required my full and direct attention, intervention and personal management. The critical care time shown is in addition to time spent performing any reported separately billable procedures and includes the following: [x] Data and vital sign review and interpretation [x ] Patient assessment, examination and intervention [x] Medication orders and management [x] Patient/Family updates as able [x] Care Coordination and Documentation. Diagnoses Acute respiratory failure with hypoxia J96.01 Pneumonia J18.9 COPD exacerbation J44.1
--- NOTE | 2022-09-08 19:18 | PC.NURSE ---
Report from MATTIE Mathew. Pt resting quietly. On high flow O2. Denies needs at this time.
[2022-09-08 21:16] LABS: Bilirubin Urine Neg (Negative); Blood Urine Neg (Negative); Nitrate Urine Negative (Negative); Protein Urine Neg (Negative); Urine Appearance Clear (CLEAR); Urine Color Yellow (Yellow); Urobilinogen Urine Norm (Negative); pH Urine 5 (5-7)
[2022-09-08 21:18] LABS: Glucose Urine UA 4+ (Normal); Ketones Urine 1+ (Negative); Leukocyte Esterase Urine 1+ (Negative)
[2022-09-08 21:21] LABS: Add Urine Microscopic? YES; Bacteria Urine 1+ /hpf; RBC Urine 0-4 /hpf (0-2)
[2022-09-08] MEDS: ropinirole 0.25 mg Tablet PO (21:37)
[2022-09-08] MEDS: enoxaparin 40 mg/0.4 mL Syringe SUBCUT (21:37)
[2022-09-08] MEDS: pantoprazole 40 mg SDV IVP (21:37)
[2022-09-08] MEDS: nicotine 21 mg Patch 1 PATCH TRANSDERMA (21:38)
[2022-09-08] MEDS: fluconazole premix 100 MG in empty flexible container 1 EACH 50 MG IV (22:11)
[2022-09-08] MEDS: insulin lispro 100 unit/1 mL SUBCUT (22:28)
[2022-09-08 22:32] LABS: Adenovirus Not Detected (NOT DETECT); Chlamydia Pneumoniae Not Detected (NOT DETECT); Coronavirus 229E,HKU1,NL63,OC4 Not Detected (NOT DETECT); Human Metapneumovirus Not Detected (NOT DETECT); Human Rhinovirus/Enterovirus Not Detected (NOT DETECT); Influenza A Not Detected (NOT DETECT); Influenza A H1 Not Detected (NOT DETECT); Influenza A H1-2009 Not Detected (NOT DETECT); Influenza A H3 Not Detected (NOT DETECT); Influenza B Not Detected (NOT DETECT); Mycoplasma Pneumoniae Not Detected (NOT DETECT); Parainfluenza Virus Type 1 Not Detected (NOT DETECT); Parainfluenza Virus Type 2 Not Detected (NOT DETECT); Parainfluenza Virus Type 3 Not Detected (NOT DETECT); Parainfluenza Virus Type 4 Not Detected (NOT DETECT); Respiratory Syncytial Virus A Not Detected (NOT DETECT); Respiratory Syncytial Virus B Not Detected (NOT DETECT); SARS-COV-2 Not Detected (NOT DETECT)
[2022-09-08 22:33] LABS: Glucose Point of Care 164 mg/dL (70-110)
[2022-09-08 22:34] LABS: Magnesium 1.6 mg/dL (1.7-2.3)
[2022-09-08] MEDS: sodium chloride 0.9% 1,000 ML 100 ML IV (22:51)
[2022-09-09] VITALS (64 sets, daily range): BP systolic 84–134; BP diastolic 51–90; PULSE 77–165; RESP 15–32; TEMP 35.9–37.2; O2SAT 85–98; BMI 23.4
[2022-09-09] MEDS: ipratropium-albuterol 3 mL Neb INHALATION ×6 (00:38→19:46)
[2022-09-09 03:57] LABS: Basophils % 0.1 %; Hematocrit 46.9 % (37.0-47.0); Hemoglobin 15.4 g/dL (11.5-15.3); Lymphocytes # 0.5 10^3/uL (0.8-4.8); Lymphocytes % 3.7 %; Mean Corpuscular HGB Conc 32.8 g/dL (30.0-36.0); Mean Corpuscular Volume 97.3 fl (81-99); Monocytes # 0.1 10^3/uL (0.2-0.9); Monocytes % 1.1 %; Neutrophils # 12.15 10^3/uL (1.8-7.7); Neutrophils % 94.6 %; Nucleated Red Blood Cells % 0 %; Platelet Count 214 10^3/cmm (130-400); Red Blood Count 4.82 10^6/uL (4.1-5.3); Red Cell Distribution Width 13.2 % (12.1-15.1); White Blood Count 12.8 10^3/uL (4.0-10.0)
[2022-09-09] MEDS: tizanidine 4 mg Tablet 2 MG PO ×2 (04:18→20:24)
[2022-09-09 04:22] LABS: Anion Gap 14.6 (5-19); Blood Urea Nitrogen 9 mg/dL (6-20); Calcium 8.6 mg/dL (8.5-10.5); Carbon Dioxide 27 mmol/L (22-29); Chloride 99 mmol/L (98-107); Glomerular Filtration Rate 133.4 mL/min (90-130); Glucose 196 mg/dL (65-115); Osmolality Calculated 288 mOsm/kg (285-295); Potassium 3.6 mmol/L (3.5-5.1); Sodium 137 mmol/L (136-145)
--- NOTE | 2022-09-09 04:50 | PC.NURSE ---
Physician Communication Upon assessment of patient, crackles heard in bilateral lung bases when crackles previously only heard in the left bases. Patient's oxygen saturation maintaining in the high 80s/low 90s with no obvious respiratory distress. Dr. Lozano contacted and order received to D/C maintenance fluids; while at bedside, verbal order received for 20 mg lasix IVP once. Furthermore, patient stated her fentanyl patch was placed 3 days ago in the morning and that it was time to change it today. Order received to retime fentanyl patch for this morning. See MAR for details.
[2022-09-09] MEDS: FUROsemide 10 mg/mL SDV 2mL 20 MG IVP (04:51)
[2022-09-09 08:43] LABS: Glucose Point of Care 188 mg/dL (70-110)
[2022-09-09] MEDS: budesonide 0.5 mg/2 mL Neb INHALATION ×2 (08:49→19:45)
[2022-09-09] MEDS: nicotine 21 mg Patch 1 PATCH TRANSDERMA (08:51)
[2022-09-09] MEDS: guaiFENesin 600 mg Tablet 1200 MG PO ×2 (08:52→17:17)
[2022-09-09] MEDS: gabapentin 300 mg Capsule 600 MG PO ×4 (08:53→20:24)
[2022-09-09] MEDS: pantoprazole DR 40 mg Tablet PO (08:53)
[2022-09-09] MEDS: magnesium sulfate premix 2 GM/50 ML PIGGYBACK IV (08:54)
[2022-09-09] MEDS: insulin lispro 100 unit/1 mL SUBCUT ×4 (08:55→20:34)
[2022-09-09] MEDS: fentaNYL 25 mcg Patch 1 PATCH TRANSDERMA (09:07)
[2022-09-09 11:00] LABS: Glucose Point of Care 267 mg/dL (70-110)
[2022-09-09 12:47] LABS: D Dimer 0.55 ug/mIFEU (0-0.59)
[2022-09-09] MEDS: BuSPIRONE 10 mg Tablet 15 MG PO (15:29)
--- NOTE | 2022-09-09 15:33 | P.PN_ITS ---
Subjective Subjective: Today she is doing slightly better. Bringing up some phlegm. Was given a flutter valve states starting to work with it. Reports prior history of PE while on hormone therapy. Vitals/I&O/Wt Last Vital Signs Temp 96.6 F L 09/09/22 07:30 Pulse 97 09/09/22 14:00 Resp 21 H 09/09/22 14:00 BP 131/68 09/09/22 14:00 Pulse Ox 92 09/09/22 14:00 O2 Del Method 09/09/22 11:20 O2 Flow Rate 35 09/09/22 11:21 FiO2 60 09/09/22 11:21 09/09/22 09/09/22 09/09/22 06:59 14:59 22:59 Intake Total 1072.333 / 2222.333 605 / 605 Output Total 1265 / 1540 250 / 250 Balance -192.667 / 682.333 355 / 355 Weight last 48 hrs Weight 63.957 kg Weight 63.957 kg Weight 64.864 kg Physical Exam Const: COMMON NORMALS: patient oriented x3 and alert GENERAL APPEARANCE: cooperative ORIENTATION/CONSCIOUSNESS: Yes awake HENMT: COMMON NORMALS: oropharynx normal Neck/C-Spine: COMMON NORMALS: no JVD Resp: AUSCULTATION: wheezes lower bilaterally and other (Coarse breath sounds at bases) OTHER: HHF on 80% FiO2 Cardio: COMMON NORMALS: no JVD, regular rhythm, S1 normal heart sound present, S2 normal heart sound present and No murmurs present (Cardio) RHYTHM: regular rhythm HEART SOUNDS: S1 normal heart sound present and S2 normal heart sound present GI: COMMON NORMALS: Normal to inspection, nondistended, normoactive bowel sounds present, Soft to palpation and non-tender PALPATION: Yes Soft to palpation Extremity: COMMON NORMALS: no joint enlargement and no pedal edema OTHER: Some ecchymoses/abrasions along forearms. Neuro: COMMON NORMALS: patient oriented x3 and moves all extremities SENSORIUM/ORIENTATION: Yes alert Skin: OTHER: tattoos Data 09/09/22 03:18 09/09/22 03:18 Micro: Microbiology 09/08/22 20:43 Gram Stain - Final Sputum - Expectorated Sputum Sputum Culture - Preliminary 09/09/22 00:25 Legionella Urinary Antigen - Final Urine,Voided Bacterial Antigens - Final 09/08/22 18:29 Blood Culture - Preliminary Blood SPECIMEN COLLECTED 09/08/22 18:29 Blood Culture - Preliminary Blood SPECIMEN COLLECTED A&P Assessment and plan (1) Paroxysmal atrial fibrillation with RVR: Heart rate in the 150s. On my review of EKG is in A-fib with RVR. New onset. BP 98/42. No chest pain. Anxious. Due to soft blood pressure will avoid metoprolol, Cardizem as not to drop blood pressure further. We will give digoxin 2 5 mg IV x1. She has received replacement for hypomagnesemia. We will follow-up magnesium level. Monitor on telemetry. Potassium was noted 3.6, will give potassium 20 mg. Follow-up chemistry and magnesium in the morning. Requested also for troponin and EKG series to exclude ischemia. D-dimer earlier ordered, reviewed noted 0.55. Low likelihood for PE. Once heart rate improves obtain echo. (2) Acute respiratory failure with hypoxia: As above, D-dimer appreciated. Low likelihood of PE. Today she is bringing up some phlegm. Discussed with her and encouraged again use of flutter valve. She states is starting to use it. Continue empiric antibiotic coverage. Noted oxygenation is with gradual improvement. Currently continue IV steroid unchanged for now. COVID PCR noted negative. Rapid influenza noted negative. Urine bacterial antigens as well as Legionella antigen studies noted negative. Follow-up sputum culture, noted moderate gram-positive cocci in pairs and chains. Previously MRSA PCR negative. Continue Levaquin. Severe respiratory failure secondary to pneumonia and COPD exacerbation. Pain treatments with DuoNebs scheduled and as needed. Budesonide. Mucinex. Flutter valve. (3) Pneumonia: As above (4) COPD exacerbation: Severe exacerbation of COPD present on admission with dyspnea, hypoxia, cough productive of purulent sputum as above Plan Reports history of PE: This was while she was on hormone therapy. Has not been on it since. Discussed with her D-dimer. Requested. Value is 0.55. Low likelihood of PE. DM2: ACHS glucose monitoring, anticipate glucose may increase with steroid therapy. Sliding scale insulin. Maryana vulvovaginitis, ports frequent infection. Much worse every time she gets antibiotics. Empiric treatment. Requested Diflucan. Smoking addiction: Replacement as needed. GERD: Stable LB Anxiety and depression Number of additional medical problems Attestations Medical Necessity Statement*: Continue admission for assessment management of new A-fib with RVR, respiratory failure. Coding Level of Care Code Critical Care >/= 30 minutes Critical care time (in minutes): 35 The high probability of a clinically significant, sudden or life threatening de terioration, as referenced in this documentation, required my full and direct attention, intervention and personal management. The critical care time shown is in addition to time spent performing any reported separately billable procedures and includes the following: [x] Data and vital sign review and interpretation [x ] Patient assessment, examination and intervention [x] Medication orders and management [x] Patient/Family updates as able [x] Care Coordination and Documentation. Diagnoses Paroxysmal atrial fibrillation with RVR I48.0 Acute respiratory failure with hypoxia J96.01 Pneumonia J18.9 COPD exacerbation J44.1
--- NOTE | 2022-09-09 15:59 | ECG_ITS ---
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 Measurements Intervals [place] Rate: 143 P: 0 TX: 0 QRS: 62 QRSD: 90 T: 0 QT: 205 QTc: 317 Interpretive Statements ATRIAL FIBRILLATION WITH RAPID VENTRICULAR RESPONSE NONSPECIFIC ST & T-WAVE ABNORMALITY ABNORMAL RHYTHM ECG Compared to ECG 09/08/2022 16:17:15 T-wave abnormality now present Electronically Signed On 09-09-2022 16:15:12 GOLF SALES MANAGER by Virgen Sen M.D. [id number]
[2022-09-09] MEDS: potassium chloride oral liq 20 mEq/15 mL UDC PO (16:33)
[2022-09-09] MEDS: digoxin 250 mcg/ml INJ 2 mL IVP (16:34)
[2022-09-09] MEDS: metoprolol tartrate 1 mg/1 mL SDV 5 mL 2.5 MG IVP (17:17)
[2022-09-09] MEDS: levofloxacin-dextrose 5 % 750 MG/150 ML PREMIX 100 MG IV (17:18)
[2022-09-09 17:23] LABS: Troponin(5th) Baseline 6 ng/L (0-10)
[2022-09-09 17:53] LABS: Glucose Point of Care 289 mg/dL (70-110)
[2022-09-09] MEDS: metoprolol tartrate 1 mg/1 mL SDV 5 mL 5 MG IVP (17:58)
--- NOTE | 2022-09-09 18:22 | ECG_ITS ---
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 Measurements Intervals [place] Rate: 96 P: 66 MN: 188 QRS: 65 QRSD: 96 T: 53 QT: 359 QTc: 455 Interpretive Statements SINUS RHYTHM POSSIBLE RIGHT ATRIAL ENLARGEMENT [0.25mV P-WAVE] Compared to ECG 09/09/2022 16:05:38 Atrial fibrillation no longer present T-wave abnormality no longer present Electronically Signed On 09-10-2022 18:13:46 COOLING MACHINE OPERATOR by Andre Singer M.D. [id number]
--- NOTE | 2022-09-09 18:47 | PC.NURSE ---
Pt went to afib RVR this afternoon per EKG. Dr. Cooly aware and gave multiple orders for new medications. Pt converted back to SR around 1750.
[2022-09-09 20:06] LABS: Troponin 5 2HR 9.47 ng/L (0-10)
[2022-09-09 20:10] LABS: Troponin 5 2HR Delta 3.47 ABS# (0-10)
[2022-09-09] MEDS: ropinirole 0.25 mg Tablet PO (20:23)
[2022-09-09] MEDS: enoxaparin 40 mg/0.4 mL Syringe SUBCUT (20:24)
[2022-09-09] MEDS: pantoprazole 40 mg SDV IVP (20:24)
[2022-09-09 20:27] LABS: Results from Genmark
[2022-09-09 20:38] LABS: Glucose Point of Care 252 mg/dL (70-110)
--- NOTE | 2022-09-09 22:15 | ECG_ITS ---
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 Measurements Intervals [place] Rate: 93 P: 68 ND: 183 QRS: 65 QRSD: 104 T: 56 QT: 371 QTc: 461 Interpretive Statements SINUS RHYTHM WITH OCCASIONAL VENTRICULAR PREMATURE COMPLEXES Compared to ECG 09/09/2022 18:22:13 Ventricular premature complex(es) now present Electronically Signed On 09-10-2022 18:12:57 FOOT ROENTGENOLOGIST by Andre Singer M.D. [email or web address].[email or web address]/[id number]
[2022-09-09] MEDS: fluconazole premix 100 MG in empty flexible container 1 EACH 50 MG IV (22:49)
[2022-09-09 23:49] LABS: Troponin 5 6HR 14.48 ng/L (0-10)
[2022-09-10] VITALS (60 sets, daily range): BP systolic 86–143; BP diastolic 47–93; PULSE 64–113; RESP 14–43; TEMP 36.2–37.2; O2SAT 82–95; BMI 23.4
[2022-09-10 00:13] LABS: Troponin 5 6HR Delta 8.48 ng/L (0-12)
[2022-09-10] MEDS: ipratropium-albuterol 3 mL Neb INHALATION ×7 (00:24→23:17)
[2022-09-10 03:06] LABS: Basophils % 0.1 %; Hematocrit 47.1 % (37.0-47.0); Hemoglobin 15.1 g/dL (11.5-15.3); Lymphocytes # 0.6 10^3/uL (0.8-4.8); Lymphocytes % 3.4 %; Mean Corpuscular HGB Conc 32.1 g/dL (30.0-36.0); Mean Corpuscular Hemoglobin 31.3 pg (28.0-34.0); Mean Corpuscular Volume 97.5 fl (81-99); Mean Platelet Volume 10.7 fL (7.4-10.4); Monocytes # 0.6 10^3/uL (0.2-0.9); Monocytes % 3.3 %; Neutrophils # 15.46 10^3/uL (1.8-7.7); Neutrophils % 92.4 %; Nucleated Red Blood Cells % 0 %; Platelet Count 264 10^3/cmm (130-400); Red Blood Count 4.83 10^6/uL (4.1-5.3); Red Cell Distribution Width 13.2 % (12.1-15.1); White Blood Count 16.7 10^3/uL (4.0-10.0)
[2022-09-10 03:29] LABS: Anion Gap 14.4 (5-19); Blood Urea Nitrogen 11 mg/dL (6-20); Calcium 9.2 mg/dL (8.5-10.5); Carbon Dioxide 30 mmol/L (22-29); Chloride 101 mmol/L (98-107); Glomerular Filtration Rate 108.1 mL/min (90-130); Glucose 284 mg/dL (65-115); Osmolality Calculated 304 mOsm/kg (285-295); Potassium 3.4 mmol/L (3.5-5.1); Sodium 142 mmol/L (136-145)
[2022-09-10 06:39] LABS: Glucose Point of Care 246 mg/dL (70-110)
[2022-09-10] MEDS: budesonide 0.5 mg/2 mL Neb INHALATION ×2 (08:13→19:51)
[2022-09-10] MEDS: pantoprazole DR 40 mg Tablet PO (08:20)
[2022-09-10] MEDS: insulin lispro 100 unit/1 mL SUBCUT ×4 (08:20→20:41)
[2022-09-10] MEDS: gabapentin 300 mg Capsule 600 MG PO ×4 (08:20→20:41)
[2022-09-10] MEDS: nicotine 21 mg Patch 1 PATCH TRANSDERMA (08:20)
[2022-09-10] MEDS: guaiFENesin 600 mg Tablet 1200 MG PO ×2 (08:20→17:23)
[2022-09-10] MEDS: tizanidine 4 mg Tablet 2 MG PO ×2 (08:28→20:43)
[2022-09-10 11:25] LABS: Glucose Point of Care 307 mg/dL (70-110)
[2022-09-10] MEDS: potassium chloride ER 20 mEq Tablet 40 MEQ PO (11:26)
[2022-09-10] MEDS: digoxin 250 mcg Tablet PO (11:27)
[2022-09-10] MEDS: apixaban 5 mg Tablet PO ×2 (11:29→20:41)
[2022-09-10] MEDS: levofloxacin-dextrose 5 % 750 MG/150 ML PREMIX 100 MG IV (17:23)
[2022-09-10] MEDS: polyethylene glycol 3350 Pkt 17 gm PO (19:06)
--- NOTE | 2022-09-10 19:11 | PM.PN ---
Subjective Subjective: She feels she is improving. Breathing is getting better. She is coughing up phlegm. Heart rates have improved. No chest pain. Vitals/I&O/Wt Last Vital Signs Temp 97.1 F L 09/10/22 14:30 Pulse 102 H 09/10/22 18:00 Resp 22 H 09/10/22 18:00 BP 138/84 09/10/22 18:00 Pulse Ox 88 L 09/10/22 18:00 O2 Del Method 09/10/22 15:35 O2 Flow Rate 8 09/10/22 15:35 FiO2 70 09/09/22 22:00 09/10/22 09/10/22 09/10/22 06:59 14:59 22:59 Intake Total 600 / 600 360 / 960 Output Total 700 / 1550 Balance -700 / 165 600 / 600 360 / 960 Weight last 48 hrs Weight 63.957 kg Weight 63.957 kg Weight 63.957 kg Physical Exam Narrative: Up in chair Const: COMMON NORMALS: patient oriented x3 and alert GENERAL APPEARANCE: cooperative ORIENTATION/CONSCIOUSNESS: Yes awake HENMT: COMMON NORMALS: oropharynx normal Neck/C-Spine: COMMON NORMALS: no JVD Resp: AUSCULTATION: wheezes lower bilaterally and other (Coarse breath sounds at bases) OTHER: 12 L nasal cannula Cardio: COMMON NORMALS: no JVD, regular rhythm, S1 normal heart sound present, S2 normal heart sound present and No murmurs present (Cardio) RHYTHM: regular rhythm HEART SOUNDS: S1 normal heart sound present and S2 normal heart sound present GI: COMMON NORMALS: Normal to inspection, nondistended, normoactive bowel sounds present, Soft to palpation and non-tender PALPATION: Yes Soft to palpation Extremity: COMMON NORMALS: no joint enlargement and no pedal edema OTHER: Some ecchymoses/abrasions along forearms. Neuro: COMMON NORMALS: patient oriented x3 and moves all extremities SENSORIUM/ORIENTATION: Yes alert Skin: OTHER: tattoos Data 09/10/22 02:27 09/10/22 02:27 Micro: Microbiology 09/08/22 20:43 Gram Stain - Final Sputum - Expectorated Sputum Sputum Culture - Final 09/08/22 18:29 Blood Culture - Preliminary Blood NEGATIVE TO DATE 09/08/22 18:29 Blood Culture - Preliminary Blood NEGATIVE TO DATE 09/08/22 21:49 MRSA Culture - Final Nose A&P Assessment and plan (1) Paroxysmal atrial fibrillation with RVR: Heart rates have improved, currently in sinus, but intermittently still tachycardia, also frequent PVCs. Discussed with blood pressure soft, as per discussion of options we will continue with digoxin for now, which possibly could be changed if her blood pressure rises. Discussing risk of CVA as well, she wants to start anticoagulation as she is very afraid of stroke. Discussed with her options, settled on Eliquis. Additionally noted hypokalemia, replacement given. Magnesium level low at 2. Monitor on telemetry. Troponin EKG series not suggestive of AR. D-dimer 0.55. Low likelihood for PE. Once heart rate improves obtain echo. (2) Acute respiratory failure with hypoxia: With improvement. Producing phlegm. Uses flutter valve. Continue empiric antibiotic coverage, continue IV steroid. Continue oxygen support, wean down as tolerated. Continue breathing treatments. Sputum culture reviewed, final result with normal stephan. As above, D-dimer appreciated. Low likelihood of PE. Today she is bringing up some phlegm. Discussed with her and encouraged again use of flutter valve. She states is starting to use it. Continue empiric antibiotic coverage. COVID PCR negative. Rapid influenza negative. Urine bacterial antigens as well as Legionella antigen studies negative. Previously MRSA PCR negative. Continue Levaquin. Severe respiratory failure secondary to pneumonia and COPD exacerbation. Pain treatments with DuoNebs scheduled and as needed. Budesonide. Mucinex. Flutter valve. (3) Pneumonia: As above (4) COPD exacerbation: Severe exacerbation of COPD present on admission with dyspnea, hypoxia, cough productive of purulent sputum as above Wheezing improving but still coarse breath sounds some wheezing. Continue steroid unchanged for now. Plan Reports history of PE: This was while she was on hormone therapy. Has not been on it since. Discussed with her D-dimer. Requested. Value is 0.55. Low likelihood of PE. DM2: ACHS glucose monitoring, anticipate glucose may increase with steroid therapy. Sliding scale insulin. Maryana vulvovaginitis, ports frequent infection. Much worse every time she gets antibiotics. Empiric treatment. Requested Diflucan. Smoking addiction: Replacement as needed. GERD: Stable LB Anxiety and depression Number of additional medical problems Attestations Medical Necessity Statement*: Continue admission for management of respiratory failure with pneumonia, severe COPD exacerbation. Diagnoses Paroxysmal atrial fibrillation with RVR I48.0 Acute respiratory failure with hypoxia J96.01 Pneumonia J18.9 COPD exacerbation J44.1
[2022-09-10 20:39] LABS: Glucose Point of Care 234 mg/dL (70-110)
[2022-09-10] MEDS: ropinirole 0.25 mg Tablet PO (20:41)
[2022-09-10] MEDS: pantoprazole 40 mg SDV IVP (20:41)
[2022-09-10] MEDS: fluconazole premix 100 MG in empty flexible container 1 EACH 50 MG IV (20:48)
[2022-09-11] VITALS (49 sets, daily range): BP systolic 89–133; BP diastolic 43–85; PULSE 65–126; RESP 13–31; TEMP 36.2–37.2; O2SAT 86–98; BMI 23.6
[2022-09-11] MEDS: BuSPIRONE 10 mg Tablet 20 MG PO (01:44)
[2022-09-11 02:51] LABS: Basophils % 0.2 %; Hemoglobin 15.7 g/dL (11.5-15.3); Lymphocytes # 0.8 10^3/uL (0.8-4.8); Lymphocytes % 4.5 %; Mean Corpuscular Hemoglobin 31.9 pg (28.0-34.0); Mean Corpuscular Volume 99.6 fl (81-99); Mean Platelet Volume 10.4 fL (7.4-10.4); Monocytes # 0.6 10^3/uL (0.2-0.9); Monocytes % 3.2 %; Neutrophils # 16.01 10^3/uL (1.8-7.7); Neutrophils % 90.6 %; Nucleated Red Blood Cells % 0 %; Platelet Count 254 10^3/cmm (130-400); Red Blood Count 4.92 10^6/uL (4.1-5.3); Red Cell Distribution Width 13.5 % (12.1-15.1); White Blood Count 17.7 10^3/uL (4.0-10.0)
[2022-09-11] MEDS: ipratropium-albuterol 3 mL Neb INHALATION ×6 (03:49→23:27)
[2022-09-11 06:05] LABS: Blood Urea Nitrogen 13 mg/dL (6-20); Calcium 9.2 mg/dL (8.5-10.5); Carbon Dioxide 27 mmol/L (22-29); Chloride 102 mmol/L (98-107); Glomerular Filtration Rate 108.1 mL/min (90-130); Glucose 209 mg/dL (65-115); Osmolality Calculated 300 mOsm/kg (285-295); Sodium 142 mmol/L (136-145)
[2022-09-11 06:18] LABS: Anion Gap 17.3 (5-19); Potassium 4.3 mmol/L (3.5-5.1)
[2022-09-11 07:19] LABS: Glucose Point of Care 162 mg/dL (70-110)
[2022-09-11] MEDS: budesonide 0.5 mg/2 mL Neb INHALATION ×2 (07:33→19:56)
[2022-09-11] MEDS: pantoprazole DR 40 mg Tablet PO (08:27)
[2022-09-11] MEDS: polyethylene glycol 3350 Pkt 17 gm PO ×2 (08:27→17:00)
[2022-09-11] MEDS: gabapentin 300 mg Capsule 600 MG PO ×3 (08:27→20:16)
[2022-09-11] MEDS: guaiFENesin 600 mg Tablet 1200 MG PO ×2 (08:28→17:01)
[2022-09-11] MEDS: apixaban 5 mg Tablet PO ×2 (08:28→20:16)
[2022-09-11] MEDS: insulin lispro 100 unit/1 mL SUBCUT ×4 (08:28→20:15)
[2022-09-11] MEDS: digoxin 250 mcg Tablet PO (08:28)
[2022-09-11] MEDS: nicotine 21 mg Patch 1 PATCH TRANSDERMA (08:28)
[2022-09-11] MEDS: tizanidine 4 mg Tablet 2 MG PO ×2 (10:24→20:16)
--- NOTE | 2022-09-11 11:16 | PC.SOCIAL ---
IMM UPDATED IMM dated and initialed and copy given to patient and placed in chart.
[2022-09-11 11:42] LABS: Glucose Point of Care 259 mg/dL (70-110)
[2022-09-11 16:47] LABS: Glucose Point of Care 224 mg/dL (70-110)
[2022-09-11] MEDS: levofloxacin-dextrose 5 % 750 MG/150 ML PREMIX 100 MG IV (17:01)
[2022-09-11 20:14] LABS: Glucose Point of Care 186 mg/dL (70-110)
[2022-09-11] MEDS: ropinirole 0.25 mg Tablet PO (20:16)
[2022-09-11] MEDS: fluconazole premix 100 MG in empty flexible container 1 EACH 50 MG IV (21:24)
--- NOTE | 2022-09-11 21:26 | PM.PN ---
Subjective Subjective: Your symptoms are gradually improving. Still having extra beats. Vitals/I&O/Wt Last Vital Signs Temp 97.2 F L 09/11/22 07:00 Pulse 109 H 09/11/22 20:04 Resp 22 H 09/11/22 19:57 BP 132/85 09/11/22 18:00 Pulse Ox 90 09/11/22 19:57 O2 Del Method 09/11/22 19:57 O2 Flow Rate 4 09/11/22 19:57 FiO2 70 09/09/22 22:00 09/11/22 09/11/22 09/11/22 06:59 14:59 22:59 Intake Total 600 / 600 360 / 960 Output Total 2019 Balance -2019860.833 600 / 600 360 / 960 Weight last 48 hrs Weight 64.229 kg Weight 63.957 kg Physical Exam Narrative: Up in chair Const: COMMON NORMALS: patient oriented x3 and alert GENERAL APPEARANCE: cooperative ORIENTATION/CONSCIOUSNESS: Yes awake HENMT: COMMON NORMALS: oropharynx normal Neck/C-Spine: COMMON NORMALS: no JVD Resp: AUSCULTATION: wheezes lower bilaterally and other (Coarse breath sounds at bases) OTHER: 6 L nasal cannula Cardio: COMMON NORMALS: no JVD, regular rhythm, S1 normal heart sound present, S2 normal heart sound present and No murmurs present (Cardio) RHYTHM: regular rhythm HEART SOUNDS: S1 normal heart sound present and S2 normal heart sound present GI: COMMON NORMALS: Normal to inspection, nondistended, normoactive bowel sounds present, Soft to palpation and non-tender PALPATION: Yes Soft to palpation Extremity: COMMON NORMALS: no joint enlargement and no pedal edema OTHER: Some ecchymoses/abrasions along forearms. Neuro: COMMON NORMALS: patient oriented x3 and moves all extremities SENSORIUM/ORIENTATION: Yes alert Skin: OTHER: tattoos Data 09/11/22 02:03 09/11/22 04:37 Micro: Microbiology 09/08/22 20:43 Gram Stain - Final Sputum - Expectorated Sputum Sputum Culture - Final A&P Assessment and plan (1) Paroxysmal atrial fibrillation with RVR: With some improvement. Blood pressure is improved. Add metoprolol. Continue digoxin. Continue Eliquis. Noted CBC, hemoglobin 15.7. Follow-up CBC. Requesting follow-up chemistry, magnesium. Additionally noted hypokalemia, replacement given. Magnesium level low at 2. Monitor on telemetry. Troponin EKG series not suggestive of PA. D-dimer 0.55. Low likelihood for PE. Once heart rate improves obtain echo. (2) Acute respiratory failure with hypoxia: With improvement. Producing phlegm. Uses flutter valve. Continue empiric antibiotic coverage, continue IV steroid. Continue oxygen support, wean down as tolerated. Continue breathing treatments. Sputum culture reviewed, final result with normal stephan. As above, D-dimer appreciated. Low likelihood of PE. Today she is bringing up some phlegm. Discussed with her and encouraged again use of flutter valve. She states is starting to use it. Continue empiric antibiotic coverage. COVID PCR negative. Rapid influenza negative. Urine bacterial antigens as well as Legionella antigen studies negative. Previously MRSA PCR negative. Continue Levaquin. Severe respiratory failure secondary to pneumonia and COPD exacerbation. Pain treatments with DuoNebs scheduled and as needed. Budesonide. Mucinex. Flutter valve. (3) Pneumonia: As above (4) COPD exacerbation: Severe exacerbation of COPD present on admission with dyspnea, hypoxia, cough productive of purulent sputum as above Wheezing improving but still coarse breath sounds some wheezing. Continue steroid unchanged for now. Plan Reports history of PE: This was while she was on hormone therapy. Has not been on it since. Discussed with her D-dimer. Requested. Value is 0.55. Low likelihood of PE. DM2: ACHS glucose monitoring, anticipate glucose may increase with steroid therapy. Sliding scale insulin. Maryana vulvovaginitis, ports frequent infection. Much worse every time she gets antibiotics. Empiric treatment. Requested Diflucan. Smoking addiction: Replacement as needed. GERD: Stable LB Anxiety and depression Number of additional medical problems Attestations Medical Necessity Statement*: Continue admission for assessment management of respiratory failure, treatment of COPD exacerbation, optimization of control of A-fib with RVR. Diagnoses Paroxysmal atrial fibrillation with RVR I48.0 Acute respiratory failure with hypoxia J96.01 Pneumonia J18.9 COPD exacerbation J44.1
[2022-09-12] VITALS (13 sets, daily range): BP systolic 119–133; BP diastolic 63–90; PULSE 64–111; RESP 19–24; TEMP 36.6–36.9; O2SAT 86–94
[2022-09-12] MEDS: ipratropium-albuterol 3 mL Neb INHALATION ×3 (03:15→11:33)
[2022-09-12 05:50] LABS: Basophils # 0.1 10^3/uL (0.0-0.1); Basophils % 0.4 %; Hematocrit 49.1 % (37.0-47.0); Hemoglobin 15.6 g/dL (11.5-15.3); Lymphocytes # 0.8 10^3/uL (0.8-4.8); Lymphocytes % 6.6 %; Mean Corpuscular HGB Conc 31.8 g/dL (30.0-36.0); Mean Corpuscular Hemoglobin 31.5 pg (28.0-34.0); Mean Platelet Volume 9.9 fL (7.4-10.4); Monocytes # 0.4 10^3/uL (0.2-0.9); Monocytes % 3.6 %; Neutrophils # 10.56 10^3/uL (1.8-7.7); Neutrophils % 86.6 %; Nucleated Red Blood Cells % 0 %; Platelet Count 239 10^3/cmm (130-400); Red Blood Count 4.96 10^6/uL (4.1-5.3); Red Cell Distribution Width 13.5 % (12.1-15.1); White Blood Count 12.2 10^3/uL (4.0-10.0)
[2022-09-12 06:06] LABS: Blood Urea Nitrogen 14 mg/dL (6-20); Calcium 9.1 mg/dL (8.5-10.5); Carbon Dioxide 31 mmol/L (22-29); Chloride 94 mmol/L (98-107); Glomerular Filtration Rate 90.5 mL/min (90-130); Glucose 206 mg/dL (65-115); Magnesium 1.6 mg/dL (1.7-2.3); Osmolality Calculated 284 mOsm/kg (285-295); Sodium 134 mmol/L (136-145)
[2022-09-12 06:07] LABS: Anion Gap 13.5 (5-19)
[2022-09-12 06:08] LABS: Potassium 4.5 mmol/L (3.5-5.1)
[2022-09-12 06:22] LABS: Slide Review Slide Review Perform
[2022-09-12] MEDS: budesonide 0.5 mg/2 mL Neb INHALATION (07:44)
[2022-09-12] MEDS: insulin lispro 100 unit/1 mL SUBCUT (07:58)
[2022-09-12] MEDS: magnesium sulfate premix 2 GM/50 ML PIGGYBACK IV (07:59)
[2022-09-12] MEDS: guaiFENesin 600 mg Tablet 1200 MG PO (08:35)
[2022-09-12] MEDS: gabapentin 300 mg Capsule 600 MG PO (08:35)
[2022-09-12] MEDS: digoxin 250 mcg Tablet PO (08:36)
[2022-09-12] MEDS: nicotine 21 mg Patch 1 PATCH TRANSDERMA (08:36)
[2022-09-12] MEDS: pantoprazole DR 40 mg Tablet PO (08:36)
[2022-09-12] MEDS: apixaban 5 mg Tablet PO (08:38)
[2022-09-12] MEDS: metoprolol tartrate 25 mg Tablet 12.5 MG PO (08:38)
[2022-09-12] MEDS: BuSPIRONE 10 mg Tablet 20 MG PO (08:42)
[2022-09-12] MEDS: fentaNYL 25 mcg Patch 1 PATCH TRANSDERMA (10:14)
--- NOTE | 2022-09-12 10:32 | PM.DCS ---
Discharge Providers Date of Admission: 09/08/22 21:20 Date of Discharge: September 12, 2022 Attending Provider at Admission: Humphrey Casanova Attending Provider at Discharge: Humphrey Casanova Primary Care Provider: PREETHI Lopes Diagnoses at Discharge Discharge Diagnosis (1) Paroxysmal atrial fibrillation with RVR: Status: Acute (2) Acute respiratory failure with hypoxia: Status: Acute (3) Pneumonia: Status: Acute (4) COPD exacerbation: Status: Acute Reason for Visit Reason for Visit: DIFF BREATHING Brief History: 47-year-old with history of COPD, chronic alcohol use oxygen at home, has been feeling unwell starting about 4 days ago, has been using her inhaler more.? Has been coughing up yellow phlegm.? Has been getting progressively more dyspneic.? Today PCPs office noted oxygen saturation in the 70s despite being on her usual oxygen.? In ER initially requiring nonrebreather 15 L. Hospital Course Hospital Course She was admitted and treated for pneumonia and COPD exacerbation, on chest x-ray noted. Bronchial thickening suggestive of infectious or inflammatory bronchitis. Streaky opacity at the periphery of the lung base which may reflect atelectasis, and early infiltrate is not excluded. There may be a small volume left pleural effusion given blunting of costophrenic angle. COVID-19 and influenza PCR were negative. She was treated with Levaquin, IV steroid with Solu-Medrol, breathing treatments, expectoration aids. Sputum culture was collected, with few normal stephan on day 2. MRSA PCR was negative. Urine bacterial antigen panel and Legionella antigen negative. Her condition was slowly improving. Oxygenation gradually improving, weaning down to about 8 L of oxygen. Hospitalization complicated by new atrial fibrillation with RVR, heart rates in the 150s, blood pressure soft at that time, responded to digoxin, started on oral digoxin, subsequently metoprolol added with improvement in blood pressures. She is concerned about risk of CVA and Eliquis is started. She prefers to follow-up in office for reassessment with cardiology, consideration of cardioversion once she is recovering from acute respiratory failure. An echocardiogram is requested to be obtained after discharge due to new atrial fibrillation, please follow-up. Suspect new A-fib most likely related to her lung disease with acute respiratory failure serving as a trigger. She is feeling significantly better. Oxygenation improving she is down to 6 L nasal cannula, at home usually on 2-4 L. She feels well enough to return home. She is asked to follow-up with pulmonology. Received magnesium replacement in the hospital, please follow-up level. Physical Exam Narrative: Up in bed Const: COMMON NORMALS: patient oriented x3 and alert GENERAL APPEARANCE: cooperative ORIENTATION/CONSCIOUSNESS: Yes awake HENMT: COMMON NORMALS: oropharynx normal Neck/C-Spine: COMMON NORMALS: no JVD Resp: COMMON NORMALS: clear to auscultation bilaterally EFFORT & INSPECTION: Yes able to speak in complete sentences AUSCULTATION: clear to auscultation bilaterally and no wheezes OTHER: 6 L nasal cannula Cardio: COMMON NORMALS: no JVD, regular rhythm, S1 normal heart sound present, S2 normal heart sound present and No murmurs present (Cardio) RHYTHM: regular rhythm HEART SOUNDS: S1 normal heart sound present and S2 normal heart sound present GI: COMMON NORMALS: Normal to inspection, nondistended, normoactive bowel sounds present, Soft to palpation and non-tender PALPATION: Yes Soft to palpation Extremity: COMMON NORMALS: no joint enlargement and no pedal edema OTHER: Some ecchymoses/abrasions along forearms. Neuro: COMMON NORMALS: patient oriented x3 and moves all extremities SENSORIUM/ORIENTATION: Yes alert Skin: OTHER: tattoos Discharge Data Studies Completed and Pending Completed Studies During Hospitalization Category Date Time Status XR chest 1V portable [id number] Stat Exams 09/08/22 16:07 Completed Pending at discharge Category Date Time Status Blood Culture Stat Lab 09/08/22 18:29 Results Complete Blood Count w/Auto AM LABS Lab 09/13/22 04:00 Ordered Complete Blood Count w/Auto AM LABS Lab 09/14/22 04:00 Ordered Radiology Impressions Chest X-Ray 09/08/22 16:07 IMPRESSION: 1. Peribronchial thickening suggestive of an infectious or inflammatory bronchitis. 2. Streaky opacity at the periphery of the left lung base which may reflect atelectasis, an early infiltrate is not excluded. There may be a small volume left pleural effusion given blunting of the costophrenic angle. Laboratory Results WBC 12.2 10^3/uL (4.0-10.0) H 09/12/22 05:45 Corrected WBC Cancelled 09/12/22 04:30 RBC 4.96 10^6/uL (4.1-5.3) 09/12/22 05:45 Hgb 15.6 g/dL (11.5-15.3) H 09/12/22 05:45 Hct 49.1 % (37.0-47.0) H 09/12/22 05:45 MCV 99.0 fl (81-99) 09/12/22 05:45 MCH 31.5 pg (28.0-34.0) 09/12/22 05:45 MCHC 31.8 g/dL (30.0-36.0) 09/12/22 05:45 RDW 13.5 % (12.1-15.1) 09/12/22 05:45 Plt Count 239 10^3/cmm (130-400) 09/12/22 05:45 MPV 9.9 fL (7.4-10.4) 09/12/22 05:45 Gran % Cancelled 09/12/22 04:30 Neut % (Auto) 86.6 % 09/12/22 05:45 Lymph % (Auto) 6.6 % 09/12/22 05:45 [place] % (Auto) 3.6 % 09/12/22 05:45 Eos % (Auto) 0.0 % 09/12/22 05:45 Baso % (Auto) 0.4 % 09/12/22 05:45 Neut # (Auto) 10.56 10^3/uL (1.8-7.7) H 09/12/22 05:45 Lymph # (Auto) 0.8 10^3/uL (0.8-4.8) 09/12/22 05:45 [place] # (Auto) 0.4 10^3/uL (0.2-0.9) 09/12/22 05:45 Eos # (Auto) 0.0 10^3/uL (0.0-0.8) 09/12/22 05:45 Baso # (Auto) 0.1 10^3/uL (0.0-0.1) 09/12/22 05:45 Absolute Gran (auto) Cancelled 09/12/22 04:30 Nucleated RBC % (auto) 0 % 09/12/22 05:45 Nucleated RBCs # 0.0 /100WBC 09/12/22 05:45 D-Dimer 0.55 ug/mIFEU (0-0.59) 09/09/22 12:19 Specimen Type Arterial 09/08/22 16:13 Sample Site Radial, right 09/08/22 16:13 ABG pH 7.41 (7.35-7.45) 09/08/22 16:13 ABG pCO2 50.7 mmHg (35-45) H 09/08/22 16:13 ABG pO2 65.7 mmHg (80.0-100.0) L 09/08/22 16:13 ABG HCO3 32.2 mmol/L (22-26) H 09/08/22 16:13 ABG O2 Saturation 94.0 09/08/22 16:13 ABG Base Excess 6.0 mmol/L (-2.0-2.0) H 09/08/22 16:13 Lb Test Pos 09/08/22 16:13 A-a O2 Gradient 2.6 mmHg (5-10) L 09/08/22 16:13 Hematocrit 50.3 % (37-47) H 09/08/22 16:13 Hgb O2 Saturation 90.2 % (95-100) L 09/08/22 16:13 Carboxyhemoglobin 3.3 %THgb (0.4-20.1) 09/08/22 16:13 Methemoglobin 0.7 % (0.4-1.5) 09/08/22 16:13 Total Hemoglobin 16.4 g/dL (12-16) H 09/08/22 16:13 Sodium 136.0 mmol/L (131-143) 09/08/22 16:13 Potassium 3.5 mmol/L (3.5-5.0) 09/08/22 16:13 Glucose 115.0 mg/dL (70-115) 09/08/22 16:13 Ionized Calcium 1.2 mmol/L (1.1-1.4) 09/08/22 16:13 O2 Delivery Device Nrb 09/08/22 16:13 O2 Liters/Min 15.0 % 09/08/22 16:13 Correspondence Section Supervisor ID [place] 09/08/22 16:13 Sodium 134 mmol/L (136-145) L 09/12/22 05:45 Potassium 4.5 mmol/L (3.5-5.1) 09/12/22 05:45 Chloride 94 mmol/L (98-107) L 09/12/22 05:45 Carbon Dioxide 31 mmol/L (22-29) H 09/12/22 05:45 Anion Gap 13.5 (5-19) 09/12/22 05:45 BUN 14 mg/dL (6-20) 09/12/22 05:45 Creatinine 0.7 mg/dL (0.5-0.9) 09/12/22 05:45 GFR Calculation 90.5 mL/min (90-130) 09/12/22 05:45 Glucose 206 mg/dL (65-115) H 09/12/22 05:45 POC Glucose 186 mg/dL (70-110) H 09/11/22 20:05 Calculated Osmolality 284 mOsm/kg (285-295) L 09/12/22 05:45 Calcium 9.1 mg/dL (8.5-10.5) 09/12/22 05:45 Magnesium 1.6 mg/dL (1.7-2.3) L 09/12/22 05:45 Total Bilirubin 0.5 mg/dL (0.15-1.2) 09/08/22 16:50 AST 9 U/L (0-32) 09/08/22 16:50 ALT 7 U/L (0-33) 09/08/22 16:50 Alkaline Phosphatase 75 U/L (35-105) 09/08/22 16:50 Troponin T Baseline 6 ng/L (0-10) 09/09/22 16:43 Troponin T 120 Minute 9.47 ng/L (0-10) 09/09/22 19:40 Delta Troponin T 3.47 ABS# (0-10) 09/09/22 19:40 Troponin T Hi Sens 6Hr 14.48 ng/L (0-10) H 09/09/22 22:49 Troponin T Hi Sens 6Hr Delta 8.48 ng/L (0-12) 09/09/22 22:49 Total Protein 6.8 g/dL (6.6-8.7) 09/08/22 16:50 Albumin 3.4 g/dL (3.5-5.2) L 09/08/22 16:50 Globulin 3.4 g/dL (1.3-4.6) 09/08/22 16:50 Urine Color Yellow (Yellow) 09/08/22 20:43 Urine Appearance Clear (CLEAR) 09/08/22 20:43 Urine pH 5 (5-7) 09/08/22 20:43 Ur Specific [place] 1.010 (1.005-1.030) 09/08/22 20:43 Urine Protein Neg (Negative) 09/08/22 20:43 Urine Glucose (UA) 4+ (Normal) H 09/08/22 20:43 Urine Ketones 1+ (Negative) H 09/08/22 20:43 Urine Blood Neg (Negative) 09/08/22 20:43 Urine Nitrate Negative (Negative) 09/08/22 20:43 Urine Bilirubin Neg (Negative) 09/08/22 20:43 Urine Urobilinogen Norm mg/dL (Negative) 09/08/22 20:43 Ur Leukocyte Esterase 1+ (Negative) H 09/08/22 20:43 Urine RBC 0-4 /hpf (0-2) H 09/08/22 20:43 Urine WBC 10-15 /hpf (0-5) H 09/08/22 20:43 Ur Squamous Epith Cells 5-10 /hpf (0-5) H 09/08/22 20:43 Amorphous Sediment Not Reportable 09/08/22 20:43 Urine Bacteria 1+ /hpf (NONE) H 09/08/22 20:43 Nasal Influ A H1 2009 PCR Not detected (NOT DETECT) 09/08/22 17:46 Coronavirus 229E (PCR) Not detected (NOT DETECT) 09/08/22 17:46 Influenza A (H1) PCR Not detected (NOT DETECT) 09/08/22 17:46 Influenza A (H3) PCR Not detected (NOT DETECT) 09/08/22 17:46 Influenza Type A Ag Cancelled 09/08/22 17:46 Influenza Type A (PCR) Not detected (NOT DETECT) 09/08/22 17:46 Influenza Type B Ag Cancelled 09/08/22 17:46 Influenza Type B (PCR) Not detected (NOT DETECT) 09/08/22 17:46 SARS-CoV-2 (PCR) Not detected (NOT DETECT) 09/08/22 17:46 Vitals Last Vital Signs Temp 98 F 09/12/22 08:00 Pulse 86 09/12/22 08:36 Resp 19 H 09/12/22 08:00 BP 133/90 09/12/22 08:00 Pulse Ox 86 L 09/12/22 09:48 O2 Del Method 09/12/22 07:44 O2 Flow Rate 6 09/12/22 09:48 FiO2 70 09/09/22 22:00 Discharge Plan Discharge Patient Disposition: Home Condition: Stable Prescriptions: New Eliquis 5 mg Tablet 5 mg PO BID@0900,2100 Qty: 180 0RF polyethylene glycol 3350 17 gram Powder In Packet 17 g PO BID Qty: 60 0RF metoprolol tartrate 25 mg Tablet 25 mg PO BID@0900,2100 Qty: 180 0RF nicotine 21 mg/24 hr Patch 24 Hour 1 patch transdermal DAILY Qty: 28 0RF nicotine (polacrilex) 4 mg Lozenge 4 mg mucous membrane Q2H PRN (Reason: Nicotine Cravings) Qty: 90 0RF levofloxacin 750 mg tablet 750 mg PO DAILY 4 Days Qty: 4 0RF prednisone 10 mg tablet 10 mg PO DAILY Qty: 20 0RF Rx Instructions: 3 tab daily for 3 days, then 2 tab for 3 days, then 1 tab for 3 days, then 1/2 tab for 4 days. guaifenesin 400 mg tablet 400 mg PO TID Qty: 21 0RF Lanoxin 125 mcg (0.125 mg) tablet 125 mcg PO DAILY Qty: 30 0RF Continued (DME) Diabetic shoes with inserts See Rx Instructions .Route .MEDSUPPLY Qty: 1 0RF Rx Instructions: As directed Excedrin Migraine 250-250-65 mg tablet 1 - 2 tab PO DAILY PRN (Reason: pain) 30 Days Qty: 60 2RF albuterol sulfate 2.5 mg /3 mL (0.083 %) solution for nebulization 2.5 mg inhalation Q4H PRN (Reason: shortness of breath or wheezing) 30 Days Qty: 540 2RF Farxiga 5 mg tablet 5 mg PO QAM Qty: 30 2RF albuterol sulfate [ProAir HFA] 90 mcg/actuation HFA aerosol inhaler 2 puff INHALATION Q4H PRN (Reason: Shortness Of Breath) 30 Days Qty: 2 2RF ropinirole 0.25 mg tablet 0.25 mg PO BEDTIME 30 Days Qty: 30 5RF gabapentin 600 mg tablet 600 mg PO QID 30 Days Qty: 120 2RF Mucinex 1,200 mg tablet extended release 12hr 1,200 mg PO BID 30 Days Qty: 60 2RF pantoprazole 40 mg tablet,delayed release (DR/EC) 40 mg PO DAILY 30 Days Qty: 30 2RF tizanidine 2 mg tablet 2 mg PO TID PRN (Reason: muscle spasticity) Qty: 90 2RF buspirone 15 mg tablet 15 mg PO BID PRN (Reason: anxiety) 30 Days Qty: 60 2RF Trelegy Ellipta 200-62.5-25 mcg blister with device 1 inh inhalation DAILY Qty: 28 2RF promethazine 25 mg tablet 25 mg PO Q12H PRN (Reason: nausea and vomiting) Qty: 20 0RF prenat.vits,ronnell,pop-dytd-pifmx Tablet 1 tab PO DAILY 30 Days Qty: 30 5RF fentanyl 25 mcg/hr Patch 72 Hour 25 mcg transdermal Q3D cyanocobalamin (vitamin B-12) 2,500 mcg tablet, sublingual 2,500 mcg sublingual DAILY ergocalciferol (vitamin D2) 1,250 mcg (50,000 unit) capsule 1,250 mcg PO Q7D Rx Instructions: On Wednesday nystatin 100,000 unit/mL suspension 500,000 unit PO TID 7 Days Qty: 200 0RF Discharge Orders: Discharge Order (Routine); Ordered 09/12/22 Ordered By: Humphrey Casanova Other Ambulatory Orders: CV. echo complete* [id number] (Routine) Timeframe: 1 Week Facility: [facility] - Location: Radiology Ordered By: Humphrey Casanova DME: Oxygen (Order) Location: None Selected Ordered By: Humphrey Casanova Referrals: Fracisco Medeiros MD [Physician] - 4-7 days Andre Singer M.D [Physician] - 1 week (AFib, cons of cardioversion) Heide Dhillon FNP-C [Primary Care Provider] - 4-7 days Discharge Diet: Regular Discharge Activity: Oxygen as instructed Patient Instructions: COPD, Metoprolol (By mouth), Digoxin (By mouth), Prednisone (By mouth), Levofloxacin (By mouth), Apixaban (By mouth), How to Stop Smoking (GEN), Bacterial Pneumonia (GEN) Activity Restrictions/Additional Instructions: Monitor pulse rate and blood pressure 3 times a day, write down values to bring to her appointment with your primary provider and heart doctor. Follow-up with lung specialist in office. Continue flutter valve along with antibiotic and prednisone taper, guaifenesin. Continue oxygen, target saturation 90%, decrease oxygen flow gradually if your saturation is staying in the high 90s. You are likely to need more oxygen with exertion. Please stop smoking, continue smoking will lead to worsening of lung disease, as well as complications that include heart attack, stroke and cancer. Add magnesium as your magnesium level was low in the hospital. Have your primary doctor follow-up magnesium in office. Discharge Attestations Time Spent in Discharge Care*: greater than 30 min Status at Discharge: Cognitive status at discharge: cognitively intact, Behavioral status at discharge: cooperative, Quality Metrics Clinical Quality Measures [ No reported AMI, CVA or VTE this stay] Coding Level of Care Code Acute Code for [facility] Fwd Diagnoses Paroxysmal atrial fibrillation with RVR I48.0 Acute respiratory failure with hypoxia J96.01 Pneumonia J18.9 COPD exacerbation J44.1
--- NOTE | 2022-09-12 13:57 | PC.NURSE ---
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
== END 2022-09-12 12:15 | disposition home or self-care (01) | DRG 193 ==
LOC: ER 17:22 → ICU 21:21
PROVIDERS: Admitting Provider Internal Medicine; Emergency Provider Family Medicine; PCP Nurse Practitioner Family; Visit Provider Internal Medicine
DX: J18.9 Pneumonia, unspecified organism (principal); J96.21 Acute and chronic respiratory failure with hypoxia; J44.0 Chronic obstructive pulmonary disease with (acute) lower respiratory infection; J44.1 Chronic obstructive pulmonary disease with (acute) exacerbation; J96.12 Chronic respiratory failure with hypercapnia; F10.20 Alcohol dependence, uncomplicated; Z99.81 Dependence on supplemental oxygen; I48.0 Paroxysmal atrial fibrillation; E11.9 Type 2 diabetes mellitus without complications; Z79.51 Long term (current) use of inhaled steroids; F41.9 Anxiety disorder, unspecified; F32.A Depression, unspecified; K59.09 Other constipation; K59.03 Drug induced constipation; T40.2X5A Adverse effect of other opioids, initial encounter; K21.9 Gastro-esophageal reflux disease without esophagitis; M21.372 Foot drop, left foot; G47.33 Obstructive sleep apnea (adult) (pediatric); E87.6 Hypokalemia; Z86.711 Personal history of pulmonary embolism; F17.210 Nicotine dependence, cigarettes, uncomplicated; Z98.1 Arthrodesis status
CPT/HCPCS: 36415; 36416; 36600; 71045; 80048; 80051; 80053; 81001; 82330; 82805; 82962; 83735; 84484; 85025; 85378; 86403; 87040; 87070; 87205; 87449; 87631; 87635; 87641; 93005; 94640; 94664; 94760; 96365; 96372; 96375; 99285; C9113; J1160; J1450; J1650; J1815; J1940; J1956; J2930; J3475; J3490; J7030; J7626

== ENCOUNTER → 2022-09-17 10:56 | Outpatient (BNVA) | payer MEDICARE, MEDICAID, SELFPAY | PROVIDERS: PCP Nurse Practitioner Family; Visit Provider Nurse Practitioner Family | DX: E83.42 Hypomagnesemia (principal); E87.6 Hypokalemia; E53.8 Deficiency of other specified B group vitamins; J44.1 Chronic obstructive pulmonary disease with (acute) exacerbation; I48.0 Paroxysmal atrial fibrillation | CPT/HCPCS: 80053; 83735 ==